=== PATIENT | female | born 1965 | race Caucasian/White ===

== ENCOUNTER 2018-04-26 09:51 | Outpatient (REF) | payer BC, SELFPAY ==
[2018-04-26 19:46] LABS: HCT 39.9 % (36.0-46.0); HGB 13.2 g/dL (12.0-15.5); Mean Corp. HGB Concentration 33.1 g/dL (32.0-36.0); Mean Corpuscular Hemoglobin 29.9 pg (27.0-33.0); Mean Corpuscular Volume 90.3 fL (80-95); Mean Platelet Volume 11.9 fL (8.0-11.0); Platelet Count 110 x1000/uL (130-400); RBC 4.42 m/cumm (4.00-5.20); RBC Distribution Width 12.9 % (11.7-14.6); White Blood Cell Count 3.05 k/cumm (4.4-10.8)
[2018-04-26 19:51] LABS: Anion Gap 5.7 mmol/L (3-11); BUN 13 mg/dL (7-18); CO2 29.3 mmol/L (21.0-32.0); CREATININE 0.68 mg/dL (0.55-1.02); Calcium 8.9 mg/dL (8.5-10.1); Chloride 101 mmol/L (98-107); Glucose 90 mg/dL (70-100); Sodium 136 mmol/L (136-145)
== END 2018-04-26 09:52 ==
LOC: NCHCN 09:51
PROVIDERS: PCP Internal Medicine; Visit Provider Physician Assistant Medical
DX: N39.0 Urinary tract infection, site not specified (principal)
CPT/HCPCS: 80048; 85027; 87086

== ENCOUNTER 2019-07-06 10:56 | Outpatient (REF) | payer BC, SELFPAY ==
[2019-07-06 19:34] LABS: ALT 38 U/L (14-59); AST 27 U/L (15-37); Albumin 4.4 g/dL (3.4-5.0); Alkaline Phosphatase 67 U/L (46-116); Anion Gap 7.9 mmol/L (3-11); BUN 20 mg/dL (7-18); Bilirubin, Total 0.5 mg/dL (0.2-1.0); CO2 30.1 mmol/L (21.0-32.0); CREATININE 0.72 mg/dL (0.55-1.02); Calcium 9.6 mg/dL (8.5-10.1); Chloride 102 mmol/L (98-107); Glucose 96 mg/dL (70-100); Potassium 4.1 mmol/L (3.5-5.1); Sodium 140 mmol/L (136-145); Total Protein 7.7 g/dL (6.4-8.2)
[2019-07-06 19:46] LABS: LDL CHOLESTEROL 51 mg/dL (<100); Vitamin D 25 Total 57.4 ng/ml (30-100)
== END 2019-07-06 11:16 ==
LOC: NCHCN 10:56
PROVIDERS: PCP Internal Medicine; Visit Provider Internal Medicine
DX: Z00.00 Encounter for general adult medical examination without abnormal findings (principal); R73.09 Other abnormal glucose; Z98.84 Bariatric surgery status
CPT/HCPCS: 80053; 82306; 83721; 84443

== ENCOUNTER 2020-06-06 14:49 | Outpatient (REF) | payer BC, SELFPAY ==
[2020-06-06 18:51] LABS: HCT 40.6 % (36.0-46.0); HGB 13.5 g/dL (11.2-15.7); MCH 29.9 pg (27.0-33.0); MCHC 33.3 % (32.0-36.0); MPV 11.4 fL (8.0-11.0); Platelet Count 202 10^3/uL (130-400); RBC 4.51 10^6/uL (3.93-5.22); RDW 12.5 % (11.7-14.6); RDW-SD 41.1 fL
[2020-06-06 19:35] LABS: Vitamin D 25 Total 42.8 ng/ml (30-100)
[2020-06-06 19:41] LABS: ALT 37 U/L (14-59); AST 27 U/L (15-37); Albumin 4.2 g/dL (3.4-5.0); Alkaline Phosphatase 66 U/L (46-116); Anion Gap 6.6 mmol/L (3-11); BUN 16 mg/dL (7-18); Bilirubin, Total 0.7 mg/dL (0.2-1.0); CO2 30.4 mmol/L (21.0-32.0); CREATININE 0.62 mg/dL (0.55-1.02); Calcium 9.5 mg/dL (8.5-10.1); Chloride 103 mmol/L (98-107); Ferritin 47 ng/mL (8-252); Glucose 87 mg/dL (74-106); Potassium 4.3 mmol/L (3.5-5.1); Sodium 140 mmol/L (136-145); Total Protein 7.3 g/dL (6.4-8.2)
[2020-06-06 20:05] LABS: Vitamin B12 > 2000 pg/mL (193-986)
== END 2020-06-06 15:09 ==
LOC: NCHCN 14:49
PROVIDERS: PCP Internal Medicine; Visit Provider Internal Medicine
DX: Z00.00 Encounter for general adult medical examination without abnormal findings (principal); I10 Essential (primary) hypertension; K76.0 Fatty (change of) liver, not elsewhere classified; Z98.84 Bariatric surgery status
CPT/HCPCS: 80053; 82306; 85027; 82607; 82728

== ENCOUNTER 2021-08-21 19:11 | Outpatient (REF) | payer BC, SELFPAY ==
[2021-08-21 19:18] LABS: Abs Immature Grans 0.01 10^3/uL (0.0-0.06); Absolute Basophil Count 0.04 10^3/uL (0.0-0.2); Absolute Eosinophil Count 0.09 10^3/uL (0.0-0.7); Absolute Lymphocyte Count 1.71 10^3/uL (1.2-3.4); Absolute Monocyte Count 0.35 10^3/uL (0.1-0.8); Absolute Neutrophil Count 2.39 10^3/uL (1.2-6.7); Basophils % 0.9; HCT 40.9 % (36.0-46.0); HGB 13.3 g/dL (11.2-15.7); Immature Grans % 0.2; Lymphocytes % 37.3; MCH 28.8 pg (27.0-33.0); MCHC 32.5 % (32.0-36.0); MCV 88.5 fL (80-95); MPV 11.1 fL (8.0-11.0); Monocytes % 7.6; Nucleated RBC 0 %; Platelet Count 218 10^3/uL (130-400); RBC 4.62 10^6/uL (3.93-5.22); RDW 12.7 % (11.7-14.6); RDW-SD 41.1 fL; WBC 4.59 10^3/uL (4.4-10.8)
[2021-08-21 19:32] LABS: Iron 90 ug/dL (50-170); Total Iron Binding Capacity 386 ug/dL (250-450); Transferrin Sat 23 % (15-50)
[2021-08-21 19:46] LABS: ALT 35 U/L (14-59); AST 27 U/L (15-37); Albumin 4.1 g/dL (3.4-5.0); Alkaline Phosphatase 69 U/L (46-116); Anion Gap 7.3 mmol/L (3-11); BUN 17 mg/dL (7-18); Bilirubin, Total 0.5 mg/dL (0.2-1.0); CO2 29.7 mmol/L (21.0-32.0); CREATININE 0.7 mg/dL (0.55-1.02); Calcium 9.4 mg/dL (8.5-10.1); Chloride 105 mmol/L (98-107); Glucose 94 mg/dL (74-106); Potassium 5.1 mmol/L (3.5-5.1); Sodium 142 mmol/L (136-145); TSH 0.66 uIU/mL (0.36-3.74); Total Protein 7.1 g/dL (6.4-8.2)
[2021-08-21 20:53] LABS: Vitamin B12 > 2000 pg/mL (193-986)
== END 2021-08-21 19:12 | disposition home or self-care (01) ==
LOC: LBN 19:11
PROVIDERS: PCP Internal Medicine; Visit Provider Internal Medicine
DX: I10 Essential (primary) hypertension (principal); R73.03 Prediabetes; Z98.84 Bariatric surgery status
CPT/HCPCS: 80053; 82607; 83540; 83550; 84443; 85025

== ENCOUNTER 2022-08-13 14:45 | Outpatient (REF) | payer BC, SELFPAY ==
[2022-08-13 19:30] LABS: HCT 42.8 % (36.0-46.0); HGB 14.1 g/dL (11.2-15.7); MCHC 32.9 % (32.0-36.0); MCV 88 fL (80-95); MPV 10.4 fL (8.0-11.0); Platelet Count 236 10^3/uL (130-400); RBC 4.87 10^6/uL (3.93-5.22); RDW 12.8 % (11.7-14.6); RDW-SD 41.2 fL; WBC 5.69 10^3/uL (4.4-10.8)
[2022-08-13 20:01] LABS: Vitamin D 25 Total 43.3 ng/mL (30-100)
[2022-08-13 20:05] LABS: ALT 50 U/L (14-59); AST 35 U/L (15-37); Albumin 4.3 g/dL (3.4-5.0); Alkaline Phosphatase 83 U/L (46-116); Anion Gap 10.3 mmol/L (3-11); BUN 17 mg/dL (7-18); Bilirubin, Total 0.5 mg/dL (0.2-1.0); CO2 28.7 mmol/L (21.0-32.0); CREATININE 0.7 mg/dL (0.55-1.02); Chloride 101 mmol/L (98-107); Estimated GFR 101.44 (mL/min/1.73m2); Glucose 107 mg/dL (74-106); Potassium 4.2 mmol/L (3.5-5.1); Sodium 140 mmol/L (136-145); TSH 0.67 uIU/mL (0.36-3.74); Total Protein 8.2 g/dL (6.4-8.2)
[2022-08-13 20:11] LABS: Vitamin B12 > 2000 pg/mL (193-986)
== END 2022-08-13 14:46 | disposition home or self-care (01) ==
LOC: NCHCN 14:45
PROVIDERS: PCP Internal Medicine; Visit Provider Internal Medicine
DX: I10 Essential (primary) hypertension (principal); R73.03 Prediabetes; J01.00 Acute maxillary sinusitis, unspecified; Z98.84 Bariatric surgery status
CPT/HCPCS: 80053; 82306; 85027; 82607; 84443

== ENCOUNTER 2023-09-29 16:00 | Outpatient (REF) | payer BC, SELFPAY ==
[2023-09-29 20:36] LABS: HCT 42.2 % (36.0-46.0); HGB 14.6 g/dL (11.2-15.7); MCHC 34.6 % (32.0-36.0); MCV 87 fL (80-95); MPV 10.8 fL (8.0-11.0); Platelet Count 177 10^3/uL (130-400); RBC 4.86 10^6/uL (3.93-5.22); RDW 13.1 % (11.7-14.6); RDW-SD 41.1 fL; WBC 5.92 10^3/uL (4.4-10.8)
[2023-09-29 20:56] LABS: ALT 39 U/L (14-59); AST 27 U/L (15-37); Albumin 4.2 g/dL (3.4-5.0); Alkaline Phosphatase 75 U/L (46-116); Anion Gap 8.7 mmol/L (3-11); BUN 16 mg/dL (7-18); Bilirubin, Total 0.5 mg/dL (0.2-1.0); CO2 29.3 mmol/L (21.0-32.0); CREATININE 0.7 mg/dL (0.55-1.02); Chloride 104 mmol/L (98-107); Estimated GFR 100.81 (mL/min/1.73m2); Glucose 104 mg/dL (74-106); Potassium 3.9 mmol/L (3.5-5.1); Sodium 142 mmol/L (136-145); TSH 0.92 uIU/mL (0.36-3.74); Total Protein 7.7 g/dL (6.4-8.2)
[2023-09-29 20:59] LABS: Hemoglobin A1C 5.9 % (<5.7)
== END 2023-09-29 16:01 | disposition home or self-care (01) ==
LOC: NCHCN 16:00
PROVIDERS: PCP Internal Medicine; Visit Provider Internal Medicine
DX: I10 Essential (primary) hypertension (principal); E11.9 Type 2 diabetes mellitus without complications; Z98.84 Bariatric surgery status
CPT/HCPCS: 80053; 85027; 83036; 84443

== ENCOUNTER 2024-03-27 13:50 | Outpatient (REF) | payer BC, SELFPAY ==
--- OUTSIDE RECORDS SUMMARY | 2024-03-27 14:09 | XMS_ITS | Encounter Summary ---
Author Organization [facility] [place] [address] Care Team Providers Care Rn Home Health Name Role Phone Lew Beltran Primary Care Provider [phone] Encounter Details Date Type Department Care Team (Late st Contact Info) Description 03/21/2018 External Results Gastroenterology at [facility] [place] [address] Jovan Schwartz PA [facility] [place] [address] Social History Tobacco Use Types Packs/Day Years Used Date Smoking Tobacco: Never Smokeless Tobacco: Never Alcohol Use Standard Drinks/Week Comments No 0 (1 standard drink = 0.6 oz pur e alcohol) Sex and Gender Information Value Date Recorded Sex Assigned at Not on file Gender Identity Not on file Sexual Orientation Not on file documented as of this encounter Plan of Treatment Not on file documented as of this encounter Procedures Procedure Name Priority Date/Time Associated Diagnosis Comments EXTERNAL LAB CBC CMP THYROID RESULTS PANEL Routine 03/17/2018 documented in this encounter Results * CBC / CMP / Thyroid External Results (03/17/2018) Total Protein 7.8 Albumin 4.7 Total Bilirubin 0.6 Bili, Direct 0.2 Alk Phos 60 AST 38 ALT 31 GGT 18 Historical Provider MD POINT OF CARE JUVENTINO T ORDERABLES documented in this encounter Visit Diagnoses Not on filedocumented in this encounter Care Teams Rn Home Health Relationship Specialty Start Date End Date Lew Beltran PA [address] [place] [id number] PCP - General General Internal Medicine 04/21/16 documented as of this encounter
--- OUTSIDE RECORDS SUMMARY | 2024-03-27 14:09 | XMS_ITS | Continuity of Care Document ---
Author Organization [facility] Address [address] [place] [address] Care Team Providers Care Medical Donation Professional Name Role Phone Sukhwinder Farooq Primary Care Physician Encounter [id number] Date(s): 03/08/23 - 03/08/[address] [address] Discharge Disposition: Home or Self Care Attending Physician: Sukhwinder Farooq MD Admitting Physician: Sukhwinder Farooq MD Referring Physician: Sukhwinder Farooq MD Allergies, Adverse Reactions, Alerts No Known Medication Allergies Assessment and Plan Future Appointments Immunizations Given and Recorded Vaccine Date Status Refusal Reason influenza virus vaccine, live 06/23/21 Recorded influenza virus vaccine, live 07/18/20 Recorded influenza virus vaccine, live 06/23/19 Recorded influenza virus vaccine, live 07/18/18 Recorded influenza virus vaccine, live 07/19/17 Recorded influenza virus vaccine, live 07/14/16 Recorded SARS-CoV-2 (COVID-19) Ad26 vaccine 12/13/20 Record ed SARS-CoV-2 (COVID-19) mRNA-[id number] vaccine 09/03/20 R ecorded influenza virus vaccine, inactivated 06/26/15 Efrain rded influenza virus vaccine, inactivated 08/09/13 Efrain rded influenza virus vaccine, inactivated 06/06/12 Efrain rded influenza virus vaccine, inactivated 06/19/11 Efrain rded influenza virus vaccine, inactivated 05/22/11 Efrain rded influenza virus vaccine, inactivated 06/06/10 Efrain rded influenza virus vaccine, inactivated 06/25/09 Efrain rded influenza virus vaccine, inactivated 09/06/00 Efrain rded tetanus-diphth toxoids (Td) adult/adol 09/06/00 Re corded measles/mumps/rubella virus vaccine 09/06/00 Recor ded hepatitis B adult vaccine 09/06/00 Recorded tetanus/diphth/pertuss (Tdap) adult/adol 09/06/00 Recorded varicella virus vaccine 09/06/00 Recorded rubella virus vaccine 09/06/00 Recorded Medications aspirin 81 mg oral capsule 0 Refill(s) Start Date: 02/11/23 Status: Ordered atorvastatin 20 mg oral tablet 90 EA, TAKE ONE TABLET BY MOUTH EVERY EVENING, 0 Refill(s) Start Date: 01/07/23 Status: Ordered [place] Calcium with Vitamin D 0 Refill(s) Start Date: 02/11/23 Status: Ordered Fish Oil 500 mg oral capsule 0 Refill(s) Start Date: 02/11/23 Status: Ordered fluocinonide 0.1% topical cream Topical, Daily, 0 Refill(s) Start Date: 02/12/23 Status: Ordered lisinopril 20 mg oral tablet 20 mg = 1 tab, Oral, Daily, # 30 tab, 0 Refill(s) Start Date: 01/07/23 Status: Ordered metoprolol tartrate 50 mg oral tablet 0 Refill(s) Start Date: 01/07/23 Status: Ordered Multiple Vitamins oral capsule 0 Refill(s) Start Date: 02/11/23 Status: Ordered triamcinolone 0.1% topical cream 1 janeth, Topical, BID, 0 Refill(s) Start Date: 02/12/23 Status: Ordered Vitamin B12 0 Refill(s) Start Date: 02/11/23 Status: Ordered Vitamin C 500 mg oral tablet 1,000 mg =, Oral, Daily, 0 Refill(s) Start Date: 02/12/23 Status: Ordered Vitamin D3 0 Refill(s) Start Date: 02/11/23 Status: Ordered Problem List Condition Confirmation Course Effective Dates Status H ealth Status Informant Chest discomfort 1 Confirmed 09/09/19 Active Chronic constipation Confirmed 05/24/16 Active de Quervain's disease of right wrist Confirmed Active Essential hypertension Confirmed 04/23/16 Active Excess panniculus of abdomen Confirmed 02/21/18 Active Fatty liver Confirmed Active History of calculus of kidney 2 Confirmed 09/05/18 Active History of rectal bleeding 3 Confirmed 04/23/16 Active Hyperlipidemia Confirmed 05/24/16 Active Lump of left wrist Confirmed Active Obesity Confirmed Active Palpitations Confirmed Active Prediabetes Confirmed Active 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 CT showed mild hydronephrosis 3Outside Source Comment: Overview: Colonoscopy done on 08/09/15 normal, attributed to constipation Procedures Procedure Date Related Diagnosis Body Site Status R 1st Dorsal compartment rel ease, DeQuervain's. 12/01/21 Completed Due 01/2025 1 01/10/20 Completed Gastric bypass 2 08/12/16 Complete d Trigger finger of right hand 11/27/15 Completed Carpal tunnel decompression 01/16/15 Completed Oophorectomy 08/17/11 Completed Tubal Reanastamosis Right 1996 Completed delivery 1990 Complet ed Tubal ligation 1990 Completed delivery 1985 Complet ed Eye surgery 1968 Completed 1Pap Due - 01/2025 06/06/09 - WNL/Neg; 09/28/14 - Neg/Neg; 01[facility]11/20 [facility] [place] Social History Type Response Tobacco Never tobacco user T obacco Use:. Sex Female Patient Care team information Care Team Personnel Name: Sukhwinder Farooq MD Position: No Access Member Role: Informed Provider Address: Address: [address] [address]- [place] Care Team Related Persons Name: HUE BELLA Address: Home
--- OUTSIDE RECORDS SUMMARY | 2024-03-27 14:09 | XMS_ITS | Data Portability ---
Author Organization [facility] Address [address] [place] [address] Care Team Providers Care Restrooms Or Lounges Maid Name Role Phone ELENA KILLIAN Primary Care Provider Assessment No assessment recorded. Plan of Treatment Reminders Order Date Submit Date Provider Last Modified By Organization Details Last Modified Time Details Appointments Follow Up 2023 10:00A Enrico KILLIAN Not available Not available Not available Follow Up 30 2023 11:00A Enrico KILLIAN Not available Not available Not available Lab HbA1c (hemoglob in A1c), blood [address] [facility] (Registration ), [address] [place] [address] [place], [address], 10/06/2023 07:11:47 TSH, serum or plasma [address] [facility] (Registration ), [address] [place] [address] [place], [address], 10/06/2023 07:11:47 CMP, serum or plasma 2023 024 [facility] (Registration ), [address] [place] [address] [place], [address], 09/29/2023 21:00:30 CBC 2023 024 [facility] (Registration ), [address] [place] [address] Dr [facility] [place], [address], 09/29/2023 20:40:26 Referral hand surgeon referral - Dr Jacques - pt developed pain and visible edema adjacent to L CMC about a month after synovial cyst excision . Evaluate and manage as indicated . 2023 024 [facility], [address] [place] [address] , [address], [place], [address], 10/20/2023 09:27:26 Procedures None recorded. Surgeries None recorded. Imaging None recorded. Medication Orders doxycycli ne hyclate 100 mg capsule 2022 023 [employer] [address], [address] [facility], [place], [address], 09/29/2023 13:58:38 atorvasta tin 20 mg tablet 2023 024 [email or web address] [address], [address] [facility], [place], [address], 09/29/2023 15:10:42 lisinopri l 20 mg tablet 2023 024 [email or web address] [address], [address] [facility], [place], [address], 09/29/2023 15:10:42 Bactrim DS 800 mg-160 mg tablet 2023 024 [employer] [address], [address] [facility], [place], [address], 03/27/2024 09:52:16 Bactrim DS 800 mg-160 mg tablet 2023 024 [email or web address] [employer] [address], [address] [place], [address], 03/27/2024 09:52:10 Patient TargetsNo targets recorded. Patient InstructionsNo instructions recorded. Reason for Referral Hand Surgeon Referral for Os teoarthrosis of the carpometacarpal joint of the thumb Dr Jacques - pt developed pain and visible edema adjacent to L CMC about a month after synovial cyst excision . Evaluate and manage as indicated. Referring Physician: Elena Killian, Internal Medicine, Encounter Date: 09/29/2023 Results Created Date Observation Date Name Description Value Unit Range Abnormal Flag LastModifiedBy Organization Detail LastModifiedTime 09/29/19 24 09/29/2023 COMPL ETE BLOOD COUNT NO DIFF WBC 5.92 10_3/ uL 4.4-10 .8 normal Not Available [address] [place], [address] 09/29/2023 20:40:26 09/29/19 24 09/29/2023 COMPL ETE BLOOD COUNT NO DIFF RBC 4.86 10_6/ uL 3.93-5 .22 normal Not Available [address] [place], [address] 09/29/2023 20:40:26 09/29/19 24 09/29/2023 COMPL ETE BLOOD COUNT NO DIFF HGB 14.6 g/dL 11.2-1 5.7 normal Not Available [address] [place], [address] 09/29/2023 20:40:26 09/29/19 24 09/29/2023 COMPL ETE BLOOD COUNT NO DIFF HCT 42.2 % 36.0-4 6.0 normal Not Available [address] [place], [address] 09/29/2023 20:40:26 09/29/19 24 09/29/2023 COMPL ETE BLOOD COUNT NO DIFF MCV 87 fL 80-95 normal Not Available Gerald burr [address] [place], [address] 09/29/2023 20:40:26 09/29/19 24 09/29/2023 COMPL ETE BLOOD COUNT NO DIFF MCH 30.0 pg 27.0-3 3.0 normal Not Available [address] [place], [address] 09/29/2023 20:40:26 09/29/19 24 09/29/2023 COMPL ETE BLOOD COUNT NO DIFF MCHC 34.6 % 32.0-3 6.0 normal Not Available [address] [place], [address] 09/29/2023 20:40:26 09/29/19 24 09/29/2023 COMPL ETE BLOOD COUNT NO DIFF RDW 13.1 % 11.7-1 4.6 normal Not Available [address] [place], [address] 09/29/2023 20:40:26 09/29/19 24 09/29/2023 COMPL ETE BLOOD COUNT NO DIFF platelet count 177 10_3/ uL 130-40 0 normal Not Available [address] [place], [address] 09/29/2023 20:40:26 09/29/19 24 09/29/2023 COMPL ETE BLOOD COUNT NO DIFF MPV 10.8 fL 8.0-11 .0 normal Not Available [address] [place], [address] 09/29/2023 20:40:26 09/29/19 24 09/29/2023 COMPR EHENS IBETH METAB OLIC PANEL calcium 10.0 mg/dL 8.5-10 .1 normal Not Available [address] [place], [address] 09/29/2023 21:00:30 09/29/19 24 09/29/2023 COMPR EHENS IBETH METAB OLIC PANEL glucose 104 mg/dL 74-106 normal Not Available [address] [place], [address] 09/29/2023 21:00:30 09/29/19 24 09/29/2023 COMPR EHENS IBETH METAB OLIC PANEL BUN 16 mg/dL 7-18 normal Not Available [address] [place], [address] 09/29/2023 21:00:30 09/29/19 24 09/29/2023 COMPR EHENS IBETH METAB OLIC PANEL creatinine 0.7 mg/dL 0.55-1 .02 normal Not Available [address] [place], [address] 09/29/2023 21:00:30 09/29/19 24 09/29/2023 COMPR EHENS IBETH METAB OLIC PANEL estimated GFR 100.81 mL/min /1.73m 2 Not Available [address] [place], [address] 09/29/2023 21:00:30 09/29/19 24 09/29/2023 COMPR EHENS IBETH METAB OLIC PANEL total protein 7.7 g/dL 6.4-8. 2 normal Not Available [address] [place], [address] 09/29/2023 21:00:30 09/29/19 24 09/29/2023 COMPR EHENS IBETH METAB OLIC PANEL albumin 4.2 g/dL 3.4-5. 0 normal Not Available [address] [place], [address] 09/29/2023 21:00:30 09/29/19 24 09/29/2023 COMPR EHENS IBETH METAB OLIC PANEL bilirubin, total 0.5 mg/dL 0.2-1. 0 normal Not Available [address] [place], [address] 09/29/2023 21:00:30 09/29/19 24 09/29/2023 COMPR EHENS IBETH METAB OLIC PANEL alk phos 75 U/L 46-116 normal Not Available [address] [place], [address] 09/29/2023 21:00:30 09/29/19 24 09/29/2023 COMPR EHENS IBETH METAB OLIC PANEL sodium 142 mmol/ L 136-14 5 normal Not Available [address] [place], [address] 09/29/2023 21:00:30 09/29/19 24 09/29/2023 COMPR EHENS IBETH METAB OLIC PANEL potassium 3.9 mmol/ L 3.5-5. 1 normal Not Available [address] [place], [address] 09/29/2023 21:00:30 09/29/19 24 09/29/2023 COMPR EHENS IBETH METAB OLIC PANEL chloride 104 mmol/ L 98-107 normal Not Available [address] [place], [address] 09/29/2023 21:00:30 09/29/19 24 09/29/2023 COMPR EHENS IBETH METAB OLIC PANEL CO2 29.3 mmol/ L 21.0-3 2.0 normal Not Available [address] [place], [address] 09/29/2023 21:00:30 09/29/19 24 09/29/2023 COMPR EHENS IBETH METAB OLIC PANEL anion gap 8.7 mmol/ L 3-11 normal Not Available [address] [place], [address] 09/29/2023 21:00:30 09/29/19 24 09/29/2023 COMPR EHENS IBETH METAB OLIC PANEL AST 27 U/L 15-37 normal Not Available [address] [place], [address] 09/29/2023 21:00:30 09/29/19 24 09/29/2023 COMPR EHENS IBETH METAB OLIC PANEL ALT 39 U/L 14-59 normal Not Available [address], [address] 09/29/2023 21:00:30 09/29/19 24 09/29/2023 TSH TSH 0.92 uIU/m L 0.36-3 .74 normal Not Available [address] [place], [address] 09/29/2023 21:00:30 09/29/19 24 09/29/2023 HEMOG LOBIN A1C hemoglobin A1C 5.9 % <5.7 high Not Available [address] [place], [address] 09/29/2023 21:04:31 03/27/20 24 03/27/2024 hemog lobin A1C, finge rstic k hemoglobin A1C 6.2 % <5.7 Not Available [facility] [address] [address], [place], [address], 03/27/2024 08:43:09 10/18/19 24 10/18/2023 MR wrist lt wo contr ast EXAM: MRI OF LEFT WRIST RIS EXAM DATE/T ADAM: 2023 08:26 INDICA TION: Radial side pain. Previo us gangli on excisi on PROCED URE: 2.6 mm T1 and fat suppre ssed T2 3-plan e imagin g perfor med. 2 mm fat suppre ssed T1 gradie nt echo bolton l imagin g perfor med. FINDIN GS: Compar jose a made with preope rative MRI of 02 Feb 2023. Previo us radial side gangli on is no longer presen t. Howeve r, there is a smalle r, appare nt recurr ent lobula r gangli on along the volar aspect of the radios caphoi d joint, seen best on axial and sagitt al imagin g. This measur es up to approx imatel y 1.2 cm in longit udinal extent . There is now thicke kellen of the extens or pollic is brevis and abduct or pollic is longus tendon s with eviden ce of tendon edema in both. There is mild tenosy noviti s. There is perite ndinou s soft tissue edema noted. The appear ance is consis tent with de Querva in's tenosy noviti s. Scapho lunate and lunato trique tral ligame nts intact . TFCC intact . No fluid noted in distal radiou lnar joint, radioc arpal, or midcar pal joints . There is increa sing edema in the ulnar styloi d since prior study. There is mild soft tissue edema at this level. Extens or carpi ulnari s tendon is intact howeve r. There is again noted to be osteoa rthrit ic change in the first carpom etacar pal joint with increa sing bone marrow edema in the distal aspect of the trapez ium and the proxim al aspect of the first metaca rpal. There is again noted to be thicke kellen of the ulnar side capsul e of the first carpom etacar pal joint with surrou nding soft tissue edema and mild fluid. Flexor tendon s, median nerve, and flexor retina culum intact . Extens or tendon s intact . Multip le bone island s noted in the carpus as previo usly. IMPRES DAVID: Status post excisi on of previo us radial side gangli on. There is a small recurr ent gangli on which appear s to emanat e from the radios caphoi d joint. There is eviden ce of de Querva in's tenosy noviti s. Increa sing bone marrow edema in first carpom etacar pal joint with contin ued presen ce of ulnar side capsul ar thicke kellen and soft tissue edema and fluid. Increa sing bone marrow edema in ulnar styloi d. THIS IS AN ELECTR ONICAL LY VERIFI ED REPORT 024 11:43 AM: HALEY WRIGHT M.D. [address] , [place], [address], 10/18/2023 12:29:22 10/18/19 24 10/18/2023 MRI, wrist , w/o contr ast No observ ation record ed. [address] [facility] [address] , [place], [address], 10/18/2023 12:29:03 11/25/19 24 11/25/2023 mg mammo pearl scree kellen bilat -M2 HISTOR Y: Rich clinton is 58 years old and is being seen for screen ing. The patien t has no person al histor y of cancer . The patien t has no family histor y of breast cancer . FILMS COMPAR ED: The presen t examin ation has been compar ed to prior imagin g studie s perfor med at [facility] on 2021 and 2022. MAMMOG CHRISTOPHER FINDIN GS: The follow ing mammog raphic views were obtain ed: bilate ral cranio caudal , bilate ral cranio caudal with tomosy nthesi s, bilate ral mediol ateral obliqu e, bilate ral mediol ateral obliqu e with tomosy nthesi s. The breast s are almost entire ly fat. No suspic ious masses , calcif icatio ns or other abnorm alitie s are seen. IMPRES DAVID: There is no mammog raphic eviden ce of malign alan. Routin e follow -up mammog christopher in 1 year is recomm ended. BI-RAD S CATEGO RY: 1 Negati ve This examin ation underw ent CAD evalua tion utiliz ing R2 Versio n 2.4.0. 12. Report Signed by: HALEY WRIGHT M.D. on 2023 16:49: [address], [place], [address], 11/25/2023 18:25:21 02/28/20 24 02/28/2024 XR, humer us EXAM: LEFT HUMERU S RIS EXAM DATE/T ADAM: 2023 14:23 INDICA TION: Lump No acute bone, joint, or soft tissue abnorm ality identi fied radiog raphic ally. THIS IS AN ELECTR ONICAL LY VERIFI ED REPORT 024 4:17 PM: HALEY WRIGHT M.D. [address], [place], [address], 02/28/2024 17:43:59 03/04/20 24 03/01/2024 MR upper ext lt w/wo con nonjt EXAM: MRI OF LEFT ARM WITHOU T AND WITH CONTRA ST RIS EXAM DATE/T ADAM: 2023 13:31 INDICA TION: Mass distal humeru s/osvaldo ps area PROCED URE: 3 mm T1 and fat suppre ssed T2 3-plan e imagin g perfor med. Patien t then receiv ed 17 ml of intrav enous Dotare m and postco ntrast fat suppre ssed three plane T1 images obtain ed. FINDIN GS: Compar jose a made with plain films of 28 February 2024. Area of mass is marked . Tyrese xiong with the mass is an ellipt ical, hyperi ntense T1, hypoin tense fat suppre ssed T2 mass within the biceps muscle belly. This has a longit udinal extent of 6.7 cm and measur es 2.6x1. 4 cm in transv erse plane. There is a thin layer of biceps muscle along the periph andrés of the mass. There is no enhanc ement of the mass. Adjace nt subcut aneous fat appear s unrema rkable . No other muscle signal intens ity abnorm alitie s are seen. Visual ized biceps and tricep s tendon s intact . Bone marrow signal intens ities show no abnorm alitie s. IMPRES DAVID: Mass in biceps muscle belly is most consis tent with lipoma . Clinic al follow -up recomm ended. THIS IS AN ELECTR ONICAL LY VERIFI ED REPORT 024 1:49 PM: HALEY WRIGHT M.D. [email or web address] [facility] [address] [facility] , [place], [address], 03/05/2024 07:23:21 Result Notes None recorded. Problems Name Status Onset Date Resolution Date Notes Provider Name and Address Organization Details Recorded Time Essential hypertension Active 200402/08/2023 - Comments only - Elena Killian MD - Good control labs up-to-date Problem Code: I10; Problem Code Type: ICD-10; Not Available [facility] 3 05:12:27 Nervous system and sense organ diseases Active 2014 Not Available [facility] 3 05:12:27 Chronic sinusitis Completed 201404/29/2015 Problem Code: J32.9; Problem Code Type: ICD-10; Not Available [facility] 3 05:12:28 Acute pharyngitis Completed 201404/29/2015 Problem Code: J02.9; Problem Code Type: ICD-10; Not Available [facility] 3 05:12:28 Eating disorder Active 2014 Problem Code: F50.9; Problem Code Type: ICD-10; Not Available [facility] 3 05:12:28 History of disorder of digestive system Active 2014 Problem Code: Z87.19; Problem Code Type: ICD-10; Not Available [facility] 3 05:12:28 Chest pain Active 201501/04/2020 - Comments only - Elena Killian MD - Clearly not cardiac she has excellent risk factor modification Problem Code: R07.89; Problem Code Type: ICD-10; Not Available [facility] 3 05:12:28 History of bariatric surgical procedure Active 201506/06/2020 - Comments only - Elena Killian MD - Needs some vitamin monitoring as well as DEXA because of this. 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 Up-to-date. Should consider the shingles shot sometime in the next few years. Problem Code: Z00.00; Problem Code Type: ICD-10; Not Available [facility] 3 05:12:28 Urolithiasis Active 201706/30/2018 - Comments only - Elena Killian MD - No recurrence and she is still pushing fluids, either water or Crystal light. Problem Code: N20.9; Problem Code Type: ICD-10; Not Available [facility] 3 05:12:28 Urinary tract infectious disease Completed 201704/27/2018 04/26/2018 - Comments only - Jose Armando Rojas PA-C - Urine dip positive for leukocytes and blood. Pending microbe. Given recent chills also check CBC. Treat with antibiotics. Follow-up with urology for possible urogram and/or cystoscopy. Problem Code: N39.0; Problem Code Type: ICD-10; Not Available [facility] 3 05:12:29 Steatosis of liver Active 201701/04/2020 - Comments only - Elena Killian MD - Recheck LFTs in the fall as well. This is been much improved since her bariatric surgery. Problem Code: K76.0; Problem Code Type: ICD-10; Not Available [facility] 3 05:12:29 Urinary tract infectious disease Completed 201912/20/2019 12/13/2019 - Comments only - Clarissa MARK - - Rx for bactrim BID for 5 days - pt declined pyridium script for now - push plenty of fluids - call with any questions or concerns Problem Code: N39.0; Problem Code Type: ICD-10; Not Available [facility] 3 05:12:29 Acquired absence of ovary Active 2019 Problem Code: Z90.721; Problem Code Type: ICD-10; Not Available [facility] 3 05:12:29 Gynecologic examination Active 2019 Problem Code: Z01.419; Problem Code Type: ICD-10; Not Available [facility] 3 05:12:29 [place] - lesion Active 201906/06/2020 - Comments only - Elena Killian MD - Too small for any excision today. Reviewed how to keep weight off this and recommended a ped egg. Problem Code: L84; Problem Code Type: ICD-10; Not Available [facility] 3 05:12:30 Bone density finding Completed 201906/20/2020 Problem Code: M85.80; Problem Code Type: ICD-10; Not Available [facility] 3 05:12:30 Enthesopathy Completed 201909/09/2020 07/10/2020 - Comments only - Elena Killian MD - I think this is most likely take her veins tendinitis. She has a little more swelling and tenderness around the joint than usual, suggesting the possibility of acute arthritis like pseudogout. However overall her exam and history suggests an overuse issue. I put her into a simple splint to prevent abduction and extension. If she goes through the plaster cast in just a few days time I can meet her the hospital to do fiberglass. Considered in a short course of steroids possible pseudogout, however with her history of diabetes Radha and I were reluctant to go there. I think she can use Motrin for just a few days (does not use long-term due to her bariatric surgery). Problem Code: M77.9; Problem Code Type: ICD-10; Not Available [facility] 3 05:12:30 Palpitations Active 202002/20/2021 - Comments only - Elena Killian MD - Is a very rare on her low-dose beta-brown. She has good exercise tolerance and never gets this while she is exercising. Problem Code: R00.2; Problem Code Type: ICD-10; Not Available [facility] 3 05:12:30 At risk - finding Active 202009/11/2020 - Comments only - Elena Killian MD - Who got the Fuller vaccine on 1229 the left deltoid. She had typical achiness the first day or 2, then no symptoms until 2 days ago. Since then she has developed Problem Code: Z91.89; Problem Code Type: ICD-10; Not Available [facility] 3 05:12:30 Obesity Active 202008/21/2021 - Comments only - Elena Killian MD - Discussed ways to reduce the snacking. Problem Code: E66.9; Problem Code Type: ICD-10; Not Available [facility] 3 05:12:30 Radial styloid tenosynovitis Active 2020 Problem Code: M65.4; Problem Code Type: ICD-10; Not Available [facility] 3 05:12:30 Postmenopausa l bleeding Active 202008/21/2021 - Comments only - Elena Killian MD - If this recurs she will likely need endometrial sampling biopsy. Problem Code: N95.0; Problem Code Type: ICD-10; Not Available [facility] 3 05:12:31 Transient cerebral ischemia Active 202108/13/2022 - Comments only - Elena Killian MD - She had an episode of syncope with minor speech effects. I had recommended carotid ultrasound which for some reason did not get done. I am reordering that now. She has not had any recurrence of symptoms and over 6 months. Problem Code: G45.9; Problem Code Type: ICD-10; Not Available [facility] 3 05:12:31 Acute maxillary sinusitis Completed 202109/10/2022 08/13/2022 - Comments only - Elena Killian MD - Most likely viral, I do not recommend antibiotics unless this persists beyond a couple of weeks. Recommended a [place] pot. Problem Code: J01.00; Problem Code Type: ICD-10; Not Available [facility] 3 05:12:31 Abdominal pain Completed 202201/26/2023 Problem Code: R10.9; Problem Code Type: ICD-10; Not Available [facility] 3 05:12:31 Enthesopathy of lower limb Active 2022 Problem Code: M76.9; Problem Code Type: ICD-10; Not Available [facility] 3 05:12:31 Phlebitis of superficial veins of lower extremity Active 202203/08/2023 - Comments only - Elena Killian MD - There is really nothing to see now but I cannot come up with a better explanation than possible phlebitis. Because there was the risk of travel I am getting check ultrasound. She will increase her aspirin until we have results. She does not otherwise have a priori high DVT risk. Problem Code: I80.00; Problem Code Type: ICD-10; Not Available [facility] 3 05:12:31 Upper respiratory tract infection caused by Influenza virus Completed 202202/08/2023 Problem Code: J11.1; Problem Code Type: ICD-10; Not Available [facility] 3 05:12:42 Carpal tunnel syndrome of right wrist Completed 201406/02/2023 Problem Code: G56.01; Problem Code Type: ICD-10; Not Available [facility] 3 05:12:43 Dysuria Completed 202102/08/2023 Problem Code: R30.0; Problem Code Type: ICD-10; Not Available [facility] 3 05:12:47 Disorder of sacrum Completed 201506/24/2017 Not Available [facility] 3 05:12:48 Pain of left knee joint Completed 201406/24/2017 Problem Code: M25.562; Problem Code Type: ICD-10; Not Available [facility] 3 05:12:49 Type 2 diabetes mellitus without complication Completed 201406/24/2017 Problem Code: E11.9; Problem Code Type: ICD-10; MD [address], [place], [address] , [facility]. 4 10:33:43 Impaired glucose tolerance Completed 200406/02/2023 Not Available [facility] 3 05:12:50 Erythema nodosum Completed 200312/22/2016 Problem Code: 695.2; Problem Code Type: ICD-9; Not Available [facility] 3 05:12:51 Tachycardia Completed 200812/22/2016 Problem Code: 785.0; Problem Code Type: ICD-9; Not Available [facility] 3 05:12:52 Cough Completed 201406/24/2017 Problem Code: R05; Problem Code Type: ICD-10; Not Available [facility] 3 05:12:53 Hemorrhage of rectum and anus Completed 201406/02/2023 Problem Code: K62.5; Problem Code Type: ICD-10; Not Available [facility] 3 05:12:53 Type 2 diabetes mellitus Completed 201412/22/2016 Not Available [facility] 3 05:12:54 Hypertensive disorder Completed 200406/02/2023 Not Available [facility] 3 05:12:54 Traumatic or non-traumatic injury Completed 201506/24/2017 Problem Code: T14.8; Problem Code Type: ICD-10; Not Available [facility] 3 05:12:55 Malaise Completed 202202/08/2023 Problem Code: R53.81; Problem Code Type: ICD-10; Not Available [facility] 3 05:12:56 Blood glucose outside reference range Completed 200411/09/2019 Problem Code: R73.09; Problem Code Type: ICD-10; Not Available [facility] 3 05:12:57 Plantar fascial fibromatosis Completed 202203/27/2024 Problem Code: M72.2; Problem Code Type: ICD-10; ELENA KILLIAN MD [address], [place], [address] , [facility]. 4 10:12:47 Type 2 diabetes mellitus without complication Active 2023 Problem Code: E11.9; Problem Code Type: ICD-10; ELENA KILLIAN MD [address], [place], [address] , [facility] 4 10:33:43 Notes:*Problem Name: Lvh Ech o 05/30/14 60% *ICD-10 Codes: *Problem Status: active *Comments: 06/30/2018 - Comments only - Elena Killian MD - I am recommending that she continue on an DAYNA inhibitor long-term because of this. *Note Date: 06/01/2014 Problem Notes None recorded. Procedures Surgical History Date Name Laterality Status Provider Name and Address Organization Details Recorded Time 4 Date of Last Mammogram completed CORNELIO Mitchell, [facility] 12/10/2023 13:59:50 0 Date of Last Pap Smear completed CORNELIO Mitchell, [facility] 12/10/2023 14:01:08 6 Bariatric Surgery completed CORNELIO Mitchell, [facility] 12/10/2023 14:07:58 5 Colposcopy completed CORNELIO Mitchell, [facility] 12/10/2023 13:59:38 5 Colonoscopy completed CORNELIO Mitchell, [facility] 12/10/2023 13:58:15 5 Carpal tunnel surgery completed CORNELIO Mitchell, [facility] 12/10/2023 14:06:49 5 release of trigger finger completed CORNELIO Mitchell, [facility] 12/10/2023 14:08:53 Imaging Results Imaging Date Name Status LastModified by Organiz ation Details LastModified Time 10/18/2023 MR wrist lt wo contrast completed [email or web address], [place], [address], 10/18/2023 12:29:22 10/18/2023 MRI, wrist, w/o contrast completed [address] [facility] [address], [place], [address], 10/18/2023 12:29:03 11/25/2023 mg mammo pearl screening bilat-M2 completed [address], [place], [address], 11/25/2023 18:25:21 02/28/2024 XR, humerus completed [address], [place], [address], 02/28/2024 17:43:59 03/01/2024 MR upper ext lt w/wo con nonjt completed [address], [place], [address], 03/05/2024 07:23:21 Procedure Notes None recorded. Medical Equipment None Reported. Allergies No known drug allergies Medications Name Sig Start Date Stop Date Status Note LastModified by Organization Details LastModified Time amoxicill in 500 mg capsule Take 2 capsule by mouth twice a day 08/20 completed Not Available Not Available Not Available metformin 500 mg tablet 1 TAB twice daily 12/12 completed Not Available Not Available Not Available Augmentin 875 mg-125 mg tablet Take 1 tablet by mouth twice daily. 05/06 completed Not Available Not Available Not Available doxycycli ne hyclate 100 mg capsule TAKE ONE CAPSULE BY MOUTH TWICE A DAY FOR 10 DAYS 09/29 completed Not Available Not Available Not Available atorvasta tin 20 mg tablet TAKE ONE TABLET BY MOUTH EVERY EVENING AT BEDTIME active Not Available Not Available No t Available biotin 5 mg capsule 1 twice daily 2016 active OTC Not Available Not Available Not Avai lable metoprolo l succinate ER 50 mg tablet,ex tended release 24 hr TAKE ONE TABLET BY MOUTH EVERY DAY active Not Available Not Available No t Available hydrocodo ne 5 mg-acetam inophen 325 mg tablet TAKE ONE TABLET BY MOUTH EVERY 6 HOURS NEEDED FOR PAIN 03/27 completed Not Available Not Available Not Available metoprolo l succinate ER 50 mg tablet,ex tended release 1 tab daily 03/27 completed Not Available Not Available Not Available lisinopri l 20 mg tablet TAKE ONE TABLET BY MOUTH EVERY DAY active Not Available Not Available No t Available metoprolo l succinate ER 100 mg tablet,ex tended release 24 hr Take 1 by mouth daily 2013 active increase d to [address] Deluca n Not Available Not Available Not Available Pyridium 200 mg tablet 1 TAB three times daily 06/03 completed Not Available Not Available Not Available Zithromax Z-Frank 250 mg tablet 11/01 completed Not Available Not Available Not Available fluocinon you 0.05 % topical ointment apply ointment twice daily to rash on arm 2013 active Not Available Not Available Not Avai lable acetamino phen 300 mg-codein e 30 mg tablet 1 po q4-6h prn cough 07/09 completed Not Available Not Available Not Available sulfameth oxazole 800 mg-trimet hoprim 160 mg tablet TAKE ONE TABLET BY MOUTH TWICE A DAY 03/27 completed Not Available Not Available Not Available triamtere ne 37.5 mg-hydroc hlorothia zide 25 mg capsule 1 cap daily 08/24 completed Not Available Not Available Not Available triamcino lone acetonide 0.1 % topical cream Apply twice a day as needed 2015 active Not Available Not Available Not Avai lable amoxicill in 500 mg tablet 1CAP twice daily 11/09 completed Not Available Not Available Not Available amoxicill in 875 mg tablet Take 1 tablet by mouth twice a day 10/31 completed Not Available Not Available Not Available Vitamin D3 10 mcg (400 unit) tablet Take 1 tablet by mouth daily 2013 active Not Available Not Available Not Avai lable cyanocoba chava (vit B-12) 500 mcg tablet 1 tab daily 2015 active Not Available Not Available Not Avai lable [employer] Ultra Test strips Use 1 strip via meter as directed test twice [facility] 2020 active Not Available Not Available Not Avai lable simvastat in 20 mg tablet TAKE ONE TABLET BY MOUTH EVERY DAY 2017 active Not Available Not Available Not Avai lable ferrous sulfate 325 mg (65 mg iron) tablet 1 TAB TID 01/23 completed Not Available Not Available Not Available metformin 1,000 mg tablet Take 1 by mouth twice daily 08/10 completed Not Available Not Available Not Available lisinopri l 10 mg tablet 1 TAB QD 05/20 completed Not Available Not Available Not Available ursodiol 300 mg capsule 1 po bid for 6 months 06/24 completed Not Available Not Available Not Available aspirin 81 mg tablet Take 1 tablet once a day 2014 active Not Available Not Available Not Avai lable metoprolo l succinate ER 25 mg tablet,ex tended release 24 hr 1&1/2tab s daily 05/01 completed Not Available Not Available Not Available ketoconaz ole 2 % topical cream APPLY TOPICALL Y TO THE AFFECTED AREA(S) TWO TIMES A DAY active Not Available Not Available No t Available lisinopri l 40 mg tablet Take 1 by mouth daily 08/24 completed Not Available Not Available Not Available Adult Aspirin EC Low Strength 81 mg tablet,de layed release 1 TAB daily 2014 active Not Available Not Available Not Avai lable Vitamin-C 500 mg tablet Take 2 tablet once a day 2011 active Not Available Not Available Not Avai lable Multivita mins with Iron tablet 1tab qd 2011 active Not Available Not Available Not Avai lable Fish Oil 1,000 mg capsule take 1 cap daily 08/04 completed Not Available Not Available Not Available Vitamin C 2011 active Not Available Not Available Not Avai lable vitamin B complex 1tab qd 08/04 completed Not Available Not Available Not Available Vitamin D-400 1 tab QD 2013 active Not Available Not Available Not Avai lable Robitussi n A-C 1-2 tsp. q4-6h prn cough 11/26 completed Not Available Not Available Not Available multivita min active Not Available Not Available Not Available Multivita mins 1tab qd 07/26 completed Not Available Not Available Not Available OneTouch Ultra2 Meter kit Use 1 kit as directed test twice montly 2020 active Not Available Not Available Not Avai lable cholecalc iferol (vitamin D3) 25 mcg (1,000 unit) tablet 1 tablet twice a day 2013 active Not Available Not Available Not Avai lable omeprazol e 20 mg tablet,de layed release Take 1 tab by mouth daily. 12/22 completed Not Available Not Available Not Available Citracal- D3 Petites 200 mg-200 unit tablet 2 tablet twice a day 2015 active Not Available Not Available Not Avai lable Citracal- D3 Petites 200 mg calcium-6 .25 mcg (250 unit) tablet 2 tabs twice daily 2015 active Not Available Not Available Not Avai lable OneTouch Delica Lancing Device kit Use 1 kit as directed as directed Check BG twice per month, more if you are ill or have dietary indiscre tion 2020 active Not Available Not Available Not Avai lable Fish Oil 1,000 mg (120 mg-180 mg) capsule Take 1 capsule by mouth once a day active Not Available Not Available No t Available cyanocoba chava (vitamin B-12) 1,000 mcg capsule Take 1 cap by mouth weekly 2023 active Not Available Not Available Not Avai lable Ozempic 0.25 mg or 0.5 mg (2 mg/1.5 mL) subcutane ous pen injector .25 mg IM weekly for 2 weeks then increase to .5 mg 2023 active Not Available Not Available Not Avai lable Flowflex COVID-19 Antigen Home Test kit active Not Available Not Available Not Available Vitals Date Recorded Body height Oxygen saturation Oxygen saturation in Arterial blood by Pulse oximetry Heart rate Body temperature Systolic blood pressure Diastolic blood pressure Provider Name and Address Organization Details Last Updated DateTime 3 163.195 cm 95 % 95 % 124 /min 98.8 [degF] 112 mm[Hg] 62 mm[Hg] MARIZOL Man [place] - [facility]. 3 09:51:01 Date Recorded Body height Body mass index (BMI) Body weight Body temperature Respiratory rate Oxygen saturation Oxygen saturation in Arterial blood by Pulse oximetry Heart rate Systolic blood pressure Diastolic blood pressure Provider Name and Address Organization Details Last Updated DateTime 4 163.195 cm 32.4 kg/m2 94408.5 5 g 97.7 [degF] 18 /min 99 % 99 % 88 /min 120 mm[Hg] 70 mm[Hg] MAHOGANY CEDENO LPN [facility] 4 13:57:34 Date Recorded Body height Body mass index (BMI) Body weight Oxygen saturation Oxygen saturation in Arterial blood by Pulse oximetry Heart rate Body temperature Systolic blood pressure Diastolic blood pressure Provider Name and Address Organization Details Last Updated DateTime 4 163.195 cm 31.7 kg/m2 70891.8 6 g 99 % 99 % 79 /min 97.7 [degF] 126 mm[Hg] 64 mm[Hg] Misael Silva RN [facility] 4 09:50:26 Social History Question Answer Notes LastModified by Organizat ion Details LastModified Time Tobacco Smoking Status Never Smoker [facility]OG[facility] 09/29/2023 14:01:54 Do You Have An Advance Directive? No [email or web address] Information not available 12/10/2023 What Was The Date Of Your Most Recent Tobacco Screening? 09/29/2023 [email or web address] Information not available 09/29/2023 Sex: Female Functional Status None recorded. Mental Status None recorded. Family History Relationship Description Onset Age of this Age Resolved Age Notes Mother Family history of acute medical disorder GERD Father Family history of malignant neoplasm Throat & sravan nx [place], smoker and drinker Father Family history of malignant neoplasm of lung Throat & larynx [place], smoker and drinker Notes:*Problem: FAMILY HISTO RY: Father at age 65, he was a drinker, CAD, hypertension. Doesn't really know his history that well. Mother living, age 64, in good health. She has one brother, one sister in good health. No GI cancers in the family. Medical History No medical history recorded. Gynecological History Statement/Question Response Colposcopy 08/09/2015 Date of Last Pap Smear 01/11/2020 Date of Last Mammogram 11/25/2023 Obstetrics History GPAL:G 0 P 0 0 0 0 Immunizations Vaccine Type Date Status Provider Name and Address Organization Details Recorded Time Pneumococcal conjugate PCV20, polysaccharide FPQ886 conjugate, adjuvant, PF 09/29/2023 completed ELENA KILLIAN MD [address], [place], [address], [facility] 09/30/2023 06:40:58 MMR 03/30/2006 completed Not Available [facility] 04:14:22 Td (adult), 2 Lf tetanus toxoid, preservative free, adsorbed 06/24/2017 completed Not Available [facility] 07/16/2023 04:14:22 Tdap 02/24/2006 completed Not Available [facility] 04:14:22 Tdap 08/13/2022 completed Not Available [facility] 04:14:22 Novel [id number], all formulations 08/27/2009 completed Not Available [facility] 07/16/2023 04:14:23 Influenza, split virus, quadrivalent, PF 08/13/2022 completed Not Available [facility] 07/16/2023 04:14:23 COVID-19, mRNA, LNP-S, PF, 100 mcg/0.5mL dose or 50 mcg/0.25mL dose 09/03/2020 completed Not Available [facility] 07/16/2023 04:14:23 COVID-19 vaccine, vector-nr, rS-Ad26, PF, 0.5 mL 12/13/2020 completed Not Available [facility] 07/16/2023 04:14:23 COVID-19 vaccine, vector-nr, rS-Ad26, PF, 0.5 mL 07/17/2021 completed Not Available [facility] 07/16/2023 04:14:23 COVID-19, mRNA, LNP-S, PF, 30 mcg/0.3 mL dose, kathrin-sucrose 02/12/2022 completed Not Available [facility] 07/16/2023 04:14:23 Hep B, unspecified formulation 02/11/2007 completed Not Available [facility] 07/16/2023 04:14:23 Hep B, unspecified formulation 02/24/2006 completed Not Available [facility] 07/16/2023 04:14:24 Hep B, unspecified formulation 03/25/2006 completed Not Available [facility] 07/16/2023 04:14:24 influenza, unspecified formulation 06/23/2019 completed Not Available [facility] 07/16/2023 04:14:24 influenza, unspecified formulation 06/23/2021 completed Not Available [facility] 07/16/2023 04:14:24 influenza, unspecified formulation 06/26/2015 completed Not Available [facility] 07/16/2023 04:14:24 influenza, unspecified formulation 06/29/2016 completed Not Available [facility] 07/16/2023 04:14:24 influenza, unspecified formulation 07/18/2020 completed Not Available [facility] 07/16/2023 04:14:24 Past Encounters Encounter ID Performer Location Encounter Start Date Encounter Closed Date Diagnosis/Indication Diagnosis SNOMED-CT Code [id number] LOTTIE YAÑEZ PA-C [address] [address] 07/26/2023 09:40:33 07/26/2023 10:13:50 Acute sinusitis [id number] ELENA KILLIAN MD [address] [address] 09/29/2023 13:46:20 09/29/2023 15:15:02 Essential hypertension 64443454 Osteoarthr osis of the carpometacarpal joint of the thumb 74222072 Recurrent urinary tract infection 160415022 History of bariatric surgical procedure 315153880 Type 2 andrzej betes mellitus without complication 336875857 Active or passive immunization [id number] [id number] MARIE OLIVARES [address] [address] 03/27/2024 09:36:12 03/27/2024 12:05:53 Type 2 diabetes mellitus without complication 112396907 Eating disorder 39436163 Essential hypertension 22362267 Obesity 439132323 Steatosis of liver 94546 1007 Palpitations 47989748 Health Concerns Section Related Observation LastModified by Organization Detai ls LastModified Time None Recorded Concern Status LastModified by Organization Details LastModified Time None Recorded Advance Directives Directive N: Payers Encounter Date Sequence Insurance Name Policy Number Policy Sneed Covered Member ID Sneed Member ID Guarantor Name 07/26/2023 1 [place] [employer] [place] Radha Sena [id number] Radha Sena 09/29/2023 1 [place] [place] Radha Sena [id number] Radha Sena Notes Date Note Type Note Provider Name and Address Organization Details Recorded Time 07/26/2023 text/html HPI Notes: Katja tello is a 57 -year-old female presenting for sinus pain and congestion. Has been feeling unwell for the past 7 days. Initially started with sinus pain and congestion. Now having headache as well. She did get her COVID booster last week had some fatigue and chills after this but this is since improved. Reports a slightly scratchy throat and cough. No ear pain no difficulty swallowing. No chest pain or shortness of breath. No nausea vomiting or upset stomach.She has been taking vpmq-[id number] Tylenol ibuprofen cold and flu all with minimal relief. LOTTIE YAÑEZ PA-C [address], [place], [address], [facility] 07/26/2023 10:23:29 09/29/2023 text/html HPI Notes: Hypertension F/U Reported by patient. Medications: taking medications as directed; no side effects from medication Lifestyle: regular exercise; limits sodium intake Associated Symptoms: no dizziness; no lightheadedness; no chest pain; no shortness of breath; no palpitations; no edema; no calf pain with exertion; no headache Follow-up diabetes Since then he lost substantial weight she has been in prediabetic range. She is gained a few pounds back. [place] and she is mostly busy working on that still but they are able to live there. She is quite satisfied with that. Walking her dog twice a day but usually only half mile. Diet healthy but has a sweet tooth. No major complaints. She had excision of a ganglion cyst near the left thumb, left March. About a month after that she developed sudden onset of pain and swelling just adjacent to the left CMC joint in that area still hurts. Limits use of that hand some. She did not contact her surgeon about this. She is finishing a course of physical therapy for left-sided plantar fasciitis. That is improved but not resolved. No longer limiting her activity. No other weakness or numbness. No chest pain or heaviness, dyspnea or cough, abdominal pain or bleeding. 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 Postmenopausal. ELENA KILLIAN MD [address], [place], [address], [facility] - [facility]. 09/30/2023 06:50:34 OBGyn Episode No OBEpisode recorded.
--- OUTSIDE RECORDS SUMMARY | 2024-03-27 14:09 | XMS_ITS | Continuity of Care Document ---
Author Organization [facility] Address [address] [place] [address] Care Team Providers Care Brokerage Manager Name Role Phone [facility], Sukhwinder Everett Primary Care Physician Encounter [facility] Date(s): 02/02/23 - 02/02/[address] [address] Encounter Diagnosis Lump of left wrist(Discharge Diagnosis) - 02/02/23 Discharge Disposition: Home or Self Care Attending Physician: Ted Montes De Oca MD Admitting Physician: Ted Montes De Oca MD Referring Physician: Ted Montes De Oca MD Allergies, Adverse Reactions, Alerts No Known [...] Recorded rubella virus vaccine 09/06/00 Recorded Medications atorvastatin 20 mg oral tablet 90 EA, TAKE ONE TABLET BY MOUTH EVERY EVENING, 0 Refill(s) Start Date: 01/07/23 Status: Ordered lisinopril 20 mg oral tablet 20 mg = 1 tab, Oral, Daily, # 30 tab, 0 Refill(s) Start Date: 01/07/23 Status: Ordered metoprolol tartrate 50 mg oral tablet 0 Refill(s) Start Date: 01/07/23 Status: Ordered Problem List Condition Confirmation Course Effective Dates Status H ealth Status Informant Chest discomfort 1 Confirmed 09/09/19 Active Chronic constipation Confirmed 05/24/16 Active Essential hypertension Confirmed 04/23/16 Active 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 CT showed mild hydronephrosis 3Outside Source Comment: Overview: Colonoscopy done on 08/09/15 normal, attributed to constipation Social History Social History Type Response Tobacco Never tobacco user T obacco Use:. Sex Female Patient Care team information Care Team Personnel Name: Sukhwinder Farooq MD Position: No Access Member Role: Primary Care Physician Address: Address: [place] [address]- Care Team Related Persons Name: JEFJUAN JOSE HUE Address: Home
--- OUTSIDE RECORDS SUMMARY | 2024-03-27 14:09 | XMS_ITS | Referral Summary ---
Author Organization [facility] Address [address] [place] [address] Care Team Providers Care Upsetting Machine Operator Name Role Phone Raul Santos MD Primary Care Provider Unavail able Encounters Date Type Department Care Team Description 03/14/2024 Lab Requisition [facility] Pathology & Laboratory Medicine - [address] [address] Ted Jacques MD Encounter for other general examination from Last 3 Months Social History Tobacco Use Types Packs/Day Years Used Date Smoking Tobacco: Never Assessed Sex and Gender Information Value Date Recorded Sex Assigned at Not on file Gender Identity Not on file Sexual Orientation Not on file Plan of Treatment Not on file Procedures Procedure Name Priority Date/Time Associated Diagnosis Comments SURGICAL PATHOLOGY Today 03/14/2024 10 :29 EDT Encounter for other general examination from Last 3 Months Results * SURGICAL PATHOLOGY (03/14/2024 10:29 EDT) Note to Patient The following pathology results have been interpreted by your pathologist and may be available to you before your health provider has had the opportunity to review them. Please allow time for your provider to receive these results and explore management options, if applicable. 03/20/2024 16:29 EDT [facility] Final Diagnosis A. SOFT TISSUE, LEFT BICEP AREA, ? LESION? 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 (see comment) 03/20/2024 16:29 EDT [facility] Diagnosis Comment There is no significant nuclear atypia within adipocytes or stroma cells. 03/20/2024 16:29 EDT [facility] Attestation There was significant resident/fellow involvement in the diagnostic evaluation of this case. By the signature below, the attending physician certifies that they have personally conducted a gross and/or microscopic examination of the described specimens and rendered or confirmed the above diagnosis. 03/20/2024 16:29 EDT [facility] at 1629 Clinical History Left soft tissue lesion of biceps region 03/20/2024 16:29 EDT [facility] Gross Description A. Received in formalin labelled with proper patient identification (initials W, D) and left soft tissue lesion (biceps) is a mohamud-white ovoid tissue with attached mohamud-pink muscle (5.0 x 3.0 x 2.2 cm). The specimen is serially sectioned and reveal mohamud pink cut surface. The is no lesion identified. Aids Social Worker sections are submitted in A1-A5. ORLIN WOO MD 03/15/2024 13:40 03/20/2024 16:29 EDT [facility] Resident/Mat w: Orlin Woo MD 03/20/2024 16:29 EDT [facility] Performing Lab [facility] 03/20/2024 16:29 T [facility] Scanned Images 03/20/2024 16:29 T [facility] Tissue SOFT TISSUE / Unknown 03/14/2024 10:29 EDT 03/15/2024 8:31 EDT Ted Jacques MD PATHOLOGY ORDERABLES [facility] [address] [place] [address] from Last 3 Months Care Teams Upsetting Machine Operator Relationship Specialty Start Date End Date Raul Santos MD PCP - General 06/05/14
--- OUTSIDE RECORDS SUMMARY | 2024-03-27 14:09 | XMS_ITS | Encounter Summary ---
Author Organization [facility] [place] [address] Care Team Providers Care Concrete Bucket Unloader Name Role Phone Lew Beltran Primary Care Provider [phone] Encounter Details Date Type Department Care Team (Late st Contact Info) Description 03/16/2018 Orders Only Gastroenterology at [facility] [place] [address] Jovan Schwartz PA [facility] [place] [address] Abnormal LFTs (liver function tests) Social History Tobacco Use Types Packs/Day Years [...] on file documented as of this encounter Visit Diagnoses Diagnosis Abnormal LFTs (liver function tests) Other abnormal blood chemistry documented in this encounter Care Teams Concrete Bucket Unloader Relationship Specialty Start Date End Date Lew Beltran PA [address] [place] [address] PCP - General General Internal Medicine 04/21/16 documented as of this encounter
--- OUTSIDE RECORDS SUMMARY | 2024-03-27 14:09 | XMS_ITS | Continuity of Care Document ---
Author Organization [facility] Address [address] [place] [address] Care Team Providers Care Emergency Room Physician Name Role Phone [facility], Sukhwinder Everett Primary Care Physician [facility] 11/23/23 - 11/23/[address] [address] Encounter Diagnosis Radial styloid tenosynovitis [de Quervain](Final) - Discharge Disposition: Home or Self Care Attending Physician: Ted Montes De Oca MD Admitting Physician: Ted Montes De Oca MD Referring Physician: Ted Montes De Oca MD Allergies, Adverse Reactions, Alerts No Known Medication Allergies Assessment and Plan Future Appointments Future Scheduled Tests Radiology* MG Mammo Screening Bilateral w/ Dion 10/14/23 Functional Status 11/23/23 ADLs Independent Immunizations Given and Recorded Vaccine Date Status [...] 0 Refill(s) Start Date: 01/07/23 Status: Ordered Fallon Calcium with Vitamin D 0 Refill(s) Start Date: 02/11/23 Status: Ordered Fish Oil 500 mg oral capsule 0 Refill(s) Start Date: 02/11/23 Status: Ordered fluocinonide 0.1% topical cream Topical, Daily, 0 Refill(s) Start Date: 02/12/23 Status: Ordered HYDROcodone-acetaminophen 5 mg-325 mg oral tablet 1 tab, Oral, every 6 hr, PRN as needed for pain, # 10 tab, 0 Refill(s), Pharmacy: [id number], 163, cm, 03/16/23 8:48:00 EDT, Height/Length Dosing, 87, kg, 03/16/23 8:48:00 EDT, Weight Dosing Start Date: 03/16/23 Status: Ordered ketoconazole 2% topical cream 1 janeth, Topical, BID, # 60 g, 1 Refill(s), Pharmacy: [id number], 163, cm, 03/16/23 8:48:00EDT, Height/Length Dosing, 87, kg, 03/16/23 8:48:00 EDT, Weight Dosing Start Date: 03/23/23 Stop Date: 05/18/23 Status: Ordered lisinopril 20 mg oral tablet 20 mg = 1 tab, Oral, Daily, # 30 tab, 0 Refill(s) Start Date: 01/07/23 Status: Ordered metoprolol tartrate 50 mg oral tablet 0 Refill(s) Start Date: 01/07/23 Status: Ordered Multiple Vitamins oral capsule 0 Refill(s) Start Date: 02/11/23 Status: Ordered triamcinolone 0.1% topical cream 1 janeth, Topical, BID, 0 Refill(s) Start Date: 02/12/23 Status: Ordered Turmeric 0 Refill(s) Start Date: 11/16/23 Status: Ordered Vitamin B12 0 Refill(s) Start [...] left wrist Confirmed Active Obesity Confirmed Active Left wrist pain Confirmed Active Palpitations Confirmed Active S/P excision of ganglion cyst Confirmed Active Prediabetes Confirmed Active Ptotic breast Confirmed 02/21/18 Active Sinus tachycardia Confirmed 04/23/16 Active Tendinitis of right knee Confirmed Active TIA Confirmed Active Urolithiasis Confirmed Active 1Outside Source Comment: Overview: - evaluated at primary care office on 07/06/19, stress test planned 2Outside Source Comment: Overview: [facility] ED visit for severe back pain and dysuria. CT showed mild hydronephrosis 3Outside Source Comment: Overview: Colonoscopy done on 08/09/15 normal, attributed to constipation Procedures Procedure Date Related Diagnosis Body Site Status de Quervain's disease of left wrist 1 11/22/23 Completed Excision of ganglion, wrist (dorsal or volar); recurrent 03/15/23 Completed R 1st Dorsal compartment rel ease, DeQuervain's. 12/01/21 Completed Due 01/2025 2 01/10/20 Completed Gastric bypass 3 08/12/16 Complete d Trigger finger of right hand 11/27/15 Completed Carpal tunnel decompression 01/16/15 Completed Oophorectomy 08/17/11 Completed Tubal Reanastamosis Right 1996 Completed delivery 1990 Complet ed Tubal ligation 1990 Completed delivery 1985 Complet ed Eye surgery 1968 Completed 1De Quervain's Release 2Pap Due - 01/2025 06/06/09 - WNL/Neg; 09/28/14 - Neg/Neg; 01/11/20 - Neg/Neg [facility] Vital Signs Most recent to oldest [Reference Range]: 1 2 3 Temperature Oral [35.8-37.3 Deg C] 36.6 Deg C (11/23/23 10:34 AM) Temperature Temporal Artery [36-38 Deg C] 35.9 Deg C *LOW* (11/23/23 1:37 PM) 36.0 Deg C (11/23/23 12:40 PM) 36.5 Deg C (11/23/23 12:28 PM) Temperature Temporal Artery (DegF) [97.3-100 Deg F] 96.62 Deg F *LOW* (11/23/23 1:37 PM) 96.8 Deg F *LOW* (11/23/23 12:40 PM) 97.7 Deg F (11/23/23 12:28 PM) Peripheral Pulse Rate [60-100 bpm] 89 bpm (11/23/23 1:37 PM) 87 bpm (11/23/23 1:27 PM) 91 bpm (11/23/23 1:25 PM) Heart Rate Monitored [60-100 bpm] 92 bpm (11/23/23 1:37 PM) 86 bpm (11/23/23 1:27 PM) 91 bpm (11/23/23 1:25 PM) Respiratory Rate [12-24 br/min] 15 br/min (11/23/23 1:37 PM) 13 br/min (11/23/23 1:27 PM) 16 br/min (11/23/23 1:25 PM) Blood Pressure [90-140/60-90 mmHg] 117/64mmHg (11/23/23 1:37 PM) 113/66mmHg (11/23/23 1:27 PM) 113/66mmHg (11/23/23 1:25 PM) Mean Arterial Pressure, Cuff [65-140 mmHg] 82 mmHg (11/23/23 1:37 PM) 82 mmHg (11/23/23 1:27 PM) 82 mmHg (11/23/23 1:25 PM) Weight 83.2 kg (11/23/23 10:34 AM) Weight Dosing 83.200 kg (11/23/23 10:34 AM) Height 162.56 cm (11/23/23 10:34 AM) Body Mass Index 31.48 kg/m2 (11/23/23 10:34 AM) Social History Social History Type Response Tobacco Never tobacco user T obacco Use:. Sex Female Hospital Discharge Instructions Patient Education 11/23/2023 12:17:12 Jacques - Post-Operative Instructions Soft tissue (NCCLAMPRON) Post-Operative Instructions Soft tissue [facility]: [phone] Plan to rest and relax today after your procedure/ operation . Even after minor surgery you may feel drowsy or tired for several hours. You may also have a sore throat and muscle aches. DO NOT drink alcohol after anesthesia or while taking pain medications. You should not drive any vehicle or operate machinery until your doctor says it's safe. DO NOT make any major decisions, sign contracts, etc.for 24 hours. Activity: ??? Rest today, tomorrow resume your usual activity. ??? Lift no more than 10 pounds until your follow-up appointment. Diet: ??? Advance to previous diet as tolerated. Medications: ??? Continue your regular medications ??? Prescription given to patient: Dressing: ??? Keep dressing clean dry and intact. ??? May remove dressing after 48 hours but will need to keep incision site clean. ??? You may shower normally once the dressing is removed. The incision should be cleaned gently with soap and water. A dressing or Band-Aid may be applied over the incision to prevent contamination of the incision. ??? Apply ice pack over dressing site for 20 mins on/20 mins off for the first several days. Special Instructions: ??? You may take a shower after 48 hours. ??? No bathing , soaking or swimming for 2 weeks. ??? You may drive after ALL pain medications are stopped. ??? If you are experiencing discomfort at the operative site you may loosen the Drew wrap to help alleviate the gabriel n. If this does not help then you will need to contact the office for further instructions. ??? Keep limb elevated on 2-3 pillows so that it is above the level of your heart and make sure to move the fingers of your affected limb several times a day . YOU SHOULD CALL YOUR DOCTOR AT FOR ANY OF THE FOLLOWING ??? Fever of 101 or higher. ??? Pain that does not lessen with the pain medication prescri bed. ??? Cloudy or foul smelling drainage from the incision . ??? Redness, warmth and firmness around the incision. ??? Increased numbness or tingling. ??? Bleed ing or continuous oozing that saturates the bandage and does not stop after applying pressure to incision for 20 minutes. ??? Increased swelling of fingers or toes, or severe tightness of bandage not relieved with elevation of limb above the level of your heart . ??? Pale blue or cold fingers/toes or nail beds as compared with the opposite side. IF UNABLE TO REACH YOUR DOCTOR GO TO YOUR NEAREST EMERGENCY ROOM This document was electronically generated via computer by the ordering physician: Ted Jacques MD [facility] [address] [place] [id number] Discharge instructions * Yessica Herman: PERFORM Event Display: Discharge Instructions Authored Date: [id number] WILLI BELLA :1965 Age:58 years Sex:Female Visit Date:11/23/2023 Primary Care Physician: [facility] Discharge Instructions We would like to thank you for allowing us to assist you with your healthcare needs. The following includes patient education materials and information regarding your injury/illness. Your Next Steps Instructions From Your Care Team Orthopedic Surgery Discharge Instructions ok to take down dressing in 2 days shower and cover incision with band aid do not submerge incision under water ok to use hand for light activities ?? Pain Control ?Take your pain relief medication when discomfort first begins. ?Can use stool softener while taking the narcotic to avoid problems with constipation. ?It is okay to start [id number] Naproxen or Ibuprofen??immediately ?? Call your doctor if you: ?Develop a fever over 101 degrees. ?Have increased redness, warmth, discharge, swelling, or hardness around the operative site. ?Circulation changes such as tingling, numbness or your fingers/toes appear blue or white. ?Your pain is not adequately controlled, despite taking your pain medication routinely. ?? On the day of surgery, or while taking narcotic pain medication: No driving, operating power equipment,?? drinking alcohol,?? or taking mood altering drugs? Apply warm, moist compress to IV site if sore or red, for 20 minutes, 4 times a day, for 2-3 days.?? Call your doctor if IV site soreness or redness persists. In the event of any problems after surgery, contact your doctor or the Emergency Room @ . Ortho Office: [phone]?? Scheduled Future Appointments Wednesday 1:00 PM EDT ?? With: Licha Cramer PA-C Where: [facility] [address] [place] [address], [address] [place] [address] Status: Confirmed Wednesday 9:30 AM EDT ?? With: Jodie Alvarez CNM Where: [facility] [address] [place] [address], [address] [place] [address] Status: Confirmed Your Summary Your Care Team Admitting Physician - Sawyer NICHOLS, Ted Martinez MD Attending Physician - Sawyer NICHOLS, Ted Martinez MD Primary Care Physician - [facility] [address], Sukhwinder Everett MD Referring Physician - Sawyer NICHOLS, Ted Martinez MD Discharge Vitals Temperature??(Oral) 97.9 ??F (36.6 ??C) Heart Rate??(Peripheral) 79 Respiratory Rate?? 18 Blood Pressure?? 129/73?? SpO2?? 100% Height?? 64.00 in (162.56 cm) Weight?? 183.46 lb (83.2 kg) BMI?? 31.48 Patient/Roll Winder Signature Patient Name:WILLI BELLA I have received this information and my questions have been answered. Patient/Roll Winder Name: Patient/Roll Winder Signature: Relationship to Patient: Witness Name/Signature: Date: Electronically Signed on: 11/23/2023 13:18 EDTSigned by:ANA History and physical note * Tahira Pham: PERFORM Event Display: History and Physical Authored Date: [id number] JAMAICAWILLI PATEL :1965 Age:58 years Sex:Female Primary Care Physician: Sukhwinder Farooq MD Visit Date:??10/21/2023 [1] ? Chief Complaint L wrist pain, pt is here for MRI review History of Present Illness Known patient history of radial sided wrist pain got an MRI to evaluate for either recurrence of cyst or classic de Quervain's tendinitis Review of Systems Constitutional:?No??fevers,?No??chills,?No??sweats Eye:?No??recent visual problems ENT:?No??ear pain,?No??nasal congestion,?No??sore throat Respiratory:?No??shortness of breath,?No??cough Cardiovascular:?No??Chest pain,?No??palpitations,?No??syncope Gastrointestinal:?Nonausea,?No??vomiting,?No??diarrhea Genitourinary:?No??hematuria Jayme/Lymph:?No??bruising tendency,?No??swollen lymph glands Endocrine:?No??excessive thirst,??No??excessive hunger Musculoskeletal:??No??back pain,??No??neck pain,??No??joint pain,??No??muscle pain,??No??decreased range of motion Integumentary:?No??rash,?No??pruritus,?No??abrasions Neurologic: Alert & oriented X 4 Psychiatric:?No??anxiety,?No??depression Physical Exam Well-nourished well-developed acute distress alert and oriented appearing stated age. ??Has??normalelbow wrist hand range of motion cap refill distally no open wound signs of erythema or infection does have pain about the radial border of the wrist along the first compartment??review of MRI notes??no recurrence of volar wrist ganglion but significant de Quervain's tendinitis Assessment/Plan 1.??Left wrist pain??M25.532 ?De Quervain's tendinitis. ??Options watchful waiting therapy injection or surgical release after discussing this and considering she had a successful release on the contralateral side she was interested in having that done so we will set her up for??de Quervain's release and see her again at that time. ?Ordered: PAT Surgery / Procedure Nursing Review Request., 10/21/23 13:39:00 Sawyer ARMASH, Ted Martinez MD, Left wrist decor veins, Left wrist de Quervain's release. Need 15 minutes. Date and time per private investigator.Anesthesia per choice. BMI 32, Left wrist pain ?? Problem List/Past Medical History Ongoing ?Chest discomfort ??Chronic constipation ??de Quervain's disease of right wrist ??Essential hypertension ??Excess panniculus of abdomen ??Fatty liver ??History of calculus of kidney ??History of rectal bleeding ??Hyperlipidemia ??Left wrist pain ??Lump of left wrist ??Obesity ??Palpitations ??Prediabetes ??Ptotic breast ??S/P excision of ganglion cyst ??Sinus tachycardia ??Tendinitis of right knee ??TIA ??Urolithiasis Historical ? Procedure/Surgical History ???Excision of ganglion, wrist (dorsal or volar); recurrent (03/16/2023)???R 1st Dorsal compartment release, DeQuervain's. (12/02/2021)???Due 01/2025 (01/11/2020)???Gastric bypass (08/13/2016)???Trigger finger of right hand (11/28/2015)???Carpal tunnel decompression (2014)???Oophorectomy (08/18/2011)???Tubal Reanastamosis Right (1995)??? delivery (1990)???Tubal ligation (1990)??? delivery (1985)???Eye surgery (1968) ?? Medications ??aspirin 81 mg oral capsule ??atorvastatin 20 mg oral tablet ??Fallon Calcium with Vitamin D ??Fish Oil 500 mg oral capsule ??fluocinonide 0.1% topical cream, Topical, Daily ??HYDROcodone-acetaminophen 5 mg-325 mg oral tablet, 1 tab, Oral, every 6 hr, PRN ??ketoconazole 2% topical cream, 1 janeth, Topical, BID, 1 refills ??lisinopril 20 mg oral tablet, 20 mg= 1 tab, Oral, Daily ??metoprolol tartrate 50 mg oral tablet ??Multiple Vitamins oral capsule ??triamcinolone 0.1% topical cream, 1 janeth, Topical, BID ??Vitamin B12 ??Vitamin C 500 mg oral tablet, 1000 mg, Oral, Daily ??Vitamin D3 Allergies No Known Medication Allergies Social History Electronic Cigarette/Vaping ??Electronic Cigarette Use: Never. Sexual ??Other contraceptive use: Tubal Ligation and Menopause. Tobacco ??Never tobacco user Tobacco Use:. Family History ??Cancer: Father. ??Diabetes mellitus: Father. ??Hypertension: Father. [2] [1]??Office Visit Note; Ted Montes De Oca MD 10/21/2023 13:41 EST [2]??Office Visit Note; Ted Montes De Oca MD 10/21/2023 13:41 EST Electronically Signed on 11/22/23 04:34 PM AnkitTahira A Electronically Signed on 11/23/23 11:58 AM Ted Montes De Oca MD * Ted Montes De Oca MD: PERFORM Event Display: History and Physical Authored Date: Patient seen in preoperative hold no change in general still status H&P updated Electronically Signed on 11/23/23 12:00 PM Ted Montes De Oca MD Patient Care team information Care Team Personnel Name: Sukhwinder Farooq MD Position: No Access Member Role: Informed Provider Address: Address: [address], [place] [address] Care Team Related Persons Name: HUE BELLA Address: Home [address] [place] [address], [phone]
--- OUTSIDE RECORDS SUMMARY | 2024-03-27 14:09 | XMS_ITS | Continuity of Care Document ---
Author Organization [facility] Address [address] [place] [address] Care Team Providers Care Front Desk Clerk Name Role Phone [facility]au IPH[facility], Sukhwinder Everett Primary Care Physician Encounter [place] Date(s): 03/16/23 - 03/16/[address] [address] Encounter Diagnosis Ganglion, left wrist(Final) - Discharge Disposition: Home or Self Care Attending Physician: Ted Montes De Oca MD Admitting Physician: Ted Montes De Oca MD Referring Physician: Ted Montes De Oca MD Allergies, Adverse Reactions, Alerts No Known Medication Allergies Assessment and Plan Future Appointments Functional Status 03/16/23 Family Member Travel History No recent t ravel Recent Travel History No recent travel Other exposure to Infectious Disease Non e Immunizations Given and Recorded Vaccine Date Status [...] Efrain rded influenza virus vaccine, inactivated 06/06/12 Efrani rded influenza virus vaccine, inactivated 06/19/11 Efrain [...] 0 Refill(s) Start Date: 01/07/23 Status: Ordered [place] Calcium with Vitamin D 0 Refill(s) Start Date: 02/11/23 Status: Ordered Fish Oil 500 mg oral capsule 0 Refill(s) Start Date: 02/11/23 Status: Ordered fluocinonide 0.1% topical cream Topical, Daily, 0 Refill(s) Start Date: 02/12/23 Status: Ordered HYDROcodone-acetaminophen 5 mg-325 mg oral tablet 1 tab, Oral, every 6 hr, PRN as needed for pain, # 10 tab, 0 Refill(s), Pharmacy: [id number], 163, cm, 03/16/23 8:48:00 EDT, Height/Length Dosing, 87, kg, 03/16/23 8:48:00 EDT, Weight Dosing Start Date: 03/16/23 Status: Ordered lisinopril 20 mg oral tablet [...] stress test planned 2Outside Source Comment: Overview: [facility] ED visit for severe back pain and dysuria. CT showed mild hydronephrosis 3Outside Source Comment: Overview: Colonoscopy done on 08/09/15 normal, attributed to constipation Procedures Procedure Date Related Diagnosis Body Site Status Excision of ganglion, wrist (dorsal or volar); [...] Completed delivery 1985 Complet ed Eye surgery 1969 Completed 1Pap Due - 01/2025 06/06/09 - WNL/Neg; 09/28/14 - Neg/Neg; 01/11/20 - Neg/Neg [facility] Vital Signs Most recent to oldest [Reference Range]: 1 2 3 Temperature Temporal Artery [36-38 Deg C] 35.8 Deg C *LOW* (03/16/23 11:08 AM) 35.8 Deg C *LOW* (03/16/23 10:30 AM) 35.8 Deg C *LOW* (03/16/23 10:17 AM) Temperature Temporal Artery (DegF) [97.3-100 Deg F] 96.44 Deg F *LOW* (03/16/23 11:08 AM) 96.44 Deg F *LOW* (03/16/23 10:30 AM) 96.44 Deg F *LOW* (03/16/23 10:17 AM) Peripheral Pulse Rate [60-100 bpm] 98 bpm (03/16/23 11:08 AM) 85 bpm (03/16/23 11:00 AM) 63 bpm (03/16/23 10:45 AM) Heart Rate Monitored [60-100 bpm] 99 bpm (03/16/23 11:08 AM) 99 bpm (03/16/23 11:00 AM) 74 bpm (03/16/23 10:45 AM) Respiratory Rate [12-24 br/min] 15 br/min (03/16/23 11:08 AM) 18 br/min (03/16/23 11:00 AM) 14 br/min (03/16/23 10:45 AM) Blood Pressure [90-140/60-90 mmHg] 113/65mmHg (03/16/23 11:08 AM) 95/59mmHg (03/16/23 11:00 AM) 97/59mmHg (03/16/23 10:45 AM) Mean Arterial Pressure, Cuff [65-140 mmHg] 81 mmHg (03/16/23 11:08 AM) 71 mmHg (03/16/23 11:00 AM) 72 mmHg (03/16/23 10:45 AM) Weight 87.000 kg (03/16/23 8:39 AM) Weight Dosing 87.000 kg (03/16/23 8:39 AM) Height 163.000 cm (03/16/23 8:39 AM) Height/Length Dosing 163.000 cm (03/16/23 8:39 AM) Body Mass Index 32.740 kg/m2 (03/16/23 8:39 AM) Social History Social History Type Response Tobacco Never tobacco user T obacco Use:. Sex Female Discharge instructions * Eileen Grace: PERFORM Event Display: Discharge Instructions Authored Date: [id number] WILLI BELLA :1965 Age:57 years Sex:Female Visit Date:03/16/2023 Primary Care Physician: Amita GREGORY, Sukhwinder Everett MD Hospital Discharge Instructions We would like to thank you for allowing us to assist you with your healthcare needs. The following includes patient education materials and information regarding your injury/illness. Your Next Steps Instructions From Your Care Team Orthopedic Surgery Discharge Instructions keep dressing on until follow up ok to use hand for light activities sling PRN ?? Pain Control ?Take your pain relief medication when discomfort first begins. ?Can use stool softener while taking the narcotic to avoid problems with constipation. ?It is okay to start lopm-prn-iyuexko Naproxen or Ibuprofen??immediately ?? Call your doctor [...] the Emergency Room @ . Ortho Office: [phone]?? Discharge Orders Discharge Patient Instructions, Follow discharge instructions handout Scheduled Future Appointments Wednesday 1:45 PM EDT ?? With: Licha Cramer PA-C Where: [facility] [address] [place] [address], [address] [place] [address] Status: Confirmed Your Summary Your Care Team Admitting Physician - Ted Montes De Oca MD Attending Physician - Sawyer NICHOLS, Ted Martinez MD Primary Care Physician - Amita POND, Sukhwinder Everett MD Referring Physician - Sawyer NICHOLS, Ted Martinez MD Patient Name:WILLI BELLA I have received this information and my questions have been answered. 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 Chief Complaint MRI review of the Left wrist History of Present Illness Known patient see me today for MRI review of the left wrist volar mass former??that was previously??a ganglion cyst removed about 20 years ago.?? Notes some pain in the region. Review of Systems Constitutional:?No??fevers,?No??chills,?No??sweats Eye:?No??recent visual problems ENT:?No??ear pain,?No??nasal congestion,?No??sore throat Respiratory:?No??shortness of breath,?No??cough Cardiovascular:?No??Chest pain,?No??palpitations,?No??syncope Gastrointestinal:?Nonausea,?No??vomiting,?No??diarrhea Genitourinary:?No??hematuria Jayme/Lymph:?No??bruising tendency,?No??swollen lymph glands Endocrine:?No??excessive thirst,??No??excessive hunger Musculoskeletal:??No??back pain,??No??neck pain,??No??joint pain,??No??muscle pain,??No??decreased range of motion Integumentary:?No??rash,?No??pruritus,?No??abrasions Neurologic: Alert & oriented X 4 Psychiatric:?No??anxiety,?No??depression Physical Exam Well-nourished well-developed acute distress alert and oriented appearing stated age. ??Has normal elbow wrist hand range of motion normal cap refill distally no open wounds signs of erythema or infection.?? Has a palpable mass in the region of a previously resected volar wrist ganglion that is approximately 1.5 cm in maximum dimension.?? Also of note a little burning pain down to the base of thethumb with some mild crepitance noted on CMC grind and shuck.?? Review of MRI reveals a recurrence of the volar wrist ganglion. Assessment/Plan 1.??Lump of left wrist??R22.32 ?Volar wrist ganglion. ??Options at this point watchful waiting??versus surgical removal. ??With the risk of recurrence that was dictated??with her today.?? After discussing this she wanted to have this operatively removed I did??also note some CMC joint arthritis that would not be addressed with a cyst excision??but she wishes to have the cyst excised. ??So we will set her up for surgery see her back in at that time. ?Ordered: PAT Surgery / Procedure Nursing Review Request, 02/11/23, Order for future visit, Lump of left wrist ?? Problem List/Past Medical History Ongoing ?Chest discomfort ??Chronic constipation ??Essential hypertension ??Excess panniculus of abdomen ??History of calculus of kidney ??History of rectal bleeding ??Hyperlipidemia ??Lump of left wrist ??Ptotic breast ??Sinus tachycardia Historical ? Procedure/Surgical History ???R 1st Dorsal compartment release, DeQuervain's. (12/02/2021)???Due 01/2025 (01/11/2020)???Gastric bypass (08/13/2016)???Trigger finger of right hand (11/28/2015)???Carpaltunnel decompression (01/17/2015)???Oophorectomy (08/18/2011)???Tubal Reanastamosis Right (1995)???C esarean delivery (1990)???Tubal ligation (1990)??? delivery (1985)???Eye surgery (1968) ?? Medications ??aspirin 81 mg oral capsule ??atorvastatin 20 mg oral tablet ??[place] Calcium with Vitamin D ??Fish Oil 500 mg oral capsule ??lisinopril 20 mg oral tablet, 20 mg= 1 tab, Oral, Daily ??metoprolol tartrate 50 mg oral tablet ??Multiple Vitamins oral capsule ??Vitamin B12 ??Vitamin D3 Allergies No Known Medication Allergies Social History Electronic Cigarette/Vaping ??Electronic Cigarette Use: Never. Sexual ??Other contraceptive use: Tubal Ligation and Menopause. Tobacco ??Never tobacco user Tobacco Use:. Family History ??Cancer: Father. ??Diabetes mellitus: Father. ??Hypertension: Father. [2] [1]??Office Visit Note; Ted Montes De Oca MD 02/11/2023 12:58 EDT [2]??Office Visit Note; Ted Montes De Oca MD 02/11/2023 12:58 EDT Electronically Signed on 03/02/23 01:04 PM [employer] A Electronically Signed on 03/03/23 07:54 AM Ted Montes De Oca MD * Tde Montes De Oca MD: PERFORM Event Display: History and Physical Authored Date: No change in generalized health status H&P updated Electronically Signed on 03/16/23 10:35 AM Ted Montes De Oca MD Patient Care team information Care Team Personnel Name: Sukhwinder Farooq MD Position: No Access Member Role: Informed Provider Address: Address: [id number] [place] [address] Care Team Related Persons Name: HUE BELLA Address: Home
--- OUTSIDE RECORDS SUMMARY | 2024-03-27 14:09 | XMS_ITS | Continuity of Care Document ---
Author Organization [facility] Address [address] [place] [address] Care Team Providers Care Chief Medical Technologist Name Role Phone Primeau IPHC, Sukhwinder Everett Primary Care Physician Encounter [place] Date(s): 03/01/24 - 03/01/[address] [address] Encounter Diagnosis Soft tissue lesion of elbow region(Discharge Diagnosis) - 03/01/24 Discharge Disposition: Home or Self Care Attending [...] 0 Refill(s) Start Date: 01/07/23 Status: Ordered [place] Calcium with Vitamin D 0 Refill(s) Start Date: 02/11/23 Status: Ordered Fish Oil 500 mg oral capsule 0 Refill(s) Start Date: 02/11/23 Status: Ordered fluocinonide 0.1% topical cream Topical, Daily, 0 Refill(s) Start Date: 02/12/23 Status: Ordered HYDROcodone-acetaminophen 5 mg-325 mg oral tablet 1 tab, Oral, every 6 hr, PRN as needed for pain, # 10 tab, 0 Refill(s), Pharmacy: [id number], 163, cm, 03/16/23 8:48:00 EDT, Height/Length Dosing, 87, kg, 03/16/23 8:48:00 EDT, Weight Dosing Start Date: 03/16/23 Status: Ordered ketoconazole 2% topical cream 1 janeth, Topical, BID, # 60 g, 1 Refill(s), Pharmacy: [id number], 163, cm, 03/16/23 8:48:00EDT, Height/Length Dosing, [...] 02/21/18 Active Sinus tachycardia Confirmed 04/23/16 Active Soft tissue lesion of elbow region Confirmed Active Tendinitis of right knee Confirmed Active De Quervain's tenosynovitis, left 4 Confirmed Active TIA Confirmed Active Urolithiasis Confirmed Active 1Outside Source Comment: Overview: - evaluated at primary care office on 07/06/19, stress test planned 2Outside Source Comment: Overview: [facility] ED visit for severe back pain and dysuria. CT showed mild hydronephrosis 3Outside Source Comment: Overview: Colonoscopy done on 08/09/15 normal, attributed to constipation 4biceps region Procedures Procedure Date Related Diagnosis Body Site [...] 1985 Complet ed Eye surgery 1969 Completed 1De Quervain's Release 2Pap Due - 01/2025 06/06/09 - WNL/Neg; 09/28/14 - Neg/Neg; 01/11/20 - Neg/Neg [facility] Social History Social History Type Response Tobacco Never tobacco user T obacco Use:. Sex Female Patient Care team information Care Team Personnel Name: Sukhwinder Farooq MD Position: No Access Member Role: Informed Provider Address: Address: [place] [address]- Care Team Related Persons Name: HEU BELLA Address: Home [address] [place] [address], [id number]
--- OUTSIDE RECORDS SUMMARY | 2024-03-27 14:09 | XMS_ITS | Continuity of Care Document ---
Author Organization [facility] Address [address] [place] [address] Care Team Providers Care Insurance Examining Clerk Name Role Phone Sukhwinder Farooq Primary Care Physician Encounter [place] Date(s): 08/17/22 - 08/17/22 [facility] [address] [place] [address] Discharge Disposition: Home or Self Care Attending [...] 09/06/00 Recorded rubella virus vaccine 09/06/00 Recorded Social History Social History Type Response Sex Female Patient Care team information Personnel Name: Amita GREGORY, Sukhwinder Everett MD Address: Address: [address] [address]- [place]
--- OUTSIDE RECORDS SUMMARY | 2024-03-27 14:09 | XMS_ITS | Continuity of Care Document ---
Author Organization [facility] Address [address] [place] [address] Care Team Providers Care Senior Sales Executive Name Role Phone Primeau IPHC, Sukhwinder Everett Primary Care Physician Encounter [place] Date(s): 02/12/23 - 02/12/23 [facility] [address] [place] [address] Discharge Disposition: Home Allergies, Adverse Reactions, Alerts No Known Medication [...] 0 Refill(s) Start Date: 01/07/23 Status: Ordered [place] Calcium with Vitamin D 0 Refill(s) Start [...] stress test planned 2Outside Source Comment: Overview: [facility] ED visit for severe back pain [...] Completed Oophorectomy 08/17/11 Completed Tubal Reanastamosis Right 1995 Completed delivery 1990 Complet ed Tubal ligation 1990 Completed delivery 1985 Complet ed Eye surgery 1968 Completed 1Pap Due - 01/2025 06/06/09 - WNL/Neg; 09/28/14 - Neg/Neg; 01/11/20 - Neg/Neg [facility] Social History Social History Type Response Tobacco Never tobacco user T obacco Use:. Sex Female Patient Care team information Care Team Personnel Name: Sukhwinder Farooq MD Position: No Access Member Role: Primary Care Physician Address: Address: [place] [address]- Care Team Related Persons Name: HUE BELLA Address: Home
--- OUTSIDE RECORDS SUMMARY | 2024-03-27 14:09 | XMS_ITS | Encounter Summary ---
Author Organization [facility] Address [address] [place] [address] Care Team Providers Care General Neurologist Name Role Phone Raul Santos MD Primary Care Provider Unavail able Encounter Details Date Type Department Care Team (Late st Contact Info) Description 03/14/2024 Lab Requisition [facility] Pathology & Laboratory Medicine - [facility] [address] [place] [address] Ted Jacques MD [address] [place] [phone] Encounter for other general examination Social History Tobacco Use Types Packs/Day Years [...] :29 EDT Encounter for other general examination documented in this encounter Results * SURGICAL PATHOLOGY (03/14/2024 10:29 EDT) Note to Patient The following pathology results have been interpreted by your pathologist and may be available to you before your health provider has had the opportunity to review them. Please allow time for your provider to receive these results and explore management options, if applicable. 03/20/2024 16:29 EDT [facility] Final Diagnosis A. SOFT TISSUE, LEFT BICEP AREA, ? LESION? 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 (see comment) 03/20/2024 16:29 EDT [facility] Diagnosis Comment There is no significant nuclear atypia within adipocytes or stroma cells. 03/20/2024 16:29 [facility] Attestation There was significant resident/fellow involvement in the diagnostic evaluation of this case. By the signature below, the attending physician certifies that they have personally conducted a gross and/or microscopic examination of the described specimens and rendered or confirmed the above diagnosis. 03/20/2024 16:29 [facility] at 1629 Clinical History Left soft tissue lesion of biceps region 03/20/2024 16:29 [facility] Gross Description A. Received in formalin labelled with proper patient identification (initials W, D) and left soft tissue lesion (biceps) is a mohamud-white ovoid tissue with attached mohamud-pink muscle (5.0 x 3.0 x 2.2 cm). The specimen is serially sectioned and reveal mohamud pink cut surface. The is no lesion identified. Edger Liner sections are submitted in A1-A5. ORLIN WOO MD 03/15/2024 13:40 03/20/2024 16:29 [facility] Resident/Mat w: Orlin Woo MD 03/20/2024 16:29 [facility] Performing Lab [facility] 03/20/2024 16:29 T [facility] Scanned Images 03/20/2024 16:29 [facility] Tissue SOFT TISSUE / Unknown 03/14/2024 10:29 EDT 03/15/2024 8:31 EDT Ted Jacques MD PATHOLOGY ORDERABLES [facility] [address] [place] [address] documented in this encounter Visit Diagnoses Diagnosis Encounter for other general examination documented in this encounter Care Teams General Neurologist Relationship Specialty Start Date End Date Raul Santos MD PCP - General 06/05/14 documented as of this encounter
--- OUTSIDE RECORDS SUMMARY | 2024-03-27 14:09 | XMS_ITS | Encounter Summary ---
Author Organization [facility] Address [address] [place] [address] Care Team Providers Care Electric Fan Assembler Name Role Phone Unavailable Primary Care Provider Unavailabl e Encounter Details Date Type Department Care Team (Late st Contact Info) Description 04/14/2005 Results Only [facility] [address] [place] [address] Claire Funk, [address] [address] Social History Tobacco Use Types Packs/Day Years Used Date Smoking Tobacco: Never Assessed Sex and Gender Information Value Date Recorded Sex Assigned at Not on file Gender Identity Not on file Sexual Orientation Not on file documented as of this encounter Plan of Treatment Not on file documented as of this encounter Procedures Procedure Name Priority Date/Time Associated Diagnosis Comments CYTOPATHOLOGY Routine 04/14/2005 0:00 EDT documented in this encounter Results * CYTOPATHOLOGY (04/14/2005 0:00 EDT) Pathology Report: CYTOPATHOLOGY REPORT Reports generated via electronic interface contain original data; however they are lacking the format of the original report. Caution should be taken when reading/interpreti ng unformatted reports. Name: ? WILLI BELLA ? Accession #: ? [id number] : ? 1965 (Age: 39) ??F ?Collect Date: ? 04/14/2005 Location: ? [facility] ? Receive Date: ? 04/16/2005 Provider: ?CLAIRE FUNK CNM Copy to: ? Specimen/Source: ?ThinPrep Pap Test, Cervix/Endocervix, processed on [employer] ThinPrep Imaging System, with manual evaluation Last Menstrual Period: ? 03/20/05 Other: ? HPVA - HPV testing requested if ASC-US on the current ThinPrep Pap test. ? SPECIMEN ADEQUACY ? Satisfactory for Evaluation - transformation zone component present GENERAL CATEGORIZATION ? Negative for Intraepithelial Lesion or Malignancy ? Document reviewed and electronically signed by: ? REILLY Jones(ASCP) ? Report Date: ??04/24/2005 14:05 End of Report JORDY HERRERA 04/14/2005 04/16/2005 Claire Funk CNM PATHOLOGY Peggy [facility] JORDY HERRERA [address] [place] [address] documented in this encounter Visit Diagnoses Not on filedocumented in this encounter
--- OUTSIDE RECORDS SUMMARY | 2024-03-27 14:09 | XMS_ITS | Encounter Summary ---
Author Organization [facility] Address [address] [place] [address] Care Team Providers Care Early Head Start Director Name Role Phone Raul Santos MD Primary Care Provider Unavail able Encounter Details Date Type Department Care Team (Latest Contact Info) Description 01/11/2020 Lab Requisition [facility] Pathology & Laboratory Medicine - [address] [address] Jodie Arguelles, [address] [address] Encounter for gynecological examination (general) (routine) without abnormal findings; Encounter for screening for human papillomavirus (HPV) Social History Tobacco Use Types Packs/Day Years Used Date Smoking Tobacco: Never Assessed Sex and Gender Information Value Date Recorded Sex Assigned at Not on file Gender Identity Not on file Sexual Orientation Not on file documented as of this encounter Plan of Treatment Not on file documented as of this encounter Procedures Procedure Name Priority Date/Time Associated Diagnosis Comments PAP TEST Today 01/11/2020 16:04 EDT HPV DNA DETECTION WITH GENOTYPING, PCR Today 01/11/2020 16:04 EDT documented in this encounter Results * HUMAN PAPILLOMAVIRUS (HPV) DETECTION-HIGH RISK TYPES (01/11/2020 16:04 EDT) HPV other High Risk types, PCR Negative Negative 01/16/2020 19:18 EDT [facility] Comment:No E6 or E7 mRNA is detected from HPV types 16,18,31,33,35,39,45,51,52,56,58,59,66, and 68 by regional planner mediated amplification. Papanicolaou smear specimen (specimen) CERVIX UTERI STRUCTURE / Unknown 01/11/2020 16:04 EDT 01/15/2020 14:41 EDT Jodie Ebonie Tonie Arguelles [facility] MICRO[facility] - G ENERAL ORDERABLES [facility] [address] [place] [id number] * PAP TEST (01/11/2020 16:04 EDT) Specimens A. Cervix and/or Endocervix , ThinPrep Imaging System with Manual Evaluation 01/16/2020 19:19 [facility] Specimen Adequacy Satisfactory for Evaluation - assessment of transformation zone component not applicable ( e.g. atrophy, vaginal sample, hysterectomy) Scant squamous epithelial component, contamination present, possibly lubricant 01/16/2020 19:19 [facility] General Categorization Negative for intraepithelial lesion or malignancy 01/16/2020 19:19 [facility] Attestation . 01/16/2020 19:19 [facility] at 1918 Clinical History see order comments 01/16/2020 19:19 [facility] HPV The result for the Human Papillomavirus (HPV) Detection-High Risk Types is Negative. No E6 or E7 mRNA is detected from HPV types 16,18,31,33,35,39 ,45,51,52,56,58,5 9,66, and 68 by regional planner mediated amplification.Bambi ting was performed on specimen [id number] and was resulted on 01/16/2020 1917 EDT by RENETTA, LAB INSTRUMENT RESULTS IN 01/16/2020 19:19 T [facility] Scanned Images 01/16/2020 19:19 [facility] Papanicolaou smear specimen (specimen) CERVIX UTERI STRUCTURE / Unknown 01/11/2020 16:04 EDT 01/12/2020 12:12 EDT Jodie Arguelles [facility] PATH[facility] ORDERA BLES [facility] [address] [place] [id number] documented in this encounter Visit Diagnoses Diagnosis Encounter for gynecological examination (general) (routine) without abnormal findings Encounter for screening for human papillomavirus (HPV) Special screening examination for human papillomavirus (HPV) documented in this encounter Care Teams Early Head Start Director Relationship Specialty Start Date End Date Raul Santos MD PCP - General 06/05/14 documented as of this encounter
--- OUTSIDE RECORDS SUMMARY | 2024-03-27 14:09 | XMS_ITS | Continuity of Care Document ---
Author Organization [facility] Address [address] [place] [address] Care Team Providers Care Coverstitch Binder Name Role Phone [facility], Sukhwinder Everett Primary Care Physician Encounter [facility] Date(s): 10/18/23 - 10/18/[address] [address] Encounter Diagnosis Left wrist pain(Discharge Diagnosis) - 10/18/23 Discharge Disposition: Home or Self Care Attending Physician: Ted Montes De Oca MD Admitting Physician: Ted Montes De Oca MD Referring Physician: Ted Montes De Oca MD Allergies, Adverse Reactions, Alerts No Known Medication Allergies Assessment and Plan Future Appointments Future Scheduled Tests Radiology* MG Mammo Screening Bilateral w/ Dion 10/14/23 Immunizations Given and Recorded Vaccine Date Status [...] 0 Refill(s) Start Date: 01/07/23 Status: Ordered [place] Calcium with Vitamin D 0 Refill(s) Start Date: 02/11/23 Status: Ordered Fish Oil 500 mg oral capsule 0 Refill(s) Start Date: 02/11/23 Status: Ordered fluocinonide 0.1% topical cream Topical, Daily, 0 Refill(s) Start Date: 02/12/23 Status: Ordered HYDROcodone-acetaminophen 5 mg-325 mg oral tablet 1 tab, Oral, every 6 hr, PRN as needed for pain, # 10 tab, 0 Refill(s), Pharmacy: [id number], [id number], cm, 03/16/23 8:48:00 EDT, Height/Length Dosing, 87, kg, 03/16/23 8:48:00 EDT, Weight Dosing Start Date: 03/16/23 Status: Ordered ketoconazole 2% topical cream 1 janeth, Topical, BID, # 60 g, 1 Refill(s), Pharmacy: [id number], 163, cm, 03/16/23 8:48:00EDT, Height/Length Dosing, [...] stress test planned 2Outside Source Comment: Overview: [facility] ED visit for severe back pain and [...] WNL/Neg; 09/28/14 - Neg/Neg; 01/11/20 - [facility] [place] History Social History Type Response Tobacco Never tobacco user T obacco Use:. Sex Female Patient Care team information Care Team Personnel [facility] Position: No Access Member Role: Informed Provider Address: Address: [place] [address]- Care Team Related Persons Name: HUE BELLA
--- OUTSIDE RECORDS SUMMARY | 2024-03-27 14:09 | XMS_ITS | Encounter Summary ---
[facility] Organization [facility] [place] [address] Care Team Providers Care Automotive Worker Name Role Phone Lew Beltran Primary Care Provider [phone] Reason for Visit * Reason Comments Follow-up Annual visit S/P RNY gastric bypasss Encounter Details Date Type Department Care Team (Latest Contact Info) Description 08/23/2018 1:00 PM EST Office [place] [address] Cindy Lopez, ENGRAVER [employer] [facility] [place] [address] Disorder of iron metabolism; Symptomatic abdominal panniculus; Status post bariatric surgery; Intestinal malabsorption, unspecified type; Hypertension, unspecified type; Hyperlipidemia, unspecified hyperlipidemia type; Vitamin D deficiency Social History Tobacco Use Types Packs/Day Years Used Date Smoking Tobacco: Never Smokeless Tobacco: Never Alcohol Use Standard Drinks/Week Comments No 0 (1 standard drink = 0.6 oz pur e alcohol) Sex and Gender Information Value Date Recorded Sex Assigned at Not on file Gender Identity Not on file Sexual Orientation Not on file documented as of this encounter Last Filed Vital Signs Vital Sign Reading Time Taken Comments Blood Pressure 118/67 08/23/2018 12:53 PM EST Pulse 73 08/23/2018 12:53 PM EST Temperature - - Respiratory Rate - - Oxygen Saturation 100% 08/23/2018 12: 53 PM EST Inhaled Oxygen Concentration - - Weight 72.5 kg (159 lb 14.4 oz) 018 12:53 PM EST Height 164.5 cm (5' 4.75) 08/23/2018 1 2:53 PM EST Body Mass Index 26.81 08/23/2018 12:53 PM EST documented in this encounter Patient Instructions * Patient Instructions* Cindy Lopez T - 08/23/2018 1:00 PM EST [facility] physician support coordinator Gail [phone] and Maribel [phone] Dietitians: [phone] Surgeons/ nurse practitioners: [phone] Nurse line: [phone] Testing: Labwork: Today. Go to [facility], which is 1 flight below the General Surgery Clinic (or anyDH lab including [facility] [address] (open on Wednesdays) Please note that you will always receive a letter with lab results and recommendations. Read the letter carefully and follow recommendations. The letter also contains information regarding your next lab draw. A copy of your labwork and office visit today is sent to your primary child daycare worker Ask your primary care physician about the timing of a baseline bone density scan Next visit: 1 year Routine visits are done at 4.8,12, 18 and 24 months after surgery, and yearly thereafter. Please call [phone] if you do not receive an appointment by 3-4 weeks prior to the expected visit. Medications: recommendations pending labwork. Vitamins: The following vitamins are recommended: ??? Multivitamins with minerals twice daily- needs to be an under 50 multivitamin that contains iron. No senior multivitamins. (Or read the serving size if taking a Bariatric specific multivitamin such as procare). ??? Vitamin B12 500 mcg by mouth once daily ??? Calcium citrate 600 mg with Vitamin D 400 units twice daily (600 mg in AM and 600 mg in PM- 2 pills twice a day) (or 1 chewable twice a day) ??? Iron with Vitamin C, 50-66 mg once daily (take iron with vitamin C 250 mg to help with absorption) only if you have regular periods, iron deficiency or anemia. Nutrition recommendations: - Consider increasing vegetables, add as a snack - Your Daily Goals: ?? 1,000-1,200 calories per day (300 calories per meal, 100 calories per snack, 1-2 snacks per day) ?? 60 grams of protein per day (20 grams per meal) ?? 48-64 oz of non-caloric and hydrating fluids per day (6-8, 8 oz cups) ?? Do not drink with meals- pushes food through more quickly, can cause upset stomach Activity: keep up the good work! ??? Aim for 30 minutes of exercise daily, 5 days a week of both cardio and strength training exercises. f non-prescribed drugs and treet drugs is unsafe Anti-inflammatory medications such as Ibuprofen (Advil), Aleve (Naproxen), Excedrin, should be usedsparingly after gastric bypass, since they increase the risk of ulcer and bleeding. Potential lifetime risks of gastric bypass include risk of ulcer, which is increased with alcohol and antiinflammatory medications and internal hernia (less than 5%), which may be increased with higher than predicted weight loss Call us: ??? If you have concerns. ??? If you have unexplained abdominal pain. ??? if you see blood in your stool or vomit blood ??? If you have prolonged vomiting Post Surgery Support Group: Our post surgery support group meets on the first Wednesday of every month from 1-2 PM at [facility]- no registration required Nutrition and Activity apps- Baritastic, My Fitness Pal, Lose It, My Plate Internet resources: www.Flatout Technologies www.Instreet Network www.bariatricCloudPrime www.[email or web address] Software.[email or web address]/blog [facility] facebook page: [email or web address]LE[facility]ricSurgery Books & Magazines: - Recipes for Life After Weight Loss Surgery by Amanda Dunbar - Shrink Yourself by Dr Pablo Phelan - Eating Well - www.Itibia Technologies.Nangate - Cooking Light- www.[email or web address] documented in this encounter Progress Notes * Cindy Lopez - 08/23/2018 1:00 PM EST Reason for visit: follow up S/P laparoscopic Jm-en-Y gastric bypass on 08/13/2016 Complications summary: Early Her intraoperative and PACU course was notable for hypotension that was responsive to fluid resuscitation and felt secondary to dehydration given a bump in her Cr from baseline. A cortisol level was checked POD#1 and was notably low at 1.8 and so Endocrinology was consulted to assist in workup of possible adrenal insufficiency. A cosyntropin test proved normal and so stress dose steroids, which had been given for two doses, were stopped. FSH was also sent to exclude pituitary pathology and was appropriately elevated. Late none Visits summary: Compliance with scheduled BSP follow-up: good Bariatric surgery graduates support group attendance: none Pre-op Wt (lbs) 218 BMI 36.6 WT visit #2 220 HT:64.75 Introductory meeting date: 10/2014, 04/2016 Post-op Visit date Wt (lbs) BMI %EBW lost Supplement compliance Labwork D/c Hg 10.7/ Hct 32.2 08/25/16 210 36 12 [place] multi BID Ca cit chew 500 BID B12 500 QD D3 1 K/day - 12/02/15 175 30.4 62 Multi BID Ca cit BID B12 1K/day. D3 1 K/day. No iron 12/01: Hg 14.5 Hct 44.3 ferritin 25 iron 57 sat 14% B12 649 Nl B1 fol CMP x na 147 D 35 prealbumin 20 A1c 5.7 04/08/17 167 28.7 74 Multi BID Ca cit BID B12 1K/day. D3 2 K/day. Gentle iron QD 04/08: jorge 37 iron 86 sat 22% 08/19/17 166 28.5 75 Multi BID Ca cit BID B12 1K/day. D3 2 K/day. Gentle iron QD Requested: recent A1c, lipids via PCP 08/19:Hg 14.7 Hct 41.8 ferritin 100 iron 71 sat 20% B12 1255 Nl B1 fol CMP x AST 39 ALT 36 PTH 44 D33 08/23/18 159 26.8 86 Multi BID 100% AM 65% PM Ca cit BID- 100% AM, 50% PM B12 BID 100% AM 65% PM D3 2000 u/D 06/30: A1c 5.5 POC testing PCP 08/23: Hg 14.4 Hct 43.2 ferritin 58 iron 87sat 26% B12 1151 Nl B1 folate CMP PTH 45 D 28 TC 121 HDL62 tg 73 LDL 54 TSH 0.97 Next lab: 25 OH D February Next visit: 1 year *All EBWs recalculated to reflect IBW 149.5 lb BMI 25 Screening/other: Date Evaluation Results 06/2018 Primary care 08/09/15 Colonoscopy Done for rectal bleeding. Occasional diverticulum noted in sigmoid colon. May be secondary to constipation 10/09/14 Pap negative 09/22 Mammogram Reports as normal never DEXA Problem List ??? Preoperative Class II obesity BMI 36.6, S/P gastric bypass ??? Essential hypertension: remains on metoprolol (for ST) restarted on liinopril due to ECHO with ? LVH at [facility] Off diuretic therapy post surgery - preop treatment with triamterene- HCTZ, metoprolol and lisinopril ??? Diabetes mellitus type 2, uncomplicated, diagnosed ~2014: in remission post surgery. A1c 5.5 on06/30/18 - Metformin d/c post surgery. - preop treatment: metformin ??? Hyperlipidemia with low HDL (prevention per patient): normal lipid profile today, remains on simvastatin per PCP ??? Sinus tachycardia treated with metoprolol - Evaluation by Dr. Prado on 05/21/15: sinus tachycardia, most likely sinus node sensitivity with autonomic dysfunction and deconditioning. No further cardiac testing indicated. - history of SVT 180 ED visit, not requiring treatment in 2014 - Holter monitoring (24 hours) done on 05/10/15: NSR throughout the study, averaged heart rate 89, range 55-143. There was no VPB, no APBs. No reported symptoms. - ETT done on 05/11/15: done for palpitations, tachycardia, hypertension: achieved 7 METS, 91% of agepredicted HR. No EKG changes. - ECHO done on 05/30/14 for hypertension, ventricular ectopy: preserved LV function with EF of 60%. No hemodynamically significant valve disease. Trivial TR. PA pressures are normal at 28 mmHg. No significant change from 10/04/09. ??? History of chronic constipation preoperatively: remains iimproved with intake of homemade granola ??? History of rectal bleeding, attributed to constipation, better with increasing fiber and fluids Past Surgical History: Procedure Laterality Date ??? CARPAL TUNNEL RELEASE Bilateral 2014 ??? SECTION 1985, 1990 ??? PRO LAP GASTRIC BYPASS/JM-EN-Y N/A 08/13/2016 @LAPAROSCOPIC GASTROPLASTY, performed by Tonio Miles MD at [facility] MAIN OR ??? PRO LAP, SURG ENTEROLYSIS N/A 08/13/2016 LAPAROSCOPY, LYSIS OF ADHESIONS performed by Tonio Miles MD at [facility] MAIN OR ??? PRO UPPER GI ENDOSCOPY, DIAGNOSTIC N/A 08/13/2016 ENDOSCOPY, UPPER GI, DIAGNOSTIC, WITH OR WITHOUT SPECIMENS [facility] ??? SALPINGO-OOPHORECTOMY Right 08/16/2013 complex right ovarian hemorrhagic corpus luteum cyst. Prominent adhesive disease within the pelvis-dense adhesions of pericolic fat, intraperitoneal fat oriented in a AP direction and spanning the entirety of the lower pelvis. The uterus could not be identified. The ovaries could not be seen. ??? TUBAL LIGATION Bilateral ??? TUBAL REVERSAL ~1995 ??? WRIST GANGLION EXCISION Left ~1992 No Known Allergies Medications 08/23/18 1337 Medication Sig Taking? lisinopril (PRINIVIL;ZESTRIL) 20 mg Tablet Take 20 mg by mouth daily. Yes docusate sodium (COLACE) 100 mg Capsule Take 100 mg by mouth as needed. Yes meTOPROLOL succinate (TOPROL-XL) 100 mg Tablet Sustained Release 24 hr 50 mg. Yes CALCIUM CITRATE/VITAMIN D3 (CALCIUM CITRATE + D ORAL) Take by mouth 2 times daily. Yes multivitamin with minerals Tablet Take 1 tablet by mouth 2 times daily. Yes simvastatin (ZOCOR) 20 mg Tablet Take 1 tablet by mouth nightly. Yes aspirin 81 mg Tablet, Delayed Release (E.C.) Take 81 mg by mouth daily. Yes ascorbic acid, vitamin C, (VITAMIN C) 1,000 mg Tablet Take 1,000 mg by mouth daily. Yes cholecalciferol, Vitamin D3, 1,000 unit Capsule Take 1 capsule by mouth 2 times daily. Yes ergocalciferol (ERGOCALCIFEROL) 50,000 unit Capsule Take 1 capsule by mouth once a week for 24 doses. cyanocobalamin 500 mcg Tablet Take 500 mcg by mouth daily. Visits to emergency department or other unplanned visit to a health care facility since last visit?[facility] ED visit for UTI ? Renal stone last winter, had very severe pain. She reports that she was seenby a urologist at a later date, and advised that she didn't not have a renal stone. She had a second UTI. Changes to health/ evaluations/ social history since last visit: as per updated problem list and e-DH. She was evaluated by hepatology for abnormal LFTs in October, no significant findings other than improvement in LFTs. An abdominal u/s was recommended ? done She was also evaluated by Plastic surgery for a panniculectomy and mammoplasty on 02/17/18. She would like to proceed with surgery in the spring Subjective. Patient concerns at today's visit: Radha returns for routine follow up at 2 years post gastric bypass. She is feeling well, and remains pleased with her decision to undergo bariatric surgery. She feels more confident. She tried zip lining and enjoyed it over the summer when in [place], an activity she would not have tried pre-surgery. She has lost 6 pounds in the past year. Future goals: weight 145 pounds- wants to lose 100 pounds or 150, lowest weight post surgery thus far was 155 pounds. Bowel regimen: some constipation, related to fluid NSAID use: QD ASA 81 mg daily, takes acetaminophen for pain PRN Dietary history: A RD was not available for today's visit. The following history was obtained: She mentally tracks intake- weighs herself daily Hypoglycemia: 1 episode only 24 hour dietary recall: Breakfast Slim fast protein shake with fat free milk 8 oz AM Snack String cheese Lunch 3/4 cup of Ethiopian Oikos yogurt with 1/4 cup homemade granola with flax, beulah seed and wheat germ PM Snack String cheese Dinner 3 oz meat or fish 1/4 cup veggie, 1/4 cup of potato HS Snack Rare popcorn- microwave less than a cup- sometimes air popped Or 1/2 banana with a TBS of peanut or 1/2 apple Estimated Protein: >60 grams Hydrating Fluids: 20-40 oz water, + 16 oz decaf + 8 oz milk Soda: none Caffeine: none Meals: 3/day. ?? Food Allergies/Intolerances: scrambled eggs, sometimes chicken ?? Feels full/satisfied after eating: + ?? Feels hungry: sometimes ?? Drinks with meals: no ?? Has had dumping syndrome: no ?? Practices portion control: + ?? Spends at least 20 minutes eating each meal: 20 minutes ?? In the past month, pt has vomited/regurgitated: none Review of Systems (negative if left blank): Constitutional: [] fatigue [] pica [] restless leg Neurologic: [] paresthesias [] memory loss CV: [x] treatment for hypertension or taking antihypertensive medication [] treatment for hyperlipidemia Pulmonary: [] sleep apnea symptoms [] treatment for MIRTA GI: [] GERD [] dysphagia [] dumping [] abdominal pain [] hernia [] nausea/vomiting [] blood in stool [] chronic diarrhea/ constipation PIANO ACCOMPANIST: [] LMP: [] control [] menorrhagia [x] post-menopause age 49 Skin: [x] redundant skin abdomen with skinfold rashes treated with antifungal Heme/Lymph: [] excessive bruising or bleeding [] blood donor in past year Psychiatric [] mental health concerns Other: Employment/social:[employer]/ Health-related habits: Nicotine: none Alcohol: none Physical activity: active, no routine. Walking, stair climbing, cutting wood, kayaking over the summer at their camp at [facility] Objective: General: 52 y.o. year-old female looks well. She is accompanied by her Leandro Heart: Normal S1S2. RRR Lungs: CTA bilaterally without wheezing Abdomen: soft, non-tender. Abdominal trocar sites well-healed, without evidence of hernia. Abdominal pannus with evidence of chronic skinfold irritation Extremities: no lower extremity edema Vital signs: BP 118/67 (BP Location (NBP): Right arm, Patient Position: Sitting, BP Cuff Sizes: Adult (25-34 cm)) Pulse 73 Ht 164.5 cm (5' 4.75) Wt 72.5 kg (159 lb 14.4 oz) SpO2 100% BMI 26.81 kg/m?? Today's lab data: Results for RADHA BELLA ( ) Ref. Range 08/23/2018 14:25 WBC Latest Ref Range: 4.0 - 9.5 x10(3)/mcL 4.6 RBC Latest Ref Range: 4.00 - 5.21 x10(6)/mcL 5.03 Hemoglobin Latest Ref Range: 11.7 - 15.5 gm/dL 14.4 Hematocrit Latest Ref Range: 35.7 - 45.8 % 43.2 MCV Latest Ref Range: 82.6 - 94.4 fL 85.9 MCH Latest Ref Range: 27.1 - 32.0 pg 28.6 MCHC Latest Ref Range: 31.7 - 35.0 gm/dL 33.3 RDWSD Latest Ref Range: 37.0 - 46.0 fL 40.7 RDWCV Latest Ref Range: 11.5 - 14.1 % 13.1 Platelets Latest Ref Range: 145 - 357 x10(3)/mcL 174 MPV Latest Ref Range: 7.6 - 12.9 fL 10.4 nRBC % Auto Latest Units: % 0.0 nRBC Abs Auto Latest Ref Range: 0.000 - 0.000 x10(3)/mcL 0.000 Sodium Latest Ref Range: 135 - 145 mmol/L 140 Potassium Latest Ref Range: 3.5 - 5.0 mmol/L 4.3 Chloride Latest Ref Range: 98 - 107 mmol/L 100 CO2 Latest Ref Range: 22 - 31 mmol/L 31 Anion Gap Latest Ref Range: 5 - 15 mmol/L 9 BUN Latest Ref Range: 8 - 18 mg/dL 14 Creatinine Latest Ref Range: 0.70 - 1.20 mg/dL 0.68 (L) eGFR Latest Ref Range: >=60 mL/min/1.73 m?? 101 eGFR Latest Ref Range: >=60 mL/min/1.73 m?? 117 Glucose Lvl Latest Ref Range: 65 - 199 mg/dL 94 Calcium Latest Ref Range: 8.5 - 10.5 mg/dL 9.8 Total Protein Latest Ref Range: 6.1 - 8.0 gm/dL 7.8 Albumin Latest Ref Range: 3.2 - 5.2 gm/dL 4.6 Total Bilirubin Latest Ref Range: 0.2 - 1.3 mg/dL 0.4 Alk Phos Latest Ref Range: 40 - 104 unit/L 67 AST Latest Ref Range: 0 - 30 unit/L 27 ALT Latest Ref Range: 0 - 30 unit/L 29 Ferritin Latest Ref Range: 30 - 400 ng/mL 58 Folate Lvl Latest Ref Range: 4.8 - 24.2 ng/mL >20.0 Iron Latest Ref Range: 30 - 150 mcg/dL 87 TIBC Latest Ref Range: 250 - 450 mcg/dL 341 Iron Saturation Latest Ref Range: 20 - 50 % 26 Vitamin B-12 Latest Ref Range: 232 - 1,245 pg/mL 1,151 25-OH Vit D Total Latest Ref Range: 30 - 100 ng/mL 28 (L) Chol, Total Latest Units: mg/dL 131 HDL Latest Units: mg/dL 62 Chol/HDL Ratio Latest Units: ratio 2.1 Triglycerides Latest Units: mg/dL 73 LDL Cholesterol Latest Units: mg/dL 54 Lipid Interpretation Unknown See Note Vit B1 Lvl WB Latest Ref Range: 70 - 180 nmol/L 146 TSH Latest Ref Range: 0.27 - 4.20 mlU/ML 0.97 PTH Latest Ref Range: 15 - 65 pg/mL 45 Assessment: Stable 2 years S/P gastric bypass, with loss of 86% of excess body weight. Vitamin D deficiency. Recent ED visit for ? UTI vs renal stone Plan: ?? Radha was congratulated on her ongoing healthy lifestyle efforts. She was advised that her weight loss is outstanding, and no further weight loss is recommended. She was advised that extreme weight loss may increase her risk of internal hernia. Dietary/ exercise recommendations: Consider increasing vegetables, minimum calories 1000 /day. Recommended increased hydration given potential renal stone history ?? E- medical record since last BSP visit reviewed ?? Advised to discuss the timing of a baseline bone density scan with her primary child daycare worker ?? She will contact plastic surgery clinic when interested in proceeding with proceeding with surgery ?? Release of information signed to obtain recent lED visit and testing for continuity of care ?? Next BSP visit: 1 year ?? Next labwork: 6 months vitamin D ?? Additional vitamin and mineral supplement recommendations (*in addition to usual post surgery supplements, as noted below): continue multivitamins with minerals twice a day, calcium citrate 500-600 mg twice daily, vitamin B12 can be taken in one dose daily. Discontinue vitamin D3, start vitamin D 50,000 units once a week for 6 months. ?? Advised to call if develops unexplained abdominal pain, concerns or questions. Risks specific tobariatric procedure discussed ?? Radha was advised of lab results via e-DH and mail. She was provided with a Bariatric Program Summary report which included the above recommendations, as well as information on vitamin and mineral supplementation, fluids, exercise and support group meetings. She has had an opportunity to have all her questions answered and is in agreement with the plan of care. RECOMMENDED BARIATRIC SURGERY PROGRAM POSTOPERATIVE FOLLOW-UP: Follow up: done at 4, 8,12 and 18 and 24 months, and yearly thereafter. High risk patients are evaluated on a more frequent basis. *Supplement recommendations: Multivitamin with minerals twice a day, B12 500 mcg once a day, calcium citrate 600 mg/400 units vitamin D twice a day, iron (ferrous fumarate, polysaccharide iron taken with vitamin C 250 mg once a day) for menstruating females or those with MATEO. Labwork: Hemogram, ferritin, iron (transferrin) saturation, iron, folate, Vitamins B1, B12, D (25 hydroxy only), Intact PTH and comprehensive metabolic profile at 4, 12 and 24 months, and yearly. Prealbumin is done at 4 and 12 months and PRN. If labwork is done by the primary child daycare worker: pleasesend a copy to the Bariatric Surgery Program, General Surgery Clinic, [facility], Questions regarding [facility] Bariatric Surgery Program patients: please call the Bariatric Surgery Program at [phone] documented in this encounter Plan of Treatment Not on file documented as of this encounter Procedures Procedure Name Priority Date/Time Associated Diagnosis Comments PTH Routine 08/23/2018 2:25 PM EST Status post bariatric surgery Intestinal malabsorption, unspecified type Vitamin D deficiency HEMOGRAM Routine 08/23/2018 2:25 PM EST Disorder of iron metabolism Status post bariatric surgery Intestinal malabsorption, unspecified type Hypertension, unspecified type VITAMIN B1, WHOLE BLOOD Routine 08/23/2018 2:25 PM EST Status post bariatric surgery Intestinal malabsorption, unspecified type IRON AND TIBC Routine 08/23/2018 2:25 PM EST Disorder of iron metabolism Status post bariatric surgery Intestinal malabsorption, unspecified type VITAMIN D, 25-HYDROXY Routine 08/23/2018 2:25 PM EST Status post bariatric surgery Intestinal malabsorption, unspecified type Vitamin D deficiency TSH Routine 08/23/2018 2:25 PM EST Status post bariatric surgery Intestinal malabsorption, unspecified type FOLATE, SERUM Routine 08/23/2018 2:25 PM EST Status post bariatric surgery Intestinal malabsorption, unspecified type FERRITIN Routine 08/23/2018 2:25 PM EST Disorder of iron metabolism Status post bariatric surgery Intestinal malabsorption, unspecified type VITAMIN B12 Routine 08/23/2018 2:25 PM EST Status post bariatric surgery Intestinal malabsorption, unspecified type LIPID PANEL (REFLEX DIRECT LDL) Routine 08/23/2018 2:25 PM EST Status post bariatric surgery Intestinal malabsorption, unspecified type COMPREHENSIVE METABOLIC PANEL (NON-FASTING) Routine 08/23/2018 2:25 PM EST Status post bariatric surgery Intestinal malabsorption, unspecified type Hypertension, unspecified type Hyperlipidemia, unspecified hyperlipidemia type documented in this encounter Results * TSH (08/23/2018 2:25 PM EST) TSH 0.97 0.27 - 4.20 mlU/ML [facility] Blood specimen (specimen) 08/23/2018 2:25 PM EST 08/23/2018 2:32 PM EST Narrative Resulting Agency Comment Spec In Lab Cindy Lopez APRN CHEMISTRY ORDERAB LES Performing Organization Address [facility]/ZIP Co de Phone Number [facility] [place] [address] * Folate, serum (08/23/2018 2:25 PM EST) Pathologist [facility] [place] Folate Lvl >20.0 4.8 - 24.2 ng/mL [facility] Blood specimen (specimen) 08/23/2018 2:25 PM EST 08/23/2018 2:32 PM EST Narrative Resulting Agency Comment Spec In Lab Cindy Lopez APRN CHEMISTRY ORDERAB LES [facility] [place] [address] * Vitamin B12 (08/23/2018 2:25 PM EST) Vitamin B-12 1,151 232 - 1,245 pg/mL [facility] Blood specimen (specimen) 08/23/2018 2:25 PM EST 08/23/2018 2:32 PM EST Narrative Resulting Agency Comment Spec In Lab Cindy Lane John MANN CHEMISTRY ORDERAB LES Performing Organization Address [facility] Co de Phone Number [facility] [place] [address] * Vitamin B1, whole blood (08/23/2018 2:25 PM EST) Vit B1 Lvl WB 146 70 - 180 nmol/L [facility] Comment: ADDITIONAL INFORMATION This test was developed and its performance characteristics determined by [facility] in a manner consistent with CLIA requirements. This test has not been cleared or approved by the U.S. Food and Drug Administration. Test Performed by: [facility] - [facility] [address] [place] [address] Blood specimen (specimen) 08/23/2018 2:25 PM EST 08/23/2018 3:41 PM EST Narrative Resulting Agency Comment Spec In Lab Cindy Lopez APRN CHEMISTRY ORDERAB LES Performing Organization Address [facility] Co de Phone Number [facility] [place] [address] * (ABNORMAL) Vitamin D, 25-Hydroxy (08/23/2018 2:25 PM EST) 25-OH Vit D Total 28(L) 30 - 100 ng/mL [facility] Comment: Deficient <10 ng/mL Insufficient 10 to 29 ng/mL Sufficient 30 to 100 ng/mL Potential Intoxication >100 ng/mL According to the [place] National Osteoporosis Foundation, Vitamin D concentrations >30 ng/mL are sufficient to protect bone health. ??The National Kidney Foundation has similarly stated that patients with Vitamin D concentrations <30ng/mL should be considered to be insufficient or deficient. http://[employer]/nkf-guidelines http://[employer]/nejm-VitD The IDS iSYS Vitamin D Immunoassay detects both 25-OH Vitamin D2 and 25-OH Vitamin D3, but only a total Vitamin D concentration is reported. Blood specimen (specimen) 08/23/2018 2:25 PM EST 08/24/2018 7:08 AM EST Narrative Resulting Agency Comment Spec In Lab Cindy Lopez ENGRAVER HAND [employer] CHEMISTRY ORDERAB LES Performing Organization Address City/[facility] Hospital/ZIP Co de Phone Number [facility] [place] [address] * PTH (08/23/2018 2:25 PM EST) PTH 45 15 - 65 pg/mL [facility] Blood specimen (specimen) 08/23/2018 2:25 PM EST 08/23/2018 2:32 PM EST Narrative Resulting Agency Comment Spec In Lab Cindy Changigley ENGRAVER [employer] CHEMISTRY ORDERAB LES Performing Organization Address [facility] Co de Phone Number [facility] [place] [address] * Ferritin (08/23/2018 2:25 PM EST) Ferritin 58 30 - 400 ng/mL [facility] Comment: Pediatric reference ranges not verified at [facility] [place] interpret with caution. Reference ranges for females greater than 50 years of age approach values for men, i.e., 30-400 ng/mL. Blood specimen (specimen) 08/23/2018 2:25 PM EST 08/23/2018 2:32 PM EST Narrative Resulting Agency Comment Spec In Lab Cindy Sherman John ENGRAVER [employer] CHEMISTRY ORDERAB LES Performing Organization Address City/[facility] Hospital/ZIP Co de Phone Number [facility] [place] [address] * Iron and TIBC (08/23/2018 2:25 PM EST) Iron 87 30 - 150 mcg/dL [facility] TIBC 341 250 - 450 mcg/dL [facility] Iron Saturation 26 20 - 50 % [facility] Blood specimen (specimen) 08/23/2018 2:25 PM EST 08/23/2018 2:32 PM EST Narrative Resulting Agency Comment Spec In Lab Cindy Lopez APRN CHEMISTRY ORDERAB LES [facility] [place] [address] * Lipid Panel (08/23/2018 2:25 PM EST) Chol, Total 131 mg/dL [facility] Comment: Lower Risk: <200 mg/dL Average Risk: 200-239 mg/dL Higher Risk: >wl=533 mg/dL Triglycerides 73 mg/dL [facility] Comment: Average Risk/Lower Risk: <150 mg/dL Borderline High Risk: 150-199 mg/dL High Risk: 200-499 mg/dL Very High Risk: >io=032 mg/dL HDL 62 mg/dL [facility] Comment: Males: ?? Higher Risk: <40 mg/dL Females: ?? HIgher Risk: <50 mg/dL LDL Cholesterol 54 mg/dL [facility] Comment: Lowest Risk: <100 mg/dL Lower Risk: 100-129 mg/dL Borderline High Risk: 130-159 mg/dL High Risk: 160-189 mg/dL Very High Risk: >zn=951 mg/dL Chol/HDL Ratio 2.1 ratio [facility] Lipid Interpretation See Note [facility] Comment: Lipid management should be guided by a patient? s ASCVD risk, goals and preferences. ACC/AHA Guidelines recommend high intensity statin if clinical ASCVD or LDL greater than or equal to 190 mg/dL. http://[employer].com/JSX-GRO-Gyrcaxwyf Adults aged 40-75 with LDL 70-189 mg/dL should have their 10 year ASCVD risk estimated with the ACC/AHA ASCVD risk manager organizational http://tools.acc.org/IOBKH-Jmcx-Faqsqgqts/ Statin should be discussed if risk greater than or equal to 7.5% in non-diabetics. With diabetes, moderate intensity statin is recommended if risk less than 7.5%, high intensity if risk greater than or equal to 7.5%. Annual lipid monitoring on statins is not necessary. Evaluate secondary causes of Triglycerides greater than 500 mg/dL or LDL greater than 190 mg/dL: See table 6 of ACC/AHA Guideline. Lifestyle modification is a critical component of ASCVD risk reduction. Blood specimen (specimen) 08/23/2018 2:25 PM EST 08/23/2018 2:32 PM EST Narrative Resulting Agency Comment Spec In Lab Cindy Lopez ENGRAVER [employer] CHEMISTRY ORDERAB LES [facility] [place] [address] * (ABNORMAL) Comprehensive metabolic panel (non-fasting) (08/23/2018 2:25 PM EST) Glucose Lvl 94 65 - 199 mg/dL [facility] Comment:Diabetes: >=200 mg/d L plus symptoms BUN 14 8 - 18 mg/dL [facility] Creatinine 0.68(L) 0.70 - 1.20 mg/dL [facility] Sodium 140 135 - 145 mmol/L [facility] Potassium 4.3 3.5 - 5.0 mmol/L [facility] Comment: Please note: ??Patients with WBC >100,000 may have falsely elevated Potassium levels. ??For accurate Potassium quantification in these patients send serum separator tube (gold top) for subsequent determinations. ??Contact the Clinical Chemistry Laboratory if there are any questions. Chloride 100 98 - 107 mmol/L [facility] CO2 31 22 - 31 mmol/L [facility] Anion Gap 9 5 - 15 mmol/L [facility] Calcium 9.8 8.5 - 10.5 mg/dL [facility] Total Protein 7.8 6.1 - 8.0 gm/dL [facility] Albumin 4.6 3.2 - 5.2 gm/dL [facility] AST 27 0 - 30 unit/L [facility] ALT 29 0 - 30 unit/L [facility] Alk Phos 67 40 - 104 unit/L [facility] Total Bilirubin 0.4 0.2 - 1.3 mg/dL [facility] Estimated GFR 101 >=60 mL/min/1. 73 m?? [facility] Comment: The eGFR was calculated using the CKD-EPI equation. As with all creatinine based estimates of kidney function, eGFR values calculated with the CKD-EPI equation are not accurate in patients with acute kidney failure, extremes of body mass or the acutely ill. http://[employer]/[facility] eGFR 117 >=60 mL/min/1. 73 m?? [facility] Comment: The eGFR was calculated using the CKD-EPI equation. As with all creatinine based estimates of kidney function, eGFR values calculated with the CKD-EPI equation are not accurate in patients with acute kidney failure, extremes of body mass or the acutely ill. http://[employer]/[facility] Blood specimen (specimen) 08/23/2018 2:25 PM EST 08/23/2018 2:32 PM EST Narrative Resulting Agency Comment Spec In Lab Cindy Lopez APRN CHEMISTRY ORDERAB LES Performing Organization Address City/State/[facility] Co de Phone Number [facility] [place] [address] * Hemogram (08/23/2018 2:25 PM EST) WBC 4.6 4.0 - 9.5 x10(3)/[facility] RBC 5.03 4.00 - 5.21 x10(6)/[facility] Hemoglobin 14.4 11.7 - 15.5 gm/dL [facility] Hematocrit 43.2 35.7 - 45.8 % [facility] MCV 85.9 82.6 - 94.4 fL [facility] MCH 28.6 27.1 - 32.0 pg [facility] MCHC 33.3 31.7 - 35.0 gm/dL [facility] Platelets 174 145 - 357 x10(3)/[facility] RDWSD 40.7 37.0 - 46.0 fL [facility] RDWCV 13.1 11.5 - 14.1 % [facility] MPV 10.4 7.6 - 12.9 fL [facility] nRBC % Auto 0.0 % [facility] nRBC Abs Auto 0.000 0.000 - 0.000 x10(3)/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
--- OUTSIDE RECORDS SUMMARY | 2024-03-27 14:09 | XMS_ITS | Continuity of Care Document ---
Author Organization [facility] Address [address] [place] [address] Care Team Providers Care Corporate Webmaster Name Role Phone Prime[employer], Sukhwinder Everett Primary Care Physician Encounter [facility] Date(s): 11/23/22 - 11/23/[address] [address] Encounter Diagnosis Breast cancer screening by mammogram(Discharge Diagnosis) - 11/23/22 Discharge Disposition: Home or Self Care Attending Physician: Jodie Alvarez CNM Admitting Physician: Jodie Alvarez CNM Referring Physician: Jodie Alvarez CNM Allergies, Adverse Reactions, Alerts No Known Medication [...] 05/22/11 Efrain rded influenza virus vaccine, inactivated 10/1/10 Efrain rded influenza virus vaccine, inactivated 06/25/09 Efrain rded influenza virus vaccine, inactivated 09/06/00 Efrain rded tetanus-diphth toxoids (Td) adult/adol 09/06/00 Re corded measles/mumps/rubella virus vaccine 09/06/00 Recor ded hepatitis B adult vaccine 09/06/00 Recorded tetanus/diphth/pertuss (Tdap) adult/adol 09/06/00 Recorded varicella virus vaccine 09/06/00 Recorded rubella virus vaccine 09/06/00 Recorded Social History Social History Type Response Sex Female Patient Care team information Care Team Personnel Name: Sukhwinder Farooq MD Position: No Access Member Role: Primary Care Physician Address: Address: [address] Care Team Related Persons Name: HUE BELLA Address: Home
--- OUTSIDE RECORDS SUMMARY | 2024-03-27 14:09 | XMS_ITS | Continuity of Care Document ---
Author Organization [facility] Address [address] [place] [address] Care Team Providers Care Marine Engine Machinist Name Role Phone Primeau IPH[employer], Sukhwinder Everett Primary Care Physician Encounter [facility] Date(s): 10/14/23 - 10/14/23 [facility] [address] [place] [address] Discharge Disposition: Home Allergies, Adverse Reactions, Alerts No Known Medication Allergies Assessment and Plan Future Appointments Future Scheduled Tests Radiology* MG Mammo Screening Bilateral w/ Dion 10/14/23 * MRI Wrist w/o Contrast Left 10/11/23 Immunizations Given and Recorded Vaccine Date Status [...] 0 Refill(s) Start Date: 01/07/23 Status: Ordered Tool Calcium with Vitamin D 0 Refill(s) Start Date: 02/11/23 Status: Ordered Fish Oil 500 mg oral capsule 0 Refill(s) Start Date: 02/11/23 Status: Ordered fluocinonide 0.1% topical cream Topical, Daily, 0 Refill(s) Start Date: 02/12/23 Status: Ordered HYDROcodone-acetaminophen 5 mg-325 mg oral tablet 1 tab, Oral, every 6 hr, PRN as needed for pain, # 10 tab, 0 Refill(s), Pharmacy: [facility], 163, cm, 03/16/23 8:48:00 EDT, Height/Length Dosing, 87, kg, 03/16/23 8:48:00 EDT, Weight Dosing Start Date: 03/16/23 Status: Ordered ketoconazole 2% topical cream 1 janeth, Topical, BID, # 60 g, 1 Refill(s), Pharmacy: [facility], 163, cm, 03/16/23 8:48:00EDT, Height/Length Dosing, [...] stress test planned 2Outside Source Comment: Overview: [facility] ED visit for severe back pain [...] WNL/Neg; 09/28/14 - Neg/Neg; 01/11/20 - [facility] [place] Social History Social History Type Response Tobacco Never tobacco user T obacco Use:. Sex Female Patient Care team information Care Team Personnel Name: Sukhwinder Farooq MD Position: No Access Member Role: Informed Provider Address: Address: [address] Care Team Related Persons Name: HUE BELLA Address: Home
--- OUTSIDE RECORDS SUMMARY | 2024-03-27 14:09 | XMS_ITS | Clinical Summary ---
Author Organization [facility] Address [address] [place] [address] Care Team Providers Care Sounding Device Operator Name Role Phone Raul Santos MD Primary Care Provider Unavail able Encounters Date Type Department Care Team Description 03/14/2024 Lab Requisition [facility] Pathology & Laboratory Medicine - [address] [address] Ted Jacques MD Encounter for other general examination from Last 3 Months Social History Tobacco Use Types Packs/Day Years Used Date Smoking Tobacco: Never Assessed Sex and Gender Information Value Date Recorded Sex Assigned at Not on file Gender Identity Not on file Sexual Orientation Not on file Plan of Treatment Health Maintenance Due Date Last Done Comments Hepatitis C Screen 1965 Hepatitis B Vaccine (1 of 3 - 19+ 3-dose series) 11/05 COVID-19 Vaccine ( season) 2023 Procedures Procedure Name Priority Date/Time Associated Diagnosis [...] management options, if applicable. 03/20/2024 16:29 EDT [facility] Final Diagnosis A. SOFT TISSUE, LEFT BICEP AREA, ? LESION? 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 (see comment) 03/20/2024 16:29 EDT [facility] Diagnosis Comment There is no significant nuclear atypia within adipocytes or stroma cells. 03/20/2024 16:29 [facility] Attestation There was significant resident/fellow involvement in the diagnostic evaluation of this case. By the signature below, the attending physician certifies that they have personally conducted a gross and/or microscopic examination of the described specimens and rendered or confirmed the above diagnosis. 03/20/2024 16:29 [facility] at 1629 Clinical History Left soft tissue lesion of biceps region 03/20/2024 16:29 [facility] Gross Description A. Received in formalin labelled with proper patient identification (initials W, D) and left soft tissue lesion (biceps) is a mohamud-white ovoid tissue with attached mohamud-pink muscle (5.0 x 3.0 x 2.2 cm). The specimen is serially sectioned and reveal mohamud pink cut surface. The is no lesion identified. [place]ette Performer sections are submitted in A1-A5. ORLIN WOO MD 03/15/2024 13:40 03/20/2024 16:29 [facility] Resident/Mat w: Orlin Woo MD 03/20/2024 16:29 T [facility] Performing Lab [facility] 03/20/2024 16:29 T [facility] Scanned Images 03/20/2024 16:29 T [facility] Tissue SOFT TISSUE / Unknown 03/14/2024 10:29 EDT 03/15/2024 8:31 EDT Ted Jacques MD PATHOLOGY ORDERABLES [facility] [address] [place] [address] from Last 3 Months Care Teams Sounding Device Operator Relationship Specialty Start Date End Date Raul Santos MD PCP - General 06/05/14
--- OUTSIDE RECORDS SUMMARY | 2024-03-27 14:09 | XMS_ITS | Continuity of Care Document ---
Author Organization [facility] Address [address] [place] [address] Care Team Providers Care Transportation Program Director Name Role Phone [employer] [employer], Sukhwinder Everett Primary Care Physician [facility] Date[facility] 11/25/23 - 11/25/[address] [address] Encounter Diagnosis Breast cancer screening by mammogram(Discharge Diagnosis) - 11/25/23 Discharge Disposition: Home or Self Care Attending [...] 0 Refill(s) Start Date: 01/07/23 Status: Ordered Glynn Calcium with Vitamin D 0 Refill(s) Start Date: 02/11/23 Status: Ordered Fish Oil 500 mg oral capsule 0 Refill(s) Start Date: 02/11/23 Status: Ordered fluocinonide 0.1% topical cream Topical, Daily, 0 Refill(s) Start Date: 02/12/23 Status: Ordered HYDROcodone-acetaminophen 5 mg-325 mg oral tablet 1 tab, Oral, every 6 hr, PRN as needed for pain, # 10 tab, 0 Refill(s), Pharmacy: [facility], 163, cm, 03/16/23 8:48:00 EDT, Height/Length Dosing, 87, kg, 03/16/23 8:48:00 EDT, Weight Dosing Start Date: 03/16/23 Status: Ordered ketoconazole 2% topical cream 1 janeth, Topical, BID, # 60 g, 1 Refill(s), Pharmacy: [facility] #58, 163, cm, 03/16/23 8:48:00EDT, Height/Length Dosing, [...] WNL/Neg; 09/28/14 - Neg/Neg; 01/11/20 - [facility] [place] [place] Social History Social History Type Response Tobacco Never tobacco user T obacco Use:. Sex Female Patient Care team information Care Team Personnel Name: Sukhwinder Farooq MD Position: No Access Member Role: Informed Provider Address: Address: [address] [address]- Care Team Related Persons Name: HUE BELLA Address: Home [address] [place] [address], [phone]
--- OUTSIDE RECORDS SUMMARY | 2024-03-27 14:09 | XMS_ITS | Continuity of Care Document ---
Author Organization [facility] Address [address] [place] [address] Care Team Providers Care Putty Patcher Name Role Phone [facility], Sukhwinder Everett Primary Care Physician Encounter [facility] Date(s): 03/14/24 - 03/14/[address] [address] Discharge Disposition: Home or Self Care Attending Physician: Ted Montes De Oca MD Admitting Physician: Ted Montes De Oca MD Referring Physician: Ted Montes De Oca MD Allergies, Adverse Reactions, Alerts No Known Medication Allergies Assessment and Plan Future Appointments Diagnostic Tests Pending * Surgical Pathology [facility] 03/14/24 Functional Status 03/14/24 ADLs Independent Recent Travel History No recent travel Immunizations Given and Recorded Vaccine Date Status [...] 0 Refill(s) Start Date: 01/07/23 Status: Ordered [place] Calcium with Vitamin D 0 Refill(s) Start Date: 02/11/23 Status: Ordered Fish Oil 500 mg oral capsule 0 Refill(s) Start Date: 02/11/23 Status: Ordered fluocinonide 0.1% topical cream Topical, Daily, 0 Refill(s) Start Date: 02/12/23 Status: Ordered HYDROcodone-acetaminophen 5 mg-325 mg oral tablet 1 tab, Oral, every 6 hr, PRN as needed for pain, # 12 tab, 0 Refill(s), Pharmacy: [facility], 163, cm, 03/14/24 9:06:00 EDT, Height, 85, kg, 03/14/24 9:28:00 EDT, Weight Dosing Start Date: 03/14/24 Status: Ordered HYDROcodone-acetaminophen 5 mg-325 mg oral tablet 1 tab, Oral, every 6 hr, PRN as needed for pain, # 10 tab, 0 Refill(s), Pharmacy: [facility], 163, cm, 03/16/23 8:48:00 EDT, Height/Length Dosing, 87, kg, 03/16/23 8:48:00 EDT, Weight Dosing Start Date: 03/16/23 Status: Ordered ketoconazole 2% topical cream 1 janeth, Topical, BID, # 60 g, 1 Refill(s), Pharmacy: [facility], 163, cm, 03/16/23 8:48:00EDT, Height/Length Dosing, [...] stress test planned 2Outside Source Comment: Overview: [facility] ED visit for severe back pain [...] Oral [35.8-37.3 Deg C] 36.6 Deg C (03/14/24 9:06 AM) Temperature Temporal Artery [36-38 Deg C] 36.2 Deg C (03/14/24 11:35 AM) 35.8 Deg C *LOW* (03/14/24 11:00 AM) 36 Deg C (03/14/24 10:44 AM) Temperature Temporal Artery (DegF) [97.3-100 Deg F] 96.44 Deg F *LOW* (03/14/24 11:00 AM) 96.8 Deg F *LOW* (03/14/24 10:44 AM) Peripheral Pulse Rate [60-100 bpm] 77 bpm (03/14/24 11:35 AM) 74 bpm (03/14/24 11:30 AM) 80 bpm (03/14/24 11:15 AM) Heart Rate Monitored [60-100 bpm] 77 bpm (03/14/24 11:35 AM) 74 bpm (03/14/24 11:30 AM) 80 bpm (03/14/24 11:15 AM) Respiratory Rate [12-24 br/min] 20 br/min (03/14/24 11:35 AM) 15 br/min (03/14/24 11:30 AM) 22 br/min (03/14/24 11:15 AM) Blood Pressure [90-140/60-90 mmHg] 116/78mmHg (03/14/24 11:35 AM) 117/76mmHg (03/14/24 11:30 AM) 120/71mmHg (03/14/24 11:15 AM) Mean Arterial Pressure, Cuff [65-140 mmHg] 91 mmHg (03/14/24 11:35 AM) 90 mmHg (03/14/24 11:30 AM) 87 mmHg (03/14/24 11:15 AM) Weight 85 kg (03/14/24 9:06 AM) Weight Dosing 85.000 kg (03/14/24 9:06 AM) Height 163 cm (03/14/24 9:06 AM) Body Mass Index 31.99 kg/m2 (03/14/24 9:06 AM) Social History Social History Type Response Tobacco Never tobacco user T obacco Use:. Sex Female Discharge instructions * Rosalind De Leon RN: PERFORM Event Display: Discharge Instructions Authored Date: [id number] JAMAICAKYLERWILLI INGRAM Shreyas :1965 Age:58 years Sex:Female Visit Date:03/14/2024 Primary Care Physician: Sukhwinder Farooq MD Hospital Discharge Instructions We would like to thank you for allowing us to assist you with your healthcare needs. The following includes patient education materials and information regarding your injury/illness. Your Next Steps Instructions From Your Care Team Orthopedic Surgery Discharge Instructions ok to take down the DAYNA wrap in 3 days. leave the water proof dressing on until follow up in the office. ok to shower with??waterproof??dressing once dayna wrap is taken down ok to use the arm for light activities?? ok to use a sling as needed? Pain Control ?Take your pain relief medication when discomfort first begins. ?Can use stool softener while taking the narcotic to avoid problems with constipation. ?It is okay to start [id number] Naproxen or Ibuprofen??immediately ?? Call your doctor [...] the Emergency Room @ . Ortho Office: [phone]?? Discharge Orders Discharge Patient Instructions, Follow discharge instructions handout Scheduled Future Appointments Wednesday 2:45 PM EDT ?? With: Licha Cramer PA-C Where: [facility] Orthopedics [address] [place] [address], [address] [place] [address] Status: Confirmed Wednesday 9:30 AM EDT ?? With: Jodie Alvarez CNM Where: [facility] OBGYN [address] [place] [address], [address] [place] [address] Status: Confirmed Medications What How Much When Why Instructions Next Dose Changed HYDROcodone-acetaminophen (HYDROcodone-acetaminophen 5 mg-325 mg oral tablet) 1 tab Oral (given by mouth) Every 6 hours as needed for as needed for pain Changed HYDROcodone-acetaminophen (HYDROcodone-acetaminophen 5 mg-325 mg oral tablet) 1 tab Oral (given by mouth) Every 6 hours as needed for as needed for pain Pickup at [facility] Unchanged ascorbic acid (Vitamin C 500 mg oral tablet) 1,000 Milligrams Oral (given by mouth) Every day Unchanged aspirin (aspirin 81 mg oral capsule) Unchanged atorvastatin (atorvastatin 20 mg oral tablet) 90 EA, TAKE ONE TABLET BY MOUTH EVERY EVENING ?? Unchanged calcium-vitamin D ([place] Calcium with Vitamin D) Unchanged cholecalciferol (Vitamin D3) Unchanged cyanocobalamin (Vitamin B12) Unchanged fluocinonide topical (fluocinonide 0.1% topical cream) Topical (on the skin) Every day Unchanged ketoconazole topical (ketoconazole 2% topical cream) 1 Application Topical (on the skin) 2 times a day Yeast infection of the skin Duration: 28 Days Unchanged lisinopril (lisinopril 20 mg oral tablet) 1 tab Oral (given by mouth) Every day Unchanged metoprolol (metoprolol tartrate 50 mg oral tablet) Unchanged multivitamin (Multiple Vitamins oral capsule) Unchanged omega-3 polyunsaturated fatty acids (Fish Oil 500 mg oral capsule) Unchanged triamcinolone topical (triamcinolone 0.1% topical cream) 1 Application Topical (on the skin) 2 times a day Unchanged turmeric (Turmeric) Pharmacy Information [facility]: [address] [place], [place] [id number] [phone] Your Summary Your Care Team Admitting Physician - Sawyer NICHOLS, Ted Martinez MD Attending Physician - Sawyer NICHOLS, Ted Martinez MD Primary Care Physician - [facility], Sukhwinder Everett MD Referring Physician - Sawyer NICHOLS, Ted Martinez MD Patient/Bin Packer Signature Patient Name:WILLI BELLA I have received this information and my questions have been answered. Patient/Bin Packer Name: Patient/Bin Packer Signature: Relationship to Patient: Witness Name/Signature: Date: Electronically Signed on: 03/14/2024 10:55 EDTSigned by:BLANE History and physical note * AnkitTahira Peggy: PERFORM Event Display: History and Physical Authored Date: [id number] WILLI BELLA :1965 Age:58 years Sex:Female Primary Care Physician: Amita POND, Sukhwinder Everett MD Visit Date:??03/06/2024 [1] ? Chief Complaint L humerus mass, discuss MR results ?? History of Present Illness No patient history of left bicep region mass set her up for an MRI to evaluate??comes in today for those results. ?? Review of Systems Constitutional:?No??fevers,?No??chills,?No??sweats Eye:?No??recent visual problems ENT:?No??ear pain,?No??nasal congestion,?No??sore throat Respiratory:?No??shortness of breath,?No??cough Cardiovascular:?No??Chest pain,?No??palpitations,?No??syncope Gastrointestinal:?Nonausea,?No??vomiting,?No??diarrhea Genitourinary:?No??hematuria Jayme/Lymph:?No??bruising tendency,?No??swollen lymph glands Endocrine:?No??excessive thirst,??No??excessive hunger Musculoskeletal:??No??back pain,??No??neck pain,??No??joint pain,??No??muscle pain,??No??decreased range of motion Integumentary:?No??rash,?No??pruritus,?No??abrasions Neurologic: Alert & oriented X 4 Psychiatric:?No??anxiety,?No??depression Physical Exam Well-nourished well-developed acute distress alert and oriented. ??Stated age mass is unchanged from last week when it was palpably??about 4 cm in maximum diameter. ??Still located within the biceps and not attached to underlying overlying soft tissue??normal elbow wrist hand range of motion with cap refill distally no open wound signs of erythema or infection. 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 ?? 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 Discussed with her that there is a small chance that an intramuscular lipoma could be something of concern??options would be to watchful waiting versus surgical removal after discussing this??she wanted to have it removed which I felt wasreasonable so the plan will be surgical removal of the lipoma??see her again at that time. ?Ordered: PAT Surgery / Procedure Nursing Review Request., 03/06/24 14:06:[address] [facility], Ted Martinez MD, Left arm mass excision, Left arm mass excision need 60 minutes date and time per crew scheduler anesthesia per choice most likely general BMI 31, Soft tissue lesion of elbow region ?? Problem List/Past Medical History Ongoing ?Chest discomfort ??Chronic constipation ??de Quervain's disease of right wrist ??De Quervain's tenosynovitis, left ??Essential hypertension ??Excess panniculus of abdomen ??Fatty liver ??History of calculus of kidney ??History of rectal bleeding ??Hyperlipidemia ??Left wrist pain ??Lump of left wrist ??Obesity ??Palpitations ??Prediabetes ??Ptotic breast ??S/P excision of ganglion cyst ??Sinus tachycardia ??Soft tissue lesion of elbow region ??Tendinitis of right knee ??TIA ??Urolithiasis Historical ? Procedure/Surgical History ???de Quervain's disease of left wrist (11/23/2023)???Excision of ganglion, wrist (dorsal or volar); recurrent (03/16/2023)???R 1st Dorsal compartment release, DeQuervain's. (12/02/2021)???Due 01/2025 (01/11/2020)???Gastric bypass (08/13/2016)???Trigger finger of right hand (11/28/2015)???Carpal tunnel decompression (01/17/2015)???Oophorectomy (08/18/2011)???Tubal Reanastamosis Right (1995)??? delivery (1990)???Tubal ligation (1990)??? delivery (1985)???Eye surgery (1968) ?? Medications ??aspirin 81 mg oral capsule ??atorvastatin 20 mg oral tablet ??[place] Calcium with Vitamin D ??Fish Oil 500 [...] 0.1% topical cream, 1 janeth, Topical, BID ??Turmeric ??Vitamin B12 ??Vitamin C 500 mg oral tablet, 1000 mg, Oral, Daily ??Vitamin D3 Allergies No Known Medication Allergies Social History Alcohol ??Current, 1-2 times per week Electronic Cigarette/Vaping ??Electronic Cigarette Use: Never. Sexual ??Sexual orientation: Straight or heterosexual. What is your current gender identity? (Check all that apply) Identifies as female. Substance Use ??Never Tobacco ??Never tobacco user Tobacco Use:. Family History ??Cancer: Father. ??Diabetes mellitus: Father. ??Hypertension: Father. [2] [1]??Office Visit Note; Sawyer ALEMAN, Ted Martinez MD 03/06/2024 14:07 EDT [2]??Office Visit Note; Ted Montes De Oca MD 03/06/2024 14:07 EDT Electronically Signed on 03/07/2024 14:49 EDT Tahira Pham A Electronically Signed on 03/08/2024 10:36 EDT Ted Montes De Oca MD * Ted Montes De Oca MD: PERFORM Event Display: History and Physical Authored Date: Patient seen in preoperative hold no change in general still status H&P updated Electronically Signed on 03/14/2024 09:51 EDT Ted Montes De Oca MD Patient Care team information Care Team Personnel Name: Sukhwinder Farooq MD Position: No Access Member Role: Informed Provider Address: Address: [address] [address]- [place] Care Team Related Persons Name: BRANDO BELLAEL Address: Home [address] [place] [address], [phone]
--- OUTSIDE RECORDS SUMMARY | 2024-03-27 14:09 | XMS_ITS | Encounter Summary ---
Author Organization [facility] Address [address] [place] [address] Care Team Providers Care Storage Management Consultant Name Role Phone Unavailable Primary Care Provider Unavailabl e Encounter Details Date Type Department Care Team (Late st Contact Info) Description 06/06/2009 Orders Only [facility] Laboratory Services - [facility] ([facility]) [address] [place], [place] [id number] Claire Arguelles, [facility] [address], [place] [id number] Social History Tobacco Use Types Packs/Day Years Used Date Smoking Tobacco: Never Assessed Sex and Gender Information Value Date Recorded Sex Assigned at Not on file Gender Identity Not on file Sexual Orientation Not on file documented as of this encounter Plan of Treatment Not on file documented as of this encounter Procedures Procedure Name Priority Date/Time Associated Diagnosis Comments HPV DETECTION, HIGH RISK TYPES Routine 06/06/2009 13:45 EDT CYTOPATHOLOGY Routine 06/06/2009 0:00 EDT documented in this encounter Results * HUMAN PAPILLOMA VIRUS DNA TEST (06/06/2009 13:45 EDT) Specimen Description Cervix, ThinPrep vial [facility] Result Negative for HPV types 16, 18, 31, 33, 35, 39, 45, 51, 52, 56, 58, 59, and 68. [facility] Report Status Final 06/18/2009 [facility] 06/06/2009 13:4 5 EDT 06/11/2009 13:45 EDT Claire Arguelles CNM MICROBIOLOGY - G ENERAL ORDERABLES [facility] [address] [place] [address] * CYTOPATHOLOGY (06/06/2009 0:00 EDT) Pathology Report: CYTOPATHOLOGY REPORT ? Reports generated via electronic interface contain original data; ? however they are lacking the format of the original report. ? Caution should be taken when reading/interpreti ng unformatted reports. ? Name: ? WILLI BELLA ? Accession #: ? [id number] ? : ? 1965 (Age: 43) ??F ?Collect Date: ? 06/06/2009 ? Location: ? [facility] ? Receive Date: ? 06/07/2009 ? Provider: ?CLAIRE ARGUELLES CNM ? Copy to: ? Specimen/Source: ?Pap Test, Cervix/Endocervix, ThinPrep Imaging System ? with manual evaluation ? Last Menstrual Period: ? 9/5/09 ? Other: ? HPVDX - HPV testing requested regardless of diagnosis on current ThinPrep Pap ?? test. ? SPECIMEN ADEQUACY ? Satisfactory for Evaluation ? - transformation zone component present ? - scant squamous epithelial component secondary to excessive blood ? GENERAL CATEGORIZATION ? Negative for Intraepithelial Lesion or Malignancy ? INTERPRETATION ? Shift in geno present suggestive of bacterial vaginosis. ? Document reviewed and electronically signed by: ? Cheryl Douglas, CT(ASCP)(IAC) ? Report Date: ??06/10/2009 16:31 ? End of Report ? [facility] 06/06/2009 06/07/2009 Claire Arguelles CNM PATHOLOGY ORDERA JOE Performing Organization Address City/State/[facility] Co de Phone Number [facility] [address] [place] [address] documented in this encounter Visit Diagnoses Not on filedocumented in this encounter
--- OUTSIDE RECORDS SUMMARY | 2024-03-27 14:09 | XMS_ITS | Clinical Summary ---
Author Organization [facility] [place] [address] Care Team Providers Care Welding Setter Name Role Phone Unknown Primary Care Provider Unavailabl e Allergies No known active allergies Medications Medication Sig Dispensed Refills Start Date End Date Status simvastatin (ZOCOR) 20 mg Tablet Take 1 tablet by mouth nightly. 03/24/2016 Active aspirin 81 mg Tablet, Delayed Release (E.C.) Take 81 mg by mouth daily. Active ascorbic acid, vitamin C, (VITAMIN C) 1,000 mg Tablet Take 1,000 mg by mouth daily. Active cholecalciferol, Vitamin D3, 1,000 unit Capsule Take 1 capsule by mouth 2 times daily. Active multivitamin with minerals Tablet Take 1 tablet by mouth 2 times daily. Active meTOPROLOL succinate (TOPROL-XL) 100 mg Tablet Sustained Release 24 hr 50 mg. 06/22/2016 Active CALCIUM CITRATE/VITAMIN D3 (CALCIUM CITRATE + D ORAL) Take by mouth 2 times daily. Active cyanocobalamin 500 mcg Tablet Take 500 mcg by mouth daily. Active docusate sodium (COLACE) 100 mg Capsule Take 100 mg by mouth as needed. Active lisinopril (PRINIVIL;ZESTRIL) 20 mg Tablet Take 20 mg by mouth daily. Active Active Problems Problem Noted Date Diagnosed Date Chest discomfortatypical 09/09/2019 Overview (09/09/2019): - evaluated at primary care office on 07/06/19, stress test planned History of possible renal stone November 201709/05 Overview (09/05/2018): [facility] ED visit for severe back pain and dysuria. CT showed mild hydronephrosis Abdominal pannus 02/21/2018 Breast ptosis 02/21/2018 Hyperlipidemia 05/24/2016 Chronic constipation 05/24/2016 Preoperative Class II obesit y BMI 36.6, S/P RNY gastric mpaugq99/8/16 04/23/2016 Essential hypertension 04/23/2016 Sinus tachycardia 04/23/2016 History of rectal bleeding 04/23/2016 Overview (04/23/2016): Colonoscopy done on 08/09/15 normal, attributed to constipation Resolved Problems Problem Noted Date Diagnosed Date Resolved Date Diabetes mellitus type 2, uncomplicated 04/23/2016 08/26/2018 Family History Medical History Relation Comments Hypertension Father Lung Cancer Father Type 2 Diabetes Father Relation Status Comments Brother Alive Father Mother Alive Sister Alive Social History Tobacco Use Types Packs/Day Years Used Date Smoking Tobacco: Never Smokeless Tobacco: Never Alcohol Use Standard Drinks/Week Comments No 0 (1 standard drink = 0.6 oz pur e alcohol) Sex and Gender Information Value Date Recorded Sex Assigned at Not on file Gender Identity Not on file Sexual Orientation Not on file Last Filed Vital Signs Vital Sign Reading Time Taken Comments Blood Pressure 118/67 08/23/2018 12:53 PM EST Pulse 73 08/23/2018 12:53 PM EST Temperature 36.7 ??C (98.1 ??F) 08/15/2016 1 1:54 AM EST Respiratory Rate 16 08/19/2017 2:51 PM EST Oxygen Saturation 100% 08/23/2018 12: 53 PM EST Inhaled Oxygen Concentration - - Weight 72.5 kg (159 lb 14.4 oz) 018 12:53 PM EST Height 164.5 cm (5' 4.75) 08/23/2018 1 2:53 PM EST Body Mass Index 26.81 08/23/2018 12:53 PM EST Plan of Treatment Health Maintenance Due Date Last Done Comments CT Colonography 1965 Colonoscopy 1965 Colorectal Cancer Screening 1965 FIT DNA 1965 FIT 1965 Sigmoidoscopy (10 year) with FIT yearly 1965 Sigmoidoscopy 1965 HIV screen 11/06/1983 Tdap adult 1984 Tetanus vaccine 1984 HPV test 11/06/1995 PAP Smear 11/06/1995 Breast Cancer Share Decision Needed 2005 Breast Cancer screening 2005 Zoster vaccine (1 of 2) 11/06/2015 Advance Directive 2020 Covid-19 Vaccine (1 - 2022-2 4 season) 2023 Influenza (Flu) vaccine (1 o f 1 - Influenza standard series) 05/07/2024 Hepatitis C Screening Completed 10/20/2017 Diabetes Screening (HgbA1C o r Glucose) Discontinued 08/23/2018, 10/20/2017, 08/19/2017, Additional history exists Procedures Procedure Name Priority Date/Time Associated Diagnosis Comments COMPREHENSIVE METABOLIC PANEL (NON-FASTING) Routine 08/23/2018 2:25 PM EST Status post bariatric surgery Intestinal malabsorption, unspecified type Hypertension, unspecified type Hyperlipidemia, unspecified hyperlipidemia type HEPATITIS C ANTIBODY Routine 10/20/2017 5:50 PM EST from Last 3 Months or Most Recently Relevant to Health Maintenance Results * (ABNORMAL) Comprehensive metabolic panel (non-fasting) (08/23/2018 2:25 PM EST) Glucose Lvl 94 65 - 199 mg/dL [facility] Comment:Diabetes: >=200 mg/d L plus symptoms BUN 14 8 - 18 mg/dL [facility] Creatinine 0.68(L) 0.70 - 1.20 mg/dL [facility] Sodium 140 135 - 145 mmol/L [facility] Potassium 4.3 3.5 - 5.0 mmol/L [facility] Comment: Please note: ??Patients with WBC >100,000 may have falsely elevated Potassium levels. ??For accurate Potassium quantification in these patients send serum separator tube (gold top) for subsequent determinations. ??Contact the Clinical Chemistry Laboratory if there are any questions. Chloride 100 98 - 107 mmol/L [facility] CO2 31 22 - 31 mmol/L [facility] Anion Gap 9 5 - 15 mmol/L [facility] Calcium 9.8 8.5 - 10.5 mg/dL [facility] Total Protein 7.8 6.1 - 8.0 gm/dL [facility] Albumin 4.6 3.2 - 5.2 gm/dL [facility] AST 27 0 - 30 unit/L [facility] ALT 29 0 - 30 unit/L [facility] Alk Phos 67 40 - 104 unit/L [facility] Total Bilirubin 0.4 0.2 - 1.3 mg/dL [facility] Estimated GFR 101 >=60 mL/min/1. 73 m?? [facility] Comment: The eGFR was calculated using the CKD-EPI equation. As with all creatinine based estimates of kidney function, eGFR values calculated with the CKD-EPI equation are not accurate in patients with acute kidney failure, extremes of body mass or the acutely ill. [email or web address] eGFR 117 >=60 mL/min/1. 73 m?? [facility] Comment: The eGFR was calculated using the CKD-EPI equation. As with all creatinine based estimates of kidney function, eGFR values calculated with the CKD-EPI equation are not accurate in patients with acute kidney failure, extremes of body mass or the acutely ill. [email or web address] Blood specimen (specimen) 08/23/2018 2:25 PM EST 08/23/2018 2:32 PM EST Narrative Resulting Agency Comment Spec In Lab Cidny Lopez BIN FILLER CHEMISTRY ORDERAB LES [facility] [place] [address] * Hepatitis C Antibody (10/20/2017 5:50 PM EST) Hepatitis C Ab Negative Negative [facility] Blood specimen (specimen) Venous Draw / Unknown 10/20/2017 5:50 PM EST 10/20/2017 5:59 PM EST Narrative Resulting Agency Comment Spec In Lab [facility] [place] [address] from Last 3 Months or Most Recently Relevant to Health Maintenance Advance Directives * Full Code (Latest Code Status on File) Date Activated Date Inactivated Comments 08/13/2016 2:04 PM 08/15/2016 3:59 PM Question Answer Comments Does patient have capacity to make decision: Yes Care Teams Welding Setter Relationship Specialty Start Date End Date Unknown None PCP - General 09/06/19
--- OUTSIDE RECORDS SUMMARY | 2024-03-27 14:09 | XMS_ITS | Encounter Summary ---
Author Organization [facility] Address [address] [place] [address] Care Team Providers Care Shop Estimator Name Role Phone Raul Santos MD Primary Care Provider Unavail able Encounter Details Date Type Department Care Team (Late st Contact Info) Description 09/28/2014 Results Only [facility] Laboratory Services - [facility] ([facility]) [address], [place] [id number] Claire Arguelles, [facility] [address], [place] [id number] Social History Tobacco Use Types Packs/Day Years Used Date Smoking Tobacco: Never Assessed Sex and Gender Information Value Date Recorded Sex Assigned at Not on file Gender Identity Not on file Sexual Orientation Not on file documented as of this encounter Plan of Treatment Not on file documented as of this encounter Procedures Procedure Name Priority Date/Time Associated Diagnosis Comments PAP TEST- RESULT ONLY Routine 09/28/2014 0:00 EST documented in this encounter Results * PAP TEST- RESULT ONLY (09/28/2014 0:00 EST) Pathology Report: CYTOPATHOLOGY REPORT Reports generated via electronic interface contain original data; however they are lacking the format of the original report. Caution should be taken when reading/interpreti ng unformatted reports. Name: ? WILLI BELLA ? Accession #: ? [id number] ? : ? 1965 (Age: 48) ??F ?Collect Date: ? 09/28/2014 ? Location: ? [facility] ? Receive Date: ? 10/01/2014 ? Provider: CLAIRE ARGUELLES NMW Copy to: ? Final Report SPECIMEN ADEQUACY ? Satisfactory for Evaluation - transformation zone component absent GENERAL CATEGORIZATION ? Negative for Intraepithelial Lesion or Malignancy ?? Last Menstrual Period: 05/22/2014 Other: Additional clinical information: previous pap wnl 06/14 Specimen/Source: ??Pap Test, Cervix/Endocervix, ThinPrep Imaging System with manual evaluation Document reviewed and electronically signed by: ? Cheryl Douglas, REILLY(ASCP)([facility]) ? Report ??Date: 10/09/2014 14:01 HPV with Pap Test ? Date Ordered: ? 10/09/2014 ? Status: ?? Signed Out ?Date Complete: ? 10/12/2014 ? By: ??System Interface ? Date Reported: ? 10/12/2014 ? Interpretation RESULT: Negative for HPV. No E6 or E7 mRNA is detected from HPV types 16,18,31,33,35, 39,45,51,52,56,58, 59,66, and 68 by maintenance mechanic millwright mediated amplification. Comments Document reviewed and electronically signed by: ? System Interface ? Report date: 10/12/2014 By the signature above, the attending physician certifies that he/she has personally conducted a gross and/or microscopic examination of the described specimens and rendered or confirmed the above diagnosis. End of Report [facility] 09/28/2014 10/01/2014 Claire Arguelles [facility] PATHOLOGY [facility]ES [facility] [address] [place] [address] documented in this encounter Visit Diagnoses Not on filedocumented in this encounter Care Teams Shop Estimator Relationship Specialty Start Date End Date Raul Santos MD PCP - General 06/05/14 documented as of this encounter
--- OUTSIDE RECORDS SUMMARY | 2024-03-27 14:10 | XMS_ITS | Encounter Summary ---
[place] [address] Care Team Providers Care Quality Assurance Advisor Name Role Phone Lew Beltran Primary Care Provider [phone] Encounter Details Date Type Department Care Team (Late st Contact Info) Description 08/19/2016 Telephone [place] [address] Barbara Caldwell, RN Social History Tobacco Use Types Packs/Day Years Used Date Smoking Tobacco: Never Smokeless Tobacco: Never Alcohol Use Standard Drinks/Week Comments No 0 (1 standard drink = 0.6 oz pur e alcohol) Sex and Gender Information Value Date Recorded Sex Assigned at Not on file Gender Identity Not on file Sexual Orientation Not on file documented as of this encounter Miscellaneous Notes * Telephone Encounter - Barbara Caldwell RN - 08/19/2016 3:20 PM EST S/P sleeve gastrectomy, RNY gastric bypass on: 08/13/16 Discharged on PO Day #:2 Issues during hospitalization: none Today's phone discussion took place with patient, Radha KimBri Radha Sena was called via phone for post discharge follow up. Diet: stage:II Fluids approx 56ounces Protein 42 grams Other: Nausea/ vomiting: vomited once Wednesday but feeling better since then Urination: adequate, no difficulties Bowels: constipated, taking docusate only; encouraged her to take miralax until bowel movements more regular Activity level: frequent ambulation Pain level, analgesia requirements: tylenol only Any significant changes to comorbidites/ medications (ex DM, HTN): none Medications: Currently crushing or taking liquid form of medications, as appropriate: yes Taking ulcer prevention medication: yes Taking Ursodiol (if appropriate): starts taking 08/25/16 VTE prophylaxis: enoxaparin:NA Follow up: PCP appointment: will schedule to see them end of this week or beginning of next at one month, as scheduled with surgeon and RD Patient questions: only issue at this time is constipation Recommendations:She will take miralax daily until bowel movements regular. documented in this encounter Plan of Treatment Not on file documented as of this encounter Visit Diagnoses Not on filedocumented in this encounter Care Teams Quality Assurance Advisor Relationship Specialty Start Date End Date Lew Beltran PA [address] [place] [id number] PCP - General General Internal Medicine 04/21/16 documented as of this encounter
--- OUTSIDE RECORDS SUMMARY | 2024-03-27 14:10 | XMS_ITS | Encounter Summary ---
Author Organization [facility] [place] [address] [place] [address] Care Team Providers Care Seconds Grader Name Role Phone Lew Beltran Primary Care Provider [phone] Encounter Details Date Type Department Care Team (Late st Contact Info) Description 08/26/2016 Telephone [place] [phone] [facility] [place] [address] Social History Tobacco Use Types Packs/Day Years [...] encounter Miscellaneous Notes * Telephone Encounter - Josefina Stanford RD - 08/26/2016 2:34 PM EST Radha called today with question regarding the Stage III diet. She wanted to know if she can have pepper and other spices. Advised that she can start adding in more spices but to increase slowly. Shecan be more liberal with her spices on the Stage IV diet. She is agreeable with this plan and will call with any further questions. documented in this encounter Plan of Treatment Not on file documented as of this encounter Visit Diagnoses Not on filedocumented in this encounter Care Teams Seconds Grader Relationship Specialty Start Date End Date Lew Beltran PA [address] [place] [id number] PCP - General General Internal Medicine 04/21/16 documented as of this encounter
--- OUTSIDE RECORDS SUMMARY | 2024-03-27 14:10 | XMS_ITS | Encounter Summary ---
Author Organization [facility] [place] [address] Care Team Providers Care Supervisor Powder And Primer Canning Name Role Phone Lew Beltran Primary Care Provider [phone] Encounter Details Date Type Department Care Team (Late st Contact Info) Description 09/07/2017 Orders [place] [address] Cindy Lopez, MACHINING ASSOCIATE [facility] [place] [address] Abnormal LFTs Social History Tobacco Use Types Packs/Day Years [...] this encounter Visit Diagnoses Diagnosis Abnormal LFTs Other abnormal blood chemistry documented in this encounter Care Teams Supervisor Powder And Primer Canning Relationship Specialty Start Date End Date Lew Beltran PA [address] [place] [phone] PCP - General General Internal Medicine 04/21/16 documented as of this encounter
--- OUTSIDE RECORDS SUMMARY | 2024-03-27 14:10 | XMS_ITS | Encounter Summary ---
[place] [address] Care Team Providers Care Casting Trucker Name Role Phone Lew Beltran Primary Care Provider Encounter Details Date Type Department Care Team (Late st Contact Info) Description 11/11/2017 Telephone [place] [phone] Wendy Yanez, RN Social History Tobacco Use Types Packs/Day [...] encounter Miscellaneous Notes * Telephone Encounter - Wendy Yanez, RN - 11/11/2017 2:51 PM EST Images from the original note were not included. Nursing Triage - Phone Note DATE OF CALL: 11/11/2017 TIME OF CALL: 2:51 PM PATIENT DATE OF : 1965 CALLER: Pt to the general surgery clinic Learning Needs Assessment Reviewed: Yes SUBJECTIVE - [place] the airport [place] and [place] metal detector went off, this is now happened twice. Are my laci causing this. PERTINENT PAST MEDICAL HISTORY: pt is s/p Tonio Miles MD General Surgery []Hide copied text []Hover for attribution information [facility] Operative Note ?? Patient Name: Radha Sena : [id number] MR#: [id number] ?? Case Date: 08/13/2016 ?? Surgeon: Surgeon(s) and Role: * Tonio Miles MD - Primary * Lanie Garnica MD - No qualified resident available to assist ?? Preoperative diagnosis: OBESITY ?? Postoperative diagnosis: OBESITY ?? Procedure(s): @LAPAROSCOPIC GASTROPLASTY, ENDOSCOPY, UPPER GI, DIAGNOSTIC, WITH OR WITHOUT SPECIMENS LAPAROSCOPY, LYSIS OF ADHESIONS ?? Anesthesia: General ?? NURSING OBJECTIVE/ASSESSMENT: Pt asking the above. Discussed with Dr Miles, titanium laci used not setting off the alarms INTERVENTION/PLAN/ FOLLOW UP: Pt notified If your symptoms do not improve, or they worsen, report to your local emergency department. CALLER AGREES: Yes PCP: DEEDEE Shaffer documented in this encounter Plan of Treatment Not on file documented as of this encounter Visit Diagnoses Not on filedocumented in this encounter Care Teams Casting Trucker Relationship Specialty Start Date End Date Lew Beltran PA [address] [address] PCP - General General Internal Medicine 04/21/16 documented as of this encounter
--- OUTSIDE RECORDS SUMMARY | 2024-03-27 14:10 | XMS_ITS | Encounter Summary ---
Author Organization [facility] [address] [place] [id number] Care Team Providers Care Pig Machine Supervisor Name Role Phone Lew Beltran Primary Care Provider [phone] Reason for Referral * Consultation (Routine) - Closed Specialty Diagnoses / Procedures Referred By Zane clinton Referred To Contact Gastroenterology Diagnoses S/P gastric bypass Abnormal LFTs Cindy Lopez APRN [facility] [place] [address] Lucrecia James MD [facility] [place] [address] Referral ID Status Reason Start Date Expiration Date V isits Requested Visits Authorized [id number] Closed Consult, Test & Treat 10/08/2017 10/08/2018 1 1 Encounter Details Date Type Department Care Team (Late st Contact Info) Description 10/08/2017 Orders Only General Surgery at [facility] [place] [address] [facility] [place] [address] S/P gastric bypass; Abnormal LFTs Social History Tobacco Use Types [...] as of this encounter Plan of Treatment Scheduled Referrals Name Type Priority Associated Diagnoses Order Schedule Referral to Gastroenterology Outpatient Referral Routine S/P gastric bypass Abnormal LFTs Ordered: 10/08/2017 documented as of this encounter Visit Diagnoses Diagnosis S/P gastric bypass Bariatric surgery status Abnormal LFTs Other abnormal blood chemistry documented in this encounter Care Teams Pig Machine Supervisor Relationship Specialty Start Date End Date Lew Beltran PA [address] [place] [id number] PCP - General General Internal Medicine 04/21/16 documented as of this encounter
--- OUTSIDE RECORDS SUMMARY | 2024-03-27 14:10 | XMS_ITS | Encounter Summary ---
Author Organization [facility] [place] [address] Care Team Providers Care Rn Radiation Name Role Phone Lew Beltran Primary Care Provider [phone] Encounter Details Date Type Department Care Team (Late st Contact Info) Description 08/20/2016 Telephone [place] [address] Carito Boone RN Social History Tobacco Use Types Packs/Day [...] encounter Miscellaneous Notes * Telephone Encounter - Carito Shi RN - 08/20/2016 12:46 PM EST I received a call from Radha who is concerned because she has two areas of bruising at her abdomen. She has two areas of purple bruising that are new as of this noon time. One site measures 7 inches long and 2.5 inches wide; the other area is 5 inches long and 2 inches wide. She notes the bruising is at an area where her stomach hangs a bit in two spots and the bruising isat the lower points. She reports she had been straining really hard yesterday when she had 2 episode of passing 2 small stools. She has not passed any more stool. She reports she has been doing well otherwise after her surgery. She has been getting in her protein and her fluids. She denies any severe abdominal pain,she is not lightheaded, she is not complaining of orthostatic hypotension signs or symptoms. She denies trouble voiding. She can eat and drink as expected. She expresses anxiety at finding the bruising, but not knowing what has caused the bruising as she did not have any this morning. She would like to be evaluated locally and is going to call her PCP office to see if they can checkher out. I will forward this information on to Cindy Lopez and Dr. Miles. Comments: @LAPAROSCOPIC GASTROPLASTY, - D/C FISH OIL 1 WEEK PRIOR WGHT-LT ENDOSCOPY, UPPER GI, DIAGNOSTIC, WITH OR WITHOUT SPECIMENS LAPAROSCOPY, LYSIS OF ADHESIONS Surgeons: Tonio Miles MD Primary Nahun, Lanie Logan MD - Resident-Surgeon Bernardo documented in this encounter Plan of Treatment Not on file documented as of this encounter Visit Diagnoses Not on filedocumented in this encounter Care Teams Rn Radiation Relationship Specialty Start Date End Date Lew Beltran PA [address] [place] [id number] PCP - General General Internal Medicine 04/21/16 documented as of this encounter
--- OUTSIDE RECORDS SUMMARY | 2024-03-27 14:10 | XMS_ITS | Encounter Summary ---
Author Organization [facility] [place] [address] Care Team Providers Care Sales Development Manager Name Role Phone Lew Beltran Primary Care Provider [phone] Reason for Visit * Reason Comments Follow-up Encounter Details Date Type Department Care Team (Late st Contact Info) Description 08/19/2017 3:00 PM EST Office Visit [place] [address] Cindy Lopez, ART LIBRARIAN [facility] [place] [address] Fawn Wang, BRITTNEE Type 2 diabetes mellitus without complication, without long-term current use of insulin; Essential hypertension; Disorder of iron metabolism; Status post bariatric surgery; Intestinal malabsorption, unspecified type; Vitamin D deficiency Social History Tobacco [...] Sign Reading Time Taken Comments Blood Pressure 114/71 08/19/2017 2:51 PM EST Pulse 74 08/19/2017 2:51 PM EST Temperature - - Respiratory Rate 16 08/19/2017 2:51 PM EST Oxygen Saturation 100% 08/19/2017 2:51 PM EST Inhaled Oxygen Concentration - - Weight 75.3 kg (166 lb) 08/19/2017 2:51 PM EST Height - - Body Mass Index 28.49 08/13/2016 8:28 AM EST documented in this encounter Patient Instructions * Patient Instructions* Fawn Wang - 08/19/2017 3:00 PM EST [facility] Admin coordinator Caridad: [phone] Dietitian: [phone] Surgeons/ nurse practitioner: [phone] Nurse line: [phone] Keep up the great work! Testing: Labwork: Today. Go to [facility], which is 1 flight below the General Surgery Clinic. Please note that you will always receive a letter with lab results and recommendations. Please readthis letter carefully and follow recommendations. The letter also contains information regarding your next lab draw. A copy of your labwork and office visit today is sent to your primary career advisor Next visit: 1 year, sooner if you would like Routine visits are done at 4.8,12, 18 and 24 months after surgery, and yearly thereafter. Please call [phone] if you do not receive an appointment by 3-4 weeks prior to the expected visit. Medications: recommendations pending labwork. Referrals: Send [employer] a message when you would like a referral to the plastic surgery Vitamins: The following vitamins are recommended: ??? [...] periods, iron deficiency or anemia. Nutrition recommendations: Continue to consume high protein meals and snacks. - Your Daily Goals: ?? 1,000-1,200 calories per day (300 calories per meal, 100 calories per snack, 1-2 snacks per day) ?? 60 grams of protein per day (20 grams per meal) ?? 48-64 oz of non-caloric and hydrating fluids per day (6-8, 8 oz cups) Continue to work on increasing fluids, try Crystal Light or calorie free flavored water to help increase. ?? Do not drink with meals- pushes food through more quickly, can cause upset stomach Activity: ??? Aim for 30 minutes of exercise daily, 5 days a week of both cardio and strength training exercises. Alcohol: should be used sparingly, no more than one drink per occasion. Alcohol is a source of empty calories and can cause ulcers and vitamin and mineral deficiencies. Alcohol is toxic to the liver and is absorbed more quickly after surgery, it stays in the system longer. Studies have noted that there is an increased risk of alcohol dependence after bariatric surgery. Alcohol is not recommended until at least 6-12 months post surgery, and after goal weight has been achieved f non-prescribed drugs and treet drugs is unsafe Anti-inflammatory medications such as Advil, Aleve, Excedrin, Ibuprofen should be used sparingly after gastric bypass, since they increase the risk of ulcer. Call us: ??? If you have concerns. ??? If you have unexplained abdominal pain. ??? if you see blood in your stool or vomit blood ??? If you have prolonged vomiting Post Surgery Support Group: Our post surgery support group meets on the first Wednesday of every month from 1-[address] [facility]- no registration required Nutrition and Activity apps- Baritastic, My Fitness Pal, Lose It, My Plate Internet resources: www.Skim.it www.DreamDry www.Sleep SolutionseaFND www.StoneRiver.Netops Technology/blog [facility] facebook page: [email or web address]ariatricSurgery Books & Magazines: - Recipes for Life After Weight Loss Surgery by Amanda Dunbar - Shrink Yourself by Dr Pablo Phelan - Eating Well - www.Novafora.Netops Technology - Cooking Light- www.cookingEdita Food Industries.Netops Technology documented in this encounter Progress Notes * Fawn Wang - 08/19/2017 3:00 PM EST Bariatric Surgery Program Nutrition Progress Note Encounter Type: follow up SUBJECTIVE: Topics Discussed/Patient Concerns: ?? She is doing well. She reports she got down to 164# on her scale at home and then went back up to 170# but in the last 1-1.5 months her weight is back down to 164#. She would like to lose a littlebit more weight. She is happy her eating is pretty much back to normal life, for example she has had some M&Ms and snacks. OBJECTIVE: Date of Bariatric Surgery: 08/13/16 Type of Bariatric Surgery: Laparoscopic Jason-en-Y Gastric Bypass Weight History: Date Weight (lbs) HT BMI Comments 242# Highest Weight (patient reported) 12/05/15 220# 64 37.8 Initial program weight 05/19/16 218# 64.75 36.6 1st pre-op visit 08/13/16 220# EWL % 37.8 Surgery 08/25/16 210# 9.2% 36 1 month post-op 12/01/16 175# 49.4% 30 4 months post-op 04/08/17 167# 58.6% 28.7 8 months post-op 08/19/17 166# 59.8% 28.5 12 months post-op [place] Body Weight (based on BMI of 25): 149.1# Excess Weight: 68.9# Goal weight: Would love to get to 135#, but realistically her goal is 150-160#. Predicted weight loss with surgery is an estimated 50-70% of excess body weight, which would be a goal weight between 166-183#. Social history: to Jovan and has 2 sons, Tk aged 29 and Tom aged 25, who are both getting next year. Lives with her and dog. 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 Has a camp in [place], [place] where they go on the weekends in the summer. is supportive of surgery and is trying to lose weight himself. Hobbies: Scrapbooking and crafts, baking, camping outdoors at her camp. Related medical history: Class III obesity, Type 2 Diabetes, HTN, and Hyperlipidemia Vitamin/Mineral Supplements (reported by patient): Supplement Type Brand/Form Dosage/Amount Frequency Comments Multivitamin Women's One A Day 1 pill Twice daily Calcium Citrate 2 pills Twice daily Sometimes forgets evening dose Vitamin B12 SL 500 mcg at least daily Iron Gentle Iron 1 3-4x/ week With vitamin C 500mg 2x/ day Vitamin D3 OTC 1,000 IU Twice daily Biotin pill 5,000 mcg Twice daily Food Allergies/Intolerances: chicken, pasta, and scrambled eggs are not as bad, she has had chickena few different times but has to be careful Tracking Intake: None Daily Oral Intake: Breakfast Slim Fast protein shake AM Snack String cheese Lunch 1/4 cup cottage cheese and 1/2 cup Peruvian yogurt with 1/4 cup homemade granola PM Snack Dinner 3 oz chicken or pork or fish and 1/4 cup vegetables or cottage cheese HS Snack Homemade frozen protein popsicle Protein/ grams per day: 60 grams for the most part Calories per day: Averages in her head and feels she is getting 1000 kcals Hydrating fluids- oz/ day: 25 oz water, 12 oz decaf coffee with equal or Truvia and creamer, and 10oz milk in protein shake Soda: none ETOH: Rare- 1-2 drinks per month Caffeine: none Sweets: Not every day, maybe some M&Ms or sweets at work this time of year. Finds it easier to say no or just take a little piece and back away. Meals per day: 3/ day ?? Feels full/satisfied after eating: yes ?? Feels hungry [x]never []sometimes []most of the time [] always ?? Drinks with meals: none ?? Practices portion control: yes, eyeballing ?? Spends at least 20 minutes eating each meal: 20-30 minutes most of the time, she can feel it if she eats too quickly ?? Has had dumping syndrome: once since her last appt, she doesn't remember what food caused it Foods/Symptoms: diarrhea ?? In the past month, pt has vomited/regurgitated: none Exercise: No routine exercise but is active during the day. ASSESSMENT: Summary of Weight Loss: Patient's percent excess weight loss is 59.8% which is within the expected post- op bariatric surgery range. Weight has remained fairly stable in the last 4 months. Patient is doing well and is happy with her diet, she feels it is more normal now. She seems to be meeting her protein needs most days.Her fluid intake is slightly low and encouraged patient to work on increasing fluids. Discussed trying Crystal Light or other calorie free flavorings to help increase fluids. She is compliant with supplements and stays active during the day. NUTRITION INTERVENTION & MONITORING: ?? Provided support/encouragement and reinforced importance of meeting nutritional goals. ?? Reviewed nutrition and vitamin and mineral supplement recommendations (see patient instructions). ?? Written recommendations provided. Patient agreed with these and verbalized adequate understanding. ?? Evaluation by nurse practitioner today. ?? Handouts provided: One Year and Beyond (revised 12/2013), supplement card, and Pool's 10 Tips for Surviving the Holidays. * Cindy Lopez - 08/19/2017 3:00 PM EST Reason for visit: follow up S/P laparoscopic Jason-en-Y gastric bypass on 08/13/2016 Complications summary: Early [...] Hg 10.7/ Hct 32.2 08/25/16 210 36 / [place] multi BID Ca cit chew 500 BID B12 500 QD D3 1 K/day - 12/02/15 175 30.4 49 Multi BID Ca cit BID B12 1K/day. D3 1 K/day. No iron 12/01: Hg 14.5 Hct 44.3 ferritin 25 iron 57 sat 14% B12 649 Nl B1 fol CMP x na 147 D 35 prealbumin 20 A1c 5.7 04/08/17 167 28.7 58.6 Multi BID Ca cit BID B12 1K/day. D3 2 K/day. Gentle iron QD 04/08: jorge 37 iron 86 sat 22% 08/19/17 166 28.5 59.8 Multi BID Ca cit BID B12 1K/day. D3 2 K/day. Gentle iron QD Requested: recent A1c, lipids via PCP 08/19:Hg 14.7 Hct 41.8 ferritin 100 iron 71 sat 20% B12 1255 Nl B1 fol CMP x AST 39 ALT 36 PTH 44 D33 Next lab: LFTs in 1 month Next visit: 1 year Screening/other: Date Evaluation Results 06/2017 Primary care 08/09/15 Colonoscopy Done for rectal bleeding. Occasional diverticulum noted in sigmoid colon. May be secondary to constipation 10/09/14 Pap negative 09/22 Mammogram Reports as normal never DEXA Problem List ??? Preoperative Class II obesity BMI 36.6, S/P gastric bypass ??? Essential hypertension: remains on metoprolol (for ST) restarted on liinopril due to ECHO with ? [facility]H at [facility] Off diuretic therapy post surgery - preop treatment with triamterene- HCTZ, metoprolol and lisinopril ??? Diabetes mellitus type 2, uncomplicated, diagnosed ~2014: A1c 5.7 at 4 month post surgery check. Metformin d/c post surgery. She reports that a recent A1c was 5.9 when checked at her primary careoffice - preop treatment: metformin ??? Hyperlipidemia with low HDL (prevention per patient): remains on simvastatin per PCP ??? Sinus [...] with increasing fiber and fluids Past Surgical History Procedure Laterality Date ??? Laparoscopic Jason n Y gastric bypass (Dr Miles) 08/13/2016 ??? section 1985, 1990 ??? Tubal ligation Bilateral 1990 ??? Tubal reversal ~1995 ??? Laparotomy for salpingo-oophorectomy at [facility]. Per op note, complex right ovarian hemorrhagic corpus luteum cyst. Prominent adhesive disease within the pelvis- dense adhesions of pericolic fat, intraperitoneal fat oriented in a AP direction and spanning the entirety of the lower pelvis. Right 08/16/2013 ??? Carpal tunnel release Bilateral 2014 ??? Trigger finger release Right 11/2015 ??? Wrist ganglion excision Left ~1992 ??? Eye procedure for strabismus Left Age 3 No Known Allergies Medications 08/19/17 1553 Medication Sig Taking? lisinopril (PRINIVIL;ZESTRIL) 20 mg Tablet Take 20 mg by mouth daily. Yes IRON BIS-GLYCINAT/VIT C/FA/B12 (GENTLE IRON ORAL) Take by mouth. Yes docusate sodium (COLACE) 100 mg Capsule Take 200 mg by mouth daily. Yes meTOPROLOL succinate (TOPROL-XL) 100 mg Tablet Sustained Release 24 hr 50 mg. Yes CALCIUM CITRATE/VITAMIN D3 (CALCIUM CITRATE + D ORAL) Take by mouth 2 times daily. Yes cyanocobalamin 500 mcg Tablet Take 500 mcg by mouth daily. Yes multivitamin with minerals Tablet Take [...] unit Capsule Take 1 capsule by mouth daily. Yes Changes to health/ evaluations/ social history since last visit: as per updated problem list. Subjective. Patient concerns at today's visit: Radha returns for routine follow up at 1 year post surgery. She is feeling well overall, and is please with her weight loss. Future goals: Bowel regimen: regular, takes 2 colace almost daily NSAID use: none Dietary history/ exercise/ activity level: See dietitian note. Review of Systems (negative if left blank): Constitutional: [] fatigue [] pica Neurologic: [] paresthesias [] memory loss CV: [+] treatment for hypertension or taking antihypertensive medication [+] treatment for hyperlipidemia Pulmonary: [] sleep apnea symptoms [ ] treatment for MIRTA GI: [] GERD [] dysphagia [] dumping [] abdominal pain [] hernia [] nausea/vomiting [] blood in stool [] chronic diarrhea/ constipation RN MENTAL HEALTH: [] LMP: [] control [] menorrhagia [+] post menopause 2014 Skin: [+] redundant skin abdomen and chest with skinfold rashes with antifungal Rx Heme/Lymph: [] excessive bruising [] blood donor in past year Psychiatric [] mental health concerns Other: 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 year-old female looks well. She is accompanied by her to today's visit Heart: RRR Lungs: CTA bilaterally without wheezing Abdomen: soft, non-tender. Abdominal trocar sites well-healed, without evidence of hernia. Abdominal pannus with evidence of chronic intertrigo Extremities: no edema Vital signs: BP 114/71 Pulse 74 Resp 16 Wt 75.3 kg (166 lb) SpO2 100% BMI 28.49 kg/m2 Results for RADHA BELLA ( ) Ref. Range 08/19/2017 16:33 WBC Latest Ref Range: 4.0 - 9.5 x10(3)/mcL 5.1 RBC Latest Ref Range: 4.00 - 5.21 x10(6)/mcL 4.78 Hemoglobin Latest Ref Range: 11.7 - 15.5 gm/dL 14.7 Hematocrit Latest Ref Range: 35.7 - 45.8 % 41.8 MCV Latest Ref Range: 82.6 - 94.4 fL 87.4 MCH Latest Ref Range: 27.1 - 32.0 pg 30.8 MCHC Latest Ref Range: 31.7 - 35.0 gm/dL 35.2 (H) RDWSD Latest Ref Range: 37.0 - 46.0 fL 39.6 RDWCV Latest Ref Range: 11.5 - 14.1 % 12.2 Platelets Latest Ref Range: 145 - 357 x10(3)/mcL 188 MPV Latest Ref Range: 7.6 - 12.9 fL 11.0 nRBC % Auto Latest Units: % 0.0 nRBC Abs Auto Latest Ref Range: 0.000 - 0.000 x10(3)/mcL 0.000 Sodium Latest Ref Range: 135 - 145 mmol/L 141 Potassium Latest Ref Range: 3.5 - 5.0 mmol/L 4.1 Chloride Latest Ref Range: 98 - 107 mmol/L 101 CO2 Latest Ref Range: 22 - 31 mmol/L 30 Anion Gap Latest Ref Range: 5 - 15 mmol/L 10 BUN Latest Ref Range: 8 - 18 mg/dL 17 Creatinine Latest Ref Range: 0.70 - 1.20 mg/dL 0.65 (L) Estimated GFR Latest Ref Range: >=60 >60 Glucose Lvl Latest Ref Range: 65 - 199 mg/dL 93 Calcium Latest Ref Range: 8.5 - 10.5 mg/dL 9.9 Total Protein Latest Ref Range: 6.1 - 8.0 gm/dL 7.5 Albumin Latest Ref Range: 3.2 - 5.2 gm/dL 4.5 Total Bilirubin Latest Ref Range: 0.2 - 1.3 mg/dL 0.3 Alk Phos Latest Ref Range: 40 - 104 unit/L 75 AST Latest Ref Range: 0 - 30 unit/L 39 (H) ALT Latest Ref Range: 0 - 30 unit/L 38 (H) Ferritin Latest Ref Range: 30 - 400 ng/mL 100 Folate Lvl Latest Ref Range: 4.8 - 24.2 ng/mL 18.8 Iron Latest Ref Range: 30 - 150 mcg/dL 71 TIBC Latest Ref Range: 250 - 450 mcg/dL 356 Iron Saturation Latest Ref Range: 20 - 50 % 20 Vitamin B-12 Latest Ref Range: 232 - 1245 pg/mL 1255 (H) 25-OH Vit D Total Latest Ref Range: 30 - 100 ng/mL 33 PTH Latest Ref Range: 15 - 65 pg/mL 44 Assessment: stable 1 year S/P gastric bypass, with loss of 59.8% of excess body weight. Mild transaminase elevations Plan: ?? Radha was congratulated on ongoing healthy lifestyle efforts ?? MARTIN obtained to copy of recent labwork and ECHO ?? Body contouring surgery discussed. She will contact me if interested in a referral ?? Next BSP visit: 1 year ?? Next labwork: 1 months LFTs ?? Additional vitamin and mineral supplement recommendations (*in addition to usual post surgery supplements, as noted below): discontinue iron. Increase vitamin D3 to 2,000 units a day for the next year ?? dietary/ exercise recommendations per RD ?? Advised to call if develops unexplained abdominal pain, concerns or questions ?? provided with a July 2013 edition of One Year and Beyond bariatric surgery, a resource regarding supplements, diet, recommendations for patients > 1 year post-operatively She was provided with a Bariatric Program Summary report which included the above recommendations, as well as information on vitamin and mineral supplementation, fluids, exercise and support group meetings. She has had an opportunity to have all her questions answered and is in agreement with the plan of care. Radha was advised of lab results via mail. RECOMMENDED BARIATRIC SURGERY PROGRAM POSTOPERATIVE FOLLOW-UP: Follow [...] If labwork is done by the primary career advisor: pleasesend a copy to the Bariatric Surgery Program, General Surgery Clinic, [facility], attention Cindy Lopez APRN. Questions regarding [facility] Bariatric Surgery Program patients: please call Smith Lopez APRN at [phone] or [phone]. E-mail: [email or web address] documented in this encounter Plan of Treatment Not on file documented as of this encounter Procedures Procedure Name Priority Date/Time Associated Diagnosis Comments PTH Routine 08/19/2017 4:33 PM EST Status post bariatric surgery Intestinal malabsorption, unspecified type Vitamin D deficiency HEMOGRAM Routine 08/19/2017 4:33 PM EST Essential hypertension Disorder of iron metabolism Status post bariatric surgery Intestinal malabsorption, unspecified type VITAMIN B1, WHOLE BLOOD Routine 08/19/2017 4:33 PM EST Status post bariatric surgery Intestinal malabsorption, unspecified type IRON AND TIBC Routine 08/19/2017 4:33 PM EST Status post bariatric surgery Intestinal malabsorption, unspecified type VITAMIN D, 25-HYDROXY Routine 08/19/2017 4:33 PM EST Status post bariatric surgery Intestinal malabsorption, unspecified type Vitamin D deficiency FOLATE, SERUM Routine 08/19/2017 4:33 PM EST Status post bariatric surgery Intestinal malabsorption, unspecified type FERRITIN Routine 08/19/2017 4:33 PM EST Status post bariatric surgery Intestinal malabsorption, unspecified type VITAMIN B12 Routine 08/19/2017 4:33 PM EST Status post bariatric surgery Intestinal malabsorption, unspecified type COMPREHENSIVE METABOLIC PANEL (NON-FASTING) Routine 08/19/2017 4:33 PM EST Type 2 diabetes mellitus without complication, without long-term current use of insulin Essential hypertension Disorder of iron metabolism Status post bariatric surgery Intestinal malabsorption, unspecified type documented in this encounter Results * Folate, serum (08/19/2017 4:33 PM EST) Folate Lvl 18.8 4.8 - 24.2 ng/mL [facility] Blood specimen (specimen) 08/19/2017 4:33 PM EST 08/19/2017 4:44 PM EST Narrative Resulting Agency Comment Spec In Lab Cindy T John ART LIBRARIAN CHEMISTRY ORDERAB LES Performing Organization Address [facility] Co de Phone Number [facility] [place] [address] * (ABNORMAL) Vitamin B12 (08/19/2017 4:33 PM EST) [facility] Vitamin B-12 1,255(H) 232 - 1,245 pg/mL [facility] Comment: Please note: Effective 08/04/2017, the reference interval and the lower limit of detection for Vitamin B12 have been updated due to a new reagent formulation. Blood specimen (specimen) 08/19/2017 4:33 PM EST 08/19/2017 4:44 PM EST Narrative Resulting Agency Comment Spec In Lab Cindy Lopez APRN CHEMISTRY ORDERAB LES Performing Organization Address [facility] Co de Phone Number [facility] [place] [address] * Vitamin B1, whole blood (08/19/2017 4:33 PM EST) [facility] Vit B1 Lvl WB 143 70 - 180 nmol/L [facility] Comment: ADDITIONAL INFORMATION This test was developed and its performance characteristics determined by [facility] in a manner consistent with CLIA requirements. This test has not been cleared or approved by the U.S. Food and Drug Administration. Test Performed by: [facility] [address] [place] [address] Blood specimen (specimen) 08/19/2017 4:33 PM EST 08/20/2017 8:51 AM EST Narrative Resulting Agency Comment Spec In Lab Cindy Lopez APRN CHEMISTRY ORDERAB LES Performing Organization Address [facility] Co de Phone Number [facility] [place] [address] * PTH (08/19/2017 4:33 PM EST) PTH 44 15 - 65 pg/mL [facility] Blood specimen (specimen) 08/19/2017 4:33 PM EST 08/19/2017 4:44 PM EST Narrative Resulting Agency Comment Spec In Lab Cindy Lopez ART LIBRARIAN CHEMISTRY ORDERAB LES Performing Organization Address City/[facility]/ZIP Co de Phone Number [facility] [place] [address] * Vitamin D, 25-Hydroxy (08/19/2017 4:33 PM EST) [facility] 25-OH Vit D Total 33 30 - 100 ng/mL [facility] Comment: Deficient <10 ng/mL Insufficient 10 to 29 ng/mL Sufficient 30 to 100 ng/mL Potential Intoxication >100 ng/mL According to the US National Osteoporosis Foundation, Vitamin D concentrations >30 ng/mL are sufficient to protect bone health. ??The National Kidney Foundation has similarly stated that patients with Vitamin D concentrations <30ng/mL should be considered to be insufficient or deficient. http://Club W.Netops Technology/nkf-guidelines http://Club W.[employer] Technology/nejm-VitD The IDS iSYS Vitamin D Immunoassay detects both 25-OH Vitamin D2 and 25-OH Vitamin D3, but only a total Vitamin D concentration is reported. Blood specimen (specimen) 08/19/2017 4:33 PM EST 08/20/2017 7:23 AM EST Narrative Resulting Agency Comment Spec In Lab Cindy Sherman John ART LIBRARIAN CHEMISTRY ORDERAB LES Performing Organization Address City/[facility]/ZIP Co de Phone Number [facility] [place] [address] * Ferritin (08/19/2017 4:33 PM EST) Pathologist [facility] Ferritin 100 30 - 400 ng/mL [facility] Comment: Pediatric reference ranges not verified at [facility], interpret with caution. Reference ranges for females greater than 50 years of age approach values for men, i.e., 30-400 ng/mL. Blood specimen (specimen) 08/19/2017 4:33 PM EST 08/19/2017 4:44 PM EST Narrative Resulting Agency Comment Spec In Lab Cindy Lopez APRN CHEMISTRY ORDERAB LES Performing Organization Address [facility] Co de Phone Number [facility] [place] [address] * Iron and TIBC (08/19/2017 4:33 PM EST) Pathologist [facility] Iron 71 30 - 150 mcg/dL [facility] TIBC 356 250 - 450 mcg/dL [facility] Iron Saturation 20 20 - 50 % [facility] Blood specimen (specimen) 08/19/2017 4:33 PM EST 08/19/2017 4:44 PM EST Narrative Resulting Agency Comment Spec In Lab Cindy Lopez APRN CHEMISTRY ORDERAB LES Performing Organization Address [facility] de Phone Number [facility] [place] [address] * (ABNORMAL) Comprehensive metabolic panel (non-fasting) (08/19/2017 4:33 PM EST) [facility] Glucose Lvl 93 65 - 199 mg/dL [facility] [facility] Comment:Diabetes: >=200 mg/d L plus symptoms BUN 17 8 - 18 mg/dL [facility] Creatinine 0.65(L) 0.70 - 1.20 mg/dL [facility] Sodium 141 135 - 145 mmol/L [facility] Potassium 4.1 3.5 - 5.0 mmol/L [facility] Comment: Please note: ??Patients with WBC >100,000 may have falsely elevated Potassium levels. ??For accurate Potassium quantification in these patients send serum separator tube (gold top) for subsequent determinations. ??Contact the Clinical Chemistry Laboratory if there are any questions. Chloride 101 98 - 107 mmol/L [facility] CO2 30 22 - 31 mmol/L [facility] Anion Gap 10 5 - 15 mmol/L [facility] Calcium 9.9 8.5 - 10.5 mg/dL [facility] Total Protein 7.5 6.1 - 8.0 gm/dL [facility] Albumin 4.5 3.2 - 5.2 gm/dL [facility] AST 39(H) 0 - 30 unit/L [facility] ALT 38(H) 0 - 30 unit/L [facility] Alk Phos 75 40 - 104 unit/L [facility] Total Bilirubin 0.3 0.2 - 1.3 mg/dL [facility] Estimated GFR >60 >=60 [facility] Comment: The reported eGFR should be multiplied by 1.2 for patients. The MDRD is not an appropriate measure of renal function for patients with body mass extremes or in patients with acute kidney failure. http://[employer]/DHnkdep http://[employer]/DHMCnkf Blood specimen (specimen) 08/19/2017 4:33 PM EST 08/19/2017 4:44 PM EST Narrative Resulting Agency Comment Spec In Lab Cindy Lopez ART LIBRARIAN CHEMISTRY ORDERAB LES [facility] [place] [address] * (ABNORMAL) Hemogram (08/19/2017 4:33 PM EST) WBC 5.1 4.0 - 9.5 x10(3)/[facility] LABORATORY RBC 4.78 4.00 - 5.21 x10(6)/[facility] Hemoglobin 14.7 11.7 - 15.5 gm/dL [facility] Hematocrit 41.8 35.7 - 45.8 % [facility] MCV 87.4 82.6 - 94.4 fL [facility] MCH 30.8 27.1 - 32.0 pg [facility] MCHC 35.2(H) 31.7 - 35.0 gm/dL [facility] Platelets 188 145 - 357 x10(3)/[facility] LAB[facility] RDWSD 39.6 37.0 - 46.0 fL [facility] RDWCV 12.2 11.5 - 14.1 % [facility] MPV 11.0 7.6 - 12.9 fL [facility] nRBC % Auto 0.0 % [facility] nRBC Abs Auto 0.000 0.000 - 0.000 x10(3)/[facility] Blood specimen (specimen) 08/19/2017 4:33 PM EST 08/19/2017 4:44 PM EST Narrative Resulting Agency Comment Spec In Lab Cindy Lopez APRN HEMATOLOGY ORDERA BLES Performing Organization Address City/State/[facility] Co de Phone Number [facility] [place] [address] documented in this encounter Visit Diagnoses Diagnosis Type 2 diabetes mellitus without complication, without long-term current use of insulin Essential hypertension Unspecified essential hypertension Disorder of iron metabolism Other disorders of iron metabolism Status post bariatric surgery Bariatric surgery status Intestinal malabsorption, unspecified type Vitamin D deficiency Unspecified vitamin D deficiency documented in this encounter Care Teams Sales Development Manager Relationship Specialty Start Date End Date Lew Beltran PA [address] [place] [id number] PCP - General General Internal Medicine 04/21/16 documented as of this encounter
--- OUTSIDE RECORDS SUMMARY | 2024-03-27 14:10 | XMS_ITS | Encounter Summary ---
Author Organization [place] [address] Care Team Providers Care Gastroenterology Teacher Name Role Phone Lew Beltran Primary Care Provider [phone] Reason for Visit * Auth/Cert Specialty Diagnoses / Procedures Referred By Contac t Referred To Contact Diagnoses Morbid (severe) obesity due to excess calories Essential (primary) hypertension OBESITY Procedures PRO LAP GASTRIC BYPASS/JM-EN-Y PRO UPPER GI ENDOSCOPY, DIAGNOSTIC PRO UNLISTED LAPAROSCOPIC PX LVR @LAPAROSCOPIC GASTROPLASTY, ENDOSCOPY, UPPER GI, DIAGNOSTIC, WITH OR WITHOUT SPECIMENS LAPAROSCOPIC LIVER BIOPSY Referral ID Status Reason Start Date Expiration Date Visits Re quested Visits Authorized [id number] 1 1 Encounter Details Date Type Department Care Team (Latest Contact Info) Description 08/13/2016 8:09 AM EST - 08/15/2016 1:59 PM [facility] Hospital Encounter [address] [place] [address] Tonio Vu MD [facility] [place] [address] Discharge Disposition: Home Social History Tobacco Use Types Packs/Day Years [...] Sign Reading Time Taken Comments Blood Pressure 125/76 08/15/2016 11:54 AM EST Pulse 102 08/15/2016 11:54 AM EST Temperature 36.7 ??C (98.1 ??F) 08/15/2016 11:[address] Respiratory Rate 18 08/15/2016 11:54 AM EST Oxygen Saturation 95% 08/15/2016 11:54 AM EST Inhaled Oxygen Concentration - - Weight 99.9 kg (220 lb 3.8 oz) 08/13/2016 5:57 P M EST Height 162.6 cm (5' 4) 08/13/2016 8:28 AM EST Body Mass Index 37.8 08/13/2016 8:28 AM EST documented in this encounter Discharge Summaries * Christopher Mckinney MD - 08/15/2016 12:13 PM EST Minimally Invasive Surgery Discharge Summary Primary Diagnosis: obesity Secondary Diagnosis: Patient Active Problem List Diagnosis Code ??? Preoperative Class II obesity BMI 36.6, RNY gastric bypass planned 08/13/16 E66.9 ??? Essential hypertension I10 ??? Diabetes mellitus type 2, uncomplicated E11.9 ??? Sinus tachycardia R00.0 ??? History of rectal bleeding Z87.19 ??? Hyperlipidemia E78.5 ??? Chronic constipation K59.09 ??? Morbid obesity E66.01 Operations and Procedures: Procedure(s) with comments: @LAPAROSCOPIC GASTROPLASTY, - D/C FISH OIL 1 WEEK PRIOR WGHT-LT ENDOSCOPY, UPPER GI, DIAGNOSTIC, WITH OR WITHOUT SPECIMENS LAPAROSCOPY, LYSIS OF ADHESIONS Surgeons: Surgeon(s) and Role: * Tonio Vu MD - Primary * Lanie Garnica MD - Resident-Surgeon Bernardo History of Present Illness (Dr. Vu' Clinic Note 06/08/16): Radha Bella is a 50 y.o. female who is here today for shared medical appointment to discuss bariatric surgery. She has been through our Bariatric Surgery Program and has been found eligable for obesity surgery based on NIH criteria. She has gone through the required number of support group meetings and is very familiar with the procedure and also the risks and benefits. Her history otherwise is well documented in the workup by Cindy Lopez APRN ?? She had a number of questions regarding the procedure and I spent approximately 15 to 20 minutes ofour 30-minute visit discussing the pros and cons of bariatric surgery and our outcomes here at [facility]. ?? We went over the small but significant risks of anastomotic leak and deep vein thrombosis, as well as associated with the procedure. She is very understanding of the serious nature of this procedure and would like to go ahead with surgery. We have tentatively made arrangements for her surgeryto be scheduled some time in the near future, and I would be happy to see her on a p.r.n. basis should other problems develop in the interim. Hospital Course: Radha Bella is a 50 y.o. female who was admitted on 08/13/2016 for mpxufgahowrniuyf-an-J gastric bypass. Her intraoperative and PACU course was notable [...] exclude pituitary pathology and was appropriately elevated. On POD#2 she was afebrile with stable vitals signsand blood pressures, was tolerating PO without issue, Cr had normalized, she was ambulating safely and voiding spontaneously and was deemed medically appropriate for discharge to home. Vital Signs Last value Range last 24hrs Temperature Temp: 36.7 ??C (98.1 ??F) Temp: [36.4 ??C (97.5 ??F)-37.4 ??C (99.3 ??F)] Heart Rate Heart Rate: 102 Heart Rate: [71-102] Blood Pressure BP: 125/76 BP: (103-125)/(58-76) Respiratory Rate Resp: 18 Resp: [16-18] SpO2 SpO2: 95 % SpO2: [94 %-98 %] Pertinent Lab Data: Recent Labs 08/15/16 0623 08/14/16 1319 08/14/16 0514 08/13/16 1350 WBC 6.2 8.3 8.0 10.6* HGB 10.7* 10.9* 10.8* 12.5 HCT 32.2* 32.4* 31.0* 36.0 PLATELET 148 162 166 168 Recent Labs 08/15/16 0623 08/14/16 1319 08/14/16 0514 08/13/16 1350 NA 139 140 139 140 K 4.3 4.4 4.7 4.2 CL 102 100 101 101 CO2 26 27 26 26 BUN 13 15 19* 23* CREATININE 0.77 1.03 1.08 1.14 GLUCOSE 106 97 98 126 CALCIUM 8.9 8.9 8.7 9.1 MAGNESIUM -- -- 0.69 -- PHOS -- -- 3.8 -- Physical Exam: Awake, alert, appropriately and pleasantly interactive, appears comfortable. Face is somewhat flushed Regular rate and rhythm Unlabored on room air, good effort, CTAB no wheeze/rhonchi Abdomen softly compressible with minimal tenderness around the port sites which are c/d/i without any collection/drainage/erythema Extremities warm, dry, palpable peripheral pulses Imaging: No results found. Condition at discharge: Stable Mental Status: awake and alert, oriented x 3 Medications: Your Medications New Medications Dose Details acetaminophen 650 mg/20.3 mL Soln Commonly known as: TYLENOL Take 20.3 mLs by mouth every 4 hours as needed. 650 mg Refills: 0 docusate sodium 50 mg/5 mL Liqd Commonly known as: COLACE Take 10 mLs by mouth 2 times daily. Replaces: docusate sodium 100 mg Cap 100 mg Quantity: 473 mL Refills: 0 oxyCODONE 5 mg/5 mL Soln Commonly known as: ROXICODONE Take 5-10 mLs by mouth every 4 hours as needed for Pain. 5-10 mg Quantity: 250 mL Refills: 0 Continued medications, unchanged Dose Details aspirin 81 mg Tbec Take 81 mg by mouth daily. 81 mg Refills: 0 Biotin 5 mg Cap Take 5 mg by mouth daily. 5 mg Refills: 0 cholecalciferol (Vitamin D3) 1,000 unit Cap Take 1 capsule by mouth daily. 1 capsule Refills: 0 FIBER GUMMIES ORAL Take 2 tablets by mouth daily. 2 tablet Refills: 0 multivitamin with minerals Tab Take 1 tablet by mouth daily. 1 tablet Refills: 0 omeprazole 20 mg Cpdr Commonly known as: PriLOSEC Take 1 capsule by mouth daily for 90 days. Start at discharge to prevent ulcer. Take 30 minutes before breakfast 20 mg Quantity: 90 capsule Refills: 0 simvastatin 20 mg Tab Commonly known as: ZOCOR Take 1 tablet by mouth nightly. 1 tablet Refills: 0 SUPER B COMPLEX ORAL Take 1 tablet by mouth daily. 1 tablet Refills: 0 ursodiol 300 mg Cap Commonly known as: ACTIGALL Take 1 capsule by mouth 2 times daily for 180 days. Start at 2 weeks post op on 08/25. Take until 02/23/17 to prevent gallstones. Start taking on: 08/27/2016 300 mg Quantity: 180 tablet Refills: 1 VITAMIN C 1,000 mg Tab Take 1,000 mg by mouth daily. Generic drug: ascorbic acid (vitamin C) 1000 mg Refills: 0 STOPPED Medications docusate sodium 100 mg Cap Commonly known as: COLACE Replaced by: docusate sodium 50 mg/5 mL Liqd lisinopril 40 mg Tab Commonly known as: PRINIVIL;ZESTRIL metFORMIN 1,000 mg Tab Commonly known as: GLUCOPHAGE meTOPROLOL succinate 100 mg Tablet sr Commonly known as: TOPROL-XL triamterene-hydrochlorothiazide 37.5-25 mg Cap Commonly known as: DYAZIDE Disposition: Home Allergies: No Known Allergies Outpatient Services/Studies: No discharge procedures on file. Scheduled Appointments: Future Appointments and Orders Future Appointments Provider Department Dept Phone 08/25/2016 4:00 PM aFwn Wang; Tonio Vu MD General Surgery [phone] 12/01/2016 1:00 PM Fawn Wang; Cindy Lopez, NEON S[employer] MECH[employer]IC General Surgery [phone] Instructions Given to Patient at Discharge: Patient Instructions BARIATRIC SURGERY DISCHARGE INFORMATION ?? CONTACT INFORMATION: [phone] Surgeons: Ashley Smyth and Jd [phone] Senior Fund Accountant: [phone] (Wednesday through Wednesday, 8:00 AM -5:00 PM) Dietitians: [phone] Non-business hours: [phone], ask for general surgeon director translational ?? FOR EMERGENCIES: CALL 911 (trouble breathing, chest pain, severe abdominal pain or rapid heart beat>120 (30 beats in 15 seconds) ?? CALL FOR ANY OF THE FOLLOWING: ?? Signs and symptoms of infection such as: o Redness or swelling o Drainage or bleeding o Fever over 100.5 F o Increased pain or discomfort at the incision site ?? Persistent vomiting or if you are unable to keep food or fluids down in a 24 hour period. ?? Signs and symptoms of a blood clot: new leg swelling or redness, pain in leg, shortness of breath ?? Any concerns, such as problems with urination, bowels, bleeding, pain or leg swelling ?? BATHING AND WOUND CARE: You may shower at 2 days post-op. ?? Wash incisions with soap, water rinse, pat dry and leave open to air if not draining. ?? Steri-strips may be removed or will fall off in 7-10 days. Pat dry if they become wet. ?? Do not soak wound for 2 weeks after laparoscopic surgery and 3 weeks after open surgery. ?? ACTIVITY, LIFTING AND DRIVING: Daily walking is encouraged as tolerated. ?? For laparoscopic surgery: there are no lifting restrictions. Lift when you feel comfortable. ?? For all patients: Do not drive for 2 weeks. After [address] when comfortable and not takingnarcotic pain medicine. ?? DIET: follow Stage II diet for two weeks. ?? Log intake. Daily goals are: 48-64 ounces of fluids and 60 grams of protein. ?? MEDICATIONS: For 2 WEEKS ONLY: LARGE pills (bigger than the size of a calcium pill) must be crushed, or broken into small pieces. ?? Pills smaller than the size of a Tylenol DO NOT need to be crushed. Not all medications can be crushed. Check with your pharmacist first. ?? BLOOD CLOT PREVENTION: ?? You do not meet scoring criteria to be discharged on medication to prevent blood clots. Be active, walk at least 4 times a day and do blood clot prevention exercises in your handbook on page 82. ? IF YOU ARE TREATED FOR OBSTRUCTIVE SLEEP APNEA: use your CPAP/ BIPAP after surgery at night and when napping. The effect of anesthesia and pain medication can decrease respirations. Follow up with the Sleep Center if pressure seems to be too high. ?? ULCER PREVENTION: omeprazole 20 mg daily (or any medication you may currently take for heartburn/reflux) must be taken for 3 MONTHS after surgery: Take this to prevent ulcers, even if you do not haveheartburn. The prescription may be refilled after the 3 month course if you have heartburn or reflux. ?? Omeprazole capsules contain enteric-coated, delayed-release granules. These granules should not be chewed or crushed. The capsules can be opened and the enteric-coated granules sprinkled on applesauce or yogurt, given with apple juice, or swallowed immediately with water. Prepare just prior to ad ministration. Administer entire dosage. ?? If your insurer does not cover omeprazole, or similar medications such as pantoprazole, please purchase over the counter. ?? GALLSTONE PREVENTION: (ONLY if you have a gallbladder): ?? Take Ursodiol (Actigall) 300 mg twice a day. START: 2 weeks after surgery, take for 6 months then stop unless otherwise directed. The start date and end date are written on the prescription. ? PAIN MEDICATION: Take only if needed -Take the medication exactly as it is prescribed and make sure to read all instructions that come with the medication. -Over the next couple of days you should be requiring less of this medication to control your pain,so that eventually you will not need any at all. You do not have to take all of the medication thatwas prescribed, you may have some left over. -Use tylenol if you are in pain, and if you are still in pain after tylenol you may use the pain medication -Taking more than the prescribed amount of medication or using with alcohol or other drugs can cause you to stop breathing resulting in coma, brain damage or . -Opioids can slow reaction time, cause drowsiness or cloud judgement. No driving for 8 hours after any dose of opioid pain medication if one was prescribed for you. -Using this drug may cause addiction. While addiction is more common in people with a personal or family history of addiction, it can occur in anyone. -Opioids are at risk of being diverted by anyone with access to your home. Opioids should be storedin a safe and secure place, such as a locked cabinet or safe. -Unused opioids should be disposed of appropriately. They may be returned to a take-back location, or mixed with a small amount of water and poured over an undesirable waste such as used coffee grounds or cat litter. -Please note that most pain medications can cause constipation. You may use a stool softener such as Miralax to prevent this. ?? MEDICATIONS TO AVOID FOR TWO MONTHS AFTER SURGERY: ?? Avoid anti-inflammatory non-steroidal medications, such as Advil, Aleve, etc. Refer to Medications that may increase the risk of bleeding in handbook. ?? If you take aspirin for your heart or to prevent strokes, continue as prescribed. ?? SUMMARY OF MEDICATION CHANGES - Please STOP taking your Lisinopril, Metoprolol and Dyazide, at least until you follow up with your PCP to have your blood pressure checked. - Please STOP your metformin for now and follow the below instructions for checking your glucose athome. ? PATIENTS WITH DIABETES: Check blood sugars four times a day, fasting, 2 hours after meals and if unwell. For blood sugar less than 150, do not restart diabetes medications. ?? Patients on oral diabetic medication: If blood sugar is over 200 on more than 3 rechecks, call your primary care physician or diabetic specialist for specific recommendations, or as recommended atdischarge. ?? For patients on insulin and oral diabetic medications: If blood sugar is consistently under 200,you will not likely need medication. If blood sugar is over 200 on a few rechecks, call your primary care doctor or diabetic specialist for specific recommendations or as recommended at discharge. ?? Follow up with primary care provider or clinical reimbursement specialist in 1-2 weeks. Bring meter to appointments. ?? PATIENTS WITH HIGH BLOOD PRESSURE: Monitor your blood pressure regularly. ?? If you feel dizzy and have been drinking 48-64 ounces of fluid, have your blood pressure checked. ?? If your blood pressure is low (systolic blood pressure < 100), call your primary care provider. Keep a log to bring to your PCP appointments. ?? PATIENTS WHO TAKE DIURETICS (MEDICATION FOR SWELLING WATER PILLS): ?? Check with your surgical team prior to discharge for instructions. In general, this medication can be decreased or stopped after surgery, since it may cause dehydration. ?? Monitor closely for increased swelling after discharge, and call your primary care doctor if swelling increases. ?? PATIENTS ON ANTI-DEPRESSANT OR MENTAL HEALTH MEDICATIONS: Do not stop or decrease your medications unless advised. Ongoing counseling is encouraged. ?? VITAMIN AND MINERAL SUPPLEMENTATION: Vitamin B12 500 mcg pill daily. Complete multivitamin w/ minerals Chewable, one pill twice daily. After 2 weeks may take regular vitamin pills. Calcium Calcium citrate 600 mg with vitamin D 400 units twice a day between meals. Iron with vitamin C Take iron as instructed per Handbook- (only if you have anemia, iron deficiencyor regular menses) ?? FOLLOW-UP CARE: ?? It is important you see your PCP within 14 days to check on your blood pressure, blood glucose and endocrine management. ?? See your surgeon and dietitian at 3 weeks after surgery ?? Will not need endocrinology follow up, please call if symptoms worsen ?? See the dietitian and nurse practitioner at 4, 12, 18, and 24 months, then yearly for life. ?? Future Appointments Date Time Provider Department Center 08/25/2016 4:00 PM Tonio Vu MD [facility] 12/01/2016 1:00 PM Cindy Lopez APRN [facility] WOMEN OF CHILDBEARING AGE: Fertility may increase with weight loss. Avoid for 18-24 months after surgery. Condoms alone are not acceptable as a form of control. Do not take control pills for the first month after surgery. General Instructions None Future Appointments and Orders Future Appointments Provider Department Dept Phone 08/25/2016 4:00 PM Fawn Wang; oTnio Vu MD General Surgery [phone] 12/01/2016 1:00 PM Fawn Wang; Cindy Lopez APRN General Surgery [phone] Will not need follow up with endocrinology Signed: Christopher Mckinney MD 08/15/2016 Primary [place] Physician: DEEDEE Shaffer [address] / [facility] [id number] documented in this encounter Discharge Instructions * Patient Instructions* Christopher Mckinney MD - 08/14/2016 3:08 PM EST BARIATRIC SURGERY DISCHARGE INFORMATION ?? CONTACT INFORMATION: [phone] Surgeons: Ashley Smyth and Jd [phone] Senior Fund Accountant: [phone] (Wednesday through Wednesday, 8:00 AM -5:00 PM) Dietitians: [phone] Non-business hours: [phone], ask for general surgeon director translational ?? FOR EMERGENCIES: CALL 911 (trouble breathing, chest pain, severe abdominal pain or rapid heart beat>120 (30 beats in 15 seconds) ?? CALL FOR ANY OF THE FOLLOWING: ?? Signs and symptoms of infection such as: o Redness or swelling o Drainage or bleeding o Fever over 100.5 F o Increased pain or discomfort at the incision site ?? Persistent vomiting or if you are unable to keep food or fluids down in a 24 hour period. ?? Signs and symptoms of a blood clot: new leg swelling or redness, pain in leg, shortness of breath ?? Any concerns, such as problems with urination, bowels, bleeding, pain or leg swelling ?? BATHING AND WOUND CARE: You may shower at 2 days post-op. ?? Wash incisions with soap, water rinse, pat dry and leave open to air if not draining. ?? Steri-strips may be removed or will fall off in 7-10 days. Pat dry if they become wet. ?? Do not soak wound for 2 weeks after laparoscopic surgery and 3 weeks after open surgery. ?? ACTIVITY, LIFTING AND DRIVING: Daily walking is encouraged as tolerated. ?? For laparoscopic surgery: there are no lifting restrictions. Lift when you feel comfortable. ?? For all patients: Do not drive for 2 weeks. After [address] when comfortable and not takingnarcotic pain medicine. ?? DIET: follow Stage II diet for two weeks. ?? Log intake. Daily goals are: 48-64 ounces of fluids and 60 grams of protein. ?? MEDICATIONS: For 2 WEEKS ONLY: LARGE pills (bigger than the size of a calcium pill) must be crushed, or broken into small pieces. ?? Pills smaller than the size of a Tylenol DO NOT need to be crushed. Not all medications can be crushed. Check with your pharmacist first. ?? BLOOD CLOT PREVENTION: ?? You do not meet scoring criteria to be discharged on medication to prevent blood clots. Be active, walk at least 4 times a day and do blood clot prevention exercises in your handbook on page 82. ? IF YOU ARE TREATED FOR OBSTRUCTIVE SLEEP APNEA: use your CPAP/ BIPAP after surgery at night and when napping. The effect of anesthesia and pain medication can decrease respirations. Follow up with the Sleep Center if pressure seems to be too high. ?? ULCER PREVENTION: omeprazole 20 mg daily (or any medication you may currently take for heartburn/reflux) must be taken for 3 MONTHS after surgery: Take this to prevent ulcers, even if you do not haveheartburn. The prescription may be refilled after the 3 month course if you have heartburn or reflux. ?? Omeprazole capsules contain enteric-coated, delayed-release granules. These granules should not be chewed or crushed. The capsules can be opened and the enteric-coated granules sprinkled on applesauce or yogurt, given with apple juice, or swallowed immediately with water. Prepare just prior to ad ministration. Administer entire dosage. ?? If your insurer does not cover omeprazole, or similar medications such as pantoprazole, please purchase over the counter. ?? GALLSTONE PREVENTION: (ONLY if you have a gallbladder): ?? Take Ursodiol (Actigall) 300 mg twice a day. START: 2 weeks after surgery, take for 6 months then stop unless otherwise directed. The start date and end date are written on the prescription. ? PAIN MEDICATION: Take only if needed -Take the medication exactly as it is prescribed and make sure to read all instructions that come with the medication. -Over the next couple of days you should be requiring less of this medication to control your pain,so that eventually you will not need any at all. You do not have to take all of the medication thatwas prescribed, you may have some left over. -Use tylenol if you are in pain, and if you are still in pain after tylenol you may use the pain medication -Taking more than the prescribed amount of medication or using with alcohol or other drugs can cause you to stop breathing resulting in coma, brain damage or . -Opioids can slow reaction time, cause drowsiness or cloud judgement. No driving for 8 hours after any dose of opioid pain medication if one was prescribed for you. -Using this drug may cause addiction. While addiction is more common in people with a personal or family history of addiction, it can occur in anyone. -Opioids are at risk of being diverted by anyone with access to your home. Opioids should be storedin a safe and secure place, such as a locked cabinet or safe. -Unused opioids should be disposed of appropriately. They may be returned to a take-back location, or mixed with a small amount of water and poured over an undesirable waste such as used coffee grounds or cat litter. -Please note that most pain medications can cause constipation. You may use a stool softener such as Miralax to prevent this. ?? MEDICATIONS TO AVOID FOR TWO MONTHS AFTER SURGERY: ?? Avoid anti-inflammatory non-steroidal medications, such as Advil, Aleve, etc. Refer to Medications that may increase the risk of bleeding in handbook. ?? If you take aspirin for your heart or to prevent strokes, continue as prescribed. ?? SUMMARY OF MEDICATION CHANGES - Please STOP taking your Lisinopril, Metoprolol and Dyazide, at least until you follow up with your PCP to have your blood pressure checked. - Please STOP your metformin for now and follow the below instructions for checking your glucose athome. ? PATIENTS WITH DIABETES: Check blood sugars four times a day, fasting, 2 hours after meals and if unwell. For blood sugar less than 150, do not restart diabetes medications. ?? Patients on oral diabetic medication: If blood sugar is over 200 on more than 3 rechecks, call your primary care physician or diabetic specialist for specific recommendations, or as recommended atdischarge. ?? For patients on insulin and oral diabetic medications: If blood sugar is consistently under 200,you will not likely need medication. If blood sugar is over 200 on a few rechecks, call your primary care doctor or diabetic specialist for specific recommendations or as recommended at discharge. ?? Follow up with primary care provider or clinical reimbursement specialist in 1-2 weeks. Bring meter to appointments. ?? PATIENTS WITH HIGH BLOOD PRESSURE: Monitor your blood pressure regularly. ?? If you feel dizzy and have been drinking 48-64 ounces of fluid, have your blood pressure checked. ?? If your blood pressure is low (systolic blood pressure < 100), call your primary care provider. Keep a log to bring to your PCP appointments. ?? PATIENTS WHO TAKE DIURETICS (MEDICATION FOR SWELLING WATER PILLS): ?? Check with your surgical team prior to discharge for instructions. In general, this medication can be decreased or stopped after surgery, since it may cause dehydration. ?? Monitor closely for increased swelling after discharge, and call your primary care doctor if swelling increases. ?? PATIENTS ON ANTI-DEPRESSANT OR MENTAL HEALTH MEDICATIONS: Do not stop or decrease your medications unless advised. Ongoing counseling is encouraged. ?? VITAMIN AND MINERAL SUPPLEMENTATION: Vitamin B12 500 mcg pill daily. Complete multivitamin w/ minerals Chewable, one pill twice daily. After 2 weeks may take regular vitamin pills. Calcium Calcium citrate 600 mg with vitamin D 400 units twice a day between meals. Iron with vitamin C Take iron as instructed per Handbook- (only if you have anemia, iron deficiencyor regular menses) ?? FOLLOW-UP CARE: ?? It is important you see your PCP within 14 days to check on your blood pressure, blood glucose and endocrine management. ?? See your surgeon and dietitian at 3 weeks after surgery ?? Will not need endocrinology follow up, please call if symptoms worsen ?? See the dietitian and nurse practitioner at 4, 12, 18, and 24 months, then yearly for life. ?? Future Appointments Date Time Provider Department Center 08/25/2016 4:00 PM Tonio Vu MD [facility] 12/01/2016 1:00 PM Cindy Lopez APRN [facility] WOMEN OF [facility] AGE: Fertility may increase with weight loss. Avoid for 18-24 months after surgery. Condoms alone are not acceptable as a form of control. Do not take control pills for the first month after surgery. documented in this encounter Medications at Time of Discharge Medication Sig Dispensed Refills Start Date End Date meTOPROLOL succinate (TOPROL-XL) 100 mg Tablet Sustained Release 24 hr 50 mg. 06/22/2016 multivitamin with minerals Tablet Take 1 tablet by mouth 2 times daily. simvastatin (ZOCOR) 20 mg Tablet Take 1 tablet by mouth nightly. 03/24/2016 aspirin 81 mg Tablet, Delayed Release (E.C.) Take 81 mg by mouth daily. ascorbic acid, vitamin C, (VITAMIN C) 1,000 mg Tablet Take 1,000 mg by mouth daily. cholecalciferol, Vitamin D3, 1,000 unit Capsule Take 1 capsule by mouth 2 times daily. acetaminophen (TYLENOL) 650 mg/20.3 mL Solution Take 20.3 mLs by mouth every 4 hours as needed. 08/15/2016 12/01/2016 oxyCODONE (ROXICODONE) 5 mg/5 mL Solution Take 5-10 mLs by mouth every 4 hours as needed for Pain. 250 mL 08/15/2016 08/25/2016 docusate sodium (COLACE) 50 mg/5 mL Liquid Take 10 mLs by mouth 2 times daily. 473 mL 08/15/2016 08/25/2016 ursodiol (ACTIGALL) 300 mg Capsule Take 1 capsule by mouth 2 times daily for 180 days. Start at 2 weeks post op on 08/25. Take until 02/23/17 to prevent gallstones. 180 tablet 1 08/27/2016 02/23/2017 omeprazole (PRILOSEC) 20 mg Capsule, Delayed Release(E.C.) Take 1 capsule by mouth daily for 90 days. Start at discharge to prevent ulcer. Take 30 minutes before breakfast 90 capsule 08/14/2016 11/12/2016 FERROUS FUMARATE/VIT BCOMP,C (SUPER B COMPLEX ORAL) Take 1 tablet by mouth daily. Reported on 08/25/2016 08/25/2016 Biotin 5 mg Capsule Take 5 mg by mouth daily. Reported on 08/25/2016 08/19/2017 INULIN (FIBER GUMMIES ORAL) Take 2 tablets by mouth daily. Reported on 08/25/2016 08/25/2016 documented as of this encounter Progress Notes * Huang Mahmood RN - 08/15/2016 12:57 PM EST Patient Name: Radha Bella Patient Age: 50 y.o. Birthdate: 1965 Admit date: 08/13/2016 Attending Physician: Tonio Vu MD Pt discharged to home without services. Hard copies of prescriptions given, patient's spouse filling at pharmacy before they leave. Discharge paperwork reviewed at bedside with patient, they were given opportunities for questions and any questions asked were answered. Patient is comfortable withdiet plan going forward and is aware of future appointments. Left unit via wheelchair, pushed by spouse at 1340. * Gnio Garner MD - 08/15/2016 10:26 AM EST Endocrine follow up Ms Bella feels well today - ready to go home ! BP 121/70 (BP Location (NBP): Right arm) Pulse 71 Temp 37.4 ??C (99.3 ??F) (Oral) Resp 18 Ht 162.6 cm (5' 4) Wt 99.9 kg (220 lb 3.8 oz) SpO2 96% BMI 37.8 kg/m2 COSYNTROPIN STIM TEST Ref. Range 08/14/2016 14:31 08/14/2016 15:27 08/15/2016 06:23 FSH Latest Units: mlU/ML 22.8 Cortisol Latest Units: mcg/dL 1.8 29.1 1) Hypotension/low cortisol - this was a transient postop phenomenon of uncertain etiology but her adrenal glands work well and were not damaged by the hypotension. Had she suffered pituitary induceddamage from the hypotension, her menopausal FSH would have beenlow. There is no indication of an adr enal/pituitary issue. She does not need outpatient endo followup. * Rafael Pichardo W - 08/14/2016 1:52 PM EST MIS Progress Note ID: 50F with PMHx HTN, HLD, DM2 and obesity now 1 Day Post-Op s/p LRYGB S/24: - OR for above - Hypotension requiring low dose natan gtt intraop, persistent in PACU, stabilized s/p 2L IVB. Hartman placed. MIVF @ 150/hr overnight. - SBPs stable overnight ~90-100s, no tachycardia, no metoprolol given, UOP ~80cc/hr - She feels relatively well this afternoon. Did have some dizziness when OOB earlier this morning; now ambulating around xie without symptoms. Pain is adequately controlled with PO regimen. Tolerating Stage I without nausea. No flatus yet. Denies chest pain, dyspnea. She is feeling a little anxious about the additional workup required for her borderline hypotension O: Temp: [36.2 ??C (97.2 ??F)-37 ??C (98.6 ??F)] Heart Rate: [72-94] Resp: [11-22] BP: (77-117)/(38-65) SpO2: [93 %-100 %] Heart Rate from SPO2: [64 bpm-113 bpm] Intake/Output Summary (Last 24 hours) at 08/14/16 1352 Last data filed at 08/14/16 1225 Gross per 24 hour Intake 5065 ml Output 1845 ml Net 3220 ml Exam: Awake, alert, appropriately and pleasantly interactive, appears comfortable. Face is somewhat flushed Regular rate and rhythm Unlabored on room air, good effort, CTAB no wheeze/rhonchi Abdomen softly compressible with minimal tenderness around the port sites which are c/d/i without any collection/drainage/erythema Extremities warm, dry, palpable peripheral pulses Labs: Last 3 wbc, hgb, hct plt Recent Labs 08/14/16 1319 08/14/16 0514 08/13/16 1350 WBC 8.3 8.0 10.6* HGB 10.9* 10.8* 12.5 HCT 32.4* 31.0* 36.0 PLATELET 162 166 168 Last 3 Lytes Recent Labs 08/14/16 0514 08/13/16 1350 05/19/16 0819 NA 139 140 142 K 4.7 4.2 4.5 CL 101 101 101 CO2 26 26 26 BUN 19* 23* 11 CREATININE 1.08 1.14 0.77 Last Ca, Mg, Phos Recent Labs 08/14/16 0514 CALCIUM 8.7 PHOS 3.8 Cortisol: 2.0 ACTH: pending FeNa: 0.53% Imaging: None Micro: None A/P: 50F with PMHx HTN, HLD, DM2 and obesity now 1 Day Post-Op s/p LRYGB. Intraoperative and postoperative course marked by hypotension requiring low dose natan during the case and then responsive to IVF in the PACU. Labwork and clinical picture suggestive of intravascular depletion 2/2 dehydration with bump in her Cr from baseline. This was also supported by FeNa of 0.5% as of this morning. Her BPs were stable overnight but remain fairly low given her robust home anti- HTN regimen. Orthostatics checked midday were normal suggesting she is now adequately resuscitated. After a dilutional drop this morning, Hgb is stable this afternoon and suspicion for bleeding is very low. Cr is also downtrending appropriately. Cortisol was checked and low raising prospect of adrenal insufficiency; Endocrinology has been consulted and we will start with a cosyntropin test and ACTH baseline this afternoon. Otherwise can make her regimen more normal today. Will drop LR down to 75/hr and remove the Hartman as she is not requiring further active resuscitation. She is on Stage II diet and PO pain regimen. Will follow up Endocrinology labwork and recommendations. RAFAEL PICHARDO MD ADDENDUM: Cosyntropin stimulation test was normal at 29. She received solucortef 50mg IV x1 and will repeat again overnight and then stop per conversation with Endocrine. They will re-evaluate in themorning and we will check an FSH in the AM as well to ensure there is not a central/pituitary cause. Shea Friend RN - 08/13/2016 6:29 PM EST Radha arrive on the floor at approximately 1800. She was oriented to the room and to the call carbone.Her pain is well controlled with her [employer]. She denies any nausea. Her 6 lap sites are clean dry and intact with band aids. Will continue to monitor. Rafael Elias - 08/13/2016 5:37 PM EST MIS Post-Operative Note Radha Bella is a 50 y.o. female Day of Surgery s/p LRYGB. Intraoperative uncomplicated - received 1.2L IVF. Was on low dose natan gtt during case. Hypotension to 70s in PACU without tachycardia, given 2L IVF with improvement to 90-100s. Hartman placed and labs sent noting Cr 1.1 from preop baseline ~0.8, otherwise unremarkable. Patient re-examined in PACU shortly before transport to floor. She feels well. Endorsing mild soreness across upper abdomen, using [employer] to effect. She denies chest pain or dyspnea. No nausea. Temp: [36.2 ??C (97.2 ??F)] Heart Rate: [71-94] Resp: [10-22] BP: (79-105)/(37-59) SpO2: [94 %-100 %] Heart Rate from SPO2: -- Intake/Output Summary (Last 24 hours) at 08/13/16 1702 Last data filed at 08/13/16 1700 Gross per 24 hour Intake 3488 ml Output 318 ml Net 3170 ml UOP: 250cc over last 2hr, 50cc over last 1hr Recent Labs 08/13/16 1350 WBC 10.6* HGB 12.5 HCT 36.0 PLATELET 168 Recent Labs 08/13/16 1350 NA 140 K 4.2 CL 101 CO2 26 BUN 23* CREATININE 1.14 GLUCOSE 126 CALCIUM 9.1 Gen: sleeping, easily aroused, interactive and comfortable Cardio: regular rate in 80s Pulm: unlabored on RA, shallow but clear respirations bilaterally without wheeze/rhonchi ABD: obese, softly compressible, appropriately tender around port sites with bandaids/steris c/d/i no drainage/collection/erythema : Hartman with clear yellow output A/P: 50F Day of Surgery s/p LRYGB. Low dose natan req during case with ongoing hypotension on arrival to PACU. Responsive to 2L IVF. Labs sent and generally unrevealing except for Cr 1.1 which is up from her baseline confirming suspicion of likely preop dehydration and periop under-resuscitation. Hartman placed to monitor her ongoing res uscitation. Will continue LR @ 150cc/hr tonight and monitor UOP (goal ~25- 30cc/hr). Otherwise per post-bypass pathway: dPCA, IV Tylenol, NO toradol, NPO with Stage I in AM, metop 5q6 IV (HOLD for SBP<140), sensitive SSI. RAFAEL PICHARDO MD 08/13/2016 5:02 PM * Yoon Rios RN - 08/13/2016 2:00 PM EST Patient admitted to PACU at 1350 Hand off received from Aaron Barber CRNA. care assumed. Assessments as documented. Mildly hypotensive Monitors on, alarms audible and individualized to patient. 1405 Increased hypotension with SBP low 80's. Fluid wide open, Nickolas Smyth MD notified. Phenylephrine [address] Smyth at bedside. Blood pressure responding to fluid bolus and phenylephrine. Lanie Garnica MD at bedside, fluid given per Dr. Garnica. 1500 hartman placed by Teresa Rosa RN. 1520 [employer] initiated. Patient familiar with use. 1645 PACU D/C criteria met. 1700 Hand off to CORNELIO Lucas 4 west documented in this encounter H&P Notes * Tonio Vu MD - 08/13/2016 9:09 AM EST Patient Name: Radha Bella Patient Age: 50 y.o. Birthdate: 1965 Admit date: 08/13/2016 Attending Physician: Tonio Vu MD Radha Bella is a 50 y.o. female who is here today for bariatric surgery. She has been through our Bariatric Surgery Program and has been found eligable for obesity surgery based on NIH criteria. She has gone through the required number of support group meetings and is very familiar with the procedure and also the risks and benefits. Patient Active Problem List Diagnosis Code ??? Preoperative Class II obesity BMI 36.6 E66.9 ??? Essential hypertension I10 ??? Diabetes mellitus type 2, uncomplicated E11.9 ??? Sinus tachycardia R00.0 ??? History of rectal bleeding Z87.19 ??? Hyperlipidemia E78.5 ??? Chronic constipation K59.09 ?? Past??Medical??History No past medical history on file. Past??Surgical??History Past Surgical History Procedure Laterality Date ??? section ?? 1985, 1991 ??? Tubal ligation Bilateral ? Tubal reversal ?? ~1995 ??? Carpal tunnel release Bilateral 2014 ??? Wrist ganglion excision Left ~1992 ??? Salpingo-oophorectomy Right 08/16/2013 ? complex right ovarian hemorrhagic corpus luteum cyst. Prominent adhesive disease within the pelvis- dense adhesions of pericolic fat, intraperitoneal fat oriented in a AP direction and spanningthe entirety of the lower pelvis. The uterus could not be identified. The ovaries could not be seen. ? triamterene-hydrochlorothiazide (DYAZIDE) 37.5-25 mg Capsule ??? simvastatin (ZOCOR) 20 mg Tablet ??? meTOPROLOL succinate (TOPROL-XL) 100 mg Tablet Sustained Release 24 hr ??? metFORMIN (GLUCOPHAGE) 1,000 mg Tablet ??? lisinopril (PRINIVIL;ZESTRIL) 40 mg Tablet ??? aspirin 81 mg Tablet, Delayed Release (E.C.) ??? fish oil-omega-3 fatty acids with vitamin E (FISH OIL) 1,000 mg Capsule ??? ascorbic acid, vitamin C, (VITAMIN C) 1,000 mg Tablet ??? cholecalciferol, Vitamin D3, 1,000 unit Capsule ??? FERROUS FUMARATE/VIT BCOMP,C (SUPER B COMPLEX ORAL) ??? Biotin 5 mg Capsule ??? FOLIC ACID/MULTIVIT-MIN/LUTEIN (CENTRUM SILVER ORAL) ??? docusate sodium (COLACE) 100 mg Capsule ??? INULIN (FIBER GUMMIES ORAL) ??? VITAMIN B COMPLEX (B COMPLEX ORAL) ?? No Known Allergies ?? Her history otherwise is well documented in the workup by Cindy Lopez APRN On examination, she appears well and in no distress. Head and neck exam reveals equal, reactive pupils and a supple neck. Her chest is clear bilaterally and her heart sounds are normal with no adventitious sounds or murmurs. Her abdomen is soft with no masses or tenderness. Extremity and Neuro exams are grossly normal. documented in this encounter Miscellaneous Notes * Plan of Care - Indira Barth RN - 08/15/2016 2:38 AM EST Problem: Patient Care Overview Goal: Plan of Care Review Outcome: Ongoing (Interventions Implemented as Appropriate) 08/14/16 0458 08/14/16 2100 Coping/Psychosocial Plan Of Care Reviewed With -- patient Plan of Care Review Progress progress toward functional goals as expected -- OUTCOME EVALUATION NOTE: OUTCOME SUMMARY: Radha had a good night. Pain controlled with PRN oxy. Voiding adequate amts of urine. Tolerating stage II diet, denies nausea. Slept between care. PLAN MOVING FORWARD: Discharge INDIVIDUALIZED FALL PREVENTION INTERVENTIONS: Patient-specific fall risk factors per assessment: [current deficits]: Narcotics Assistance [level of assistance required for transfers and ambulation]: Independent Supervision [direct monitoring required during toileting and ADLs]: Eyes on Surveillance [continuous indirect monitoring]: Purposeful rounding, Call carbone in reach CPG GOAL OUTCOME EVALUATION: Goal: Individualization & Mutuality Outcome: Ongoing (Interventions Implemented as Appropriate) 08/14/16 0103 Mutuality/Individual Preferences What Anxieties, Fears or Concerns Do You Have About Your Health or Care? nothing verbalized What Questions Do You Have About Your Health or Care? nothing verbalized What Information Would Help Us Give You More Personalized Care? I take 3 medications for B/P. Goal: Fall Prevention-Safe Patient Handling Outcome: Ongoing (Interventions Implemented as Appropriate) 08/14/16 1826 08/14/16 2100 Daily Care Interventions Self-Care Promotion independence encouraged -- Musculoskeletal Interventions Muscle Strengthening activity/mobility promoted;mobility in bed promoted;up in chair encouraged formeals and activities -- Ritchie Fall Risk History of Falling -- 0 Secondary Diagnosis -- 15 Ambulatory Aids -- 0 Intravenous Therapy/Heparin/Saline Lock -- 20 Gait/Transferring -- 10 Mental Status -- 0 Score -- 45 OTHER Ritchie Fall Risk -- High Restraint Interventions Safety Promotion/Fall Prevention -- activity supervised;muscle strengthening facilitated Positioning Body Position -- independent Goal: Infection Control Outcome: Ongoing (Interventions Implemented as Appropriate) 08/14/16 2100 Safety Interventions Isolation Precautions standard precautions maintained Infection Prevention rest/sleep promoted Coping Strategies Supportive Measures active listening utilized Goal: Discharge Needs Assessment Outcome: Ongoing (Interventions Implemented as Appropriate) 08/14/16 0457 Discharge Needs Assessment Concerns To Be Addressed no discharge needs identified Readmission Within The Last 30 Days no previous admission in last 30 days Equipment Needed After Discharge none Activity/Self Care Review of Systems Equipment Currently Used at Home none Living Environment Transportation Available family or friend will provide * Plan of Care - Shea Yung RN - 08/14/2016 6:33 PM EST Problem: Patient Care Overview Goal: Plan of Care Review Outcome: Ongoing (Interventions Implemented as Appropriate) 08/14/16 0458 08/14/16 0800 Coping/Psychosocial Plan Of Care Reviewed With -- patient Plan of Care Review Progress progress toward functional goals as expected -- OUTCOME EVALUATION NOTE: OUTCOME SUMMARY: Radha had a good day today. She was able to get up and move around the unit independently with her . She is tolerating a stage II gastric bipass diet with no nausea. Her hartman was removed today, she is due to void at 1900. Will continue to monitor. PLAN MOVING FORWARD: Possible discharge home tomorrow. Will continue to monitor pain and encourage independence. INDIVIDUALIZED FALL PREVENTION INTERVENTIONS: Patient-specific fall risk factors per assessment: [current deficits]: Weakness, narcotics. Assistance [level of assistance required for transfers and ambulation]: independent Supervision [direct monitoring required during toileting and ADLs]: Eyes on Surveillance [continuous indirect monitoring]: Hourly rounding, call carbone in reach Patient-specific fall prevention interventions for sensory deficits provided, if applicable: [X] Yes lighting adjusted to task, environmental modifications, lighting adjusted to task. CPG GOAL OUTCOME EVALUATION: * Consult Note - Gino Garner MD - 08/14/2016 12:50 PM EST Images from the original note were not included. ENDOCRINOLOGY INPATIENT CONSULTATION Patient Name: Radha Bella Date of Consultation: 08/14/2016 Consult Requested by: Tonio Vu MD Reason for Consultation: adrenal insufficiency History of Presenting Illness: This is a 50 y.o. female patient who [place] [facility]. ? Radha Bella is a 50 y.o. female with a history of unsuccessful long-term weight loss efforts for morbid obesity status-post laparoscopic Jm-en-Y gastric bypass POD 1 (08/13/2016). Her hospital course was complicated by pre and selene--op new onset hypotension to the 70's-80's systolic requiring r esuscitation intra-op with IV fluid boluses and phenylephrine (discontinued at 2 am on 08/14). In the PACU she had persistent hypotension and received 5 L fluid boluses in total with LR 75 cc/hr running overnight. Her home antihypertensives were continued until admit but held here due to hypotension. Unclear which anesthesia agent was used for induction. She was noted to have increase in Creatinineto 1.14 from 0.77.. Also noted to have decreased Hb of 10.8 from 12.5. Pt has been following a low carb low fat diet per protocol for 2 weeks prior to surgery. She reports stopping her metformin 1 week prior due to nausea. Had occasional dizziness when standing couple of weeks before surgery but no changes in BP meds were made. Had lost 17 lbs intentionally over 6 months. No known hypoglycemic episodes. She denies abdominal pain, no diarrhea,, salt craving, headaches, visual changes , no double visionor tunnel vision. No Tanning of skin, increased urination or thirst, fevers, chills. Denies use of pain meds, no marijuana, no steroids, no OCPs. Menses stopped June 2015, was previously regular Past Medical History: Patient Active Problem List Diagnosis Code ??? Preoperative Class II obesity BMI 36.6, RNY gastric bypass planned 08/13/16 E66.9 ??? Essential hypertension I10 ??? Diabetes mellitus type 2, uncomplicated E11.9 ??? Sinus tachycardia R00.0 ??? History of rectal bleeding Z87.19 ??? Hyperlipidemia E78.5 ??? Chronic constipation K59.09 ??? Morbid obesity E66.01 Home meds Metformin 1 g Metoprolol 100 mg XL qd Lisinopril 40 mg qd Triamterne- HCTZ Vit D 1000 IU Current Medications: Inpatient medications: ??? simvastatin 20 mg Oral QPM ??? sodium chloride 0.9 % 5 mL Intravenous BID ??? enoxaparin 40 mg Subcutaneous BID ??? pantoprazole 40 mg Intravenous Daily ??? meTOPROLOL 5 mg Intravenous Q6H ??? insulin lispro 1-4 Units Subcutaneous TID AC Continuous infusions: ??? lactated ringers 150 mL/hr (08/14/16 1225) Social History: Alcohol use: no Cigarette use: no Illicit drug use: no Family History: Sister- lupus testing negative Neg autoimune history Allergies: No Known Allergies ROS: (+) for [employer] (-) for Constitutional: No tiredness, recent weight change, no heat or cold intolerance Endocrine: No thyroid problems. No abnormal sweating or flushing. No galactorrhea or breast tenderness. Normal sexual desire. Integument: No excessive hair growth, balding, acne or oily skin. No ulcerations. No easily bruising. Neurological: No headache or weakness. No seizure, fainting or dizziness Eyes: No recent vision changes ENT: No dysphagia, dental issues Cardiovascular: No chest pain or palpitations Respiratory: No cough, wheezing, shortness of breath GI: Normal appetite. No nausea, vomiting, diarrhea, constipation : No frequent urinary tract infections or polyuria Musculoskeletal: No joint aches, muscle pain. No back pain Psychiatric: No depression, anxiety Vitals Physical Exam: General appearance: pleasant female pt, appears stated age, not in distress HEENT: anicteric, EOMI, RUEL, no lymphadenopathy, moist mucus membranes CVS: +S1, S2. no murmurs, RRR Pulm: clear to auscultation BL Abd: soft, non-tender, non-distended, +bowel sounds, no rebound or guarding Extremities: 2+ pulses peripherally, no edema, no wounds over feet Spine: no spinal tenderness Neurological: Non-focal, 2+ DTRs, * Skin: no lesions, no violaceous striae, no acanthosis nigricans, no skin tags/freckling, no tanningof skin Thyroid gland: no goiter Pertinent Laboratory Findings: Last 3 wbc, hgb, hct plt Recent Labs 08/14/16 0514 08/13/16 1350 05/19/16 0819 WBC 8.0 10.6* 5.8 HGB 10.8* 12.5 13.7 HCT 31.0* 36.0 42.3 PLATELET 166 168 231 Results for JENA RADHA J ( ) as of 08/14/2016 12:51 Ref. Range 08/14/2016 05:14 Sodium Latest Ref Range: 135 - 145 mmol/L 139 Potassium Latest Ref Range: 3.5 - 5.0 mmol/L 4.7 Chloride Latest Ref Range: 98 - 107 mmol/L 101 CO2 Latest Ref Range: 22 - 31 mmol/L 26 Anion Gap Latest Ref Range: 5 - 15 mmol/L 12 BUN Latest Ref Range: 8 - 18 mg/dL 19 (H) Creatinine Latest Ref Range: 0.70 - 1.20 mg/dL 1.08 Estimated GFR Latest Ref Range: >=60 54 (L) Glucose Lvl Latest Ref Range: 65 - 199 mg/dL 98 Calcium Latest Ref Range: 8.5 - 10.5 mg/dL 8.7 Magnesium Latest Ref Range: 0.69 - 1.07 mmol/L 0.69 Phosphorus Latest Ref Range: 2.5 - 4.5 mg/dL 3.8 Results for RADHA BELLA ( ) as of 08/14/2016 12:51 Ref. Range 05/19/2016 08:19 08/14/2016 05:14 08/14/2016 08:13 TSH Latest Ref Range: 0.27 - 4.20 mcIU/mL 1.64 Cortisol Latest Units: mcg/dL 2.0 1.8 PTH Latest Ref Range: 15 - 65 pg/mL 29 Results for RADHA BELLA ( ) as of 08/14/2016 12:51 Ref. Range 08/14/2016 09:04 U Creatinine Latest Units: mg/dL 98 U Sodium Latest Units: mmol/L 67 Assessment: This is a 50 y.o. year old female patient with h/o DM.HTN morbid obesity status- post laparoscopic Jm-en-Y gastric bypass POD 1 whose pre and post op course was complicated by persistent hypotensionrequiring 5 L fluid resuscitation and phenylephrine drip, found to have low AM cortisol 1.8-2. We are asked to weight in re: possible adrenal insufficiency. Clinically pt now looks more stable post volume resuscitation. It is possible that much of her hypotension was related to hypovolemia, but we would like to exclude adrenal insufficiency which may be primary or secondary. If she fails her cosyntropin stim test. I.e does not stim to > 18, then shetruly is adrenally insufficient and requires stress dose steroids hydrocortisone 50 mg IV TID. It is howevermore likely that she is partially adrenally insufficient looking at her exam currently and she is off pressors. If cortisol 1 h post ACTH < 18, would consider imaging her adrenal glands tomorrow to r/o b/l adrenal infarction/ hemorrhage in setting of hypotension selene-op. Would also check an FSH tomorrow AM to determine if she has any secondary ( pitutiary) etiology of adrenal insufficiency. Plan: - f/u pre and post cosyntropin test cortisol, and ACTH levels drawn pre cosyntropin - start stress dose steroids now hydrocortisone 50 mg IV TID, can taper tomorrow if cortisol > 18 mcg - if cortisol < 18, consider CT adrenal protocol tomorrow - check FSH pearl AM Thank you for the consult. This case has been discussed with Dr. Garner of Endocrinology. Monica Richmond MD Endocrinology Fellow I saw this patient with Dr Richmond . I reviewed the sandhu portions of the history and physical exam, and reviewed pertinent lab data. I answered all patient questions. I was involved in all medical decision making and agree with this plan. Although she appears remarkably well postop, her hypotensionand low cortisol are concerning. I would use the 50 mg of hydrocortisone q8 till we see the cosyntropijn results. * Initial Assessments - Rachel Dunne RN - 08/14/2016 10:51 AM EST Office of Care Management Initial Assessment Rachel Dunne RN reviewed record and discussed patient with Care Team. Source of Information: Chart review, MD report, & patient interview. Introduced self/reviewed role; services accepted. Reason for Hospitalization: 50 y/o woman who had LRYGB on 08/13/16. No past medical history on file. Hospitalizations Within the Past 30 Days: No Anticipated Length Of Stay (If known): 2-3 days Current Decision-Making Capacity: Patient alert, oriented, & able to make own choices. Advance Care Planning: Not found in chart Current Coping/Education/Information Needs: Patient verbalized understanding of treatment to date, dietary instructions, & need to monitor blood pressure for possible medication decrease. Current Functional Ability: Independent Functional Status Prior to Admission: Independent Home Environment: Single level home with stairs to enter. Stairs have railings. Social & Family Supports/Community Resources: Lives with . Patient states mother & mother in law live nearby & are available to assist as needed. Behavioral Health History: Denies any Substance Use/Abuse: No Other Pertinent/Service Specific Information: N/A Health/Prescription Coverage: Primary Insurance: [facility] Secondary Insurance: None listed Prescription Coverage: BC Preferred Pharmacy: [facility] in [place], [place] Other: N/A Primary Care Provider: DEEDEE Shaffer [phone] Patient/Caregiver Goals of Treatment: Discharge home with instructions for gradual dietary increase. Potential Needs for Transition of Care: Rehab/SNF: No Home Health: No DME: No Dialysis: No Community Resources: No Transportation: Personal car with family Other: N/A Anticipated Barriers to Discharge/Special Considerations: No barriers anticipated. Plan: CM will maintain contact with patient & providers to coordinate any services needed for discharge. Rachel Dunne RN Pager: [phone] * Med Student Progress Note - Aaron Coleman Julio - 08/14/2016 5:11 AM EST GENERAL SURGERY (Minimally Invasive Surgery) INPATIENT PROGRESS NOTE ID: Radha Bella is a 50 y.o. female with a history of unsuccessful long-term weight loss efforts for morbid obesity status-post laparoscopic Jm-en-Y gastric bypass POD 1 (08/13/2016). 24HR EVENTS - Recovery in PACU was prolonged by persistent hypotension, which was also observed during the pre-operative period; patient's Cr had increased to 1.14 post-operatively, up-trending from a baseline 0.77 - suggestive of a hypovolemic state; patient was fluid responsive to Lactate Ringers infusion - Low blood pressures this morning; otherwise no acute overnight events SUBJECTIVE - Pain adequately controlled - Patient has not yet tried PO diet - Denies flatus or bowel movements - Hartman Catheter inserted - Out of bed and ambulating on the floor - Reports dizziness when standing; denies nausea, vomiting, fever, chills, chest pain, or shortnessof breath OBJECTIVE VITALS Last value Range last 24hrs Temperature Temp: 36.7 ??C (98.1 ??F) Temp: [36.2 ??C (97.2 ??F)-37 ??C (98.6 ??F)] Heart Rate Heart Rate: 72 Heart Rate: [58-94] Blood Pressure BP: 101/48 BP: (77-117)/(37-65) Respiratory Rate Resp: 18 Resp: [10-22] SpO2 SpO2: 98 % SpO2: [93 %-100 %] I/O last 3 completed shifts: In: 3781 [I.V.:3781] Out: 318 [Urine:295; Blood:23] I/O this shift: In: 1370 [P.O.:30; I.V.:1340] Out: 950 [Urine:950] PHYSICAL EXAM General: resting comfortably in bed; alert, cooperative, and in no apparent distress Cardiovascular: regular rate and rhythm; no murmurs, rubs, or gallops; no carotid bruits appreciated Pulmonary: non-labored breathing on room air; lung contreras clear to auscultation anteriorly Abdomen: soft and non-distended; dull to percussion on all four quadrants without guarding; bowel sounds appreciated; mildly tender to palpation on right upper and lower quadrants; incision sites underneath dry dressing with no dried blood on bandages : Hartman catheter in place draining clear straw-colored urine Peripheral Access: no erythema or signs of infection Extremities: warm and well-perfused; SCDs on; no edema; no calf tenderness LABS Recent Labs 08/14/16 0514 08/13/16 1350 WBC 8.0 10.6* HGB 10.8* 12.5 HCT 31.0* 36.0 PLATELET 166 168 NA 139 140 K 4.7 4.2 CL 101 101 CO2 26 26 BUN 19* 23* CREATININE 1.08 1.14 MAGNESIUM 0.69 -- PHOS 3.8 -- GLUCOSE 98 126 Lab Results Component Value Date CALCIUM 8.7 08/14/2016 Lab Results Component Value Date PHOS 3.8 08/14/2016 ASSESSMENT / PLAN Radha Bella is a 50 y.o. female with a history of unsuccessful long-term weight loss efforts for morbid obesity status-post laparoscopic Jm-en-Y gastric bypass POD 1 (08/13/2016). Patient's prolonged PACU recovery due to persistent hypotension most likely due to a hypovolemic state given the increase in Creatinine to 1.14 from 0.77. Patient was responsive to fluids, but continued to have lowblood pressures this morning. Though patient was hypotensive before her procedure yesterday, patient endorses no prior history of low blood pressures but rather hypertension managed with Metoprolol 100mg QD and Lisinopril 40mg QD. Order Cortisol levels as well to rule out adrenal insufficiency as cause of persistent hypotension. Decreased Hb of 10.8 from 12.5 most likely from 5.1L fluid resuscitation post-operatively, but re-check CBC this afternoon to trend Hb values to rule out internal bleeding in addition to orthostatic blood pressures. Otherwise, patient is recovering as expected with pain adequately controlled. Patient agrees her goal for today is to continue ambulating at least 4x [facility] floor. Aim for discharge over the weekend. NEURO: Discontinue [employer]; schedule acetaminophen and PO narcotic pain medications with IV for breakthrough CV: Measure orthostatics for persistently low blood pressures and continue Lactate Ringers [id number]/hour for adequate hydration; Creatinine is still 1.08, above her 0.77 baseline, suggestive ofa hypovolemic state PULM: Stable on room air GI: Awaiting return of bowel function; PRN stool stimulants; Pantoprazole 40mg QD : Continue monitoring UOP; remove Hartman catheter this morning FEN: Replace electrolytes PRN; advance diet to Stage 1 clear liquids and - if tolerating Stage 2 full liquids, encouraging adequate fluid intake ENDO: Glucose of 98 well-controlled on insulin sliding scale HEME: Hb down-trending from 12.5 to 10.8 - most likely due to fluid resuscitation post-operatively;order CBC this afternoon to rule out internal bleeding ID: Afebrile, WBC within normal limits at 8.0, perioperative antibiotics completed PPX: Enoxaparin 40mg BID, SCD's on, encourage incentive spirometer use and ambulation DISPO:Stable on floor status. Requires hospitalization for management of persistent post-operative hypotension. Aaron Shahrosa Coleman MS3 * Plan of Care - Naya Tanner RN - 08/14/2016 5:03 AM EST Problem: Patient Care Overview Goal: Plan of Care Review Outcome: Ongoing (Interventions Implemented as Appropriate) 08/14/16 9818 Coping/Psychosocial Plan Of Care Reviewed With patient Plan of Care Review Progress progress toward functional goals as expected OUTCOME EVALUATION NOTE: OUTCOME SUMMARY: Patient reports adequate pain control with [employer]. Patient with B/P 97/48 to 104/44. MD aware. Patientturning in bed well. Out of bed and ambulated a short distance but patient complained of dizziness.No complaint of nausea. Slept in naps. Patient using IS well. PLAN MOVING FORWARD: Assist with OOB and start diet this am. INDIVIDUALIZED FALL PREVENTION INTERVENTIONS: Patient-specific fall risk factors per assessment: [current deficits]: Narcotics, pain, dizziness Assistance [level of assistance required for transfers and ambulation]: 1-2 assist Supervision [direct monitoring required during toileting and ADLs]: Hands on Surveillance [continuous indirect monitoring]: Bed alarm, call light in reach, purposeful rounds Patient-specific fall prevention interventions for sensory deficits provided, if applicable: [X] Yes adjust lighting CPG GOAL OUTCOME EVALUATION: * Op Note - Tonio Vu MD - 08/13/2016 1:21 PM EST [facility] [place] Patient Name: Radha Bella : [id number] MR#: [id number] Case Date: 08/13/2016 Surgeon: Surgeon(s) and Role: * Tonio Vu MD - Primary * Lanie Garnica MD - No qualified resident available to assist Preoperative diagnosis: OBESITY Postoperative diagnosis: OBESITY Procedure(s): @LAPAROSCOPIC GASTROPLASTY, ENDOSCOPY, UPPER GI, DIAGNOSTIC, WITH OR WITHOUT SPECIMENS LAPAROSCOPY, LYSIS OF ADHESIONS Anesthesia: General Estimated Blood Loss: 23 ml Specimens removed during surgery: None Drains: Surgical Closure: Primary Closure - closure of ALL tissue levels during the original surgery regardless of wires, wickes, drains, or other devices extruding through the incision Disposition: awakened from anesthesia, extubated and taken to the recovery room in a stable condition, having suffered no apparent untoward event. Condition: doing well without problems (Please see the Surgical Encounter Summary for any Implant and Specimen details pertinent to this patient.) Indications: This 50 y.o. female presented to the Bariatric Program with a history of weight-related problems including significant weight-related comorbidities. She meets the NIH criteria for gastric bypass. The risks and benefits of the procedure were explained and she chose to undergo this procedure laparoscopically. Under general anesthesia and endotracheal intubation, the patient was prepped and draped in the supine position. The abdomen was entered using the optiview trocar system. The 10-mm port was placed approximately 15 cm below the xiphoid from the left of midline. A 45-degree telescope was inserted, and under direct vision, two 5-mm ports were placed in the left upper quadrant forming the first arm of a V with the scope at the apex. Several adhesions were taken down with sharp dissection. A 5- mm port was placed approximately 15-cm along the right costal margin, through which a liver retractor was placed and used to elevate the left lobe of the liver, thus exposing the hiatal region. This was fixed in good position using the mechanical arm. A 5-mm port was placed approximately 10 cm along the right costal margin and a 12- mm port was placed approximately 4 cm below this. A small window was made along the vasculature of the lesser curve, approximately 5 cm from the hiatus. Eventually, the vasculature was from the lesser curve and the posterior, lesser sac was entered. The hiatal region was freed up of some attachments to the diaphragm, thus exposing the left thiago. A firing of an Evolero-SERGEY 60 stapler with a blue load in a transverse direction across the stomach was performed. The stapler was then fired multiple times until a small narrow pouch was created. The pouch accommodated a volume of approximately 20 cc to 30 cc. The patient was then placed into some Trendelenburg position. Adhesions between the omentum and lower anterior abdominal wall were taken down using sharp dissection. Multiple dense adhesions of omentum and colon were taken down in the pelvis to allow usto find the ligament of Treitz. The omentum and transverse colon reflected cephalad. The ligament of Treitz was identified and dissection was carried along approximately 40 cm from the ligament of Treitz. A small window was made in the small bowel mesentery and a stapler was introduced through this to create a firing of the stapler and divide the small bowel. The harmonic scalpel was used to divide the mesentery for a Jm limb. At a point approximately 100 cm, the distal bowel was chosen to create the [id number] jejunojejunostomy. The duodenal, afferent limb was approximated to the side wall of the jejunum at the 100-cm monique. Enterotomies were made in both and a single firing of an EndoGIA vascular load was used to create anastomosis. The resultant defect was sewn in two layers of running 2-0 Surgilon suture. A split was made in the omentum just above the transverse colon and the Jm limb fed through this. Two stay stitches in the side wall of the Jm limb were approximated to the end of the gastric pouch. An enterotomy was made in the gastric pouch and the jejunostomy and a partial-length firing of the SERGEY-60 stapler was used to create the anastomosis between this pouch and the jejunum. The resultant enterotomy defect was closed with a running 2- 0 Surgilon suture in two layers with a 30 Albanian Bougie (blunt-tipped) in place. The Bougie was then removed and the Jm limb clamped with a bowel clamp. The endoscope was introduced and the pouch and anastomosis was insufflated under saline. Inspection of the anastomosis did not reveal any leak. It appeared to be patent and allowed passage of an endoscope without resistance. Humphries's defect was then closed with a running 2-0 Surgilon suture. All ports were then removed under direct vision and the skin was closed with running subcuticular 4-0 Vicryl suture, followed by Steri- Strips and Band-aids. The patient returned to the Recovery Room in stable conditions. Sponge, instrument and needle counts were correct. Attestation: Case Date: 08/13/2016 I performed this procedure without the involvement of a resident. 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 SCAN 08/16/2016 12:00 AM EST POCT GLUCOSE Routine 08/15/2016 7:12 AM EST HEMOGRAM Routine 08/15/2016 6:23 AM EST DIFFERENTIAL, AUTOMATED Routine 08/15/2016 6:23 AM EST CBC (WITH DIFF) Routine 08/15/2016 6:23 AM EST FOLLICLE STIMULATING HORMONE Routine 08/15/2016 6:23 AM EST BASIC METABOLIC PANEL (NON-FASTING) Routine 08/15/2016 6:23 AM EST POCT GLUCOSE Routine 08/14/2016 4:46 PM EST CORTISOL STAT 08/14/2016 3:27 PM EST CORTISOL STAT 08/14/2016 2:31 PM EST ACTH STAT 08/14/2016 1:44 PM EST HEMOGRAM STAT 08/14/2016 1:19 PM EST BASIC METABOLIC PANEL (NON-FASTING) STAT 08/14/2016 1:19 PM EST POCT GLUCOSE Routine 08/14/2016 12:21 PM EST SODIUM, URINE, RANDOM Routine 08/14/2016 9:04 AM EST CREATININE, URINE, RANDOM Routine 08/14/2016 9:04 AM EST CORTISOL STAT 08/14/2016 8:13 AM EST POCT GLUCOSE Routine 08/14/2016 7:34 AM EST HEMOGRAM Routine 08/14/2016 5:14 AM EST DIFFERENTIAL, AUTOMATED Routine 08/14/2016 5:14 AM EST CBC (WITH DIFF) Routine 08/14/2016 5:14 AM EST PHOSPHORUS Routine 08/14/2016 5:14 AM EST MAGNESIUM Routine 08/14/2016 5:14 AM EST CORTISOL Routine 08/14/2016 5:14 AM EST BASIC METABOLIC PANEL (NON-FASTING) Routine 08/14/2016 5:14 AM EST POCT GLUCOSE Routine 08/13/2016 10:13 PM EST POCT GLUCOSE Routine 08/13/2016 6:23 PM EST BLOOD GAS VENOUS ([facility]) STAT 08/13/2016 2:39 PM EST POCT GLUCOSE Routine 08/13/2016 1:55 PM EST HEMOGRAM STAT 08/13/2016 1:50 PM EST BASIC METABOLIC PANEL (NON-FASTING) STAT 08/13/2016 1:50 PM EST LAPAROSCOPY, LYSIS OF ADHESIONS (WRVU 15.27) 08/13/2016 10:13 AM EST OBESITY ENDOSCOPY, UPPER GI, DIAGNOSTIC, WITH OR WITHOUT SPECIMENS (WRVU 2.09) 08/13/2016 10:13 AM EST OBESITY @LAPAROSCOPIC GASTROPLASTY W/ JM-EN-Y CONSTRUCTION (WRVU 29.4) 08/13/2016 10:13 AM EST OBESITY POCT GLUCOSE Routine 08/13/2016 9:03 AM EST documented in this encounter Results * SCAN DOC: WORKFORCE DEVELOPMENT PROGRAM DIRECTOR (08/16/2016 12:00 AM EST) Anatomical Region Laterality Modality Other Scanning Provider MEDIA MGR SCAN EXT O RDR/RSLT * POCT Glucose (08/15/2016 7:12 AM EST) POC Glucose 93 65 - 199 mg/dL [facility] Comment: Supplemental ranges: <140 mg/dL before meals <180 mg/dL all other times of the day Blood specimen (specimen) 08/15/2016 7:12 AM EST 08/15/2016 7:12 AM EST Tonio Vu MD POINT OF CARE TEST O RDERABLES [facility] [place] [address] * Differential, Automated (08/15/2016 6:23 AM EST) Neutrophils % 75.3 % [facility] Neutr Abs (ANC) 4.64 1.70 - 6.10 x10(3)/mcL [facility] Lymphocytes % 18.3 % [facility] Lymphocytes Abs 1.1 0.9 - 3.2 x10(3)/[facility] Monocytes % 5.7 % [facility] Monocyte Abs 0.4 0.3 - 0.9 x10(3)/[facility] Eosinophils % 0.0 % [facility] Eosinophils Abs 0.0 0.0 - 0.4 x10(3)/[facility] Basophils % 0.2 % [facility] Basophils Abs 0.0 0.0 - 0.1 x10(3)/[facility] Immature Gran % 0.50 % [facility] Comment: Immature granulocytes(IG's)percentage and absolute count will include metamyelocytes, myelocytes, and promyelocytes. Blood smears from CBCs yielding IG's will be scanned manually for concordance. If this scan disagrees with the automated IG or if promyelocytes are noted, a manual differential will be performed. Nadiya Gran Abs 0.03 0.00 - 0.04 x10(3)/[facility] Blood specimen (specimen) 08/15/2016 6:23 AM EST 08/15/2016 6:32 AM EST Narrative Resulting Agency Comment Spec In Lab Tonio Vu MD HEMATOLOGY ORDERABLE S [facility] [place] [address] * (ABNORMAL) Hemogram (08/15/2016 6:23 AM EST) WBC 6.2 4.0 - 9.5 x10(3)/[facility] RBC 3.64(L) 4.00 - 5.21 x10(6)/[facility] Hemoglobin 10.7(L) 11.7 - 15.5 gm/dL [facility] Hematocrit 32.2(L) 35.7 - 45.8 % [facility] MCV 88.5 82.6 - 94.4 fL [facility] MCH 29.4 27.1 - 32.0 pg [facility] MCHC 33.2 31.7 - 35.0 gm/dL [facility] Platelets 148 145 - 357 x10(3)/[facility] RDWSD 42.0 37.0 - 46.0 fL [facility] RDWCV 12.8 11.5 - 14.1 % [facility] MPV 11.6 7.6 - 12.9 fL [facility] nRBC % Auto 0.0 % [facility] nRBC Abs Auto 0.000 0.000 - 0.000 x10(3)/[facility] Blood specimen (specimen) 08/15/2016 6:23 AM EST 08/15/2016 6:32 AM EST Narrative Resulting Agency Comment Spec In Lab Tonio Vu MD HEMATOLOGY ORDERABLE S [facility] [place] [address] * Basic Metabolic Panel (non-fasting) (08/15/2016 6:23 AM EST) Glucose Lvl 106 65 - 199 mg/dL [facility] Comment:Diabetes: >=200 mg/d L plus symptoms BUN 13 8 - 18 mg/dL [facility] Creatinine 0.77 0.70 - 1.20 mg/dL [facility] Comment: Please note that the pediatric reference intervals supplied above were not validated at [facility] Results from pediatric patients should be interpreted in conjunction to the patient's age, height and muscle mass. Sodium 139 135 - 145 mmol/L [facility] Potassium 4.3 3.5 - 5.0 mmol/L [facility] Comment: Please note: ??Patients with WBC >100,000 may have falsely elevated Potassium levels. ??For accurate Potassium quantification in these patients send serum separator tube (gold top) for subsequent determinations. ??Contact the Clinical Chemistry Laboratory if there are any questions. Chloride 102 98 - 107 mmol/L [facility] CO2 26 22 - 31 mmol/L [facility] Anion Gap 11 5 - 15 mmol/L [facility] Calcium 8.9 8.5 - 10.5 mg/dL [facility] Estimated GFR >60 >=60 [facility] Comment: This estimated GFR (eGFR) value was calculated using the MDRD equation which has been validated on patients between the ages of 18 and 70. The MDRD should not be used to assess kidney function in patients < 18 years of age or in patients with extremes of body mass, or in patients with acute kidney failure. This value should be multiplied by 1.2 for patients. For further information please copy and paste the following links into your internet browser. [email or web address] [email or web address] Blood specimen (specimen) 08/15/2016 6:23 AM EST 08/15/2016 6:32 AM EST Narrative Resulting Agency Comment Spec In Lab Tonio Vu MD CHEMISTRY ORDERABLES [facility] [place] [address] * Follicle Stimulating Hormone (08/15/2016 6:23 AM EST) FSH 22.8 mlU/ML [facility] Comment: Reference Ranges: Females: Follicular: ? 3.5-12.5 mIU/mL Ovulation: ?4.7-21.5 mIU/mL Luteal: ? 1.7-7.7 mIU/mL Postmenopausal: 25.8-134.8 mIU/mL Blood specimen (specimen) 08/15/2016 6:23 AM EST 08/15/2016 6:32 AM EST Narrative Resulting Agency Comment Spec In Lab Tonio Vu MD CHEMISTRY ORDERABLES Performing Organization Address [facility] de Phone Number [facility] [place] [address] * POCT Glucose (08/14/2016 4:46 PM EST) POC Glucose 92 65 - 199 mg/dL [facility] Comment: Supplemental ranges: <140 mg/dL before meals <180 mg/dL all other times of the day Blood specimen (specimen) 08/14/2016 4:46 PM EST 08/14/2016 4:46 PM EST Tonio Vu MD POINT OF CARE TEST O RDERABLES Performing Organization Address [facility] de Phone Number [facility] [place] [address] * Cortisol (08/14/2016 3:27 PM EST) Cortisol 29.1 mcg/dL [facility] Comment: Result rechecked. Reference ranges: ??AM (7-10am): ??6.2-19.4 mcg/dL ??PM (4-8pm): ??2.3-12.3 mcg/dL Blood specimen (specimen) 08/14/2016 3:27 PM EST 08/14/2016 4:35 PM EST Narrative Resulting Agency Comment Spec In Lab Tonio Vu MD CHEMISTRY ORDERABLES Performing Organization Address [facility] de Phone Number [facility] [place] [address] * Cortisol (08/14/2016 2:31 PM EST) Cortisol 1.8 mcg/dL [facility] Comment: Reference ranges: ??AM (7-10am): ??6.2-19.4 mcg/dL ??PM (4-8pm): ??2.3-12.3 mcg/dL Blood specimen (specimen) 08/14/2016 2:31 PM EST 08/14/2016 3:27 PM EST Narrative Resulting Agency Comment Spec In Lab Tonio Vu MD CHEMISTRY ORDERABLES Performing Organization Address [facility]/ZIP Co de Phone Number [facility] [place] [address] * (ABNORMAL) ACTH (08/14/2016 1:44 PM EST) [facility] ACTH <5(L) 6 - 50 pg/mL [facility] Comment: Test Performed by [employer], [facility], [address] [place] [id number] Royal Cohen M.D., Ph.D., Director of Laboratories , [facility] [id number] Blood specimen (specimen) 08/14/2016 1:44 PM EST 08/14/2016 3:40 PM EST Narrative Resulting Agency Comment Spec In Lab Tonio Vu MD CHEMISTRY ORDERABLES Performing Organization Address [facility] [facility] Co de Phone Number [facility] [place] [address] * (ABNORMAL) Hemogram (08/14/2016 1:19 PM EST) [facility] WBC 8.3 4.0 - 9.5 x10(3)/[facility] LABORATORY RBC 3.70(L) 4.00 - 5.21 x10(6)/[facility] LABORATORY Hemoglobin 10.9(L) 11.7 - 15.5 gm/dL [facility] Hematocrit 32.4(L) 35.7 - 45.8 % [facility] MCV 87.6 82.6 - 94.4 fL [facility] MCH 29.5 27.1 - 32.0 pg [facility] MCHC 33.6 31.7 - 35.0 gm/dL [facility] Platelets 162 145 - 357 x10(3)/[facility] LABORATORY RDWSD 40.8 37.0 - 46.0 fL [facility] RDWCV 12.7 11.5 - 14.1 % [facility] MPV 11.5 7.6 - 12.9 fL [facility] nRBC % Auto 0.0 % [facility] nRBC Abs Auto 0.000 0.000 - 0.000 x10(3)/mcL [facility] Blood specimen (specimen) 08/14/2016 1:19 PM EST 08/14/2016 1:28 PM EST Narrative Resulting Agency Comment Spec In Lab Lanie Garnica MD HEMATOLOGY ORDERAB LES [facility] [place] [address] * (ABNORMAL) Basic Metabolic Panel (non-fasting) (08/14/2016 1:19 PM EST) Glucose Lvl 97 65 - 199 mg/dL [facility] Comment:Diabetes: >=200 mg/d L plus symptoms BUN 15 8 - 18 mg/dL [facility] Creatinine 1.03 0.70 - 1.20 mg/dL [facility] Comment: Please note that the pediatric reference intervals supplied above were [place] [facility] Results from pediatric patients should be interpreted in conjunction to the patient's age, height and muscle mass. Sodium 140 135 - 145 mmol/L [facility] Potassium 4.4 3.5 - 5.0 mmol/L [facility] Comment: Please note: ??Patients with WBC >100,000 may have falsely elevated Potassium levels. ??For accurate Potassium quantification in these patients send serum separator tube (gold top) for subsequent determinations. ??Contact the Clinical Chemistry Laboratory if there are any questions. Chloride 100 98 - 107 mmol/L [facility] CO2 27 22 - 31 mmol/L [facility] Anion Gap 13 5 - 15 mmol/L [facility] Calcium 8.9 8.5 - 10.5 mg/dL [facility] Estimated GFR 57(L) >=60 [facility] Comment: This estimated GFR (eGFR) value was calculated using the MDRD equation which has been validated on patients between the ages of 18 and 70. The MDRD should not be used to assess kidney function in patients < 18 years of age or in patients with extremes of body mass, or in patients with acute kidney failure. This value should be multiplied by 1.2 for patients. For further information please copy and paste the following links into your internet browser. [email or web address] [email or web address] Blood specimen (specimen) 08/14/2016 1:19 PM EST 08/14/2016 1:28 PM EST Narrative Resulting Agency Comment Spec In Lab Lanie Garnica MD CHEMISTRY ORDERABL ES Performing Organization Address [facility]/ZIP Co de Phone Number [facility] [place] [address] * POCT Glucose (08/14/2016 12:21 PM EST) POC Glucose 86 65 - 199 mg/dL [facility] Comment: Supplemental ranges: <140 mg/dL before meals <180 mg/dL all other times of the day Blood specimen (specimen) 08/14/2016 12:21 PM EST 08/14/2016 12:21 PM EST Tonio Vu MD POINT OF CARE TEST O RDERABLES Performing Organization Address [facility]/ZIP Co de Phone Number [facility] [place] [address] * Creatinine, urine, random (08/14/2016 9:04 AM EST) U Creatinine 98 mg/dL [facility] Urine specimen (specimen) 08/14/2016 9:04 AM EST 08/14/2016 9:38 AM EST Narrative Resulting Agency Comment Spec In Lab Lanie Garnica MD URINE ORDERABLES Performing Organization Address [facility] Co de Phone Number [facility] [place] [address] * Sodium, urine, random (08/14/2016 9:04 AM EST) U Sodium 67 mmol/L [facility] Urine specimen (specimen) 08/14/2016 9:04 AM EST 08/14/2016 9:38 AM EST Narrative Resulting Agency Comment Spec In Lab Lanie Garnica MD URINE ORDERABLES Performing Organization Address [facility] de Phone Number [facility] [place] [address] * Cortisol (08/14/2016 8:13 AM EST) Cortisol 1.8 mcg/dL [facility] Comment: Reference ranges: ??AM (7-10am): ??6.2-19.4 mcg/dL ??PM (4-8pm): ??2.3-12.3 mcg/dL Blood specimen (specimen) 08/14/2016 8:13 AM EST 08/14/2016 8:20 AM EST Narrative Resulting Agency Comment Spec In Lab Tonio Vu MD CHEMISTRY ORDERABLES Performing Organization Address [facility] Co de Phone Number [facility] [place] [address] * POCT Glucose (08/14/2016 7:34 AM EST) POC Glucose 89 65 - 199 mg/dL [facility] Comment: Supplemental ranges: <140 mg/dL before meals <180 mg/dL all other times of the day Blood specimen (specimen) 08/14/2016 7:34 AM EST 08/14/2016 7:34 AM EST Tonio Vu MD POINT OF CARE TEST O RDERABLES Performing Organization Address [facility] Co de Phone Number [facility] [place] [address] * Cortisol (08/14/2016 5:14 AM EST) Pathologist [facility] Cortisol 2.0 mcg/dL [facility] Comment: Reference ranges: ??AM (7-10am): ??6.2-19.4 mcg/dL ??PM (4-8pm): ??2.3-12.3 mcg/dL Blood specimen (specimen) Venous Draw / Unknown 08/14/2016 5:14 AM EST 08/14/2016 5:44 AM EST Narrative Resulting Agency Comment Spec In Lab Lanie Garnica MD CHEMISTRY ORDERABL ES Performing Organization Address [facility] Co de Phone Number [facility] [place] [address] * Differential, Automated (08/14/2016 5:14 AM EST) [facility] Neutrophils % 67.8 % [facility] Neutr Abs (ANC) 5.45 1.70 - 6.10 x10(3)/[facility] LABORATORY Lymphocytes % 21.9 % [facility] Lymphocytes Abs 1.8 0.9 - 3.2 x10(3)/[facility] LABORATORY Monocytes % 9.7 % [facility] Monocyte Abs 0.8 0.3 - 0.9 x10(3)/[facility] LABORATORY Eosinophils % 0.0 % [facility] Eosinophils Abs 0.0 0.0 - 0.4 x10(3)/[facility] LABORAT[facility] Basophils % 0.2 % [facility] Basophils Abs 0.0 0.0 - 0.1 x10(3)/[facility] LABORAT[facility] Immature Gran % 0.40 % [facility] Comment: Immature granulocytes(IG's)percentage and absolute count will include metamyelocytes, myelocytes, and promyelocytes. Blood smears from CBCs yielding IG's will be scanned manually for concordance. If this scan disagrees with the automated IG or if promyelocytes are noted, a manual differential will be performed. Nadiya Gran Abs 0.03 0.00 - 0.04 x10(3)/[facility] LABORATORY Blood specimen (specimen) 08/14/2016 5:14 AM EST 08/14/2016 5:42 AM EST Narrative Resulting Agency Comment Spec In Lab Lanie Garnica MD HEMATOLOGY ORDERAB LES [facility] [place] [address] * (ABNORMAL) Hemogram (08/14/2016 5:14 AM EST) WBC 8.0 4.0 - 9.5 x10(3)/[facility] LABORAT[facility] RBC 3.55(L) 4.00 - 5.21 x10(6)/[facility] Hemoglobin 10.8(L) 11.7 - 15.5 gm/dL [facility] Hematocrit 31.0(L) 35.7 - 45.8 % [facility] MCV 87.3 82.6 - 94.4 [facility] MCH 30.4 27.1 - 32.0 pg [facility] MCHC 34.8 31.7 - 35.0 gm/dL [facility] Platelets 166 145 - 357 x10(3)/[facility] RDWSD 40.8 37.0 - 46.0 [facility] RDWCV 12.7 11.5 - 14.1 % [facility] MPV 11.9 7.6 - 12.9 [facility] nRBC % Auto 0.0 % [facility] nRBC Abs Auto 0.000 0.000 - 0.000 x10(3)/[facility] LABORATORY Blood specimen (specimen) 08/14/2016 5:14 AM EST 08/14/2016 5:42 AM EST Narrative Resulting Agency Comment Spec In Lab Lanie Garnica MD HEMATOLOGY ORDERAB LES Performing Organization Address [facility] Co de Phone Number [facility] [place] [address] * Phosphorus (08/14/2016 5:14 AM EST) Phosphorus 3.8 2.5 - 4.5 mg/dL [facility] Blood specimen (specimen) 08/14/2016 5:14 AM EST 08/14/2016 5:42 AM EST Narrative Resulting Agency Comment Spec In Lab Lanie Garnica MD CHEMISTRY ORDERABL ES Performing Organization Address [facility] Phone Number [facility] [place] [address] * Magnesium (08/14/2016 5:14 AM EST) Magnesium 0.69 0.69 - 1.07 mmol/L [facility] Blood specimen (specimen) 08/14/2016 5:14 AM EST 08/14/2016 5:42 AM EST Narrative Resulting Agency Comment Spec In Lab Lanie Garnica MD CHEMISTRY ORDERABL ES Performing Organization Address [facility] Phone Number [facility] [place] [address] * (ABNORMAL) Basic Metabolic Panel (non-fasting) (08/14/2016 5:14 AM EST) Glucose Lvl 98 65 - 199 mg/dL [facility] Comment:Diabetes: >=200 mg/d L plus symptoms BUN 19(H) 8 - 18 mg/dL [facility] Creatinine 1.08 0.70 - 1.20 mg/dL [facility] Comment: Please note that the pediatric reference intervals supplied above were [place] [facility] Results from pediatric patients should be interpreted in conjunction to the patient's age, height and muscle mass. Sodium 139 135 - 145 mmol/L [facility] Potassium 4.7 3.5 - 5.0 mmol/L [facility] Comment: Please note: ??Patients with WBC >100,000 may have falsely elevated Potassium levels. ??For accurate Potassium quantification in these patients send serum separator tube (gold top) for subsequent determinations. ??Contact the Clinical Chemistry Laboratory if there are any questions. Chloride 101 98 - 107 mmol/L [facility] CO2 26 22 - 31 mmol/L [facility] Anion Gap 12 5 - 15 mmol/L [facility] Calcium 8.7 8.5 - 10.5 mg/dL [facility] Estimated GFR 54(L) >=60 [facility] Comment: This estimated GFR (eGFR) value was calculated using the MDRD equation which has been validated on patients between the ages of 18 and 70. The MDRD should not be used to assess kidney function in patients < 18 years of age or in patients with extremes of body mass, or in patients with acute kidney failure. This value should be multiplied by 1.2 for patients. For further information please copy and paste the following links into your internet browser. [email or web address] [email or web address] Blood specimen (specimen) 08/14/2016 5:14 AM EST 08/14/2016 5:42 AM EST Narrative Resulting Agency Comment Spec In Lab Lanie Garnica MD CHEMISTRY ORDERABL ES [facility] [place] [address] * POCT Glucose (08/13/2016 10:13 PM EST) POC Glucose 139 65 - 199 mg/dL [facility] Comment: Supplemental ranges: <140 mg/dL before meals <180 mg/dL all other times of the day Blood specimen (specimen) 08/13/2016 10:13 PM EST 08/13/2016 10:13 PM EST Tonio Vu MD POINT OF CARE TEST O MORGAN Performing Organization Address City/[facility]/ZIP Co de Phone Number [facility] [place] [address] * POCT Glucose (08/13/2016 6:23 PM EST) POC Glucose 132 65 - 199 mg/dL [facility] Comment: Supplemental ranges: <140 mg/dL before meals <180 mg/dL all other times of the day Blood specimen (specimen) 08/13/2016 6:23 PM EST 08/13/2016 6:23 PM EST Tonio Vu MD POINT OF CARE TEST Selam MORA Performing Organization Address [facility] Co de Phone Number [facility] [place] [address] * (ABNORMAL) Blood Gas Venous (08/13/2016 2:39 PM EST) pH Abundio 7.33 7.32 - 7.42 [facility] pCO2 Abundio 52(H) 41 - 51 mmHg [facility] pO2 Abundio 34 25 - 40 mmHg [facility] HCO3 Abundio 26.9 mmol/L [facility] BE Abundio 1.0 mmol/L [facility] Hgb Blood Gas 12.9 11.7 - 15.5 gm/dL [facility] O2HB Abundio 59.1 % [facility] COHB Abundio 1.3 % [facility] Comment: Nonsmokers: 0.5-1.5% COHB Smokers: Variable, but usually less than 10% Toxic: 20-30% COHB Lethal: Greater than 60% COHB METHB Abundio 0.1 <=1.5 % [facility] Na Whole Blood 136 135 - 145 mmol/L [facility] K Whole Blood 3.9 3.5 - 5.0 mmol/L [facility] Comment: Please note: Patients with WBC >100,000 may have falsely elevated Potassium levels. Contact the Clinical Chemistry Laboratory if there are any questions. ICa Whole Blood 1.18 1.15 - 1.33 mmol/L [facility] Comment: Note: ??Total bilirubin higher than 20 mg/dL may lead to falsely low ionized calcium. CL Whole Blood 103 98 - 107 mmol/L [facility] Gluc Whole Bld 123 65 - 199 mg/dL [facility] Comment:Diabetes: >=200 mg/d L plus symptoms Lactate WB 1.7 0.5 - 2.2 mmol/L [facility] BGas Source Venous [facility] Blood specimen (specimen) Venous Draw / Unknown 08/13/2016 2:39 PM EST 08/13/2016 3:02 PM EST Narrative Resulting Agency Comment Spec In Lab Lanie Garnica MD CHEMISTRY ORDERABL ES Performing Organization Address [facility] Co de Phone Number [facility] [place] [address] * POCT Glucose (08/13/2016 1:55 PM EST) POC Glucose 136 65 - 199 mg/dL [facility] Comment: Supplemental ranges: <140 mg/dL before meals <180 mg/dL all other times of the day Blood specimen (specimen) 08/13/2016 1:55 PM EST 08/13/2016 1:55 PM EST Tonio Vu MD POINT OF CARE TEST O RDERABLES Performing Organization Address [facility] Co de Phone Number [facility] [place] [address] * (ABNORMAL) Basic Metabolic Panel (non-fasting) (08/13/2016 1:50 PM EST) Glucose Lvl 126 65 - 199 mg/dL [facility] Comment:Diabetes: >=200 mg/d L plus symptoms BUN 23(H) 8 - 18 mg/dL [facility] Creatinine 1.14 0.70 - 1.20 mg/dL [facility] Comment: Please note that the pediatric reference intervals supplied above were not validated [place] [facility] Results from pediatric patients should be interpreted in conjunction to the patient's age, height and muscle mass. Sodium 140 135 - 145 mmol/L [facility] Potassium 4.2 3.5 - 5.0 mmol/L [facility] Comment: Please note: ??Patients with WBC >100,000 may have falsely elevated Potassium levels. ??For accurate Potassium quantification in these patients send serum separator tube (gold top) for subsequent determinations. ??Contact the Clinical Chemistry Laboratory if there are any questions. Chloride 101 98 - 107 mmol/L [facility] CO2 26 22 - 31 mmol/L [facility] Anion Gap 13 5 - 15 mmol/L [facility] Calcium 9.1 8.5 - 10.5 mg/dL [facility] Estimated GFR 50(L) >=60 [facility] Comment: This estimated GFR (eGFR) value was calculated using the MDRD equation which has been validated on patients between the ages of 18 and 70. The MDRD should not be used to assess kidney function in patients < 18 years of age or in patients with extremes of body mass, or in patients with acute kidney failure. This value should be multiplied by 1.2 for patients. For further information please copy and paste the following links into your internet browser. [email or web address] [email or web address] Blood specimen (specimen) 08/13/2016 1:50 PM EST 08/13/2016 3:07 PM EST Narrative Resulting Agency Comment Spec In Lab Lanie Garnica MD CHEMISTRY ORDERABL ES [facility] [place] [address] * (ABNORMAL) Hemogram (08/13/2016 1:50 PM EST) [facility] WBC 10.6(H) 4.0 - 9.5 x10(3)/[facility] LABORATORY RBC 4.12 4.00 - 5.21 x10(6)/[facility] Hemoglobin 12.5 11.7 - 15.5 gm/dL [facility] Hematocrit 36.0 35.7 - 45.8 % [facility] MCV 87.4 82.6 - 94.4 [facility] MCH 30.3 27.1 - 32.0 pg [facility] MCHC 34.7 31.7 - 35.0 gm/dL [facility] Platelets 168 145 - 357 x10(3)/[facility] RDWSD 40.1 37.0 - 46.0 [facility] RDWCV 12.5 11.5 - 14.1 % [facility] MPV 11.5 7.6 - 12.9 [facility] nRBC % Auto 0.0 % [facility] nRBC Abs Auto 0.000 0.000 - 0.000 x10(3)/[facility] Blood specimen (specimen) 08/13/2016 1:50 PM EST 08/13/2016 3:07 PM EST Narrative Resulting Agency Comment Spec In Lab Lanie Garnica MD HEMATOLOGY ORDERAB LES [facility] [place] [address] * POCT Glucose (08/13/2016 9:03 AM EST) Pathologist [facility] POC Glucose 98 65 - 199 mg/dL [facility] Comment: Supplemental ranges: <140 mg/dL before meals <180 mg/dL all other times of the day Blood specimen (specimen) 08/13/2016 9:03 AM EST 08/13/2016 9:03 AM EST Tonio Vu MD POINT OF CARE TEST O RDERABLES [facility] [place] [address] documented in this encounter Visit Diagnoses Diagnosis Morbid obesity documented in this encounter Admitting Diagnoses Diagnosis Morbid obesity documented in this encounter Administered Medications Inactive Administered Medications - up to 3 most recent administrations Medication Order MAR Action Action Date Dose Rate Site acetaminophen (OFIRMEV) injection 1,000 mg 1,000 mg, Intravenous, at 400 mL/hr, Administer over 15 Minutes, EVERY 8 HOURS SCHEDULED, 3 doses, First dose on Laura 08/13/16 at 1445, Last dose on Wed08/14/16 at 0600, Routine, Is ketorolac (Toradol) IV contraindicated? Yes, Can this patient tolerate oral medications or suppositories? No Given 08/14/2016 6:37 AM EST 1,000 mg 400 mL/hr Given 08/13/2016 10:52 PM EST 1,000 mg 400 mL/hr Given 08/13/2016 3:35 PM EST 1,000 mg 400 mL/hr cosyntropin (CORTROSYN) injection 0.25 mg 0.25 mg (250 mcg), Intravenous, ONCE, 1 dose, On Wed08/14/16 at 1430, Draw baseline cortisol level immediately PRIOR to administration of cosyntropin (ACTH), repeat cortisol level 60 minutes after cosyntropin (ACTH) administration Given 08/14/2016 2:34 PM EST 0.25 mg dextrose 50% injection 25-50 mL 25-50 mL (12.5-25 g), Intravenous, EVERY 1 HOUR PRN, Starting on Laura 08/13/16 at 1426, Until 08/15/16 at 1559, Low blood sugar, For BG 50-70: 120 mL Juice or Regular (not diet) soda OR 12.5 gram (25 mL) Dextrose 50% IV OR, if no IV access, 1 mg Glucagon IM. Recheck BG in 30 minutes. May repeat juice, dextrose or glucagon once per episode For BG less than 50: 240 mL Juice or Regular (not diet) soda OR 25 grams (50 mL) Dextrose 50% IV OR, if no IV access, 1 mg Glucagon IM. Recheck BG in 30 minutes. May repeat juice, dextrose, or glucagon once per episode. To avoid extravasation, push Dextrose 50% SLOWLY (3 mL over 1 minute) in a patent, running IV, preferably a central line. For persistent hypoglycemia, consider longer-acting treatment for the duration of the active insulin., Routine enoxaparin (LOVENOX) injection 40 mg 40 mg, Subcutaneous, 2 TIMES DAILY, First dose on Laura 08/13/16 at 2100, Until Discontinued, Routine Given 08/15/2016 8:30 AM EST 40 mg Given 08/14/2016 9:00 PM EST 40 mg Given 08/14/2016 8:23 AM EST 40 mg enoxaparin (LOVENOX) injection 40 mg 40 mg, Subcutaneous, ONCE, 1 dose, On Laura 08/13/16 at 0845, Day of Surgery (Day of Procedure), Routine Given 08/13/2016 9:10 AM EST 40 mg Abdominal Tissue fentaNYL (PF) 50 mcg/mL 2mL syringe 25 mcg, Intravenous, EVERY 5 MIN PRN, Pain, for 1-4 pain score, Starting on Laura 08/13/16 at 1359, Until Laura 08/13/16 at 1703, for 1-4 pain score Hold for respiratory rate less than 10 per minute. Maximum dose: 250 mcg over one hour., PACU Recovery Given 08/13/2016 2:44 PM EST 25 mcg glucagon (human recombinant) injection 1 mg 1 mg, Intramuscular, EVERY 1 HOUR PRN, Low blood sugar, Starting on Laura 08/13/16 at 1426, Until 08/15/16 at 1559, For BG 50-70: 120 mL Juice or Regular (not diet) soda OR 12.5 gram (25 mL) Dextrose 50% IV OR, if no IV access, 1 mg Glucagon IM. Recheck BG in 30 minutes. May repeat juice, dextrose or glucagon once per episode For BG less than 50: 240 mL Juice or Regular (not diet) soda OR 25 grams (50 mL) Dextrose 50% IV OR, if no IV access, 1 mg Glucagon IM. Recheck BG in 30 minutes. May repeat juice, dextrose, or glucagon once per episode. To avoid extravasation, push Dextrose 50% SLOWLY (3 mL over 1 minute) in a patent, running IV, preferably a central line. For persistent hypoglycemia, consider longer-acting treatment for the duration of the active insulin. hydrocortisone sodium succinate (PF) (Solu-CORTEF) injection 50 mg 50 mg, Intravenous, EVERY 8 HOURS SCHEDULED, First dose on Wed08/14/16 at 1630, Until Discontinued Given 08/14/2016 4:30 PM EST 50 mg hydrocortisone sodium succinate (PF) (Solu-CORTEF) injection 50 mg 50 mg, Intravenous, ONCE, 1 dose, On 08/15/16 at 0030 Given 08/15/2016 1:12 AM EST 50 mg HYDROmorphone (DILAUDID) 1 mg/mL [employer] 50 mL Intravenous, [employer] ONLY, Starting on Wed08/13/16 at 1445, Until Wed08/14/16 at 0708, Recovery (Recovery-Hospital Unit) New Syringe/Cartridge 08/13/2016 3:05 PM EST 50 mg insulin lispro (humaLOG) VIAL injection 1-4 Units 1-4 Units, Subcutaneous, 3 TIMES DAILY BEFORE MEALS, First dose on Wed08/13/16 at 1630, Until Discontinued, CORRECTION BOLUS Sensitive to insulin lean patient or total daily dose of all insulin needed to achieve glycemic control less than 30 units BG 140 - 160 Give 1 unit BG 161 - 200 Give 2 units BG 201 - 240 Give 3 units BG greater than 240, give 4 units and recheck BG in 2 hours. If BG remains greater than 240, repeat 4 units (no more than three times) & call for new basal insulin orders. If less than 240 after two hours, give no insulin and resume prior schedule., Routine lactated ringers infusion 1,000 mL 1,000 mL, at 100 mL/hr, Intravenous, CONTINUOUS, Starting on Laura 08/13/16 at 0845, Until Laura 08/13/16 at 1526, Day of Surgery (Day of Procedure) New Bag 08/13/2016 12:47 PM EST New Bag 08/13/2016 10:11 AM EST New Bag 08/13/2016 9:23 AM EST 1,000 mLs 100 mL/hr lactated ringers infusion 75 mL/hr, Intravenous, CONTINUOUS, Starting on Wed08/13/16 at 1545, Until Wed08/14/16 at 2357, Recovery (Recovery-Hospital Unit) Rate/Dose Change 08/14/2016 12:48 PM EST 75 mL/hr 75 mL/hr New Bag 08/14/2016 12:25 PM EST 150 mL/hr 150 mL/hr New Bag 08/14/2016 3:42 AM EST 150 mL/hr 150 mL/hr magnesium sulfate 2 g in sterile water 50 mL 2 g, Intravenous, ONCE, 1 dose, On Wed08/14/16 at 0830, Administer over 120 Minutes Given 08/14/2016 8:20 AM EST 2 g 25 mL/hr ondansetron (ZOFRAN-ODT) oral disintegrating tablet 4 mg 4 mg, Oral, EVERY 8 HOURS PRN, Starting on Wed08/14/16 at 0708, Until 08/15/16 at 1559, Nausea, If nausea not relieved after 30 minutes may repeat dose x 1. Total 8 mg per 8 hours., Routine oxyCODONE (ROXICODONE) 5 mg/5 mL solution 5-10 mg 5-10 mg, Oral, EVERY 4 HOURS PRN, Starting on Laura 08/13/16 at 1426, Until 08/15/16 at 1559, Pain, Give 5mg for moderate pain 4-7 Give 10mg for severe pain 8-10, Routine Given 08/15/2016 1:38 PM EST 10 mg Given 08/15/2016 8:30 AM EST 10 mg Given 08/15/2016 12:05 AM EST 10 mg pantoprazole (PROTONIX) injection 40 mg 40 mg, Intravenous, DAILY, First dose on Laura 08/13/16 at 1815, Until Discontinued, Reconstitute with 10 mL of normal saline to a concentration of 4 mg/mL and infuse slowly over 2 minutes. , Routine Given 08/15/2016 8:30 AM EST 40 mg Given 08/14/2016 8:19 AM EST 40 mg Given 08/13/2016 6:56 PM EST 40 mg simvastatin (ZOCOR) tablet 20 mg 20 mg, Oral, EVERY EVENING, First dose on Laura 08/13/16 at 2000, Until Discontinued Given 08/14/2016 4:50 PM EST 20 mg sodium chloride 0.9 % flush 5 mL 5 mL, Intravenous, 2 TIMES DAILY, First dose on Laura 08/13/16 at 2100, Until Discontinued, Recovery (Recovery-Hospital Unit), Routine Given 08/15/2016 8:30 AM EST 5 mLs Given 08/14/2016 8:24 AM EST 5 mLs documented in this encounter Active and Recently Administered Medications Times are shown in EST. Scheduled Medication Order 08/13/2016 08/14/2016 08/15/2016 acetaminophen (OFIRMEV) injection 1,000 mg (COMPLETED)(Linked Group 1) 1,000 mg, Intravenous, at 400 mL/hr, Administer over 15 Minutes, EVERY 8 HOURS SCHEDULED, 3 doses, First dose on Laura 08/13/16 at 1445, Last dose on Wed08/14/16 at 0600, Routine, Is ketorolac (Toradol) IV contraindicated? Yes, Can this patient tolerate oral medications or suppositories? No 1535 (Given - Provider: Yoon Rios RN)2252 (Given - Provider: Naya Tanner RN) 0637 (Given - Provider: Naya Tanner, CORNELIO) ceFAZolin (ANCEF) 2g in dextrose 5% 50 mL (COMPLETED) 2 g, Intravenous, EVERY 3 HOURS, 1 dose, First dose on Laura 08/13/16 at 0845, Administer over 30 Minutes, Intra-Operative (Intra-Procedure), Indication for (Active or Suspected): Prophylaxis 1027 (Given - Provider: Aaron Barber CRNA) cosyntropin (CORTROSYN) injection 0.25 mg (COMPLETED) 0.25 mg (250 mcg), Intravenous, ONCE, 1 dose, On Wed08/14/16 at 1430, Draw baseline cortisol level immediately PRIOR to administration of cosyntropin (ACTH), repeat cortisol level 60 minutes after cosyntropin (ACTH) administration 1434 (Given - Provider: hSea Yung RN) enoxaparin (LOVENOX) injection 40 mg 40 mg, Subcutaneous, 2 TIMES DAILY, First dose on Laura 08/13/16 at 2100, Until Discontinued, Routine 2144 (Given - Provider: Naya Tanner RN) 0823 (Given - Provider: Shea Yung RN)2100 (Given - Provider: Indira Barth RN) 0830 (Given - Provider: Huang Mahmood RN) enoxaparin (LOVENOX) injection 40 mg (COMPLETED) 40 mg, Subcutaneous, ONCE, 1 dose, On Wed08/13/16 at 0845, Day of Surgery (Day of Procedure), Routine 0910 (Given - Provider: Jennifer Marie RN) hydrocortisone sodium succinate (PF) (Solu-CORTEF) injection 50 mg (CANCELED) 50 mg, Intravenous, EVERY 8 HOURS SCHEDULED, First dose on Wed08/14/16 at 1630, Until Discontinued 1630 (Given - Provider: Shea Yung RN - Comment: OK per MD Pichardo) hydrocortisone sodium succinate (PF) (Solu-CORTEF) injection 50 mg (COMPLETED) 50 mg, Intravenous, ONCE, 1 dose, On Wed08/15/16 at 0030 0112 (Given - Provider: Indira Barth RN) insulin lispro (humaLOG) VIAL injection 1-4 Units(Linked Group 2) 1-4 Units, Subcutaneous, 3 TIMES DAILY BEFORE MEALS, First dose on Wed08/13/16 at 1630, Until Discontinued, CORRECTION BOLUS Sensitive to insulin lean patient or total daily dose of all insulin needed to achieve glycemic control less than 30 units BG 140 - 160 Give 1 unit BG 161 - 200 Give 2 units BG 201 - 240 Give 3 units BG greater than 240, give 4 units and recheck BG in 2 hours. If BG remains greater than 240, repeat 4 units (no more than three times) & call for new basal insulin orders. If less than 240 after two hours, give no insulin and resume prior schedule., Routine 1630 (Not Given - Provider: Shea Yung RN - Reason: Order parameters not met) 0730 (Not Given - Provider: Shea Yung RN - Reason: Order parameters not met - Comment: finger stick [phone] (Not Given - Provider: Shea Yung RN - Reason: Order parameters not met)1630 (Not Given - Provider: Shea Yung RN - Reason: Order parameters not met) 0730 (Not Given - Provider: Huang Mahmood RN - Reason: Order parameters not met - Comment: cbg [phone] (Due) magnesium sulfate 2 g in sterile water 50 mL (COMPLETED) 2 g, Intravenous, ONCE, 1 dose, On Wed08/14/16 at 0830, Administer over 120 Minutes 0820 (Given - Provider: Shea Yung RN) meTOPROLOL (LOPRESSOR) injection 5 mg 5 mg, Intravenous, EVERY 6 HOURS, First dose on Laura 16 at 1815, Until Discontinued, HOLD FOR hr < 70, sbp < 140 1815 (Not Given - Provider: Shea Yung RN - Reason: Order parameters not met) 0015 (Not Given - Provider: Naya Tanner RN - Reason: Order parameters not met)0615 (Not Given - Provider: Naya Tanner RN - Reason: Order parameters not met)1215 (Not Given - Provider: Shea Yung RN - Reason: Order parameters not met)1815 (Not Given - Provider: Shea Yung RN - Reason: Order parameters not met) 0015 (Not Given - Provider: Indira Barth RN - Reason: Contraindicated)0615 (Not Given - Provider: Indira Barth RN - Reason: Contraindicated)1215 (Not Given - Provider: Huang Mahmood RN - Reason: Order parameters not met) pantoprazole (PROTONIX) injection 40 mg 40 mg, Intravenous, DAILY, First dose on Laura 16 at 1815, Until Discontinued, Reconstitute with 10 mL of normal saline to a concentration of 4 mg/mL and infuse slowly over 2 minutes. , Routine 1856 (Given - Provider: Shea Yung RN) 0819 (Given - Provider: Shea Yung RN) 0830 (Given - Provider: Huang Mahmood RN) simvastatin (ZOCOR) tablet 20 mg 20 mg, Oral, EVERY EVENING, First dose on Laura 08/13/16 at 2000, Until Discontinued 1999 (Not Given - Provider: Naya Tanner RN - Reason: NPO) 1650 (Given - Provider: Lizbet Meza RN) sodium chloride 0.9 % flush 5 mL 5 mL, Intravenous, 2 TIMES DAILY, First dose on Laura 16 at 2100, Until Discontinued, Recovery (Recovery-Hospital Unit), Routine 2100 (Not Given - Provider: Naya Tanner RN - Reason: Order parameters not met - Comment: IV infusing) 0824 (Given - Provider: Shea Yung, CORNELIO)2100 (Not Given - Provider: Indira Barth, RN - Reason: Contraindicated) 0830 (Given - Provider: Huang Mahmood RN) Continuous Medication Order 08/13/2016 08/14/2016 08/15/2016 HYDROmorphone (DILAUDID) 1 mg/mL [employer] 50 mL (CANCELED) Intravenous, [employer] ONLY, Starting on Laura 08/13/16 at 1445, Until Wed08/14/16 at 0708, Recovery (Recovery-Hospital Unit) 1505 (New Syringe/Cartridge - Provider: Yoon Rios RN) lactated ringers infusion 1,000 mL (CANCELED) 1,000 mL, at 100 mL/hr, Intravenous, CONTINUOUS, Starting on Laura 08/13/16 at 0845, Until Laura 08/13/16 at 1526, Day of Surgery (Day of Procedure) 0923 (New Bag - Provider: Jennifer Marie RN)1011 (New Bag - Provider: Aaron Barber CRNA)1112 (Anesthesia Volume Adjustment - Provider: Aaron Barber CRNA)1247 (New Bag - Provider: Aaron Barber CRNA)1312 (Anesthesia Volume Adjustment - Provider: Aaron Barber CRNA) lactated ringers infusion (CANCELED) 75 mL/hr, Intravenous, CONTINUOUS, Starting on Laura 08/13/16 at 1545, Until Wed08/14/16 at 2357, Recovery (Recovery-Hospital Unit) 1500 (New Bag - Provider: Yoon Rios RN)2120 (New Bag - Provider: Naya Tanner, CORNELIO) 0342 (New Bag - Provider: Naya Tanner, RN)1225 (New Bag - Provider: Shea Yung, RN)1248 (Rate/Dose Change - Provider: Shea Yung, CORNELIO)2300 (Stopped - Provider: Indira Barth, CORNELIO) PRN Medication Order 08/13/2016 08/14/2016 08/15/2016 acetaminophen (TYLENOL) 650 mg/20.3 mL oral liquid 650 mg(Linked Group 1) 650 mg, Oral, EVERY 4 HOURS PRN, Starting on Wed08/14/16 at 1400, Until 08/15/16 at 1559, Fever, Maximum dose of acetaminophen is 4000 mg from all sources in 24 hours. , Routine BUpivacaine-EPINEPHrine 0.25 %-1:200,000 injection (CANCELED) ONCE PRN, Starting on Laura 08/13/16 at 1316, Until 08/15/16 at 1559, Intra-Operative (Intra-Procedure), Routine 1316 (Given - Provider: Tonio Vu MD) dextrose 50% injection 25-50 mL(Linked Group 3) 25-50 mL (12.5-25 g), Intravenous, EVERY 1 HOUR PRN, Starting on Laura 08/13/16 at 1426, Until 08/15/16 at 1559, Low blood sugar, For BG 50-70: 120 mL Juice or Regular (not diet) soda OR 12.5 gram (25 mL) Dextrose 50% IV OR, if no IV access, 1 mg Glucagon IM. Recheck BG in 30 minutes. May repeat juice, dextrose or glucagon once per episode For BG less than 50: 240 mL Juice or Regular (not diet) soda OR 25 grams (50 mL) Dextrose 50% IV OR, if no IV access, 1 mg Glucagon IM. Recheck BG in 30 minutes. May repeat juice, dextrose, or glucagon once per episode. To avoid extravasation, push Dextrose 50% SLOWLY (3 mL over 1 minute) in a patent, running IV, preferably a central line. For persistent hypoglycemia, consider longer-acting treatment for the duration of the active insulin., Routine diphenhydrAMINE (BENADRYL) injection 25 mg 25 mg, Intravenous, EVERY 6 HOURS PRN, Starting on Laura 08/13/16 at 1754, Until 08/15/16 at 1559, Itching, Routine fentaNYL (PF) 50 mcg/mL 2mL syringe (CANCELED)(Linked Group 4) 25 mcg, Intravenous, EVERY 5 MIN PRN, Pain, for 1-4 pain score, Starting on Laura 08/13/16 at 1359, Until Laura 16 at 1703, for 1-4 pain score Hold for respiratory rate less than 10 per minute. Maximum dose: 250 mcg over one hour., PACU Recovery 1444 (Given - Provider: Yoon Rios RN) glucagon (human recombinant) injection 1 mg(Linked Group 3) 1 mg, Intramuscular, EVERY 1 HOUR PRN, Low blood sugar, Starting on Laura 08/13/16 at 1426, Until 08/15/16 at 1559, For BG 50-70: 120 mL Juice or Regular (not diet) soda OR 12.5 gram (25 mL) Dextrose 50% IV OR, if no IV access, 1 mg Glucagon IM. Recheck BG in 30 minutes. May repeat juice, dextrose or glucagon once per episode For BG less than 50: 240 mL Juice or Regular (not diet) soda OR 25 grams (50 mL) Dextrose 50% IV OR, if no IV access, 1 mg Glucagon IM. Recheck BG in 30 minutes. May repeat juice, dextrose, or glucagon once per episode. To avoid extravasation, push Dextrose 50% SLOWLY (3 mL over 1 minute) in a patent, running IV, preferably a central line. For persistent hypoglycemia, consider longer-acting treatment for the duration of the active insulin. lidocaine (XYLOCAINE) 10 mg/mL (1 %) injection 3 mg 3 mg (0.3 mL), Subcutaneous, ONCE PRN, 1 dose, Starting on Laura 08/13/16 at 1754, Until 08/15/16 at 1559, for discomfort with PIV insertion, Recovery (Recovery-Hospital Unit), Routine ondansetron (ZOFRAN-ODT) oral disintegrating tablet 4 mg 4 mg, Oral, EVERY 8 HOURS PRN, Starting on Wed08/14/16 at 0708, Until 08/15/16 at 1559, Nausea, If nausea not relieved after 30 minutes may repeat dose x 1. Total 8 mg per 8 hours., Routine oxyCODONE (ROXICODONE) 5 mg/5 mL solution 5-10 mg 5-10 mg, Oral, EVERY 4 HOURS PRN, Starting on Laura 08/13/16 at 1426, Until 08/15/16 at 1559, Pain, Give 5mg for moderate pain 4-7 Give 10mg for severe pain 8-10, Routine 0936 (Given - Provider: Shea Yung RN)1413 (Given - Provider: Shea Yung RN)1807 (Given - Provider: Shea Yung RN) 0005 (Given - Provider: Indira Barth RN)0830 (Given - Provider: Huang Mahomod, RN)1338 (Given - Provider: Huang Mahmood, RN) sodium chloride 0.9 % flush 5-20 mL 5-20 mL, Intravenous, EVERY 1 MIN PRN, Starting on Wed08/13/16 at 1754, Until 08/15/16 at 1559, flush, Flush pertains to all indwelling lines. Flush per protocol found in the job aid using the link provided on this medication record., Recovery (Recovery-Hospital Unit), Routine Linked Groups Order Group 1: acetaminophen (OFIRMEV) injection 1,000 mg (COMPLETED)Jump to med 1,000 mg, Intravenous, at 400 mL/hr, Administer over 15 Minutes, EVERY 8 HOURS SCHEDULED, 3 doses, First dose on Wed08/13/16 at 1445, Last dose on Wed08/14/16 at 0600, Routine, Is ketorolac (Toradol) IV contraindicated? Yes, Can this patient tolerate oral medications or suppositories? No Followed by acetaminophen (TYLENOL) 650 mg/20.3 mL oral liquid 650 mgJump to med 650 mg, Oral, EVERY 4 HOURS PRN, Starting on Wed08/14/16 at 1400, Until 08/15/16 at 1559, Fever, Maximum dose of acetaminophen is 4000 mg from all sources in 24 hours. , Routine Group 2: POCT Fingerstick Glucose (CANCELED) Routine, 4 TIMES DAILY BEFORE MEALS & AT BEDTIME, First occurrence on Wed08/13/16 at 1700, Until Specified, Consider choosing FOUR TIMES A DAY BEFORE MEALS AND AT BEDTIME as frequency for: Patients who have a good hypoglycemia awareness And insulin lispro (humaLOG) VIAL injection 1-4 UnitsJump to med 1-4 Units, Subcutaneous, 3 TIMES DAILY BEFORE MEALS, First dose on Wed08/13/16 at 1630, Until Discontinued, CORRECTION BOLUS Sensitive to insulin lean patient or total daily dose of all insulin needed to achieve glycemic control less than 30 units BG 140 - 160 Give 1 unit BG 161 - 200 Give 2 units BG 201 - 240 Give 3 units BG greater than 240, give 4 units and recheck BG in 2 hours. If BG remains greater than 240, repeat 4 units (no more than three times) & call for new basal insulin orders. If less than 240 after two hours, give no insulin and resume prior schedule., Routine Group 3: dextrose 50% injection 25-50 mLJump to med 25-50 mL (12.5-25 g), Intravenous, EVERY 1 HOUR PRN, Starting on Laura 08/13/16 at 1426, Until 08/15/16 at 1559, Low blood sugar, For BG 50-70: 120 mL Juice or Regular (not diet) soda OR 12.5 gram (25 mL) Dextrose 50% IV OR, if no IV access, 1 mg Glucagon IM. Recheck BG in 30 minutes. May repeat juice, dextrose or glucagon once per episode For BG less than 50: 240 mL Juice or Regular (not diet) soda OR 25 grams (50 mL) Dextrose 50% IV OR, if no IV access, 1 mg Glucagon IM. Recheck BG in 30 minutes. May repeat juice, dextrose, or glucagon once per episode. To avoid extravasation, push Dextrose 50% SLOWLY (3 mL over 1 minute) in a patent, running IV, preferably a central line. For persistent hypoglycemia, consider longer-acting treatment for the duration of the active insulin., Routine Or glucagon (human recombinant) injection 1 mgJump to med 1 mg, Intramuscular, EVERY 1 HOUR PRN, Low blood sugar, Starting on Laura 08/13/16 at 1426, Until 08/15/16 at 1559, For BG 50-70: 120 mL Juice or Regular (not diet) soda OR 12.5 gram (25 mL) Dextrose 50% IV OR, if no IV access, 1 mg Glucagon IM. Recheck BG in 30 minutes. May repeat juice, dextrose or glucagon once per episode For BG less than 50: 240 mL Juice or Regular (not diet) soda OR 25 grams (50 mL) Dextrose 50% IV OR, if no IV access, 1 mg Glucagon IM. Recheck BG in 30 minutes. May repeat juice, dextrose, or glucagon once per episode. To avoid extravasation, push Dextrose 50% SLOWLY (3 mL over 1 minute) in a patent, running IV, preferably a central line. For persistent hypoglycemia, consider longer-acting treatment for the duration of the active insulin. Group 4: fentaNYL (PF) 50 mcg/mL 2mL syringe (CANCELED)Jump to med 25 mcg, Intravenous, EVERY 5 MIN PRN, Pain, for 1-4 pain score, Starting on Laura 12 at 1359, Until Laura 12//16 at 1703, for 1-4 pain score Hold for respiratory rate less than 10 per minute. Maximum dose: 250 mcg over one hour., PACU Recovery Or fentaNYL (PF) 50 mcg/mL 2mL syringe (CANCELED) 50 mcg, Intravenous, EVERY 5 MIN PRN, Pain, for 5-10 pain score, Starting on Laura 12// at 1359, Until Laura 12//16 at 1703, for 5-10 pain score Hold for respiratory rate less than 10 per minute. Maximum dose: 250 mcg over one hour., PACU Recovery documented in this encounter Care Teams Gastroenterology Teacher Relationship Specialty Start Date End Date Lew Beltran PA [address] [place] [id number] PCP - General General Internal Medicine 04/21/16 documented as of this encounter
--- OUTSIDE RECORDS SUMMARY | 2024-03-27 14:10 | XMS_ITS | Encounter Summary ---
[place] [address] Care Team Providers Care Supervisor Last Model Department Name Role Phone Lew Beltran Primary Care Provider [phone] Reason for Visit * Auth/Cert Specialty Diagnoses [...] Expiration Date Visits Re quested Visits Authorized [id number] 1 1 Encounter Details Date Type Department Care Team (Late st Contact Info) Description 08/13/2016 9:32 AM EST - 08/13/2016 1:30 PM EST Surgery [place] [address] Tonio Vu MD [facility] [place] [address] @LAPAROSCOPIC GASTROPLASTY W/ [id number]-[id number] CONSTRUCTION (WRVU 29.4) Social History Tobacco Use Types Packs/Day Years [...] bariatric surgery and our outcomes here at [facility]. ?? We went over the small but [...] female who was admitted on 08/13/2016 for qcncyeegiviatqvo-cf-R gastric bypass. Her intraoperative and PACU course [...] Dept Phone 08/25/2016 4:00 PM Fawn Wang; Tonio Vu MD General Surgery [phone] 12/01/2016 1:00 PM Fawn Wang; Cindy Lopez, MACKENZIE General Surgery [phone] Instructions Given to Patient at Discharge: Patient Instructions BARIATRIC SURGERY DISCHARGE INFORMATION ?? CONTACT INFORMATION: [phone] Surgeons: Ashley Smyth and Jd [phone] Design Specialist: [phone] (Wednesday through Wednesday, 8:00 AM -5:00 PM) Dietitians: [phone] Non-business hours: [phone], ask for general surgeon telephoner ?? FOR EMERGENCIES: CALL 911 (trouble breathing, [...] Follow up with primary care provider or senior accounting specialist in 1-2 weeks. Bring meter to [...] 4:00 PM Tonio Vu MD [facility] 12/01/2016 1:00 PM Cindy Lopez APRN [facility] Surg [facility] WOMEN OF CHILDBEARING AGE: Fertility may increase with weight loss. Avoid for 18-24 months after surgery. Condoms alone are not acceptable as a form of control. Do not take control pills for the first month after surgery. General Instructions None Future Appointments and Orders Future Appointments Provider Department Dept Phone 08/25/2016 4:00 PM Fawn Wang; Tonio Vu MD General Surgery [phone] 12/01/2016 1:00 PM Fawn Wang; Cindy Lopez APRN General Surgery [phone] Will not need follow up with endocrinology Signed: Christopher Mckinney MD 08/15/2016 Primary [place] Physician: DEEDEE Shaffer [address] / [facility] [address] documented in this encounter Discharge Instructions * Patient Instructions* Christopher Mckinney MD - 08/14/2016 3:08 PM EST BARIATRIC SURGERY DISCHARGE INFORMATION ?? CONTACT INFORMATION: [phone] Surgeons: Ashley Smyth and Jd [phone] Design Specialist: [phone] (Wednesday through Wednesday, 8:00 AM -5:00 PM) Dietitians: [phone] Non-business hours: [phone], ask for general surgeon telephoner ?? FOR EMERGENCIES: CALL 911 (trouble breathing, [...] Follow up with primary care provider or senior accounting specialist in 1-2 weeks. Bring meter to [...] wheelchair, pushed by spouse at 1340. * Gino Garner MD - 08/15/2016 10:26 AM EST [...] does not need outpatient endo followup. * Palmira Pichardoer W - 08/14/2016 1:52 PM EST MIS [...] ensure there is not a central/pituitary cause. L * Shea Yung RN - 08/13/2016 6:29 PM EST Radha arrive on the floor at approximately 1800. She was oriented to the room and to the call carbone.Her pain is well controlled with her EDUCATIONAL TECHNICIAN. She denies any nausea. Her 6 lap [...] Endorsing mild soreness across upper abdomen, using EDUCATIONAL TECHNICIAN to effect. She denies chest pain or [...] 5q6 IV (HOLD for SBP<140), sensitive SSI. RFAAEL PICHARDO MD 08/13/2016 5:02 PM * Yoon [...] hartman placed by Teresa Rosa RN. 1520 EDUCATIONAL TECHNICIAN initiated. Patient familiar with use. 1645 PACU [...] y.o. female patient who was admitted to [facility] on 08/13/2016 for RYGB. ? Radha Bella [...] Allergies: No Known Allergies ROS: (+) for PHOTO CARTOGRAPHER (-) for Constitutional: No tiredness, recent weight [...] 42.3 PLATELET 166 168 231 Results for RADHA BELLA ( ) as [...] Specific Information: N/A Health/Prescription Coverage: Primary Insurance: [facility] [place] Secondary Insurance: None listed Prescription Coverage: BCBS Preferred Pharmacy: [facility] in [place], [place] Other: N/A Primary Care Provider: DEEDEE Shaffer [phone] Patient/Caregiver Goals of Treatment: Discharge home with [...] needed for discharge. Rachel Dunne RN Pager: [phone] * Med Student Progress Note - Aaron Coleman - 08/14/2016 5:11 AM EST GENERAL SURGERY [...] is to [facility]. Aim for discharge over the weekend. NEURO: Discontinue EDUCATIONAL TECHNICIAN; schedule acetaminophen and PO narcotic pain medications with IV for breakthrough CV: Measure orthostatics for persistently low blood pressures and continue Lactate Ringers [id number]/hour for adequate hydration; Creatinine is still 1.08, [...] for management of persistent post-operative hypotension. Aaron Coleman MS3 * Plan of Care - Naya Tanner RN - 08/14/2016 5:03 AM EST Problem: Patient Care Overview Goal: Plan of Care Review Outcome: Ongoing (Interventions Implemented as Appropriate) 08/14/16 3055 Coping/Psychosocial Plan Of Care Reviewed With patient Plan of Care Review Progress progress toward functional goals as expected OUTCOME EVALUATION NOTE: OUTCOME SUMMARY: Patient reports adequate pain control with EDUCATIONAL TECHNICIAN. Patient with B/P 97/48 to 104/44. MD [...] Vu MD - 08/13/2016 1:21 PM EST [facility] Operative Note Patient Name: Radha Bella : [id number] MR#: [id number] Case Date: 08/13/2016 Surgeon: Surgeon(s) and Role: [...] the left thiago. A firing of an [employer]ERGE[employer] 60 stapler with a blue load in [...] distal bowel was chosen to create the shto-dq-[id number] jejunojejunostomy. The duodenal, afferent limb was approximated [...] suture in two layers with a 30 Serbian Bougie (blunt-tipped) in place. The Bougie was [...] Procedure Name Priority Date/Time Associated Diagnosis Comments WINDMILL TECHNICIAN SCAN 08/16/2016 12:00 AM EST POCT GLUCOSE [...] in this encounter Results * SCAN DOC: WINDMILL TECHNICIAN (08/16/2016 12:00 AM EST) Anatomical Region Laterality Modality Other Scanning Provider MEDIA MGR SCAN EXT O RDR/RSLT * POCT Glucose (08/15/2016 7:12 AM EST) POC Glucose 93 65 - 199 mg/dL [facility] Comment: Supplemental ranges: <140 mg/dL before meals <180 mg/dL all other times of the day Blood specimen (specimen) 08/15/2016 7:12 AM EST 08/15/2016 7:12 AM EST Tonio Vu MD POINT OF CARE TEST O RDERABLES [facility] [place] [address] * Differential, Automated (08/15/2016 6:23 AM EST) Neutrophils % 75.3 % [facility] Neutr Abs (ANC) 4.64 1.70 - 6.10 x10(3)/[facility] Lymphocytes % 18.3 % [facility] Lymphocytes Abs 1.1 0.9 - 3.2 x10(3)/[facility] Monocytes % 5.7 % [facility] Monocyte Abs 0.4 0.3 - 0.9 x10(3)/[facility] Eosinophils % 0.0 % [facility] Eosinophils Abs 0.0 0.0 - 0.4 x10(3)/[facility] Basophils % 0.2 % [facility] Basophils Abs 0.0 0.0 - 0.1 x10(3)/[facility]AT[facility] Immature Gran % 0.50 % [facility] Comment: Immature granulocytes(IG's)percentage and absolute count will include metamyelocytes, myelocytes, and promyelocytes. Blood smears from CBCs yielding IG's will be scanned manually for concordance. If this scan disagrees with the automated IG or if promyelocytes are noted, a manual differential will be performed. Nadiya Gran Abs 0.03 0.00 - 0.04 x10(3)/[facility] Blood specimen (specimen) 08/15/2016 6:23 AM EST 08/15/2016 6:32 AM EST Narrative Resulting Agency Comment Spec In Lab Tonio Vu MD HEMATOLOGY ORDERABLE S [facility] [place] [address] * (ABNORMAL) Hemogram (08/15/2016 6:23 AM EST) WBC 6.2 4.0 - 9.5 x10(3)/[facility] RBC 3.64(L) 4.00 - 5.21 x10(6)/[facility] Hemoglobin 10.7(L) 11.7 - 15.5 gm/dL [facility] Hematocrit 32.2(L) 35.7 - 45.8 % [facility] MCV 88.5 82.6 - 94.4 fL [facility] MCH 29.4 27.1 - 32.0 pg [facility] MCHC 33.2 31.7 - 35.0 gm/dL [facility] Platelets 148 145 - 357 x10(3)/[facility]ORY RDWSD 42.0 37.0 - 46.0 [facility]ORY RDWCV 12.8 11.5 - 14.1 % [facility] MPV 11.6 7.6 - 12.9 [facility] nRBC % Auto 0.0 % [facility] nRBC Abs Auto 0.000 0.000 - 0.000 x10(3)/[facility] Blood specimen (specimen) 08/15/2016 6:23 AM EST 08/15/2016 6:32 AM EST Narrative Resulting Agency Comment Spec In Lab Tonio Vu MD HEMATOLOGY ORDERABLE S Performing Organization Address City/State/[facility] Co de Phone Number [facility] [place] [address] * Basic Metabolic Panel (non-fasting) (08/15/2016 6:23 AM EST) Glucose Lvl 106 65 - 199 mg/dL [facility] Comment:Diabetes: >=200 mg/d L plus symptoms BUN 13 8 - 18 mg/dL [facility] Creatinine 0.77 0.70 - 1.20 mg/dL [facility] Comment: Please note that the pediatric reference intervals supplied above were not validated at [facility]. Results from pediatric patients should be interpreted in conjunction to the patient's age, height and muscle mass. Sodium 139 135 - 145 mmol/L [facility] Potassium 4.3 3.5 - 5.0 mmol/L [facility] Comment: Please note: ??Patients with WBC >100,000 may have falsely elevated Potassium levels. ??For accurate Potassium quantification in these patients send serum separator tube (gold top) for subsequent determinations. ??Contact the Clinical Chemistry Laboratory if there are any questions. Chloride 102 98 - 107 mmol/L [facility] CO2 26 22 - 31 mmol/L [facility] Anion Gap 11 5 - 15 mmol/L [facility] Calcium 8.9 8.5 - 10.5 mg/dL [facility] Estimated GFR >60 >=60 [facility] Comment: This estimated GFR (eGFR) [...] the following links into your internet browser. [email or web address] [email or web address] Blood specimen (specimen) 08/15/2016 6:23 AM EST 08/15/2016 6:32 AM EST Narrative Resulting Agency Comment Spec In Lab Tonio Vu MD CHEMISTRY ORDERABLES [facility] [place] [address] * Follicle Stimulating Hormone (08/15/2016 6:23 AM EST) FSH 22.8 mlU/ML [facility] Comment: Reference Ranges: Females: Follicular: ? 3.5-12.5 mIU/mL Ovulation: ?4.7-21.5 mIU/mL Luteal: ? 1.7-7.7 mIU/mL Postmenopausal: 25.8-134.8 mIU/mL Blood specimen (specimen) 08/15/2016 6:23 AM EST 08/15/2016 6:32 AM EST Narrative Resulting Agency Comment Spec In Lab Tonio Vu MD CHEMISTRY ORDERABLES Performing Organization Address [facility] Co de Phone Number [facility] [place] [address] * POCT Glucose (08/14/2016 4:46 PM EST) POC Glucose 92 65 - 199 mg/dL [facility] Comment: Supplemental ranges: <140 mg/dL before meals <180 mg/dL all other times of the day Blood specimen (specimen) 08/14/2016 4:46 PM EST 08/14/2016 4:46 PM EST Tonio Vu MD POINT OF CARE TEST O RDERABLES Performing Organization Address [facility] de Phone Number [facility] [place] [address] * Cortisol (08/14/2016 3:27 PM EST) Cortisol 29.1 mcg/dL [facility] Comment: Result rechecked. Reference ranges: ??AM (7-10am): ??6.2-19.4 mcg/dL ??PM (4-8pm): ??2.3-12.3 mcg/dL Blood specimen (specimen) 08/14/2016 3:27 PM EST 08/14/2016 4:35 PM EST Narrative Resulting Agency Comment Spec In Lab Tonio Vu MD CHEMISTRY ORDERABLES Performing Organization Address [facility] de Phone Number [facility] [place] [address] * Cortisol (08/14/2016 2:31 PM EST) Cortisol 1.8 mcg/dL [facility] Comment: Reference ranges: ??AM (7-10am): ??6.2-19.4 mcg/dL ??PM (4-8pm): ??2.3-12.3 mcg/dL Blood specimen (specimen) 08/14/2016 2:31 PM EST 08/14/2016 3:27 PM EST Narrative Resulting Agency Comment Spec In Lab Tonio Vu MD CHEMISTRY ORDERABLES Performing Organization Address City/[facility]/ZIP Co de Phone Number [facility] [place] [address] * (ABNORMAL) ACTH (08/14/2016 1:44 PM EST) Pathologist [facility] ACTH <5(L) 6 - 50 pg/mL [facility] Comment: Test Performed by [email or web address]Sharon, [employer] [facility], [address] [place] [address] Royal Cohen M.D., Ph.D., Director of Laboratories , [place] [id number] Blood specimen (specimen) 08/14/2016 1:44 PM EST 08/14/2016 3:40 PM EST Narrative Resulting Agency Comment Spec In Lab Tonio Vu MD CHEMISTRY ORDERABLES Performing Organization Address City/[facility]/ZIP Co de Phone Number [facility] [place] [address] * (ABNORMAL) Hemogram (08/14/2016 1:19 PM EST) Pathologist [facility] WBC 8.3 4.0 - 9.5 x10(3)/[facility]ATORY RBC 3.70(L) 4.00 - 5.21 x10(6)/[facility] Hemoglobin 10.9(L) 11.7 - 15.5 gm/dL [facility] Hematocrit 32.4(L) 35.7 - 45.8 % [facility] MCV 87.6 82.6 - 94.4 fL [facility] MCH 29.5 27.1 - 32.0 pg [facility] MCHC 33.6 31.7 - 35.0 gm/dL [facility] Platelets 162 145 - 357 x10(3)/[facility] RDWSD 40.8 37.0 - 46.0 fL [facility] RDWCV 12.7 11.5 - 14.1 % [facility] MPV 11.5 7.6 - 12.9 fL [facility] nRBC % Auto 0.0 % [facility] nRBC Abs Auto 0.000 0.000 - 0.000 x10(3)/[facility] Blood specimen (specimen) 08/14/2016 1:19 PM EST 08/14/2016 1:28 PM EST Narrative Resulting Agency Comment Spec In Lab Lanie Garnica MD HEMATOLOGY ORDERAB LES [facility] [place] [address] * (ABNORMAL) Basic Metabolic Panel (non-fasting) (08/14/2016 1:19 PM EST) Glucose Lvl 97 65 - 199 mg/dL [facility] Comment:Diabetes: >=200 mg/d L plus symptoms BUN 15 8 - 18 mg/dL [facility] Creatinine 1.03 0.70 - 1.20 mg/dL [facility] Comment: Please note that the pediatric reference intervals supplied above were not validated at [facility]. Results from pediatric patients should be interpreted in conjunction to the patient's age, height and muscle mass. Sodium 140 135 - 145 mmol/L [facility] Potassium 4.4 3.5 - 5.0 mmol/L [facility] Comment: Please note: ??Patients with WBC >100,000 may have falsely elevated Potassium levels. ??For accurate Potassium quantification in these patients send serum separator tube (gold top) for subsequent determinations. ??Contact the Clinical Chemistry Laboratory if there are any questions. Chloride 100 98 - 107 mmol/L [facility] CO2 27 22 - 31 mmol/L [facility] Anion Gap 13 5 - 15 mmol/L [facility] Calcium 8.9 8.5 - 10.5 mg/dL [facility] Estimated GFR 57(L) >=60 [facility] Comment: This estimated GFR (eGFR) [...] the following links into your internet browser. http://[email or web address] [email or web address] Blood specimen (specimen) 08/14/2016 1:19 PM EST 08/14/2016 1:28 PM EST Narrative Resulting Agency Comment Spec In Lab Lanie Garnica MD CHEMISTRY ORDERABL ES Performing Organization Address City/[facility]/ZIP Co de Phone Number [facility] [place] [address] * POCT Glucose (08/14/2016 12:21 PM EST) Pathologist [facility] POC Glucose 86 65 - 199 mg/dL [facility] Comment: Supplemental ranges: <140 mg/dL before meals <180 mg/dL all other times of the day Blood specimen (specimen) 08/14/2016 12:21 PM EST 08/14/2016 12:21 PM EST Tonio Vu MD POINT OF CARE TEST O RDERABLES Performing Organization Address City/[facility]/ZIP Co de Phone Number [facility] [place] [address] * Creatinine, urine, random (08/14/2016 9:04 AM EST) U Creatinine 98 mg/dL [facility] Urine specimen (specimen) 08/14/2016 9:04 AM EST 08/14/2016 9:38 AM EST Narrative Resulting Agency Comment Spec In Lab Lanie Garnica MD URINE ORDERABLES Performing Organization Address [facility] Co de Phone Number [facility] [place] [address] * Sodium, urine, random (08/14/2016 9:04 AM EST) U Sodium 67 mmol/L [facility] Urine specimen (specimen) 08/14/2016 9:04 AM EST 08/14/2016 9:38 AM EST Narrative Resulting Agency Comment Spec In Lab Lanie Garnica MD URINE ORDERABLES Performing Organization Address [facility] de Phone Number [facility] [place] [address] * Cortisol (08/14/2016 8:13 AM EST) Cortisol 1.8 mcg/dL [facility] Comment: Reference ranges: ??AM (7-10am): ??6.2-19.4 mcg/dL ??PM (4-8pm): ??2.3-12.3 mcg/dL Blood specimen (specimen) 08/14/2016 8:13 AM EST 08/14/2016 8:20 AM EST Narrative Resulting Agency Comment Spec In Lab Tonio Vu MD CHEMISTRY ORDERABLES Performing Organization Address [facility] de Phone Number [facility] [place] [address] * POCT Glucose (08/14/2016 7:34 AM EST) POC Glucose 89 65 - 199 mg/dL [facility] Comment: Supplemental ranges: <140 mg/dL before meals <180 mg/dL all other times of the day Blood specimen (specimen) 08/14/2016 7:34 AM EST 08/14/2016 7:34 AM EST Tonio Vu MD POINT OF CARE TEST O RDERABLES Performing Organization Address [facility]/ZIP Co de Phone Number [facility] [place] [address] * Cortisol (08/14/2016 5:14 AM EST) Cortisol 2.0 mcg/dL [facility] Comment: Reference ranges: ??AM (7-10am): ??6.2-19.4 mcg/dL ??PM (4-8pm): ??2.3-12.3 mcg/dL Blood specimen (specimen) Venous Draw / Unknown 08/14/2016 5:14 AM EST 08/14/2016 5:44 AM EST Narrative Resulting Agency Comment Spec In Lab Lanie Garnica MD CHEMISTRY ORDERABL ES Performing Organization Address [facility] Co de Phone Number [facility] [place] [address] * Differential, Automated (08/14/2016 5:14 AM EST) Neutrophils % 67.8 % [facility] Neutr Abs (ANC) 5.45 1.70 - 6.10 x10(3)/[facility] Lymphocytes % 21.9 % [facility] Lymphocytes Abs 1.8 0.9 - 3.2 x10(3)/[facility] Monocytes % 9.7 % [facility] Monocyte Abs 0.8 0.3 - 0.9 x10(3)/[facility] Eosinophils % 0.0 % [facility] Eosinophils Abs 0.0 0.0 - 0.4 x10(3)/[facility] Basophils % 0.2 % [facility] Basophils Abs 0.0 0.0 - 0.1 x10(3)/[facility] Immature Gran % 0.40 % [facility] Comment: Immature granulocytes(IG's)percentage and absolute count will include metamyelocytes, myelocytes, and promyelocytes. Blood smears from CBCs yielding IG's will be scanned manually for concordance. If this scan disagrees with the automated IG or if promyelocytes are noted, a manual differential will be performed. Nadiya Gran Abs 0.03 0.00 - 0.04 x10(3)/[facility] Blood specimen (specimen) 08/14/2016 5:14 AM EST 08/14/2016 5:42 AM EST Narrative Resulting Agency Comment Spec In Lab Lanie Garnica MD HEMATOLOGY ORDERAB LES [facility] [place] [address] * (ABNORMAL) Hemogram (08/14/2016 5:14 AM EST) WBC 8.0 4.0 - 9.5 x10(3)/[facility] RBC 3.55(L) 4.00 - 5.21 x10(6)/[facility] Hemoglobin 10.8(L) 11.7 - 15.5 gm/dL [facility] Hematocrit 31.0(L) 35.7 - 45.8 % [facility] MCV 87.3 82.6 - 94.4 fL [facility] MCH 30.4 27.1 - 32.0 pg [facility] MCHC 34.8 31.7 - 35.0 gm/dL [facility] Platelets 166 145 - 357 x10(3)/[facility] RDWSD 40.8 37.0 - 46.0 [facility] RDWCV 12.7 11.5 - 14.1 % [facility] MPV 11.9 7.6 - 12.9 fL [facility] nRBC % Auto 0.0 % [facility] nRBC Abs Auto 0.000 0.000 - 0.000 x10(3)/mcL [facility] Blood specimen (specimen) 08/14/2016 5:14 AM EST 08/14/2016 5:42 AM EST Narrative Resulting Agency Comment Spec In Lab Lanie Garnica MD HEMATOLOGY ORDERAB LES Performing Organization Address [facility] de Phone Number [facility] [place] [address] * Phosphorus (08/14/2016 5:14 AM EST) Phosphorus 3.8 2.5 - 4.5 mg/dL [facility] Blood specimen (specimen) 08/14/2016 5:14 AM EST 08/14/2016 5:42 AM EST Narrative Resulting Agency Comment Spec In Lab Lanie Garnica MD CHEMISTRY ORDERABL ES Performing Organization Address [facility] Phone Number [facility] [place] [address] * Magnesium (08/14/2016 5:14 AM EST) Magnesium 0.69 0.69 - 1.07 mmol/L [facility] Blood specimen (specimen) 08/14/2016 5:14 AM EST 08/14/2016 5:42 AM EST Narrative Resulting Agency Comment Spec In Lab Lanie Garnica MD CHEMISTRY ORDERABL ES Performing Organization Address [facility] Phone Number [facility] [place] [address] * (ABNORMAL) Basic Metabolic Panel (non-fasting) (08/14/2016 5:14 AM EST) Glucose Lvl 98 65 - 199 mg/dL [facility] Comment:Diabetes: >=200 mg/d L plus symptoms BUN 19(H) 8 - 18 mg/dL [facility] Creatinine 1.08 0.70 - 1.20 mg/dL [facility] Comment: Please note that the pediatric reference intervals supplied above were not validated at [facility]. Results from pediatric patients should be interpreted in conjunction to the patient's age, height and muscle mass. Sodium 139 135 - 145 mmol/L [facility] Potassium 4.7 3.5 - 5.0 mmol/L [facility] Comment: Please note: ??Patients with WBC >100,000 may have falsely elevated Potassium levels. ??For accurate Potassium quantification in these patients send serum separator tube (gold top) for subsequent determinations. ??Contact the Clinical Chemistry Laboratory if there are any questions. Chloride 101 98 - 107 mmol/L [facility] CO2 26 22 - 31 mmol/L [facility] Anion Gap 12 5 - 15 mmol/L [facility] Calcium 8.7 8.5 - 10.5 mg/dL [facility] Estimated GFR 54(L) >=60 [facility] Comment: This estimated GFR (eGFR) [...] the following links into your internet browser. [email or web address] [email or web address] Blood specimen (specimen) 08/14/2016 5:14 AM EST 08/14/2016 5:42 AM EST Narrative Resulting Agency Comment Spec In Lab Lanie Garnica MD CHEMISTRY ORDERABL ES [facility] [place] [address] * POCT Glucose (08/13/2016 10:13 PM EST) POC Glucose 139 65 - 199 mg/dL [facility] Comment: Supplemental ranges: <140 mg/dL before meals <180 mg/dL all other times of the day Blood specimen (specimen) 08/13/2016 10:13 PM EST 08/13/2016 10:13 PM EST Tonio Vu MD POINT OF CARE TEST O MORGAN Performing Organization Address [facility] Co de Phone Number [facility] [place] [address] * POCT Glucose (08/13/2016 6:23 PM EST) POC Glucose 132 65 - 199 mg/dL [facility] Comment: Supplemental ranges: <140 mg/dL before meals <180 mg/dL all other times of the day Blood specimen (specimen) 08/13/2016 6:23 PM EST 08/13/2016 6:23 PM EST Tonio Vu MD POINT OF CARE TEST Selam MORA Performing Organization Address [facility] Co de Phone Number [facility] [place] [address] * (ABNORMAL) Blood Gas Venous (08/13/2016 2:39 PM EST) pH Abundio 7.33 7.32 - 7.42 [facility] pCO2 Abundio 52(H) 41 - 51 mmHg [facility] pO2 Abundio 34 25 - 40 mmHg [facility] HCO3 Abundio 26.9 mmol/L [facility] BE Abundio 1.0 mmol/L [facility] Hgb Blood Gas 12.9 11.7 - 15.5 gm/dL [facility] O2HB Abundio 59.1 % [facility] COHB Abundio 1.3 % [facility] Comment: Nonsmokers: 0.5-1.5% COHB Smokers: Variable, but usually less than 10% Toxic: 20-30% COHB Lethal: Greater than 60% COHB METHB Abundio 0.1 <=1.5 % [facility] Na Whole Blood 136 135 - 145 mmol/L [facility] K Whole Blood 3.9 3.5 - 5.0 mmol/L [facility] Comment: Please note: Patients with WBC >100,000 may have falsely elevated Potassium levels. Contact the Clinical Chemistry Laboratory if there are any questions. ICa Whole Blood 1.18 1.15 - 1.33 mmol/L [facility] Comment: Note: ??Total bilirubin higher than 20 mg/dL may lead to falsely low ionized calcium. CL Whole Blood 103 98 - 107 mmol/L [facility] Gluc Whole Bld 123 65 - 199 mg/dL [facility] Comment:Diabetes: >=200 mg/d L plus symptoms Lactate WB 1.7 0.5 - 2.2 mmol/L [facility] BGas Source Venous [facility] Blood specimen (specimen) Venous Draw / Unknown 08/13/2016 2:39 PM EST 08/13/2016 3:02 PM EST Narrative Resulting Agency Comment Spec In Lab Lanie Garnica MD CHEMISTRY ORDERABL ES Performing Organization Address City/[facility]/ZIP Co de Phone Number [facility] [place] [address] * POCT Glucose (08/13/2016 1:55 PM EST) POC Glucose 136 65 - 199 mg/dL [facility] Comment: Supplemental ranges: <140 mg/dL before meals <180 mg/dL all other times of the day Blood specimen (specimen) 08/13/2016 1:55 PM EST 08/13/2016 1:55 PM EST Tonio Vu MD POINT OF CARE TEST O RDERABLES Performing Organization Address City/[facility]/ZIP Co de Phone Number [facility] [place] [address] * (ABNORMAL) Basic Metabolic Panel (non-fasting) (08/13/2016 1:50 PM EST) Glucose Lvl 126 65 - 199 mg/dL [facility] Comment:Diabetes: >=200 mg/d L plus symptoms BUN 23(H) 8 - 18 mg/dL [facility] Creatinine 1.14 0.70 - 1.20 mg/dL [facility] Comment: Please note that the pediatric reference intervals supplied above were not validated at [facility]. Results from pediatric patients should be interpreted in conjunction to the patient's age, height and muscle mass. Sodium 140 135 - 145 mmol/L [facility] Potassium 4.2 3.5 - 5.0 mmol/L [facility] Comment: Please note: ??Patients with WBC >100,000 may have falsely elevated Potassium levels. ??For accurate Potassium quantification in these patients send serum separator tube (gold top) for subsequent determinations. ??Contact the Clinical Chemistry Laboratory if there are any questions. Chloride 101 98 - 107 mmol/L [facility] CO2 26 22 - 31 mmol/L [facility] Anion Gap 13 5 - 15 mmol/L [facility] Calcium 9.1 8.5 - 10.5 mg/dL [facility] Estimated GFR 50(L) >=60 [facility] Comment: This estimated GFR (eGFR) [...] the following links into your internet browser. [email or web address] Blood specimen (specimen) 08/13/2016 1:50 PM EST 08/13/2016 3:07 PM EST Narrative Resulting Agency Comment Spec In Lab Lanie Garnica MD CHEMISTRY ORDERABL ES [facility] [place] [address] * (ABNORMAL) Hemogram (08/13/2016 1:50 PM EST) [facility] WBC 10.6(H) 4.0 - 9.5 x10(3)/[facility] LABORATORY RBC 4.12 4.00 - 5.21 x10(6)/[facility] LABORATORY Hemoglobin 12.5 11.7 - 15.5 gm/dL [facility] Hematocrit 36.0 35.7 - 45.8 % [facility] MCV 87.4 82.6 - 94.4 [facility] LABORATORY MCH 30.3 27.1 - 32.0 pg [facility] MCHC 34.7 31.7 - 35.0 gm/dL [facility] Platelets 168 145 - 357 x10(3)/[facility] LABORATORY RDWSD 40.1 37.0 - 46.0 [facility] LABORATORY RDWCV 12.5 11.5 - 14.1 % [facility] MPV 11.5 7.6 - 12.9 [facility] LABORATORY nRBC % Auto 0.0 % [facility] nRBC Abs Auto 0.000 0.000 - 0.000 x10(3)/[facility] LABORATORY Blood specimen (specimen) 08/13/2016 1:50 PM EST 08/13/2016 3:07 PM EST Narrative Resulting Agency Comment Spec In Lab Lanie Garnica MD HEMATOLOGY ORDERAB LES [facility] [place] [address] * POCT Glucose (08/13/2016 9:03 AM EST) [facility] POC Glucose 98 65 - 199 mg/dL [facility] Comment: Supplemental ranges: <140 mg/dL before meals <180 mg/dL all other times of the day Blood specimen (specimen) 08/13/2016 9:03 AM EST 08/13/2016 9:03 AM EST Tonio Vu MD POINT OF CARE TEST O RDERAJOE CELIO [facility] [place] [address] documented in this encounter Visit Diagnoses Not on filedocumented in this encounter Admitting Diagnoses Diagnosis Morbid obesity documented in this encounter Administered Medications Inactive Administered Medications - up to 3 most recent administrations Medication Order MAR Action Action Date Dose Rate Site BUpivacaine-EPINEPHrine 0.25 %-1:200,000 injection ONCE PRN, Starting on Laura 08/13/16 at 1316, Until 08/15/16 at 1559, Intra-Operative (Intra-Procedure), Routine Given 08/13/2016 1:16 PM EST 7 mLs 19- Surgical Site dextrose 50% injection 25-50 mL 25-50 mL [...] Given 08/14/2016 8:23 AM EST 40 mg glucagon (human recombinant) injection 1 mg 1 [...] for the duration of the active insulin. insulin lispro (humaLOG) VIAL injection 1-4 Units 1-4 Units, Subcutaneous, 3 TIMES DAILY BEFORE MEALS, First dose on Laura 08/13/16 at 1630, Until Discontinued, CORRECTION BOLUS Sensitive [...] no insulin and resume prior schedule., Routine ondansetron (ZOFRAN-ODT) oral disintegrating tablet 4 [...] Routine Given 08/15/2016 1:38 PM EST 10 m g Given 08/15/2016 8:30 AM EST 10 mg [...] patient tolerate oral medications or suppositories? No 1695 (Given - Provider: Yoon Rios RN)0478 (Given - Provider: Naya Tanner, CORNELIO) 9324 (Given - Provider: Naya Tanner, CORNELIO) ceFAZolin (ANCEF) 2g in dextrose 5% 50 mL (COMPLETED) 2 g, Intravenous, EVERY 3 HOURS, 1 dose, First dose on Wed08/13/16 at 0845, Administer over 30 Minutes, Intra-Operative (Intra-Procedure), Indication for (Active or Suspected): Prophylaxis 1027 (Given - Provider: Aaron Barber CRNA) cosyntropin (CORTROSYN) injection 0.25 mg (COMPLETED) 0.25 mg (250 mcg), Intravenous, ONCE, 1 dose, On Wed08/14/16 at 1430, Draw baseline cortisol level immediately PRIOR to administration of cosyntropin (ACTH), repeat cortisol level 60 minutes after cosyntropin (ACTH) administration 1434 (Given - Provider: Shea Yung, CORNELIO) enoxaparin (LOVENOX) injection 40 mg 40 mg, Subcutaneous, 2 TIMES DAILY, First dose on Wed08/13/16 at 2100, Until Discontinued, Routine 2144 (Given [...] EVERY 6 HOURS, First dose on Laura 08/13/16 at 1815, Until Discontinued, HOLD FOR hr [...] met) 0015 (Not Given - Provider: Indira Barht RN - Reason: Contraindicated)0615 (Not Given - [...] IV infusing) 0824 (Given - Provider: Shea Yung RN)2100 (Not Given - Provider: Indira Barth RN - Reason: Contraindicated) 0830 (Given - Provider: Huang Mahmood RN) Continuous Medication Order 08/13/2016 08/14/2016 08/15/2016 HYDROmorphone (DILAUDID) 1 mg/mL EDUCATIONAL TECHNICIAN 50 mL (CANCELED) Intravenous, EDUCATIONAL TECHNICIAN ONLY, Starting on Laura 08/13/16 at 1445, Until Wed08/14/16 at 0708, Recovery (Recovery-Hospital Unit) 1505 (New Syringe/Cartridge - Provider: Yoon Rios, CORNELIO) lactated ringers infusion 1,000 mL (CANCELED) 1,000 mL, at 100 mL/hr, Intravenous, CONTINUOUS, Starting on Laura 08/13/16 at 0845, Until Laura 08/13/16 at 1526, Day of Surgery (Day of Procedure) 0923 (New Bag - Provider: Jennifer Marie RN)1011 (New Bag - Provider: Aaron M Elisabeth, CONSTRUCTION CONSULTANT)1112 (Anesthesia Volume Adjustment - Provider: Aaron Barber CRNA)1247 (New Bag - Provider: Aaron Barber CRNA)1312 (Anesthesia Volume Adjustment - Provider: Aaron Barber CRNA) lactated ringers infusion (CANCELED) 75 mL/hr, Intravenous, CONTINUOUS, Starting on Laura 08/13/16 at 1545, Until 08/14/16 at 2357, Recovery (Recovery-Hospital Unit) 1500 (New Bag - Provider: Yoon Rios, CORNELIO)2120 (New Bag - Provider: Naya Tanner, RN) 0342 (New Bag - Provider: Naya Tanner, RN)1225 (New Bag - Provider: Shea Yung, RN)1248 (Rate/Dose Change - Provider: Shea Yung, CORNELIO)2300 (Stopped - Provider: Indira Barth RN) PRN Medication Order 08/13/2016 08/14/2016 08/15/2016 acetaminophen (TYLENOL) 650 mg/20.3 mL oral liquid 650 mg(Linked Group 1) 650 mg, Oral, EVERY 4 HOURS PRN, Starting on 08/14/16 at 1400, Until 08/15/16 at 1559, Fever, [...] EVERY 6 HOURS PRN, Starting on Laura 1216 at 1754, Until 08/15/16 at 1559, Itching, Routine fentaNYL (PF) 50 mcg/mL 2mL syringe (CANCELED)(Linked Group 4) 25 mcg, Intravenous, EVERY 5 MIN PRN, Pain, for 1-4 pain score, Starting on Laura 12/16 at 1359, Until Laura 12//16 at 1703, for 1-4 pain score Hold for respiratory rate less than 10 per minute. Maximum dose: 250 mcg over one hour., PACU Recovery 1444 (Given - Provider: Yoon Rios RN) glucagon (human recombinant) injection 1 mg(Linked Group 3) 1 mg, Intramuscular, EVERY 1 HOUR PRN, Low blood sugar, Starting on Laura 16 at 1426, Until 08/15/16 at 1559, For [...] Shea Yung RN)1413 (Given - Provider: Shea Yung, CORNELIO)1807 (Given - Provider: Shea Yung RN) 0005 (Given - Provider: Indira Barth RN)0830 (Given - Provider: Huang Mahmood, CORNELIO)1338 (Given - Provider: Huang Mahmood RN) sodium chloride 0.9 % flush 5-20 mL 5-20 mL, Intravenous, EVERY 1 MIN PRN, Starting on Laura 08/13/16 at 1754, Until 08/15/16 at 1559, flush, [...] Intravenous, EVERY 1 HOUR PRN, Starting on Wed08/13/16 at 1426, Until 08/15/16 at 1559, Low [...] for 1-4 pain score, Starting on Laura 12/16 at 1359, Until Laura 12/8/16 at 1703, for 1-4 pain score Hold for respiratory rate less than 10 per minute. Maximum dose: 250 mcg over one hour., PACU Recovery Or fentaNYL (PF) 50 mcg/mL 2mL syringe (CANCELED) 50 mcg, Intravenous, EVERY 5 MIN PRN, Pain, for 5-10 pain score, Starting on Laura 12/8/16 at 1359, Until Laura 12/8/16 at 1703, for 5-10 pain score Hold for respiratory rate less than 10 per minute. Maximum dose: 250 mcg over one hour., PACU Recovery documented in this encounter Care Teams Supervisor Last Model Department Relationship Specialty Start Date End Date Lew Beltran PA [address] [address] PCP - General General Internal Medicine 04/21/16 documented as of this encounter
--- OUTSIDE RECORDS SUMMARY | 2024-03-27 14:10 | XMS_ITS | Encounter Summary ---
Author Organization [facility] [place] [address] Care Team Providers [place] Name Role Phone Lew Beltran Primary Care Provider [phone] Reason for Visit * Reason Comments GI Problem * Consultation (Routine) - Closed Specialty Diagnoses / Procedures Referred By Zane clinton Referred To Contact Gastroenterology Diagnoses S/P gastric bypass Abnormal LFTs Cindy Lopez, MACKENZIE [facility] [place] [address] Lucreica James MD [facility] [place] [address] Referral ID Status Reason Start Date Expiration Date V isits Requested Visits Authorized [id number] Closed Consult, Test & Treat 10/08/2017 10/08/2018 1 1 Encounter Details Date Type Department Care Team (Latest Contact Info) Description 10/20/2017 4:00 PM EST Office Visit Gastroenterology at [facility] [place] [phone] Jovan Schwartz PA [facility] [address] [place] [address] Elevated liver function tests (Primary Dx); S/P bariatric surgery; History of diabetes mellitus; Hyperlipidemia, unspecified hyperlipidemia type; Hypertension, unspecified type Social History Tobacco Use Types Packs/Day Years [...] Sign Reading Time Taken Comments Blood Pressure 115/69 10/20/2017 4:11 PM EST Pulse 98 10/20/2017 4:11 PM EST Temperature - - Respiratory Rate - - Oxygen Saturation - - Inhaled Oxygen Concentration - - Weight 73.5 kg (162 lb) 10/20/2017 4:11 PM EST Height 162.6 cm (5' 4) 10/20/2017 4:11 PM EST Body Mass Index 27.81 10/20/2017 4:11 PM EST documented in this encounter Progress Notes * Jovan Schwartz PA - 10/20/2017 4:00 PM EST Images from the original note were not included. HEPATOLOGY NEW PATIENT CONSULTATION Patient: Radha Sena Sex: female Date of : 1965 [employer] TECHNICIAN: Jovan Schwartz PA-C PCP: DEEDEE Shaffer Requesting Provider: Cindy Lopez 10/20/17 REASON FOR CONSULTATION: Abnormal liver function tests LIVER HISTORY: Abnormal liver function tests - LFTs 08/19/17: AST 39, ALT 38, ALP 75, TBIL 0.3, ALB 4.5 (PLT 188) Repeat 10/01/17: AST 43, ALT 61, ALP 61, TBIL 0.4, DBIL 0.0, GGT 17, ALB 4.6 - Prior LFTs 12/01/16: AST 18, ALT 12, ALP 82, TBIL 0.3 - s/p laparoscopic Jason en Y bariatric surgery 08/13/16 Pre-op BMI 36 (post-op 28) Other metabolic risk factors: DM2, HTN, HLD PROBLEM LIST Patient Active Problem List Diagnosis Code ??? Preoperative Class II obesity BMI 36.6, S/P RNY gastric [id number]/16 E66.9 ??? Essential hypertension I10 ??? Diabetes mellitus type 2, uncomplicated E11.9 ??? Sinus tachycardia R00.0 ??? History of rectal bleeding Z87.19 ??? Hyperlipidemia E78.5 ??? Chronic constipation K59.09 HISTORY OF PRESENT ILLNESS Radha Sena is a 51 y.o. female referred to hepatology clinic for evaluation of abnormal liver tests. Ms. Sena states that she has been nervous about the potential cause of her abnormal liver tests,especially something like pancreatic cancer. She has been researching causes of abnormal liver tests on the internet. She states she's never had any imaging of her liver in the past. She has her gallbladder and has not had a problem with this before. One day recently, however, she did have some cramping in her upper abdomen that lasted about 30 minutes, which happened out of the blue and no associated with any foods. This was more of a cramping pain and subsided without any intervention. She knows she does have diverticulosis. She was told by Dr. Miles that during her bypass surgery in August 2016, he liver looked pristine and so this is why it was not biopsied. She states she has gained about 5 pounds in the last couple of months but this is already starting to come off with diet. She states her liver tests have never been elevated before in the past. She started simvastatin a few years ago before her bypass. She was previously on lisinopril for hypertension prior to her surgery, was taken off afterward and then restarted after a repeat echocardiogram in July showed that she still had some left ventricular hypertrophy that was seen on an echo in 2012. She has been on metoprolol as well since 2012, initially because of an irregular heartbeat at the time. Other than these medications, she is taking several vitamins and supplements. The most recent of these is biotin, which she is taking about 5000 mcg 1-2 times daily, which she started after her surgery for hair loss but only just increased a couple of months ago. She is taking vitamin B12 as well. She started fish oil about a month ago. Sometimes she misses a dose of her vitamin D at night, although takes it every morning. She does not have a strict exercise routine at the moment although does adhere closely to a post-opdiet. She has been making granola at home lately, which she believes is also helping get more fiberin her diet, which helps with constipation. She has rectal bleeding a couple of years ago that was thought to be due to diverticular disease. REVIEW OF SYSTEMS General: Admits poor sleep, fatigue, denies weight loss, fever, chills, night sweats Skin: Denies new rashes, easy bruising, jaundice EENT: Denies blurred vision or change in vision, hearing loss, sinus problems, dry eyes or mouth Endocrine: Admits cold intolerance, denies excessive thirst Cardiovascular: Admits rare palpitations, denies chest pain, pain in legs with walking, swelling infeet Pulmonary: Denies SOB, persistent cough, coughing up blood, asthma or wheezing Gastrointestinal: Admits some cramping, bloating, occasional nausea, denies poor appetite, indigestion, trouble swallowing, diarrhea, constipation, vomitting, rectal bleeding or blood in stools. Musculoskeletal: Denies pain in joints, back pain, neck or shoulder pain, muscle cramping, movementof legs at night. Neurologic: Admits stress headaches, denies blackouts or loss of consciousness, weakness or numbness in legs or arms, tremor, worsening memory and concentration Genitourinary: Denies frequent urination, blood in urine Psychiatric: Denies changes in mood or behavior, anxiety MEDICATIONS Current Outpatient Prescriptions Medication Sig Dispense Refill ??? fish oil-omega-3 fatty acids 1,000 mg Capsule Take 2 g by mouth daily. ??? Biotin 5 mg Capsule Take by mouth. ??? lisinopril (PRINIVIL;ZESTRIL) 20 mg Tablet Take 20 mg by mouth daily. ??? IRON BIS-GLYCINAT/VIT C/FA/B12 (GENTLE IRON ORAL) Take by mouth. ??? meTOPROLOL succinate (TOPROL-XL) 100 mg Tablet Sustained Release 24 hr 50 mg. ??? CALCIUM CITRATE/VITAMIN D3 (CALCIUM CITRATE + D ORAL) Take by mouth 2 times daily. ??? cyanocobalamin 500 mcg Tablet Take 500 mcg by mouth daily. ??? multivitamin with minerals Tablet Take 1 tablet by mouth 2 times daily. ??? simvastatin (ZOCOR) 20 mg Tablet Take 1 tablet by mouth nightly. ??? aspirin 81 mg Tablet, Delayed Release (E.C.) Take 81 mg by mouth daily. ??? ascorbic acid, vitamin C, (VITAMIN C) 1,000 mg Tablet Take 1,000 mg by mouth daily. ??? cholecalciferol, Vitamin D3, 1,000 unit Capsule Take 1 capsule by mouth daily. ??? docusate sodium (COLACE) 100 mg Capsule Take 200 mg by mouth daily. No current facility-administered medications for this visit. 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 None Intranasal drugs? None Tattoos? Two, done by professional, last was 2-3 years ago service? None Blood transfusions? None Close contact/relationship with known hepatitis? 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 FAMILY HISTORY Negative except as noted below Medical problem Family member Medical Problem Family member Medical Problem Family member Alcohol drug Problem Father (ETOH) Kidney disease Mental illness Anemia or Blood Disease Liver disease None Depression Diabetes Father Liver cancer Seizure High blood pressure Father, MGF Stroke Lung disease Heart disease MGF (CHF) Clotting problems Colon Cancer High cholesterol Immune disorders Other Cancer Father (throat, lung) - 2005 PHYSICAL EXAM Vitals: 10/20/17 1611 BP: 115/69 Pulse: 98 Weight: 73.5 kg (162 lb) Height: 162.6 cm (5' 4) Body mass index is 27.81 kg/(m^2). Constitutional: Well appearing, appropriate, no acute distress Skin: Excess tissue and stretch zhang on abdomen, no cyanosis, no palmar erythema, no jaundice, no spider angiomata Head: Normocephalic, PERRLA, sclerae anicteric, oropharynx within normal limits CVS: Slight tachycardia, regular rhythm, normal S1/S2, no murmurs, rubs, or gallops, equal pulses in bilateral upper and lower extremities Lungs: Clear to auscultation bilaterally, no wheezes, rales, or rhonci Abdomen: Minimal LLQ tenderness, nontender elsewhere, nondistended, no hepatosplenomegaly, no masses, no fluid wave, no umbilical hernia, no caput medussae, positive bowel sounds Neurologic: Alert and oriented x 3, no asterixis or tremor Extremities: No edema, no clubbing, no muscle wasting, no joint swelling RESULTS Recent Results (from the past 24 hour(s)) Comprehensive metabolic panel (non-fasting) Result Value Ref Range Glucose Lvl 97 65 - 199 mg/dL BUN 14 8 - 18 mg/dL Creatinine 0.61 (L) 0.70 - 1.20 mg/dL Sodium 141 135 - 145 mmol/L Potassium 4.0 3.5 - 5.0 mmol/L Chloride 100 98 - 107 mmol/L CO2 26 22 - 31 mmol/L Anion Gap 15 5 - 15 mmol/L Calcium 10.2 8.5 - 10.5 mg/dL Total Protein 8.0 6.1 - 8.0 gm/dL Albumin 4.8 3.2 - 5.2 gm/dL AST 20 0 - 30 unit/L ALT 34 (H) 0 - 30 unit/L Alk Phos 77 40 - 104 unit/L Total Bilirubin 0.5 0.2 - 1.3 mg/dL Estimated GFR >60 >=60 IgG Result Value Ref Range IgG 955 700 - 1600 mg/dL IgM Result Value Ref Range IgM 68 40 - 230 mg/dL Ceruloplasmin Result Value Ref Range Ceruloplasmin 32.2 16.0 - 45.0 mg/dL A1AT Serum Concentration Result Value Ref Range A1AT 135 90 - 200 mg/dL Gamma GT Result Value Ref Range GGT 16 5 - 36 unit/L Hemogram Result Value Ref Range WBC 5.3 4.0 - 9.5 x10(3)/mcL RBC 4.85 4.00 - 5.21 x10(6)/mcL Hemoglobin 14.9 11.7 - 15.5 gm/dL Hematocrit 42.9 35.7 - 45.8 % MCV 88.5 82.6 - 94.4 fL MCH 30.7 27.1 - 32.0 pg MCHC 34.7 31.7 - 35.0 gm/dL Platelets 189 145 - 357 x10(3)/mcL RDWSD 39.9 37.0 - 46.0 fL RDWCV 12.3 11.5 - 14.1 % MPV 10.7 7.6 - 12.9 fL nRBC % Auto 0.0 % nRBC Abs Auto 0.000 0.000 - 0.000 x10(3)/mcL Differential, Automated Result Value Ref Range Neutrophils % 51.1 % Neutr Abs (ANC) 2.72 1.70 - 6.10 x10(3)/mcL Lymphocytes % 37.9 % Lymphocytes Abs 2.0 0.9 - 3.2 x10(3)/mcL Monocytes % 7.9 % Monocyte Abs 0.4 0.3 - 0.9 x10(3)/mcL Eosinophils % 2.3 % Eosinophils Abs 0.1 0.0 - 0.4 x10(3)/mcL Basophils % 0.6 % Basophils Abs 0.0 0.0 - 0.1 x10(3)/mcL Immature Gran % 0.20 % Nadiya Gran Abs 0.01 0.00 - 0.04 x10(3)/mcL Hepatitis C Antibody Result Value Ref Range Hepatitis C Ab Negative Negative Hepatitis B Surface Antigen Result Value Ref Range HepB Surface Ag Negative Negative Hepatitis B Surface Antibody Result Value Ref Range HepB Surface Ab Quant 185.7 IU/L HepB Surface Ab Positive Prior DH LFTs 08/19/17: AST 39 ALT 38 ALP 75 TBIL 0.3 ALB 4.5 Non-DH Laboratory: 10/01/17 @ [facility]: Imaging: No abdominal imaging available Fibroscan Results: Median kPa: 3.7 Mean IQR: 14% (goal is <30 %) Number of valid measurements: 25 (10 required) Number of invalid measurements: 8 Predicted fibrosis stage: F0-F1 CAP (dB/m): 245 ASSESSMENT/PLAN Radha Sena is a 51 y.o. female referred to hepatology clinic for evaluation of abnormal liver tests over the last couple of months. She has never had elevated liver tests before. The patient is s/p Jason en Y gastric bypass in August 2016 without post-op complications. Initially it was thought she may have fatty liver disease given her multiple prior metabolic risk factors of diabetes, hypertension, hyperlipidemia, and obesity. According to Fibroscan, however, steatosis is low-grade, and in the setting of minimal to zero fibrosis. She has no abdominal imaging and so this will be helpfulto identify steatosis as well. She has had significant weight loss and diet is excellent, so fatty liver treatment has already been achieved. Two other possible etiologies for her elevated liver enzymes are that of gallbladder disease or medications. Abdominal ultrasound will also be helpful to evaluate for any gallstones or signs of inflammation, although LFTs are hepatocellular in nature with normal alk phos levels, which would be more expected with biliary disease. She has had some cramping lately in her abdomen although this sounds quite vague and was a single episode that is now resolved. As far as medications, her prescribed medications all run low risk of liver injury. She has been on simvastatin for a couple of years now, and so LFT elevation now would be unlikely from this. I am wondering if this may be related to her increasing biotin lately, or possibly another supplement although this is hard to estimate any risk with no data to support proposed liver harm on these. If additional abnormal LFT workup is negative, it may be reasonable for her to stop the biotin and see if LFTs improve. Thus far, repeat LFTs are actually much improved from only about three weeks ago, with AST at 20 and ALT at 34. GGT is again normal, which suggests no active hepatic inflammation. Other workup is normal for A1AT, IgG, IgM, ceruloplasmin, and HBV/HCV. She is immune to HBV. Additionally, iron testinghas been followed with her post-op care, which shows no concern for possible iron overload contributing to rise in LFTs. Plan: - Await remainder of abnormal LFT workup for markers of autoimmune hepatitis, PBC/PSC, and celiac disease - Patient to schedule RUQ ultrasound at [facility] within the next 1-2 weeks to evaluate liver contour and gallbladder. Results will be faxed to [facility]. - If additional abnormal LFT workup is normal/negative, she should consider stopping biotin and rechecking LFTs. As this is an unregulated supplement, there may be impurities present that could be hepatotoxic. - Okay to continue prescribed medications including simvastatin - Continue care with bariatric team and nutrition with goal to keep weight down in the case this could be fatty liver disease - Follow-up TBD based on lab workup and ultrasound report 56 of this 60 minute visit was in [id number] discussion regarding disease, prognosis and treatment. This is exclusive of the time spent performing the Fibroscan procedure. DEEDEE Sun-Aurelio Section of Gastroenterology [place] [address] Copy: DEEDEE Shaffer documented in this encounter Procedure Notes * Jovan Schwartz PA - 10/20/2017 4:00 PM ESTAssociated Order(s): FIBROSCAN Procedure(s): FIBROSCAN Pre-Procedure Diagnose(s): Elevated liver function tests [facility] Liver Fibrosis Assessment Report Indication: Elevated liver tests s/p Jason en Y gastric bypass 08/2016 Performed by: DEEDEE Rowan Procedure: Vibration Controlled Transient Elastography (VCTE) or Fibroscan [place] Protocol: Patient's identity, procedure and site were verified, confirmatory pause performed. Discussed procedure including risks and potential complications. Questions answered. Patient verbalizes understanding and wishes to proceed with Fibroscan assessment. Patient was placed in the supine position with right arm in maximum abduction to allow optimal exposure of right lateral abdomen. Patient was briefly assessed. Testing was performed in the mid-axillary location. 50Hz Shear Wave pulses were applied and the resulting Shear Wave and Propagation Speed was detected with a 3.5MHz ultrasonic signal, using the Fibroscan probe. Skin to liver capsule distance and liver parenchyma were accessed during the entire examination with the Fibroscan probe. Patient was instructed to breathe normally and abstain from sudden movements during the procedure. At least ten Sheer Waves were produced; individual measurements of each Shear Wave were calculated. Patient tolerated the procedure well with no complications. Fibroscan Results: Median kPa: 3.7 Mean IQR: 14% (goal is <30 %) Number of valid measurements: 25 (10 required) Number of invalid measurements: 8 Predicted fibrosis stage: F0-F1 (Note: touch screen froze, unable to delete prior measurements, although did have 10 consecutive valid measurements) CAP (dB/m): 225 Estimated steatosis grade: 0-1/3 % hepatocytes affected: < 33% Interpretation: Based on this Fibroscan result, history, clinical examination and review of laboratory and radiological data, this patient likely has stage 0-1 liver fibrosis and grade 0-1 steatosis affecting less than 33% of hepatocytes. documented in this encounter Plan of Treatment Not on file documented as of this encounter Procedures Procedure Name Priority Date/Time Associated Diagnosis Comments [id number] Routine 10/20/2017 11:59 PM EST Elevated liver function tests A1AT GENOTYPE Routine 10/20/2017 5:50 PM EST Elevated liver function tests A1AT GENOTYPE PROFILE Routine 10/20/2017 5:50 PM EST Elevated liver function tests HEMOGRAM Routine 10/20/2017 5:50 PM EST Elevated liver function tests DIFFERENTIAL, AUTOMATED Routine 10/20/2017 5:50 PM EST Elevated liver function tests HEPATITIS C ANTIBODY Routine 10/20/2017 5:50 PM EST [id number] Routine 10/20/2017 5 :50 PM EST Elevated liver function tests MITOCHONDRIAL ANTIBODY, M2 Routine 10/20/2017 5:50 PM EST Elevated liver function tests TISSUE TRANSGLUTAMINASE, IGA Routine 10/20/2017 5:50 PM EST Elevated liver function tests CERULOPLASMIN Routine 10/20/2017 5:50 PM EST Elevated liver function tests SMOOTH MUSCLE ANTIBODY Routine 8 5:50 PM EST Elevated liver function tests HEPATITIS B SURFACE ANTIBODY Routine 10/20/2017 5:50 PM EST HEPATITIS B SURFACE ANTIGEN Routine 10/20/2017 5:50 PM EST CBC (WITH DIFF) Routine 10/20/2017 5:50 PM EST Elevated liver function tests DEBRA ANTIBODY SCREEN Routine 10/20/2017 5 :50 PM EST Elevated liver function tests GAMMA GT Routine 10/20/2017 5:50 PM EST Elevated liver function tests IGM Routine 10/20/2017 5:50 PM EST Elevated liver function tests IGG Routine 10/20/2017 5:50 PM EST Elevated liver function tests COMPREHENSIVE METABOLIC PANEL (NON-FASTING) Routine 10/20/2017 5:50 PM EST Elevated liver function tests documented in this encounter Results * [id number] (10/20/2017 11:59 PM EST) Narrative Jovan Schwartz PA - 10/20/2017 11:59 PM EST Jovan Schwartz PA ? 10/20/2017 11:59 PM [facility] Liver Fibrosis Assessment Report Indication: ?? Elevated liver tests s/p Jason en Y gastric bypass 08/2016 Performed by: ??DEEDEE Rowan Procedure: Vibration Controlled Transient Elastography (VCTE) or Fibroscan [place] Protocol: Patient's identity, procedure and site were verified, confirmatory pause performed. Discussed procedure including risks and potential complications. Questions answered. Patient verbalizes understanding and wishes to proceed with Fibroscan assessment. Patient was placed in the supine position with right arm in maximum abduction to allow optimal exposure of right lateral abdomen. Patient was briefly assessed. Testing was performed in the mid-axillary location. 50Hz Shear Wave pulses were applied and the resulting Shear Wave and Propagation Speed was detected with a 3.5MHz ultrasonic signal, using the Fibroscan probe. Skin to liver capsule distance and liver parenchyma were accessed during the entire examination with the Fibroscan probe. Patient was instructed to breathe normally and abstain from sudden movements during the procedure. At least ten Sheer Waves were produced; individual measurements of each Shear Wave were calculated. Patient tolerated the procedure well with no complications. Fibroscan Results: Median kPa: 3.7 Mean IQR: 14% (goal is <30 %) Number of valid measurements: 25 (10 required) Number of invalid measurements: 8 Predicted fibrosis stage: F0-F1 (Note: touch screen froze, unable to delete prior measurements, although did have 10 consecutive valid measurements) CAP (dB/m): 225 Estimated steatosis grade: 0-1/3 % hepatocytes affected: < 33% Interpretation: Based on this Fibroscan result, history, clinical examination and review of laboratory and radiological data, this patient likely has stage 0-1 liver fibrosis and grade 0-1 steatosis affecting less than 33% of hepatocytes. Sarina Motta MD PROCEDURE/MINOR SURG ICAL ORDERABLES * Hepatitis B Surface Antibody (10/20/2017 5:50 PM EST) HepB Surface Ab Quant 185.7 IU/L [facility] Comment: HepB Surface Ab Quant: Unvaccinated: < 8.5 IU/L Vaccinated: > 11.5 IU/L HepB Surface Ab Positive [facility] Comment: Patient is considered to be immune to HBV infection. Expected Results: Vaccinated: Positive Unvaccinated: Negative Blood specimen (specimen) Venous Draw / Unknown 10/20/2017 5:50 PM EST 10/20/2017 5:59 PM EST Narrative Resulting Agency Comment Spec In Lab Jovan MARK IMMUNOLOGY ORDERABLE S Performing Organization Address City/[facility]/ZIP Co de Phone Number [facility] [place] [address] * Hepatitis B Surface Antigen (10/20/2017 5:50 PM EST) Pathologist [facility] HepB Surface Ag Negative Negative [facility] Blood specimen (specimen) Venous Draw / Unknown 10/20/2017 5:50 PM EST 10/20/2017 5:59 PM EST Narrative Resulting Agency Comment Spec In Lab Jovan MARK CHEMISTRY ORDERABLES Performing Organization Address [facility] Co de Phone Number [facility] [place] [address] * Hepatitis C Antibody (10/20/2017 5:50 PM EST) Hepatitis C Ab Negative Negative [facility] Blood specimen (specimen) Venous Draw / Unknown 10/20/2017 5:50 PM EST 10/20/2017 5:59 PM EST Narrative Resulting Agency Comment Spec In Lab Jovan MARK IMMUNOLOGY ORDERABLE S Performing Organization Address City/[facility] Co de Phone Number [facility] [place] [address] * Differential, Automated (10/20/2017 5:50 PM EST) Neutrophils % 51.1 % [facility] Neutr Abs (ANC) 2.72 1.70 - 6.10 x10(3)/[facility] Lymphocytes % 37.9 % [facility] Lymphocytes Abs 2.0 0.9 - 3.2 x10(3)/[facility] Monocytes % 7.9 % [facility] Monocyte Abs 0.4 0.3 - 0.9 x10(3)/[facility] Eosinophils % 2.3 % [facility] Eosinophils Abs 0.1 0.0 - 0.4 x10(3)/[facility] Basophils % 0.6 % [facility] [place] [place] Basophils Abs 0.0 0.0 - 0.1 x10(3)/[facility] Immature Gran % 0.20 % [facility] Comment: Immature granulocytes(IG's)percentage and absolute count will include metamyelocytes, myelocytes, and promyelocytes. Blood smears from CBCs yielding IG's will be scanned manually for concordance. If this scan disagrees with the automated IG or if promyelocytes are noted, a manual differential will be performed. Nadiya Gran Abs 0.01 0.00 - 0.04 x10(3)/[facility] Blood specimen (specimen) 10/20/2017 5:50 PM EST 10/20/2017 5:56 PM EST Narrative Resulting Agency Comment Spec In Lab Jovan MARK HEMATOLOGY ORDERABLE S [facility] [place] [address] * Hemogram (10/20/2017 5:50 PM EST) WBC 5.3 4.0 - 9.5 x10(3)/[facility] RBC 4.85 4.00 - 5.21 x10(6)/[facility] Hemoglobin 14.9 11.7 - 15.5 gm/dL [facility] Hematocrit 42.9 35.7 - 45.8 % [facility] MCV 88.5 82.6 - 94.4 fL [facility] MCH 30.7 27.1 - 32.0 pg [facility] MCHC 34.7 31.7 - 35.0 gm/dL [facility] Platelets 189 145 - 357 x10(3)/[facility] LABORATORY RDWSD 39.9 37.0 - 46.0 [facility] LABORATORY RDWCV 12.3 11.5 - 14.1 % [facility] MPV 10.7 7.6 - 12.9 [facility] LABORATORY nRBC % Auto 0.0 % [facility] nRBC Abs Auto 0.000 0.000 - 0.000 x10(3)/[facility] Blood specimen (specimen) 10/20/2017 5:50 PM EST 10/20/2017 5:56 PM EST Narrative Resulting Agency Comment Spec In Lab Jovan MARK HEMATOLOGY ORDERABLE S Performing Organization Address City/State/[facility] Co de Phone Number [facility] [place] [phone] * A1AT Genotype (10/20/2017 5:50 PM EST) A1AT Genotype A1AT (SERPINA1) GENOTYPING RESULTS: S ALLELE: NOT DETECTED Z ALLELE: NOT DETECTED INTERPRETATION: The absence of both the S and Z alleles in this patient along with a separate test showing normal levels of A1AT protein (135 mg/dL) in this patient? s serum suggest this patient does not have an A1AT deficiency. Although the S and Z alleles were not detected by this test, the presence of other less common A1AT variants cannot be excluded. ??These results should be interpreted based on the complete clinical presentation which may warrant additional testing and/or a genetic consultation. METHOD: Two regions of interest in the serpin peptidase inhibitor, clade A (alpha-1 antiproteinase, antitrypsin), member 1 gene (SERPINA1), commonly alpha-1 anti-trypsin or A1AT) that are known to contain variant alleles resulting in the ? S? phenotype ([id number].863 A>T; [id number]) and the ? Z? phenotype (c. 1096G>A; [id number]) are amplified and genotyped by two separate PCR assays each containing two primers for amplification and two probes for detection the normal and variant alleles. ??Genomic DNA used in this testing was isolated from peripheral blood. LIMITATIONS AND DISCLAIMERS: ??Although unlikely, rare variants or polymorphisms (known or unknown) have the potential to interfere with the performance of this test, producing false negative or false positive results. ??When genotyping results are not consistent with other clinical observations or test results, additional testing should be considered. This test was developed and its performance characteristics determined by the [facility] at [facility]. It has not been cleared or approved by the FDA. The laboratory is regulated under CLIA as qualified to perform high-complexity testing. This test is used for clinical purposes. It should not be regarded as investigational or for research. [facility] Comment: [VERIFIED DATE]10.25.17 Verified By:Deangelo NIX, Ph.D., [facility] Director, Cytogenetics (Electronic Signature) Blood specimen (specimen) 10/20/2017 5:50 PM EST 10/21/2017 7:14 AM EST Narrative Resulting Agency Comment Spec In Lab Jovan MARK CHEMISTRY ORDERABLES Performing Organization Address City/[facility]/ZIP Co de Phone Number [facility] [place] [address] * Gamma GT (10/20/2017 5:50 PM EST) Pathologist [facility] GGT 16 5 - 36 unit/L [facility] Blood specimen (specimen) 10/20/2017 5:50 PM EST 10/20/2017 5:56 PM EST Narrative Resulting Agency Comment Spec In Lab Sarina Motta MD CHEMISTRY ORDERABLES Performing Organization Address City/[facility]/ZIP Co de Phone Number [facility] [place] [address] * A1AT Serum Concentration (10/20/2017 5:50 PM EST) Pathologist [facility] A1AT 135 90 - 200 mg/dL [facility] Comment: To convert [id number] to SI unit (umol/L), multiply result (mg/dL) by 0.184. Blood specimen (specimen) 10/20/2017 5:50 PM EST 10/20/2017 5:56 PM EST Narrative Resulting Agency Comment Spec In Lab Sarina Motta MD CHEMISTRY ORDERABLES Performing Organization Address [facility] Co de Phone Number [facility] [place] [address] * Ceruloplasmin (10/20/2017 5:50 PM EST) Ceruloplasmin 32.2 16.0 - 45.0 mg/dL [facility] Blood specimen (specimen) 10/20/2017 5:50 PM EST 10/20/2017 5:56 PM EST Narrative Resulting Agency Comment Spec In Lab Sarina Motta MD CHEMISTRY ORDERABLES Performing Organization Address [facility] Co de Phone Number [facility] [place] [address] * Tissue transglutaminase, IgA (10/20/2017 5:50 PM EST) TTG IgA Ab 0.2 0.1 - 10.0 u/ml [facility] Comment: Negative = <7 U/mL Equivocal = 7-10 U/mL Positive = >10 U/mL Blood specimen (specimen) 10/20/2017 5:50 PM EST 10/21/2017 7:39 AM EST Narrative Resulting Agency Comment Spec In Lab Sarina Motta MD IMMUNOLOGY ORDERABLE S Performing Organization Address [facility] Co de Phone Number [facility] [place] [address] * IgM (10/20/2017 5:50 PM EST) IgM 68 40 - 230 mg/dL [facility] Blood specimen (specimen) 10/20/2017 5:50 PM EST 10/20/2017 5:56 PM EST Narrative Resulting Agency Comment Spec In Lab Sarina Motta MD IMMUNOLOGY ORDERABLE S Performing Organization Address City/[facility]/ZIP Co de Phone Number [facility] [place] [address] * IgG (10/20/2017 5:50 PM EST) IgG 955 700 - 1,600 mg/dL [facility] Blood specimen (specimen) 10/20/2017 5:50 PM EST 10/20/2017 5:56 PM EST Narrative Resulting Agency Comment Spec In Lab Sarina Motta MD IMMUNOLOGY ORDERABLE S Performing Organization Address [facility] de Phone Number [facility] [place] [address] * Mitochondrial Antibody, M2 (10/20/2017 5:50 PM EST) Mitochon Ab <0.1 <0.1 (Negative) [facility] Comment: Test Performed by: [address] [id number] Blood specimen (specimen) 10/20/2017 5:50 PM EST 10/21/2017 9:02 AM EST Narrative Resulting Agency Comment Spec In Lab Sarina Motta MD IMMUNOLOGY ORDERABLE S Performing Organization Address City/[facility] Co de Phone Number [facility] [place] [address] * Smooth Muscle Antibody (10/20/2017 5:50 PM EST) Sm Muscle Ab Negative Negative [facility] Comment: ADDITIONAL INFORMATION This test was developed and its performance characteristics determined by [facility] in a manner consistent with CLIA requirements. This test has not been cleared or approved by the U.S. Food and Drug Administration. Test Performed by: [facility] [address] [place] [address] Blood specimen (specimen) 10/20/2017 5:50 PM EST 10/21/2017 9:02 AM EST Narrative Resulting Agency Comment Spec In Lab Sarina Motta MD IMMUNOLOGY ORDERABLE S Performing Organization Address [facility] Co de Phone Number [facility] [place] [address] * DEBRA (10/20/2017 5:50 PM EST) DEBRA Neg Neg [facility] Blood specimen (specimen) 10/20/2017 5:50 PM EST 10/21/2017 7:43 AM EST Narrative Resulting Agency Comment Spec In Lab Sarina Motta MD IMMUNOLOGY ORDERABLE S Performing Organization Address [facility] de Phone Number [facility] [place] [address] * (ABNORMAL) Comprehensive metabolic panel (non-fasting) (10/20/2017 5:50 PM EST) Glucose Lvl 97 65 - 199 mg/dL [facility] Comment:Diabetes: >=200 mg/d L plus symptoms BUN 14 8 - 18 mg/dL [facility] Creatinine 0.61(L) 0.70 - 1.20 mg/dL [facility] Sodium 141 135 - 145 mmol/L [facility] Potassium 4.0 3.5 - 5.0 mmol/L [facility] Comment: Please note: ??Patients with WBC >100,000 may have falsely elevated Potassium levels. ??For accurate Potassium quantification in these patients send serum separator tube (gold top) for subsequent determinations. ??Contact the Clinical Chemistry Laboratory if there are any questions. Chloride 100 98 - 107 mmol/L [facility] CO2 26 22 - 31 mmol/L [facility] Anion Gap 15 5 - 15 mmol/L [facility] Calcium 10.2 8.5 - 10.5 mg/dL [facility] Total Protein 8.0 6.1 - 8.0 gm/dL [facility] Albumin 4.8 3.2 - 5.2 gm/dL [facility] AST 20 0 - 30 unit/L [facility] ALT 34(H) 0 - 30 unit/L [facility] Alk Phos 77 40 - 104 unit/L [facility] Total Bilirubin 0.5 0.2 - 1.3 mg/dL [facility] Estimated GFR >60 >=60 [facility] Comment: The reported eGFR should be multiplied by 1.2 for patients. The MDRD is not an appropriate measure of renal function for patients with body mass extremes or in patients with acute kidney failure. http://[employer]/DHnkdep http://[employer]/DHMCnkf Blood specimen (specimen) 10/20/2017 5:50 PM EST 10/20/2017 5:56 PM EST Narrative Resulting Agency Comment Spec In Lab Sarina Motta MD CHEMISTRY ORDERABLES Performing Organization Address City/State/[facility] Co de Phone Number [facility] [place] [address] documented in this encounter Visit Diagnoses Diagnosis Elevated liver function tests- Primary Other abnormal blood chemistry S/P bariatric surgery Bariatric surgery status History of diabetes mellitus Personal history of other endocrine, metabolic, and immunity disorders Hyperlipidemia, unspecified hyperlipidemia type Hypertension, unspecified type documented in this encounter Care Teams [place] Relationship Specialty Start Date End Date Lew Beltran PA [address] [place] [id number] PCP - General General Internal Medicine 04/21/16 documented as of this encounter
--- OUTSIDE RECORDS SUMMARY | 2024-03-27 14:10 | XMS_ITS | Encounter Summary ---
Author Organization [facility] [place] [address] Care Team Providers Care Consulting Manager Name Role Phone Lew Beltran Primary Care Provider [phone] Reason for Visit * Reason Comments Follow-up Bariatric Surgery Pr ogram follow up Encounter Details Date Type Department Care Team (Late st Contact Info) Description 12/01/2016 1:00 PM EDT Office [place] [address] Cindy Lopez, CLINICAL NURSING MANAGER [facility] [place] [address] Fawn Wang, BRITTNEE Morbid obesity, unspecified obesity type; Type 2 diabetes mellitus without complication, without long-term current use of insulin; Essential hypertension; Disorder of iron metabolism; Status post bariatric surgery; Intestinal malabsorption, unspecified type; Vitamin D deficiency; Iron deficiency Social History Tobacco Use Types Packs/Day [...] Sign Reading Time Taken Comments Blood Pressure 131/73 12/01/2016 1:08 PM EDT Pulse 92 12/01/2016 1:08 PM EDT Temperature - - Respiratory Rate - - Oxygen Saturation 100% 12/01/2016 1:08 PM EDT Inhaled Oxygen Concentration - - Weight 79.4 kg (175 lb) 12/01/2016 1:08 PM EDT Height - - Body Mass Index 30.04 08/13/2016 8:28 AM EST documented in this encounter Patient Instructions * Patient Instructions* Francisco Lpoezen T - 12/01/2016 1:00 PM EDT [facility] Admin coordinator Caridad: [phone] Dietitian: [phone] Surgeons/ nurse practitioner: [phone] Nurse line: [phone] Testing: Labwork: Today. Go to Dining [facility] Area [facility], which is 1 flight below the General Surgery Clinic. Please note that you will always receive a letter with lab results and recommendations. Please readthis letter carefully and follow recommendations. The letter also contains information regarding your next lab draw. Next visit: Early April Routine visits are done at 4.8,12, 18 and 24 months after surgery, and yearly thereafter. Please call [phone] if you do not receive an appointment by 3-4 weeks prior to the expected visit. Medications: 1. Continue ursodiol for another 2 months 2. Try miralax daily for constipation if a two week trial of probiotics not helpful 3. Further recommendations pending labwork. Vitamins: The following vitamins [...] periods, iron deficiency or anemia. Nutrition recommendations: Add in a mid-morning snack, such as string cheese, to avoid going a longperiod of time between meals. Work on decreasing protein shake to 1 shake per day and getting more protein from food sources. Add up protein and calorie intake once a week or so to make sure meeting goals. - Your Daily Goals: ?? 1,000-1,200 calories per day (300 calories per meal, 100 calories per snack, 1-2 snacks per day) ?? 60 grams of protein per day (20 grams per meal) ?? 48-64 oz of non-caloric and hydrating fluids per day (6-8, 8 oz cups) Continue to work on increasing Crystal Light intake. It is okay to use a straw if it does not upset your stomach and helps youincrease fluids. ?? Do not drink with meals- pushes food through more quickly, can cause upset stomach Activity: ??? Aim for 30 minutes of exercise daily, 5 days a week of both cardio and strength training exercises. Continue staying active with walking and bike riding this spring. Alcohol: should be used sparingly, no more than one drink per occasion. Alcohol is a source of empty calories and can cause ulcers and vitamin and mineral deficiencies. Studies have noted that there is an increased risk of alcohol dependence after bariatric surgery. Anti-inflammatory medications such as Advil, Aleve, Excedrin, [...] of every month from 1-2 PM at [facility]- no registration required Nutrition and Activity apps- Baritastic, My Fitness Pal, Lose It, My Plate Internet resources: www.Riffyn www.IntegenX www.bariatriceating.BioTrove www.NeoEdge Networks.BioTrove/blog [facility] facebook page: https://www.facebook.com/[facility] CITYBariatricSurgery Books & Magazines: - Recipes for Life After Weight Loss Surgery by Amanda Dunbar - Shrink Yourself by Dr Pablo Phelan - Eating Well - Cooking Light documented in this encounter Progress Notes * aFwn Wang - 12/01/2016 1:00 PM EDT Bariatric Surgery Program Nutrition Progress Note Encounter Type: follow up SUBJECTIVE: Topics Discussed/Patient Concerns: ?? Chicken bothers her, she used to really like chicken. She is not a big red meat eater but does try to eat more fish. ?? Constipation is a big issue, she takes 2 dulcolax sodium and if it persists she takes a couple senna, she has also taken miralax twice. She also started taking fiber gummies. ?? A lot of hair loss in the last week. OBJECTIVE: Date of Bariatric Surgery: 08/13/16 Type of Bariatric Surgery: Laparoscopic Jason-en-Y Gastric Bypass Weight History: Date Weight (lbs) HT BMI Comments 242# Highest Weight (patient reported) 12/05/15 220# 64 37.8 Initial program weight 05/19/16 218# 64.75 36.6 1st pre-op visit 08/13/16 220# EWL % 37.8 Surgery 08/25/16 210# 9.2% 36 1 month post-op 12/01/16 175# 49.4% 30 4 months post-op [place] Body Weight (based on BMI of 25): [...] with her and dog. 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 Has a camp in [place], [place] where they go on the weekends in the summer. is supportive of surgery and is trying to lose weight himself. Hobbies: Scrapbooking and crafts, baking, camping outdoors at her camp. Related medical history: Class III obesity, Type 2 Diabetes, HTN, and Hyperlipidemia Vitamin/Mineral Supplements (reported by patient): Supplement Type Brand/Form Dosage/Amount Frequency Comments Multivitamin [place] 1 Twice daily Calcium BA chews 1 Twice daily Vitamin B12 SL 500 mcg daily Iron none Vitamin D3 OTC 1,000 IU daily Biotin pill Twice daily Tracking Intake: None, she eyeballs the serving of her meals to 3/4- 1 cup. She fills up quickly. Daily Oral Intake: Breakfast 7am: Slim Fast smoothie powder with 8 oz skim milk (20 grams) AM Snack Lunch 1pm: 1/2 cup tuna or chicken or 3 slices turkey and 1/2 cup fat free cottage cheese or Nepali yogurt PM Snack 8 oz protein shake (20 gm) Dinner 3 oz meat and 1/4-1/2 cup vegetables or cottage cheese and 1/4 cup sweet potato or potato HS Snack 1 popsicle made with 2 scoops whey protein powder, 2 cups skim milk, and sugar free chocolate pudding mix (makes 8 popsicles, 8.75 gm each) Protein/ grams per day: 80-90 grams Calories per day: 0489-5489 kcals Hydrating fluids- oz/ day: 24-30 ounces CL and 16 oz protein shake, wants to try using a straw Soda: One sip, but other than that none. Prune juice once in awhile ETOH: 4 drinks since surgery, first drink was in October. Caffeine: none Sweets: A little Meals per day: 3/ day ?? Feels full/satisfied after eating: yes ?? Feels hungry [x]never []sometimes []most of the time [] always ?? Drinks with meals: none ?? Practices portion control: yes, measuring still ?? Spends at least 20 minutes eating each meal: 20-30 minutes ?? Has had dumping syndrome: none Foods/Symptoms: ?? In the past month, pt has vomited/regurgitated: vomited/ regurgitated chicken once 3 weeks ago Food Allergies/Intolerances: chicken, pasta, and scrambled eggs Exercise: Snow shoeing over the winter and has bikes to get out for the spring. She has also been walking and plans to do more this spring. ASSESSMENT: Summary of Weight Loss: Patient's percent excess weight loss is 49.4% which is within the expected post- op bariatric surgery range. Weight down 35# x 3 months. Patient is doing well overall, although she complains of constipation and hair loss. She is meeting protein goal, although she is interested in decreasing protein shake intake. Recommend patient work on cutting down to 1 protein shake per day and add in a high protein mid morning snack since breakfast and lunch are spaced long apart. Recommend patient start adding up calorie and protein intake once a week or so to make sure meeting goals. Her fluid intake is low but she plans to try using a straw, if it does not upset her stomach, to help increase her fluidintake. She is compliant with supplements and has a good exercise routine. NUTRITION INTERVENTION & MONITORING: ?? Provided support/encouragement and reinforced importance of meeting nutritional goals. ?? Reviewed nutrition and vitamin and mineral supplement recommendations (see patient instructions). ?? Written recommendations provided. Patient agreed with these and verbalized adequate understanding. ?? Evaluation by nurse practitioner today. * Cindy Lopez - 12/01/2016 1:00 PM EDT Reason for visit: follow up S/P laparoscopic [...] Hg 10.7/ Hct 32.2 08/25/16 210 36 9/2 [place] multi BID Ca cit chew 500 BID B12 500 QD D3 1 K/day - 12/02/15 175 30.4 49 Multi BID Ca cit BID B12 1K/day. D3 1 K/day. No iron Hg 14.5 Hct 44.3 ferritin 25 iron 57 sat 14% B12 649 Nl B1 fol CMP x na 147 D 35 prealbumin 20 A1c 5.7 Next visit March with iron screen Screening/other: Date Evaluation Results 2016 Primary care 08/09/15 Colonoscopy Done for rectal bleeding. Occasional diverticulum noted in sigmoid colon. May be secondary to constipation 10/09/14 Pap negative 09/22 Mammogram Reports as normal never DEXA Problem List ??? Preoperative Class II obesity BMI 36.6, S/P gastric bypass ??? Essential hypertension: remains on metoprolol, at home checks 122/70. Off diuretic therapy - preop treatment with triamterene- HCTZ, metoprolol and lisinopril ??? Diabetes mellitus type 2, uncomplicated, diagnosed ~2014: A1c 5.7 today. Metformin d/c post surgery - preop treatment: metformin ??? Hyperlipidemia with [...] mmHg. No significant change from 10/04/09. ??? Tattoos ??? Chronic constipation preoperatively: persists ??? History of rectal bleeding, attributed to constipation, better with increasing fiber and fluids Past Surgical History Procedure Laterality Date ??? Laparoscopic Jason n Y gastric bypass (Dr Miles) 08/13/2016 ??? section 1985, 1990 ??? Tubal ligation Bilateral 1990 ??? Tubal reversal ~1995 ??? Laparotomy for salpingo-oophorectomy at [facility]. Per op note, complex right ovarian hemorrhagic corpus luteum cyst. Prominent adhesive disease within the pelvis- dense adhesions of pericolic fat, intraperitoneal fat oriented in a AP direction and spanning the entirety of the lower pelvis. The uterus could not be identified. The ovaries could not be seen. Right 08/16/2013 ??? Carpal tunnel release Bilateral 2014 ??? Trigger finger release Right 11/2015 ??? Wrist ganglion excision Left ~1992 ??? Eye procedure for strabismus Left Age 3 No Known Allergies Medications 12/09/16 1055 Medication Sig Taking? docusate sodium (COLACE) 100 mg Capsule Take [...] tablet by mouth 2 times daily. Yes ursodiol (ACTIGALL) 300 mg Capsule Take 1 capsule by mouth 2 times daily for 180 days. Start at 2 weeks post op on 08/25. Take until 02/23/17 to prevent gallstones. Yes simvastatin (ZOCOR) 20 mg Tablet Take 1 tablet by mouth nightly. Yes aspirin 81 mg Tablet, Delayed Release (E.C.) Take 81 mg by mouth daily. Yes ascorbic acid, vitamin C, (VITAMIN C) 1,000 mg Tablet Take 1,000 mg by mouth daily. Yes cholecalciferol, Vitamin D3, 1,000 unit Capsule Take 1 capsule by mouth daily. Yes Biotin 5 mg Capsule Take 5 mg by mouth daily. Reported on 08/25/2016 Yes Changes to health/ social history or evaluations since last visit: As per updated problem list Subjective. Patient concerns at today's visit: she returns for her 4 month post surgery visit. She is feeling well overall. She is pleased with her weight loss, has gone from a size 22 to size 14. She is intolerant to chicken, which is not uncommon after gastric bypass. Her fluid intake is low. She has been con stipated, takes miralax infrequently, Has occasional LLQ pain. Last week, had a episode of left posterior flank pain lasted 3 days, believes she may have seen some blood in her urine once during thatperiod. The pain was worse with movement. She did not seek medical attention, and has had no further pain. 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 Objective: General: 51 y.o. year-old female looks well, appears upbeat. She is accompanied by her to today's visit Heart: RRR Lungs: CTA without wheezing Abdomen: soft, non-tender. Trocar sites well-healed, without evidence of hernia. Extremities: no edema Vital signs: BP 131/73 Pulse 92 Wt 79.4 kg (175 lb) SpO2 100% BMI 30.04 kg/m2 Today's lab data: Results for RADHA BELAL ( ) Ref. Range 12/01/2016 14:39 WBC Latest Ref Range: 4.0 - 9.5 x10(3)/mcL 5.0 RBC Latest Ref Range: 4.00 - 5.21 x10(6)/mcL 5.13 Hemoglobin Latest Ref Range: 11.7 - 15.5 gm/dL 14.5 Hematocrit Latest Ref Range: 35.7 - 45.8 % 44.3 MCV Latest Ref Range: 82.6 - 94.4 fL 86.4 MCH Latest Ref Range: 27.1 - 32.0 pg 28.3 MCHC Latest Ref Range: 31.7 - 35.0 gm/dL 32.7 RDWSD Latest Ref Range: 37.0 - 46.0 fL 45.0 RDWCV Latest Ref Range: 11.5 - 14.1 % 14.2 (H) Platelets Latest Ref Range: 145 - 357 x10(3)/mcL 196 MPV Latest Ref Range: 7.6 - 12.9 fL 11.6 nRBC % Auto Latest Units: % 0.0 nRBC Abs Auto Latest Ref Range: 0.000 - 0.000 x10(3)/mcL 0.000 Sodium Latest Ref Range: 135 - 145 mmol/L 147 (H) Potassium Latest Ref Range: 3.5 - 5.0 mmol/L 4.2 Chloride Latest Ref Range: 98 - 107 mmol/L 104 CO2 Latest Ref Range: 22 - 31 mmol/L 28 Anion Gap Latest Ref Range: 5 - 15 mmol/L 15 BUN Latest Ref Range: 8 - 18 mg/dL 16 Creatinine Latest Ref Range: 0.70 - 1.20 mg/dL 0.73 Estimated GFR Latest Ref Range: >=60 >60 Glucose Lvl Latest Ref Range: 65 - 199 mg/dL 93 Calcium Latest Ref Range: 8.5 - 10.5 mg/dL 10.3 Hemoglobin A1C Latest Ref Range: 4.3 - 5.6 % 5.7 (H) Est Avg Gluc Latest Units: mg/dL 117 Total Protein Latest Ref Range: 6.1 - 8.0 gm/dL 7.7 Albumin Latest Ref Range: 3.2 - 5.2 gm/dL 4.5 Total Bilirubin Latest Ref Range: 0.2 - 1.3 mg/dL 0.3 Bili, Direct Latest Ref Range: 0.0 - 0.3 mg/dL 0.1 Alk Phos Latest Ref Range: 40 - 104 unit/L 82 AST Latest Ref Range: 0 - 30 unit/L 18 ALT Latest Ref Range: 0 - 30 unit/L 12 Ferritin Latest Ref Range: 30 - 400 ng/mL 25 (L) Folate Lvl Latest Ref Range: 4.8 - 24.2 ng/mL >20.0 Iron Latest Ref Range: 30 - 150 mcg/dL 57 TIBC Latest Ref Range: 250 - 450 mcg/dL 421 Iron Saturation Latest Ref Range: 20 - 50 % 14 (L) Vitamin B-12 Latest Ref Range: 207 - 974 pg/mL 649 25-OH Vit D Total Latest Ref Range: 30 - 100 ng/mL 35 Vit B1 Lvl WB Latest Ref Range: 70 - 180 nmol/L 153 Prealbumin Latest Ref Range: 20 - 40 mg/dL 20 Assessment: S/P gastric bypass, with loss of 49% of excess body weight. Iron deficiency without anemia. Inadequate fluid intake. Chronic constipation Plan: ?? She was congratulated on her ongoing healthy lifestyle efforts ?? Discussion regarding constipation management: increase miralax to daily or every other day, trial probiotics, try smooth move tea, increase fluids given low intake, which increases her risk of renal stones. Recommend f/u if further episodes of flank pain. ?? Next BSP follow up: March ?? Next labwork: next visit ?? Additional vitamin and mineral supplement recommendations (*in addition to routine bariatric supplements, as noted below): iron every other day until next visit, as tolerated. Increase vitamin D3 to 2000 units a day for the next 8 months ?? Advised to call with unexplained abdominal pain, prolonged nausea, vomiting or inability to hydrate, questions or concerns ?? dietary/ exercise recommendations per RD ?? advised that Ursodiol can be discontinued at 6 months post-operatively She was provided with a Bariatric [...] on a more frequent basis. *Supplement recommendations: Complete multivitamin with minerals twice a day, B12 500 mcg once a day, calcium citrate 600 mg/400units vitamin D twice a day, iron (ferrous fumarate, polysaccharide iron taken with vitamin C 250 mg once a day) for menstruating females or those with MATEO. Labwork: Hemogram, ferritin, iron (transferrin) saturation, iron, folate, Vitamins B1, B12, D (25 hydroxy only), Intact PTH and comprehensive metabolic profile at 4, 12, 18 and 24 months, and yearly.Prealbumin is done at 4 and 12 months and PRN. If labwork is done by the primary lawn care technician: please send a copy to the Bariatric Surgery Program, General Surgery Clinic, [facility] Questions regarding [facility] Bariatric Surgery Program patients: please call Smith Lopez APRN at [phone] or [phone]. E-mail: [email or web address] documented in this encounter Plan of Treatment Not on file documented as of this encounter Procedures Procedure Name Priority Date/Time Associated Diagnosis Comments HEMOGRAM Routine 12/01/2016 2:39 PM EDT Essential hypertension Disorder of iron metabolism Status post bariatric surgery Intestinal malabsorption, unspecified type VITAMIN B1, WHOLE BLOOD Routine 12/01/2016 2:39 PM EDT Status post bariatric surgery Intestinal malabsorption, unspecified type IRON AND TIBC Routine 12/01/2016 2:39 PM EDT Disorder of iron metabolism Status post bariatric surgery Intestinal malabsorption, unspecified type VITAMIN D, 25-HYDROXY Routine 12/01/2016 2:39 PM EDT Status post bariatric surgery Intestinal malabsorption, unspecified type Vitamin D deficiency PREALBUMIN Routine 12/01/2016 2:39 PM EDT Status post bariatric surgery Intestinal malabsorption, unspecified type HEMOGLOBIN A1C Routine 12/01/2016 2:39 PM EDT Type 2 diabetes mellitus without complication, without long-term current use of insulin Status post bariatric surgery Intestinal malabsorption, unspecified type FOLATE, SERUM Routine 12/01/2016 2:39 PM EDT Status post bariatric surgery Intestinal malabsorption, unspecified type FERRITIN Routine 12/01/2016 2:39 PM EDT Disorder of iron metabolism Status post bariatric surgery Intestinal malabsorption, unspecified type VITAMIN B12 Routine 12/01/2016 2:39 PM EDT Status post bariatric surgery Intestinal malabsorption, unspecified type COMPREHENSIVE METABOLIC PANEL (NON-FASTING) Routine 12/01/2016 2:39 PM EDT Essential hypertension Type 2 diabetes mellitus without complication, without long-term current use of insulin Status post bariatric surgery Intestinal malabsorption, unspecified type documented in this encounter Results * Folate, serum (12/01/2016 2:39 PM EDT) Folate Lvl >20.0 4.8 - 24.2 ng/mL [facility] Blood specimen (specimen) 12/01/2016 2:39 PM EDT 12/01/2016 2:44 PM EDT Narrative Resulting Agency Comment Spec In Lab Tonio Miles MD CHEMISTRY ORDERABLES Performing Organization Address [facility] de Phone Number [facility] [place] [address] * Vitamin B12 (12/01/2016 2:39 PM EDT) Vitamin B-12 649 207 - 974 pg/mL [facility] Blood specimen (specimen) 12/01/2016 2:39 PM EDT 12/01/2016 2:44 PM EDT Narrative Resulting Agency Comment Spec In Lab Tonio Miles MD CHEMISTRY ORDERABLES Performing Organization Address [facility] de Phone Number [facility] [place] [address] * Vitamin B1, whole blood (12/01/2016 2:39 PM EDT) Vit B1 Lvl WB 153 70 - 180 nmol/L [facility] Comment: ADDITIONAL INFORMATION This test was developed and its performance characteristics determined by [facility] in a manner consistent with CLIA requirements. This test has not been cleared or approved by the U.S. Food and Drug Administration. Test Performed by: [facility] - [address] [address] Blood specimen (specimen) 12/01/2016 2:39 PM EDT 12/01/2016 3:37 PM EDT Narrative Resulting Agency Comment Spec In Lab Tonio Miles MD CHEMISTRY ORDERABLES Performing Organization Address [facility]/State/ZIP Co de Phone Number [facility] [place] [address] * Vitamin D, 25-Hydroxy (12/01/2016 2:39 PM EDT) 25-OH Vit D Total 35 30 - 100 ng/mL [facility] Comment: Deficient <10 ng/mL Insufficient 10 to 29 ng/mL Sufficient 30 to 100 ng/mL Potential Intoxication >100 ng/mL According to the [place] National Osteoporosis Foundation, Vitamin D concentrations >30 ng/mL are sufficient to protect bone health. ??The National Kidney Foundation has similarly stated that patients with Vitamin D concentrations <30ng/mL should be considered to be insufficient or deficient. http://BioMicro Systems/[facility] [place] [place]natlkidneyfoundation http://BioMicro Systems/[facility] [place] CITYVitD The IDS iSYS Vitamin D Immunoassay detects both 25-OH Vitamin D2 and 25-OH Vitamin D3, but only a total Vitamin D concentration is reported. Blood specimen (specimen) 12/01/2016 2:39 PM EDT 12/02/2016 7:18 AM EDT Narrative Resulting Agency Comment Spec In Lab Tonio Miles MD CHEMISTRY ORDERABLES Performing Organization Address [facility]/ZIP Co de Phone Number [facility] [place] [address] * (ABNORMAL) Ferritin (12/01/2016 2:39 PM EDT) Pathologist [facility] Ferritin 25(L) 30 - 400 ng/mL [facility] Comment: Pediatric reference ranges not verified at [facility], interpret with caution. Reference ranges for females greater than 50 years of age approach values for men, i.e., 30-400 ng/mL. Blood specimen (specimen) 12/01/2016 2:39 PM EDT 12/01/2016 2:44 PM EDT Narrative Resulting Agency Comment Spec In Lab Tonio Miles MD CHEMISTRY ORDERABLES Performing Organization Address City/[facility]/ZIP Co de Phone Number [facility] [place] [address] * (ABNORMAL) Iron and TIBC (12/01/2016 2:39 PM EDT) Iron 57 30 - 150 mcg/dL [facility] TIBC 421 250 - 450 mcg/dL [facility] Iron Saturation 14(L) 20 - 50 % [facility] Blood specimen (specimen) 12/01/2016 2:39 PM EDT 12/01/2016 2:44 PM EDT Narrative Resulting Agency Comment Spec In Lab Tonio Miles MD CHEMISTRY ORDERABLES [facility] [place] [address] * (ABNORMAL) Hemoglobin A1c (12/01/2016 2:39 PM EDT) Hemoglobin A1C 5.7(H) 4.3 - 5.6 % [facility] Comment: Reference Range: 4.3 - 5.6% 5.7 - 6.4% - Increased Risk of Developing Diabetes Mellitus >= 6.5% - Consistent with diagnosis of Diabetes Mellitus In the absence of hyperglycemia (i.e. plasma glucose > 200 mg/dL) or classic symptoms of hyperglycemia a repeat measurement of HbA1c should be performed on a separate sample to confirm the diagnosis. Diagnosis and Classification of Diabetes Mellitus, Diabetes Care 2013; 36: Suppl. 1, G47-17 Est Avg Gluc 117 mg/dL [facility] Comment: eAG equivalents for HbA1c percentages: HbA1c(%) ?eAG(mg/dL) 6.0 ?126 6.5 ?140 7.0 ?154 7.5 ?169 8.0 ?183 8.5 ?197 9.0 ?212 9.5 ?226 10.0 ? 240 Limitations: The eAG calculation has not been validated on women, individuals below 18 years old and above 70 years old, and individuals with hemoglobinopathies. Additional resources are available on the ADA website: [email or web address]/[facility] OK[facility] CITYadacalc Saman MCKNIGHT, Magdiel J, Brian R, et al. ??Translating the A1C assay into estimated average glucose values. ??Diabetes Care 2008:31(8):2116-4097. Blood specimen (specimen) 12/01/2016 2:39 PM EDT 12/01/2016 2:44 PM EDT Narrative Resulting Agency Comment Spec In Lab Tonio Miles MD CHEMISTRY ORDERABLES Performing Organization Address [facility] Co de Phone Number [facility] [place] [address] * Prealbumin (12/01/2016 2:39 PM EDT) Prealbumin 20 20 - 40 mg/dL [facility] Comment: Prealbumin levels are generally lower in the pediatric population; adult concentrations are usually attained near puberty. Blood specimen (specimen) 12/01/2016 2:39 PM EDT 12/01/2016 2:44 PM EDT Narrative Resulting Agency Comment Spec In Lab Tonio Miles MD CHEMISTRY ORDERABLES Performing Organization Address [facility] de Phone Number [facility] [place] [address] * (ABNORMAL) Comprehensive metabolic panel (non-fasting) (12/01/2016 2:39 PM EDT) Glucose Lvl 93 65 - 199 mg/dL [facility] Comment:Diabetes: >=200 mg/d L plus symptoms BUN 16 8 - 18 mg/dL [facility] Creatinine 0.73 0.70 - 1.20 mg/dL [facility] Comment: Please note that the pediatric reference intervals supplied above were not validated at [facility]. Results from pediatric patients should be interpreted in conjunction to the patient's age, height and muscle mass. Sodium 147(H) 135 - 145 mmol/L [facility] Potassium 4.2 3.5 - 5.0 mmol/L [facility] Comment: Please note: ??Patients with WBC >100,000 may have falsely elevated Potassium levels. ??For accurate Potassium quantification in these patients send serum separator tube (gold top) for subsequent determinations. ??Contact the Clinical Chemistry Laboratory if there are any questions. Chloride 104 98 - 107 mmol/L [facility] CO2 28 22 - 31 mmol/L [facility] Anion Gap 15 5 - 15 mmol/L [facility] Calcium 10.3 8.5 - 10.5 mg/dL [facility] Total Protein 7.7 6.1 - 8.0 gm/dL [facility] Albumin 4.5 3.2 - 5.2 gm/dL [facility] AST 18 0 - 30 unit/L [facility] ALT 12 0 - 30 unit/L [facility] Alk Phos 82 40 - 104 unit/L [facility] Total Bilirubin 0.3 0.2 - 1.3 mg/dL [facility] Bili, Direct 0.1 0.0 - 0.3 mg/dL [facility] Estimated GFR >60 >=60 MAYO [...] the following links into your internet browser. [email or web address] Blood specimen (specimen) 12/01/2016 2:39 PM EDT 12/01/2016 2:44 PM EDT Narrative Resulting Agency Comment Spec In Lab Tonio Miles MD CHEMISTRY ORDERABLES Performing Organization Address City/[facility]/ZIP Co de Phone Number [facility] [place] [address] * (ABNORMAL) Hemogram (12/01/2016 2:39 PM EDT) WBC 5.0 4.0 - 9.5 x10(3)/[facility] LABORATORY RBC 5.13 4.00 - 5.21 x10(6)/[facility] LABORATORY Hemoglobin 14.5 11.7 - 15.5 gm/dL [facility] Hematocrit 44.3 35.7 - 45.8 % [facility] MCV 86.4 82.6 - 94.4 [facility] LABORATORY MCH 28.3 27.1 - 32.0 pg [facility] MCHC 32.7 31.7 - 35.0 gm/dL [facility] Platelets 196 145 - 357 x10(3)/[facility] LABORATORY RDWSD 45.0 37.0 - 46.0 [facility] LABORATORY RDWCV 14.2(H) 11.5 - 14.1 % [facility] MPV 11.6 7.6 - 12.9 [facility] LABORATORY nRBC % Auto 0.0 % [facility] nRBC Abs Auto 0.000 0.000 - 0.000 x10(3)/[facility] LABORATORY Blood specimen (specimen) 12/01/2016 2:39 PM EDT 12/01/2016 2:44 PM EDT Narrative Resulting Agency Comment Spec In Lab Tonio Miles MD HEMATOLOGY [place] [address] documented in this encounter Visit Diagnoses Diagnosis Morbid obesity, unspecified obesity type Type 2 diabetes mellitus without complication, without long-term current use of insulin Essential hypertension Unspecified essential hypertension Disorder of iron metabolism Other disorders of iron metabolism Status post bariatric surgery Bariatric surgery status Intestinal malabsorption, unspecified type Vitamin D deficiency Unspecified vitamin D deficiency Iron deficiency Iron deficiency anemia, unspecified documented in this encounter Care Teams Consulting Manager Relationship Specialty Start Date End Date Lew Beltran PA [address] [place] [id number] PCP - General General Internal Medicine 04/21/16 documented as of this encounter
--- OUTSIDE RECORDS SUMMARY | 2024-03-27 14:10 | XMS_ITS | Encounter Summary ---
Author Organization [facility] [place] [address] Care Team Providers Care Mechanical Estimator Name Role Phone Lew Beltran Primary Care Provider [phone] Reason for Visit * Reason Comments Follow-up Encounter Details Date Type Department Care Team (Late st Contact Info) Description 08/25/2016 4:00 PM EST Office Visit [place] [address] Tonio Miles MD [facility] [place] [address] Morbid obesity, unspecified obesity type Social History Tobacco Use Types Packs/Day [...] Sign Reading Time Taken Comments Blood Pressure 140/76 08/25/2016 3:54 PM EST Pulse 86 08/25/2016 3:54 PM EST Temperature - - Respiratory Rate - - Oxygen Saturation 100% 08/25/2016 3:54 PM EST Inhaled Oxygen Concentration - - Weight 95.3 kg (210 lb) 08/25/2016 3:54 PM EST Height - - Body Mass Index 36.05 08/13/2016 8:28 AM EST documented in this encounter Patient Instructions * Patient Instructions* Fawn Wang - 08/25/2016 4:00 PM EST Bariatric Surgery Program First Post-operative Follow up visit Contact information: [facility] Admin coordinator Caridad: [phone] Dietitian: [phone] Surgeons/ nurse practitioner: [phone] Nurse line: [phone] Your excess body weight lost: 9.2% Keep up the great work! Next follow up visit: at 4 months post-op. Testing: Labwork will be done at your 4 month post op check. If you have labwork done by your doctor before that date, please have it sent to the Bariatric Surgery Program. Post surgery Medications: 1. Medication to prevent ulcer, as prescribed prior to surgery, needs to continue until you are at least 3 months post surgery, or as indicated by your primary care doctor. 2. If you have a gallbladder, continue to take Ursodiol 300 mg twice daily for a total of 6 months after surgery to prevent gallstones from forming, and to shrink any gallstones that may be present. Vitamin and mineral supplementation recommendations: The following vitamins are recommended: ??? Multivitamins [...] deficiency or anemia. Nutrition recommendations: Continue to track intake. - Your Daily Goals: ?? 3 meals per day. Snacks if physically hungry or you need to increase your protein and/or calories (choose protein and/or fruit) ?? 60 grams protein per day (20 grams per meal) ?? 48-64 oz of non-caloric and hydrating fluids per day (6-8, 8 oz cups) Activity: ??? Aim for 30 minutes of exercise daily, 5 days a week of both cardio and strength training exercises. Alcohol: should be used sparingly, no more than one drink per occasion. Alcohol is a source of empty calories and can cause ulcers and vitamin and mineral deficiencies. Studies have noted that there is an increased risk of alcohol dependence after surgery. control for women of child bearing age: is recommended for at least 18-24 months after surgery. Call us: ??? If you have concerns. ??? If you have unexplained abdominal pain. ??? if you see blood in your stool or vomit blood ??? If you have prolonged vomiting Post Surgery Support Group: Our post surgery support group meets on the first Wednesday of every month from 1-2 PM at [facility] Internet resources: Www.[employer] www.[employer] Www.[employer] Www.ChoosemyFreshT.gov Www.Back&.com [facility] facebook page: [email or web address] HOLLISBariatricSurgery Bariatric surgery apps- [facility] Post-zenaida Books: - Recipes for Life after Weight Loss Surgery by Amanda Dunbar (2012) - Shrink Yourself by Dr Pablo Phelan documented in this encounter Progress Notes * Fawn Wang - 08/25/2016 4:00 PM EST BSP Nutrition First Post-operative Follow up SUBJECTIVE: Topics Discussed/Patient Concerns: ?? Doing well, she is on the stage 2 diet. OBJECTIVE: Date of Bariatric Surgery: 08/13/16 Type of Bariatric Surgery: Laparoscopic Jason-en-Y Gastric Bypass Weight History: Date Weight (lbs) HT BMI Comments 242# Highest Weight (patient reported) 12/05/15 220# 64 37.8 Initial program weight 05/19/16 218# 64.75 36.6 1st pre-op visit 08/13/16 220# EWL % 37.8 Surgery 08/25/16 210# 9.2% 36 1 month post-op 4 months post-op [place] Body Weight (based on BMI of 25): [...] with her and dog. 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 Has a camp in [place], [place] where they go on the weekends in the summer. is supportive of surgery and is trying to lose weight himself. Hobbies: Scrapbooking and crafts, baking, camping outdoors at her camp. Related medical history: Class III obesity, Type 2 Diabetes, HTN, and Hyperlipidemia MEDICATIONS: Taking ulcer prevention medication: yes Taking Ursodiol (if appropriate): not started yet Opioid/ pain medication use: 3 doses total Vitamin/Mineral Supplements (reported by patient): Supplement Type Brand/Form Dosage/Amount Frequency Comments Multivitamin [place] 1 Twice daily Calcium BA chews 1 Twice daily Vitamin B12 SL 500 mcg daily Iron none Vitamin D3 OTC 1,000 IU daily Tracking Intake: Writing down her food intake, she reports getting 45-50 grams protein Daily Oral Intake: Breakfast 1/4 cup Upper Sorbian yogurt AM Snack Boost Glucose control (16 gm) Lunch 1/2 cup tomato soup or strained cream of chicken soup Or 1/4 cup soup and 1/4 cup unsweetened applesauce PM Snack Boost Glucose Control Dinner 1/2 cup tomato soup or strained cream of chicken soup Or 1/4 cup soup and 1/4 cup unsweetened applesauce HS Snack 1/4 cup Power pudding Protein- grams/day: 40-50 grams Calories per day: 500-700 kcal Hydrating fluids - oz/day: 56 oz water w/ CL, protein shake, beef broth or chicken broth Soda: none ETOH: none Caffeine: none Meals per day: 3/ day Other: ?? Feels full/satisfied after eating: yes, but is ready for chewable food ?? Spends at least 20 minutes eating each meal: 15 minutes ?? Vomiting/ regurgitation: Vomited twice the 1st day she was home after eating protein powder mixed with soup ?? Nausea: none ?? Constipation/diarrhea: Was constipated but then started taking Miralax. Her bowel movements havebeen regular and she has not needed to use Miralax for the last couple of days. Food Allergies/Intolerances: Protein powder in soup Exercise: Has been active getting her house ready for [place] and going up and down stairs. Her energy level is good. ASSESSMENT: Patient s/p bariatric surgery with 9.2% EWL. PLAN: ?? Evaluation by Dr. Miles today. ?? Provided support/encouragement and reinforced importance of meeting nutritional goals. ?? Reviewed nutrition and vitamin and mineral supplement recommendations (see patient instructions). ?? Written recommendations provided. Patient agreed with these and verbalized adequate understanding. ?? Follow up at 4 months post surgery with labwork. * Tonio Miles MD - 08/25/2016 4:00 PM EST Radha Sena was seen in followup approximately 2 weeks after her laparoscopic gastric bypass. Eulalio pleased to say that she has lost approximately 10 pounds since her surgery and has noted significant limitations in her p.o. intake, as expected. Her wounds have healed with no signs of any infection or hernia. I have encouraged her to continue with vitamin supplementation and to also take adequate liquids. She is due to see our nurse practitioner in the near future as well as our dietitian for further followup with our program. I will see her on a p.r.n. basis and if any further problems arise at those other visits. documented in this encounter Plan of Treatment Not on file documented as of this encounter Visit Diagnoses Diagnosis Morbid obesity, unspecified obesity type documented in this encounter Care Teams Mechanical Estimator Relationship Specialty Start Date End Date Lew Beltran PA [address] [place] [id number] PCP - General General Internal Medicine 04/21/16 documented as of this encounter
--- OUTSIDE RECORDS SUMMARY | 2024-03-27 14:10 | XMS_ITS | Encounter Summary ---
Author Organization [facility] [place] [address] Care Team Providers Care Industrial Economics Teacher Name Role Phone Lew Beltran Primary Care Provider [phone] Encounter Details Date Type Department Care Team (Late st Contact Info) Description 12/20/2017 External Results Gastroenterology at [facility] [place] [address] Jovan Schwartz [place] [facility] [place] [address] Social History Tobacco Use Types Packs/Day Years [...] LAB CBC CMP THYROID RESULTS PANEL Routine 12/10/2017 documented in this encounter Results * CBC / CMP / Thyroid External Results (12/10/2017) Total Protein 7.3 Albumin 4.4 Total Bilirubin 0.4 Bili, Direct 0.1 Alk Phos 64 AST 39 ALT 50 GGT 17 Historical Provider MD POINT OF CARE JUVENTINO T ORDERABLES documented in this encounter Visit Diagnoses Not on filedocumented in this encounter Care Teams Industrial Economics Teacher Relationship Specialty Start Date End Date Lew Beltran PA [address] [place] [id number] PCP - General General Internal Medicine 04/21/16 documented as of this encounter
--- OUTSIDE RECORDS SUMMARY | 2024-03-27 14:10 | XMS_ITS | Encounter Summary ---
Author Organization [facility] [place] [address] Care Team Providers Care Head Rose Grower Name Role Phone Lew Beltran Primary Care Provider [phone] Reason for Visit * Reason Onset Date Comments Other 01/20/2018 Encounter Details Date Type Department Care Team (Late st Contact Info) Description 01/20/2018 Telephone [place] [address] Cindy Lopez, DIRECTOR EMERGENCY DEPARTMENT [facility] [place] [address] Other Social History Tobacco Use Types Packs/Day Years [...] encounter Miscellaneous Notes * Telephone Encounter - Cindy Lopez - 01/24/2018 9:16 AM EDT Bariatric Surgery Program I returned Radha's call regarding her interest in body contouring surgery. Message left documented in this encounter Plan of Treatment Not on file documented as of this encounter Visit Diagnoses Not on filedocumented in this encounter Care Teams Head Rose Grower Relationship Specialty Start Date End Date Lew Beltran PA [address] [place] [phone] PCP - General General Internal Medicine 04/21/16 documented as of this encounter
--- OUTSIDE RECORDS SUMMARY | 2024-03-27 14:10 | XMS_ITS | Encounter Summary ---
Author Organization [facility] [place] [address] Care Team Providers Care Fingernail Sculpturer Name Role Phone Lew Beltran Primary Care Provider [phone] Encounter Details Date Type Department Care Team (Late st Contact Info) Description 10/26/2017 Orders Only Gastroenterology at [facility] [address] Jovan Schwartz PA [facility] [place] [address] Abnormal liver function tests Social History Tobacco Use Types Packs/Day Years [...] of this encounter Visit Diagnoses Diagnosis Abnormal liver function tests Other abnormal blood chemistry documented in this encounter Care Teams Fingernail Sculpturer Relationship Specialty Start Date End Date Lew Beltran PA [address] [place] [address] PCP - General General Internal Medicine 04/21/16 documented as of this encounter
--- OUTSIDE RECORDS SUMMARY | 2024-03-27 14:10 | XMS_ITS | Encounter Summary ---
Author Organization [facility] [place] [address] Care Team Providers Care X Ray Service Engineer Name Role Phone Lew Beltran Primary Care Provider [phone] Reason for Referral * Consultation (Routine) - Closed Specialty Diagnoses / Procedures Referred By Zane clinton Referred To Contact Plastic Surgery Diagnoses Redundant skin S/P gastric bypass Symptomatic abdominal panniculus Cindy Lopze APRN [facility] [place] [address] Christiano Jefferson MD [facility] [place] [address] Referral ID Status Reason Start Date Expiration Date V isits Requested Visits Authorized [id number] Closed Consult, Test & Treat 01/25/2018 01/25/2019 1 1 Encounter Details Date Type Department Care Team (Late st Contact Info) Description 01/25/2018 Orders Only General Surgery at [place] [phone] Cindy Lopez APRN [facility] [place] [address] S/P gastric bypass; Redundant skin; Symptomatic abdominal panniculus Social History Tobacco Use Types Packs/Day Years [...] Scheduled Referrals Name Type Priority Associated Diagnoses Orde r Schedule Referral to Plastic Surgery Outpatient Referral Routine Redundant skin S/P gastric bypass Symptomatic abdominal panniculus Ordered: 01/25/2018 documented as of this encounter Visit Diagnoses Diagnosis S/P gastric bypass Bariatric surgery status Redundant skin Other specified hypertrophic and atrophic condition of skin Symptomatic abdominal panniculus Localized adiposity documented in this encounter Care Teams X Ray Service Engineer Relationship Specialty Start Date End Date Lew Beltran PA [address] [place] [id number] PCP - General General Internal Medicine 04/21/16 documented as of this encounter
--- OUTSIDE RECORDS SUMMARY | 2024-03-27 14:10 | XMS_ITS | Encounter Summary ---
Author Organization [facility] [place] [address] Care Team Providers Care Respiratory Care Assistant Name Role Phone Lew Beltran Primary Care Provider [phone] Reason for Visit * Reason Comments Advice Only panni, ? breast cons ult * Consultation (Routine) - Closed Specialty Diagnoses / Procedures Referred By Zane clinton Referred To Contact Plastic Surgery Diagnoses Redundant skin S/P gastric bypass Symptomatic abdominal panniculus Cindy Lopez, MACKENZIE [facility] [place] [address] Christiano Fleming MD [facility] [place] [address] Referral ID Status Reason Start Date Expiration Date V isits Requested Visits Authorized [id number] Closed Consult, Test & Treat 01/25/2018 01/25/2019 1 1 Encounter Details Date Type Department Care Team (Late st Contact Info) Description 02/17/2018 10:00 AM EDT Office [place] [address] Christiano Fleming MD [facility] [place] [address] Abdominal pannus; Breast ptosis Social History Tobacco Use Types Packs/Day Years [...] Sign Reading Time Taken Comments Blood Pressure - - Pulse - - Temperature - - Respiratory Rate - - Oxygen Saturation - - Inhaled Oxygen Concentration - - Weight 73 kg (161 lb) 02/17/2018 9:43 AM EDT Height 163.8 cm (5' 4.5) 02/17/2018 9:43 AM EDT Body Mass Index 27.21 02/17/2018 9:43 AM EDT documented in this encounter Patient Instructions * Patient Instructions* Shanna Kimball RN - 02/17/2018 10:00 AM EDT If you are 40 years old or older, please remember to have a mammogram prior to your upcoming breastreduction surgery as we advise not having one for at least six months after surgery. At this visit, you were given a folder containing information on: 1. Trifold pamphlet on breast reduction from the [employer] 2. Brochure: Breast Reduction and Abdominoplasty instructions for before and after surgery from [facility] 3. White page: Drain Care 4. Two packets of Hibiclens soap A few weeks prior to your surgery, please review the pre - post op instruction booklets you were given at today's appointment. Remember to do the preop wash with Hibiclens the night before and morning of surgery. If you have any questions or concerns please call our Plastic Surgery Nurse line @ [phone]. Wemonitor this line Wednesday - Wednesday 8 to 5. documented in this encounter Progress Notes * Christiano Fleming MD - 02/17/2018 10:00 AM EDT Plastic Surgery Consultation Note Christiano Fleming MD PCP: DEEDEE Shaffer CC: Abdominal pannus HPI: Radha Sena is a 52 y.o. female seen in my office today for consideration for abdominal panniculectomy.Cindy Lopez APRN has requested this consultation. She arrives accompanied by a friend today. Her maximum weight was 245 lbs in 2016. She now weighs 161 lbs. Her current weight has been stable for approximately 7 months. She has lost weight after gastric bypass surgery which was performed in August [address] Miles. She presents today because of increasing difficulty with keeping the fold under her pannus, umbilicus, and breasts free of rashes and infection, and clean, and odor free. She reports she uses OTC powder frequently to treat these areas. She has used antibiotic cream in the past. She reports after her surgery, her breasts have been left with excess skin and ptosis. She is generally happy with her breast size. She has persistent neck pain as well as shoulder pain. She had a normal mammogram last winter. She reports her diabetes has resolved after her gastric bypass surgery. In November she had a HgA1c of5.1%. She had a positive Hep B antibody test in the past, this is being managed by her PCP. She does not smoke, and drinks only occasionally. 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 She does not have lifting requirements for this. Patient Active Problem List Diagnosis Code ??? Preoperative Class II obesity BMI 36.6, S/P RNY gastric /8/16 E66.9 ??? Essential hypertension I10 ??? Diabetes mellitus type 2, uncomplicated E11.9 ??? Sinus tachycardia R00.0 ??? History of rectal bleeding Z87.19 ??? Hyperlipidemia E78.5 ??? Chronic constipation K59.09 No past medical history on file. Past Surgical History: Procedure Laterality Date ??? CARPAL TUNNEL RELEASE Bilateral 2014 ??? SECTION 1985, 1990 ??? PRO LAP GASTRIC BYPASS/JM-EN-Y N/A 08/13/2016 @LAPAROSCOPIC GASTROPLASTY, performed by Tonio Miles MD at [facility] OR ??? PRO LAP, SURG ENTEROLYSIS N/A 08/13/2016 LAPAROSCOPY, LYSIS OF ADHESIONS performed by Tonio Miles MD at [facility] OR ??? PRO UPPER GI ENDOSCOPY, DIAGNOSTIC N/A 08/13/2016 ENDOSCOPY, UPPER GI, DIAGNOSTIC, WITH OR WITHOUT SPECIMENS performed by Tonio Miles MD at [facility] OR ??? SALPINGO-OOPHORECTOMY Right 08/16/2013 complex right ovarian hemorrhagic corpus luteum cyst. Prominent adhesive disease within the pelvis-dense adhesions of pericolic fat, intraperitoneal fat oriented in a AP direction and spanning the entirety of the lower pelvis. The uterus could not be identified. The ovaries could not be seen. ??? TUBAL LIGATION Bilateral ??? TUBAL REVERSAL ~1995 ??? WRIST GANGLION EXCISION Left ~1992 Social History Social History ??? Marital status: Spouse name: N/A ??? Number of children: N/A ??? Years of education: N/A Occupational History ??? Not on file. Social History Main Topics ??? Smoking status: Never Smoker ??? Smokeless tobacco: Never Used ??? Alcohol use No ??? Drug use: No ??? Sexual activity: Not on file Other Topics Concern ??? Not on file Social History Narrative Examination: Ht 163.8 cm (5' 4.5) Wt 73 kg (161 lb) BMI 27.21 kg/m2 Body surface area is 1.82 meters squared. Pleasant female in no acute distress, comfortable. She was well oriented and asked appropriate questions throughout the visit. HEENT: MMM, normocephalic, sclera: white, no facial abrasions Neuro: Pupils equal, round, and reactive to light, extra ocular muscles in tact, tongue midline Resp: No stridor, no wheezes, regular rate Extrem: no cyanosis/clubbing/or edema, no rashes Muscuskeletal: gross full ROM x 4 extrem, ambulating, no lesions Breasts: Bra Size: 38DD Tattoo in left breast central upper pole Abdomen: Striae in abdomen and upper abdomen above umbilicus Abdominal pannus hanging onto her upper thigh and mons Chronic skin changes underneath pannus Extensive striae Fold extends to her back Grade 3: Panniculus extends to cover the upper thigh Breast Measurements Right Left SN-N (cm) 31.5 34 IMF-N (cm) 13 15 Base diameter 15.5 15.5 Breast Vol (estimate in cc) 850 1000 Resection (estimate in gms) 200 250 Impression: Radha Sena is a suitable candidate for panniculectomy which would likely correct her physical symptomatology. We also discussed a reduction in approximately 20% of her breast volume with mastopexy via Bradshaw pattern incision. I advised her that this breast surgery may be considered cosmetic by her insurance company. We talked about the scars and risks from panniculectomy, I discussed that the incision, hip to hip, does not extend to her back and this is not part of the panniculectomy. She is aware that infection, delayed wound healing, seroma and numbness are possibilities. Evgeny been provided with the [facility] patient information brochure, as well as their standard informed consent documents on both abdominoplasty, and panniculectomy. She has expressed a desire to proceed with surgical correction. I feel strongly that she will gain significant symptom relief and avoid further intertrigo following surgery. I recommended planning for approximately 3 weeks off work, with the need for drain placement and limitations on any lifting for the full 6 weeks after surgery. We have obtained photographs today. Anticipated resection (breasts) 1.80 655 441 1.81 665 1.82 680 Insurance Guidelines [X ] Pannus grade 2 or higher [X ] Rashes; prescribed and documented treatment for any rashes that don???t respond to 3 - 6 months of treatment. [ X] If the weight has been lost due to gastric bypass, it must be 18 months s/p bariatric surgery [X ] Patient must be at goal weight and stable 6 months Based on this, we will request insurance pre-determination . I will communicate my recommendations to DEEDEE Shaffer. Surgical Grid: Surgeon: Ronny Duration: 4.5 hours + 1 night overnight with both procedures. 2.5 hours for mastopexy only, 2 hoursfor panni only. Timeframe: pending insurance approval Coordinated with: None Procedure: Panniculectomy +/- mastopexy CPT: 68266, 55675 Surgical site: Abdomen, breasts Side:neli Anesthesia: General Follow up: 7-10 days with NSO H&P: With PCP for medical clearance Need to discontinue blood thinners pre-op? N/A I, Mary Morrell, have performed the documentation for this encounter in the presence of and actingas a scribe for Dr. Fleming. I performed the services which were documented by the scribe, and I agree with the accuracy of the documentation in this encounter. CHRISTIANO FLEMING MD documented in this encounter Plan of Treatment Scheduled Referrals Name Type Priority Associated Diagnoses Orde r Schedule Referral to Plastic Surgery Outpatient Referral Routine Redundant skin S/P gastric bypass Symptomatic abdominal panniculus Ordered: 01/25/2018 documented as of this encounter Visit Diagnoses Diagnosis Abdominal pannus Localized adiposity Breast ptosis Ptosis of breast documented in this encounter Care Teams Respiratory Care Assistant Relationship Specialty Start Date End Date Lew Beltran PA [address] [place] [id number] PCP - General General Internal Medicine 04/21/16 documented as of this encounter
--- OUTSIDE RECORDS SUMMARY | 2024-03-27 14:10 | XMS_ITS | Encounter Summary ---
Author Organization [facility] [place] [address] Care Team Providers Care Cigar Head Holer Name Role Phone Lew Beltran Primary Care Provider [phone] Reason for Visit * Reason Comments Follow-up Bariatric Surgery Pr ogram follow up Encounter Details Date Type Department Care Team (Late st Contact Info) Description 04/08/2017 9:30 AM EDT Office [place] [address] Cindy Lopez, MACKENZIE [facility] [place] [address] Disorder of iron metabolism; Status post bariatric surgery; Intestinal malabsorption, unspecified type Social History Tobacco Use Types [...] Sign Reading Time Taken Comments Blood Pressure 125/71 04/08/2017 9:16 AM EDT Pulse 62 04/08/2017 9:16 AM EDT Temperature - - Respiratory Rate - - Oxygen Saturation 100% 04/08/2017 9:16 AM EDT Inhaled Oxygen Concentration - - Weight 75.8 kg (167 lb) 04/08/2017 9:16 AM EDT Height - - Body Mass Index 28.67 08/13/2016 8:28 AM EST documented in this encounter Patient Instructions * Patient Instructions* Fawn Wang - 04/08/2017 9:30 AM EDT [facility] Admin coordinator Caridad: [phone] Dietitian: [phone] Surgeons/ nurse practitioner: [phone] Nurse line: [phone] Keep up the excellent work! Testing: Labwork: Today. Go to [facility], which is 1 flight below the General Surgery Clinic. Please note that you will always receive a letter with lab results and recommendations. Please readthis letter carefully and follow recommendations. The letter also contains information regarding your next lab draw. A copy of your labwork and office visit today is sent to your primary residential care facility manager Next visit: August Routine visits are done at 4.8,12, 18 and 24 months after surgery, and yearly thereafter. Please call [phone] if you do not receive an appointment [...] Continue to consume high protein meals and snacks and aim for 1 cup portions at meals. - Your Daily Goals: ?? 1,000-1,200 calories [...] both cardio and strength training exercises. Continue to stay active with walking and kayaking this summer. Alcohol: should be used sparingly, no more than one drink per occasion. Alcohol is a source of empty calories and can cause ulcers and vitamin and mineral deficiencies. Alcohol is toxic to the liver and is absorbed more quickly after surgery, it stays in the system longer. Studies have noted that there is an increased risk of alcohol dependence after bariatric surgery. f non-prescribed drugs and treet drugs is [...] every month from 1-[address] [facility]- no registration required Nutrition and Activity apps- Baritastic, My Fitness Pal, Lose It, My Plate Internet resources: www.Guvera www.inEarth www.DIRAmed www.Billfish Software.riskmethods/blog [facility] facebook page: [email or web address]://www.facebook.com/[email or web address] Books & Magazines: - Recipes for Life After Weight Loss Surgery by Amanda Dunbar - Shrink Yourself by Dr Pablo Phelan - Eating Well - Cooking Light documented in this encounter Progress Notes * Fawn Wang - 04/08/2017 9:30 AM EDT Bariatric Surgery Program Nutrition Progress Note Encounter Type: follow up SUBJECTIVE: Topics Discussed/Patient Concerns: ?? Tolerating chicken a little bit better now, she tried a small amount last night that was baked in the oven and it was fine. ?? Abdominal pain from constipation but she is not constipated anymore. She makes homemade granola with bran, flax seed. and beulah seeds and eats it daily which helps keep her bowel movements regular. ?? Weight loss has slowed but she feels great. Her activity will be picking up in a few weeks when she on vacation at her camp. OBJECTIVE: Date of Bariatric Surgery: 08/13/16 Type [...] 04/08/17 167# 58.6% 28.7 8 months post-op [place] Body Weight (based on BMI of 25): [...] with her and dog. 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 Has a camp in [place], [place] where they go on the weekends in the summer. is supportive of surgery and is trying to lose weight himself. Hobbies: Scrapbooking and crafts, baking, camping outdoors at her camp. Related medical history: Class III obesity, Type 2 Diabetes, HTN, and Hyperlipidemia Vitamin/Mineral Supplements (reported by patient): Supplement Type Brand/Form Dosage/Amount Frequency Comments Multivitamin Women's one A Day 1 Twice daily Calcium BA chews 1 Twice daily Or tablets 2 pills, twice a day Vitamin B12 SL and pill 2 500 mcg each daily Iron Gentle Iron 1 daily With vitamin C 500mg 2x/ day Vitamin D3 OTC 2,000 IU daily Biotin pill 1 Twice daily Tracking Intake: none Daily Oral Intake: Breakfast Slim Fast protein shake with fat free milk AM Snack String cheese at work Or granola if at home Lunch 1/4 cup cottage cheese and 3/4 Ecuadorean yogurt with homemade granola Or leftovers from night before PM Snack Sometimes granola or small piece of fruit or protien shake Dinner 3 oz chicken, fish, pork, or hamburger and 1/4 cup vegetables and 1/4 cup potato or sweet potato HS Snack 1-2 homemade popsicles (2 scoops whey protein powder, 2 cups skim milk, and sugar free chocolate pudding mix, makes 8 popsicles, 8.75 gm each) Protein/ grams per day: 60 grams Hydrating fluids- oz/ day: 24 oz water and CL and 14 oz decaf coffee or iced coffee with non dairy creamer and equal or Truvia and 18 oz milk, at least 48 oz total Soda: none ETOH: Very rarely, 1 drink on occasion Caffeine: none Sweets: Sometimes, she has a bag of M&Ms in the house and might grab 3-[address] by, it takes care of her sweet tooth. Meals per day: 3/ day ?? Feels full/satisfied after eating: yes ?? Feels hungry [x]never []sometimes []most of the time [] always ?? Drinks with meals: none ?? Practices portion control: yes, using small plate and eyeballing 3/4-1 cup meals ?? Spends at least 20 minutes eating each meal: 20-30 minutes ?? Has had dumping syndrome: none Foods/Symptoms: ?? In the past month, pt has vomited/regurgitated: vomited once form chicken 2 months ago Food Allergies/Intolerances: chicken, pasta, and scrambled eggs Exercise: kayaking and walking her dog at the camp. ASSESSMENT: Summary of Weight Loss: Patient's percent excess weight loss is 58.6% which is within the expected post- op bariatric surgery range. Weight down 8# x 4 months. Patient is doing very well and is still paying close attention to portion sizes. She is doing well consuming frequent high protein meals and snacks and is meeting her protein and fluid needs. She is compliant with supplements and stays active with kayaking and walking her dog when she is at her camp. NUTRITION INTERVENTION & MONITORING: ?? Provided support/encouragement and reinforced importance of meeting nutritional goals. ?? Reviewed nutrition and vitamin and mineral supplement recommendations (see patient instructions). ?? Written recommendations provided. Patient agreed with these and verbalized adequate understanding. ?? Evaluation by nurse practitioner today. * Cindy Lopez Lane - 04/08/2017 9:30 AM EDT Reason for visit: follow up S/P [...] Hg 10.7/ Hct 32.2 08/25/16 210 36 05/08 [place] multi BID Ca cit chew 500 BID [...] 04/08: jorge 37 iron 86 sat 22% Next visit with lab Ras A1c Screening/other: Date Evaluation Results 12/2016 Primary care 08/09/15 Colonoscopy Done for rectal bleeding. Occasional diverticulum noted in sigmoid colon. May be secondary to constipation 10/09/14 Pap negative 09/22 Mammogram Reports as normal never DEXA Problem List ??? Preoperative Class II obesity BMI 36.6, S/P gastric bypass ??? Essential hypertension: remains on metoprolol. Off diuretic therapy post surgery - preop treatment with triamterene- HCTZ, metoprolol and lisinopril ??? Diabetes mellitus type 2, uncomplicated, diagnosed ~2014: A1c 5.7 at 4 month post surgery check. Metformin d/c post surgery - preop treatment: [...] 10/04/09. ??? History of chronic constipation preoperatively: iimproved with intake of homemade granola ??? History of rectal bleeding, attributed to constipation, better with increasing fiber and fluids Past Surgical History Procedure Laterality Date ??? Laparoscopic Jason n Y gastric bypass (Dr Miles) 08/13/2016 ??? section 1985, 1990 ??? Tubal ligation Bilateral 1990 ??? Tubal reversal ~1995 ??? Laparotomy for [facility]oph[facility]omy at [facility]. Per op note, complex right ovarian hemorrhagic [...] Left Age 3 No Known Allergies Medications 04/08/17 1029 Medication Sig Taking? IRON BIS-GLYCINAT/VIT C/FA/B12 (GENTLE IRON ORAL) Take [...] Reported on 08/25/2016 Yes Changes to health/ evaluations/ social history since last visit: as per updated problem list. Another son was recently, with a total of 2 sons in the past 6 months Subjective. Patient concerns at today's visit: Radha returns for routine follow up. She is feeling well and pleased with her weight loss. She has redundant skin breasts and abdomen with skinfold rashes, treated with clortriamazole- bethmethasone cream. She is not interested in body contouring at this time. She had 1 episode of heartburn after a few sips of an alcoholic beverage. She denies symptoms of MATEO. She reports chronic constipation better, does have occasional LUQ discomfort attributed to constipation. Dietary history/ exercise/ activity level: See dietitian note. 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 year-old female looks well. She is accompanied by her Leandro Heart: RRR Lungs: CTA bilaterally without wheezing Abdomen: soft, non-tender. Abdominal trocar sites well-healed, without evidence of hernia. Redundant abdominal pannus with evidence of chronic intertrigo Extremities: no edema Vital signs: BP 125/71 Pulse 62 Wt 75.8 kg (167 lb) SpO2 100% BMI 28.67 kg/m2 Results for RADHA BELLA ( ) Ref. Range 04/08/2017 10:38 Ferritin Latest Ref Range: 30 - 400 ng/mL 37 Iron Latest Ref Range: 30 - 150 mcg/dL 86 TIBC Latest Ref Range: 250 - 450 mcg/dL 387 Iron Saturation Latest Ref Range: 20 - 50 % 22 Assessment: stable 8 months S/P gastric bypass, with loss of 58% of excess body weight. Improvementin iron deficiency Plan: ?? Radha was congratulated on ongoing healthy lifestyle efforts ?? Next BSP visit: August ?? Next labwork: August ?? Additional vitamin and mineral supplement recommendations (*in addition to usual post surgery supplements, as noted below): decrease iron to 5 days a week until next visit ?? dietary/ exercise recommendations per RD ?? Advised to call if develops unexplained abdominal pain, concerns or questions She was provided with a Bariatric Program [...] If labwork is done by the primary residential care facility manager: pleasesend a copy to the Bariatric Surgery Program, General Surgery Clinic, [facility], attention Cindy Lopez APRN. Questions regarding [facility] Bariatric Surgery Program patients: please call Smith Lopez APRN at [phone] or [phone] beeper [phone]. E-mail: [email or web address] documented in this encounter Plan of Treatment Not on file documented as of this encounter Procedures Procedure Name Priority Date/Time Associated Diagnosis Comments IRON AND TIBC Routine 04/08/2017 10:38 AM EDT Disorder of iron metabolism Status post bariatric surgery Intestinal malabsorption, unspecified type FERRITIN Routine 04/08/2017 10:38 AM EDT Disorder of iron metabolism Status post bariatric surgery Intestinal malabsorption, unspecified type documented in this encounter Results * Ferritin (04/08/2017 10:38 AM EDT) Ferritin 37 30 - 400 ng/mL [facility] Comment: Pediatric reference ranges not verified at [facility], interpret with caution. Reference ranges for females greater than 50 years of age approach values for men, i.e., 30-400 ng/mL. Blood specimen (specimen) 04/08/2017 10:38 AM EDT 04/08/2017 10:43 AM EDT Narrative Resulting Agency Comment Spec In Lab Cindy Lopez APRN CHEMISTRY ORDERAB LES [facility] [place] [address] * Iron and TIBC (04/08/2017 10:38 AM EDT) Iron 86 30 - 150 mcg/dL [facility] TIBC 387 250 - 450 mcg/dL [facility] Iron Saturation 22 20 - 50 % [facility] Blood specimen (specimen) 04/08/2017 10:38 AM EDT 04/08/2017 10:43 AM EDT Narrative Resulting Agency Comment Spec In Lab Cindy Lopez APRN [place] [address] documented in this encounter Visit Diagnoses Diagnosis Disorder of iron metabolism Other disorders of iron metabolism Status post bariatric surgery Bariatric surgery status Intestinal malabsorption, unspecified type documented in this encounter Care Teams Cigar Head Holer Relationship Specialty Start Date End Date Lew Beltran PA [address] [place] [id number] PCP - General General Internal Medicine 04/21/16 documented as of this encounter
--- OUTSIDE RECORDS SUMMARY | 2024-03-27 14:11 | XMS_ITS | Encounter Summary ---
[facility] Organization [facility] [place] [address] Care Team Providers Care Manager [employer]otive Name Role Phone Lew Beltran Primary Care Provider [phone] Encounter Details Date Type Department Care Team (Late st Contact Info) Description 04/21/2016 Telephone [place] [address] Jazzmine Jauregui Social History Tobacco Use Types Packs/Day Years Used Date Smoking Tobacco: Never Assessed Sex and Gender Information Value Date Recorded Sex Assigned at Not on file Gender Identity Not on file Sexual Orientation Not on file documented as of this encounter Miscellaneous Notes * Telephone Encounter - Jazzmine Jauregui - 04/21/2016 11:01 AM EDT Spoke with Radha to check in about her H&P which is missing from her chart. She said that she had an H&P with her [facility] doc in [place] in November or December of this year. I told her that we prefer her H&P to be from her PCP. Radha is going to see if she can change her OV on with her PCP into an H&P. I told her that this might not be possible since she has already had one this year (insurance may not pay for another one). Radha said that she would check anyway. I told her that I would request her H&P from [facility]. I told Radha that I am passing her chart on to be reviewed and that she can expect to hear from me next week. documented in this encounter Plan of Treatment Not on file documented as of this encounter Visit Diagnoses Not on filedocumented in this encounter Care Teams Manager Automotive Relationship Specialty Start Date End Date Lew Beltran PA [address] [place] [id number] PCP - General General Internal Medicine 04/21/16 documented as of this encounter
--- OUTSIDE RECORDS SUMMARY | 2024-03-27 14:11 | XMS_ITS | Encounter Summary ---
Author Organization Formerly [facility] [place] [address] Care Team Providers Care Director Of Content And Programming Name Role Phone Lew Beltran Primary Care Provider [phone] Reason for Visit * Reason Comments Obesity Bariatric Surgery Pr ogram preoperative visit #1 * Consultation (Routine) - Specialty Diagnoses / Procedures Referred By Zane clinton Referred To Contact General Surgery Procedures EVALUATE FOR BARIATRIC SURGERY Lew Beltran PA [address] [place] [address] Cindy Lopez [facility] [place] [address] Referral ID Status Reason Start Date Expiration Date V isits Requested Visits Authorized [id number] 04/28/2016 04/27/2017 1 1 Encounter Details Date Type Department Care Team (Latest Contact Info) Description 05/19/2016 9:00 AM EDT Office [place] [address] Cindy Lopez [facility] [place] [address] Obesity, unspecified obesity severity, unspecified obesity type; Vitamin D deficiency; Hyperlipidemia, unspecified hyperlipidemia type; Essential hypertension, hypertension with unspecified goal; Type 2 diabetes mellitus without complication Social History Tobacco Use Types Packs/Day Years Used Date Smoking Tobacco: Never Smokeless Tobacco: Never Sex and Gender Information Value Date Recorded Sex Assigned at Not on file Gender Identity Not on file Sexual Orientation Not on file documented as of this encounter Last Filed Vital Signs Vital Sign Reading Time Taken Comments Blood Pressure 110/68 05/19/2016 8:48 AM EDT Pulse 68 05/19/2016 8:48 AM EDT Temperature - - Respiratory Rate - - Oxygen Saturation 100% 05/19/2016 8:48 AM EDT Inhaled Oxygen Concentration - - Weight 99.1 kg (218 lb 6.4 oz) 05/19/2016 8:48 A M EDT Height 164.5 cm (5' 4.75) 05/19/2016 8:48 AM ED T Body Mass Index 36.62 05/19/2016 8:48 AM EDT documented in this encounter Patient Instructions * Patient Instructions* Fawn Wang Peggy - 05/19/2016 9:00 AM EDT BARIATRIC SURGERY PROGRAM FIRST VISIT Contact information: [facility] Admin coordinator Caridad: [phone] Dietitian: [phone] Surgeons/ nurse practitioner: [phone] Nurse line: [phone] Recommendations to do list after today's visit: Medications: ?? Start the following medications: Recommendations pending lab results Pending information: copy of operative report Bariatric Surgery Program educational information: 1. Read the Bariatric Surgery Program Educational Handbook thoroughly, highlight important areas toremember. Write down any questions that you may have to discuss at next visit. 2. Bring the Handbook to ALL pre-operative visits, including the surgeon visit. Keep the handbook in a safe place for easy retrieval. Your next visits: All visits take place in the General Surgery Clinic, Nutrition Director Area 4L: call Caridad to let her know your decision regarding visit date 3. 2nd visits with dietitian and nurse practitioner ([facility]- Shared Medical Appointment) 4. Surgical consultation 5. Pre-op class: to be determined at a later date 6. Bring the questionnaire to your next visit. Complete within 1 day of the visit. Nutrition: Continue to try new, high protein foods. Try Kashi Go Lean or Special K High Protein cereal in the morning. Continue to keep unhealthy foods out of the house, avoid buying ice cream, crackers, and soda. 1) Practice post-op GB diet recommendations prior to surgery to support post-op success and long-term weight loss: ??? Eat 3 meals daily, spaced about 4-6 hours apart. ??? Take your time when eating meals, at least 20-30 minutes per meal. ??? Avoid soda and limit caffeine consumption. Stop caffeine 2 weeks prior to surgery. ??? Sip 48-64 oz hydrating fluid daily between meals and avoid drinking with meals. ??? Use smaller plates/bowls/utensils for meals and eat smaller portions. ??? Plan meals 1 wk in advance and shop with a list. 2) Continue taking a complete multivitamin daily. Switch to an under age 50 multivitamin. 3) Exercise with the eventual goal of 30 minutes minimum 5 days per week or exercise as recommendedby MD. Start exercising with your and using the elliptical or treadmill. 4) Practice this Meal Format: Protein first at all meals! Only eat until full. Breakfast 1st Protein (15-20 grams) 2nd Fruit (1 piece or ?? cup) 3rd Starch (1 serving) Lunch and Dinner 1st Protein (20 grams) 2nd Non-Starchy Vegetables (no limit, no fat) 3rd Starch (1 serving) 4th Fruit (1 piece or ?? cup) 1 serving of starch = 1 slice toast, ?? Lebanese muffin, ?? cup cooked potato, rice, or pasta, 1 small bryce or wrap Non starchy vegetables include all those except corn, peas, winter squash, beans, and potatoes Snacks: 1-2 per day if physically hungry - choose a protein or a fruit Surgery date: For patients who have insurers who have a long approval process, your surgery date and pre-operative class will be scheduled after you are approved by your insurer. We cannot predict your OR date in advance of approval. Only the OR clinical team lead can provide you with a date. Questions for your doctor, specialist or pharmacist: 7. Ask your doctor about medication suggestions if you currently take medications that are largerthan the size of a tylenol. Large pills need to be crushed (if permitted by the drug parts designer) or taken in liquid form for TWO WEEKS after surgery. Diabetic oral medication often does not need terrance taken after surgery) ?? If you take antinflammatory medications or steroid medications for arthritis or asthma, please check with your doctor. These medications will likely need to be held 1 week prior to and at least a few weeks after surgery. For women who take control or hormone medications: these medications must be stopped 1 month before and after surgery. Use alternative forms of control. Education: 1. Continue to read information about bariatric surgery- websites listed in your handbook Also check the ASMBS website: http://asmbs.org/patients 2. Bariatric surgery apps- [facility] Saad Apps- Pre-Saad, Post-saad 3.[facility] facebook page: [email or web address] documented in this encounter Progress Notes * Fawn Wang - 05/19/2016 9:00 AM EDT Bariatric Surgery Program Initial Nutrition Assessment Radha Bella is being seen today for a preoperative evaluation in anticipation of weight loss surgery. SUBJECTIVE Preferred procedure: Doesn't know yet, wants to talk with nurse practitioner and surgeon to help decide what procedure would be best depending on her health history. Interest in bariatric surgery: When she got diagnosed with type 2 diabetes, she knew it was time todo something. She first came to an intro meeting about a year ago. After the meeting she started losing weight and thought she could be successful losing weight on her own, without surgery. But then she could not keep the weight off and came back to an intro meeting in April and decided to get surgery this time. She realizes she needs surgery as an extra tool to help keep the weight off. She wants to get surgery and lose weight because she has been dealing with weight issues her whole life andhas health issues. Both of her sons are getting next year and she has been thinking about future grandchildren. She wants to be healthy and be around for her family. Motivating Factors for Seeking Weight Loss Surgery: ?? [x] Improved Health ?? [x] residential weight loss ?? [x] Improved quality of life- be around longer ?? [ ] Increased activity Research: ?? [x] Reading (Internet, books, etc.) - reading online artices here and there, skimming the internet ?? [x] Talking to people who have had weight loss surgery- [facility] her [facility] and has been successful. They have talked a little bit but the friend is going to come over to patient's house next weekend for dinner to talk about the surgery. Patient was looking into [facility] program along with [facility] program, but her friend recommended she come here. ?? [x] Attending introductory seminar- 04/10/16 and around October, ?? [x] Watching videos Social history: to Jovan and has 2 sons, Tk aged 29 and Tom aged 25, who are both getting next year. Lives with her and dog. 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 Has a camp in [place], [place] where they go on the weekends in the summer. is supportive of surgery and is trying to lose weight himself. Hobbies: Scrapbooking and crafts, baking, camping outdoors at her camp. Related medical history: Class III obesity, Type 2 Diabetes, HTN, and Hyperlipidemia Overweight/obese since age: childhood Highest weight: 242# when w/ 2nd son at age 26, 238# when not at age 48 Lowest weight: 209# at age 49 Dieting History: Type of Diet Wt Lost (lbs.) Wt. Regain (lbs.) Dates Duration Comments Slim Fast 06 15 1993 1 month Low Carbohydrate 2010 4 months Nutrition Visits w/ Teresa Lovell, [facility] 14 9 06/11/15 07/09/15 08/06/15 3 months Found her helpful, decreased carbs History of diet pills to lose weight: Once when she was in her 20's, she got pills from the pharmacy and took them for 1 month at the most. She did not have any significant weight loss from taking them. History of bingeing/purging/laxatives to lose weight: none History of excessive exercise to lose weight: none Contributing Factors to Obesity: ?? [ ] Hx Binge Eating / Eating disorder ?? [x] Large portion sizes ?? [x] Fast eater ?? [x] Nighttime eating- snacking at night right before bed ?? [x] Emotional eating ?? [ ] Mindless eating ?? [x] Choosing high calorie foods ?? [x] Preference for concentrated sweets ?? [x] Snacking- pretzels, crackers, or chips ?? [ ] Grazing ?? [ ] Meal skipping ?? [x] Physical Inactivity ?? [x] Genes- on her father's side Eating Triggers: ?? [ ] Emotions: ?? [x] Boredom ?? [x] Stress ?? [ ] Fatigue ?? [ ] Physical Hunger ?? [ ] Eating on a Schedule ?? [ ] Other: Food Allergies/Intolerances/Preference: ?? [ ] Gluten ?? [ ] Lactose ?? [x] Not a big meat eater Recent Changes in Dietary/Lifestyle Habits: ?? [x] Smaller portions- more aware of portions ?? [ ] 3 meals per day ?? [ ] Eating slower ?? [x] More fruits, vegetables, and whole grains- increasing vegetables and fiber ?? [x] Leaner proteins- chicken and tuna, trying to eat more fish ?? [x] Decreasing carbohydrates ?? [ ] Lower calorie cooking methods (baking, broiling, grilling, etc.) ?? [x] Nutrition Counseling with RD ?? [x] No longer buying tempting foods from grocery store- decreased buying snack foods and keepingcrackers and chips out of the house ?? [ ] Cutting out soda ?? [x] Cutting out concentrated sweets/ decreasing added sugar- keeping them out of the house ?? [x] Increased physical activity ?? [x] Reading food labels ?? [x] Cut out juice ?? Date changes implemented: Fall 2014 when first started seeing Teresa Lovell Tracking Intake: none Typical Daily Intake: Breakfast 1/2 cup shredded wheat, frosted wheat, raisin bran, or cheerios cereal w/ 1% milk Snack When working: banana sometimes At home: more snacking- banana or apple w/ PB or homemade rye, wheat, or cinnamon raisin bread Lunch 1/2-3/4 can tuna fish w/ lettuce and apple w/ or w/o pb or cheese Or if in a hurry has another bowl of cheerios w/ milk and apple Snack At home: grazing on crackers or dry cereal if it's in the house At work: none Supper Squash from her garden or beans, sometimes corn on the cob, with 3-4 oz chicken, fish, tilapia, and sometimes 1/2 cup mashed potato or 3/4 cup pasta Snacks 1/2 cup ice cream 4x/ week in the last couple of weeks. Or fruit or chips and salsa Beverages: 6-8 12 oz glasses of water w/ lemon slices, or homemade lemonaide w/ concentrate lemon juice and 1/2 cup sugar, or unsweetened iced tea. Diet soda 2- 3x/ week, she has 1 can left and plans to not buy anymore. Occasional coffee. ETOH: 1-2 drinks per week, has flavored iced tea or hard root beer. She is cutting these out too. Tobacco: none How Often Meals Eaten Away From Home: Has cut way back on going out. Last time was 2 weeks ago whenshe got take out pizza due to a busy schedule. She doesn't care for going out to eat as much and she has been trying to do more healthy cooking. She also pays attention to sodium in restaurant meals. Supplements/Vitamins: Fish Oil, Vitamin C, Vitamin D, Super B Complex, Biotin, Centrum Silver, Fiber Well Gummies, and ducosate sodium Physical Activity: Not on a regular basis but has been more active recently while going to camp. She goes to camp on the weekends and is more active with walking the dog and chopping wood, it is easier for her to walk at camp. She is also on her feet at work. She does have a treadmill and elliptical at home and is hoping to start using the machines with her . Psychological Indications: Not seeing anyone currently but did find going for the psych evaluation to be helpful. She would go back to that therapist after surgery if needed. Vision at 2 years post-op: Healthier, hoping she will be able to decrease some medications but knows realistically that she won't be able to stop all of them. Wants to be at a healthy weight and be more active. Wants to look forward to getting on the treadmill and be able to walk by a cookie and not want to taste it. She wants to be around for many more years. She has thought of the possibility of running a 5k, it keeps popping up into her head. Wants to look better in a dress for her sons' weddings. Goal weight: Would love to get to 135#, but realistically her goal is 150-160#. Most proud of in terms of health and well-being: Proud that she is making lifestyle changes and healthy choices. She knows going forward that this is what she needs to do to get healthy. Character Strengths: Her is a great support system. A friend of hers is also in the processof getting bariatric surgery and the support of her friend will be helpful. She is determined, whenshe starts sometime, she will not quit. 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 OBJECTIVE: Weight History: Date Weight (lbs) HT BMI Comments 242# Highest Weight (patient reported) 12/05/15 220# 64 37.8 Initial program weight 05/19/16 218# 64.75 36.6 1st pre-op visit [facility] % Surgery 1 month post-op 4 months post-op [place] Body Weight (based on BMI of 25): 149.1# Excess Weight: 68.9# SUMMARY: Radha Bella has been referred for nutrition evaluation and diet instruction in anticipation of bariatric surgery. Previous conservative attempts at weight loss through dieting have been unsuccessful over the emt intermediate. Predicted weight loss with surgery is an estimated 50-70% of excess body weight, which would be a goal weight between 166-183#. Advised pt that bariatric surgery is a tool, not a solution; and ultimately, weight loss will be achieved through proper eating and exercise habits. She showed good understanding of the concepts discussed. NUTRITION DIAGNOSIS: - Obesity related to history of physical inactivity and over consumption as evidenced by BMI of 36.6. PLAN: Continue to try new, high protein foods. Try Kashi Go Lean or Special K High Protein cereal in the morning. Continue to keep unhealthy foods out of the house, avoid buying ice cream, crackers, and soda. 1) Patient to practice post-op GB diet recommendations prior to surgery to support post-op success and long-term weight loss: ??? Eat 3 meals daily, spaced about 4-6 hours apart. ??? Take your time when eating meals, at least 20-30 minutes per meal. ??? Avoid soda and limit caffeine consumption. ??? Sip 48-64 oz hydrating fluid daily between meals and avoid drinking with meals. ??? Use smaller plates/bowls/utensils for meals and eat smaller portions. ??? Plan meals 1 wk in advance and shop with a list. 2) Continue taking a complete multivitamin daily. Switch to an under age 50 multivitamin. 3) Exercise with the eventual goal of 30 minutes minimum 5 days per week or exercise as recommendedby MD. Start exercising with your and using the elliptical or treadmill. 4) We reviewed the No Weight Gain Policy. 5) Patient to attend two pre-op educational classes prior to surgery. Information given to patient: 1. [facility] Bariatric Surgery Education Handbook, a 102 page document (revision December 2011) which contains extensive information regarding pre and post- operative nutrition guidelines including: preop diet, Diet stages I-IV, hydration recommendations, protein guidelines, dumping syndrome, food intoleranc es, vitamin and mineral supplementation as well as a list of books and online bariatric resources. * Cindy Lopez - 05/19/2016 9:00 AM EDT Reason for consultation: Radha is a 50 y.o. year-old female referred by DEEDEE INMAN for consultation for consideration of surgical treatment of obesity. Prior bariatric surgery evaluations: denies. She attended an introductory meeting in October 2014,but did not proceed with surgery at that time because she thought she could lose weight without surgery. Her preferred procedure: Undecided. She has previously been told that she had scar tissue by a machine grainer (NOTE: RNY gastric bypass recommended given metabolic disease) BARIATRIC SURGERY PROGRAM PATHWAY Review of progress with the requirements of the Bariatric Surgery Program: 1. Education: She has attended a Introduction to the [facility] Bariatric Surgery Program seminar, a comprehensive two hour meeting that provides a program overview, education on bariatric surgeries offered at [facility], risks and benefits, as well as patient expectations and follow up, 10/2014 and 04/2016 [facility] BSP Educational seminars viewed: 3 Grades on post-testin-100%. The BSP Educational Handbook is provided at preoperative visit #1. 2. Pre-operative programmatic evaluations required: PCP evaluation and letter of support to proceedwith surgery, BSP labwork (can be done on day of visit #1) and psychological evaluation- minimum of2 visits. 3. Bariatric Surgery Program evaluations with RD and ATM MECHANIC: 05/19/16 4. Weight history: 229 pounds on 09/28/14. WT at visit #1: 218 pounds. 5. Gallbladder status: intact, not studied 6. Insurer specific requirements: [place] BCBS 3 months nutrition counseling completed 7. BSP Team meeting discussion: N/A 8. Next steps in pathway: ?? Additional testing/ consultations as determined as needed to be determined at today's visit. ?? If all BSP requirements and testing have been completed: surgical consultation. ?? Following surgical consultation, if approved to proceed to surgery by the surgeon and insurer: an operating room date and pre-operative class will be scheduled. History of present illness: Radha reports a history of obesity since the age of [age]. Her parents when she was in the eight grade. Her father an alcoholic and had little contact with the family after the divorce. Factors that she identifies as contributing to her obesity include:eating for emotional well being, inactivity and overconsumption. She denies binge eating, night eating disorder, self-induced vomiting, laxative or diuretic use or excessive exercise to lose weight. Conservative efforts at weight loss have been unsuccessful in the emt intermediate. Refer to nutrition note by [facility] dietitian for weight and dieting history, 24 hour dietary intake and recent dietary changes. Motivating factors for seeking surgery for bariatric surgery: see RD note Patient research in addition to attendance at [facility] Bariatric Surgery Informational meeting and online Educational seminars: see RD note Her goals of surgery: better health and decrease medications Her perceived readiness for surgery: she is ready to proceed, spent the past year preparing for surgery Her goal weight:Radha is in agreement with predicted anticipated weight loss by 1 year post surgery Functional status: Exercise: As per RD note Is ambulation limited most or all of the time? no Tolerance: she can walk a few miles and climb a flight of stairs Karnofsky performance status scale: 80- normal activity with effort ADLs: able to carry on without difficulty- independent Use of assistive devices: none Dyspnea with routine activity: denies Problem List ??? Preoperative Class II obesity BMI 36.6 ??? Essential hypertension treated with triamterene- HCTZ, metoprolol and lisinopril ??? Diabetes mellitus type 2, uncomplicated, diagnosed ~2014 - current treatment: metformin, no self glucose monitoring - Monitoring: A1c 6.4 on 04/28/16 - Complications: denies ??? Hyperlipidemia with low HDL (prevention per patient) treated with simvastatin ??? Sinus tachycardia treated with metoprolol - Evaluation by Dr. Prado on 05/21/15: sinus tachycardia, most likely sinus node sensitivity with autonomic dysfunction and deconditioning. No further cardiac testing indicated. - history of SVT 180 ED visit, not requiring treatment in 2015 - Holter monitoring (24 hours) done on [...] from 10/04/09. ??? Tattoos ??? Chronic constipation ??? History of rectal bleeding, attributed to constipation, better with increasing fiber and fluids Past Surgical History Procedure Laterality Date ??? section 1985, 1990 ??? Tubal ligation Bilateral 1990 ??? Tubal reversal ~1995 ??? Oophorectomy Right 2010 ??? Carpal tunnel release Bilateral 2014 ??? Trigger finger release Right 11/2015 ??? Wrist ganglion excision Left ~1992 ??? Eye procedure for strabismus Left Age 3 No Known Allergies Medications 05/19/16 1027 Medication Sig Taking? triamterene-hydrochlorothiazide (DYAZIDE) 37.5-25 mg Capsule Take 1 capsule by mouth daily. Yes simvastatin (ZOCOR) 20 mg Tablet Take 1 tablet by mouth nightly. Yes meTOPROLOL succinate (TOPROL-XL) 100 mg Tablet Sustained Release 24 hr Take 100 mg by mouth daily. Yes metFORMIN (GLUCOPHAGE) 1,000 mg Tablet Take 1,000 mg by mouth 2 times daily. Yes lisinopril (PRINIVIL;ZESTRIL) 40 mg Tablet Take 40 mg by mouth daily. Yes aspirin 81 mg Tablet, Delayed Release (E.C.) Take 81 mg by mouth daily. Yes fish oil-omega-3 fatty acids with vitamin E (FISH OIL) 1,000 mg Capsule Take 1 capsule by mouth daily. Yes ascorbic acid, vitamin C, (VITAMIN C) 1,000 mg Tablet Take 1,000 mg by mouth daily. Yes cholecalciferol, Vitamin D3, 1,000 unit Capsule Take 1 capsule by mouth daily. Yes FERROUS FUMARATE/VIT BCOMP,C (SUPER B COMPLEX ORAL) Take 1 tablet by mouth daily. Yes Biotin 5 mg Capsule Take 5 mg by mouth daily. Yes FOLIC ACID/MULTIVIT-MIN/LUTEIN (CENTRUM SILVER ORAL) Take 1 tablet by mouth daily. Yes docusate sodium (COLACE) 100 mg Capsule Take 100 mg by mouth 2 times daily. Yes INULIN (FIBER GUMMIES ORAL) Take 2 tablets by mouth daily. Yes VITAMIN B COMPLEX (B COMPLEX ORAL) Take 1 tablet by mouth daily. Yes Anesthesia history (per patient): denies untoward events Lactose/ Food/ Wheat/ Latex allergy/sensitivity: denies Diagnostic screenin. Lab data Results for RADHA BELLA ( ) Ref. Range 05/19/2016 08:19 WBC Latest Ref Range: 4.0 - 9.5 x10(3)/mcL 5.8 RBC Latest Ref Range: 4.00 - 5.21 x10(6)/mcL 4.76 Hemoglobin Latest Ref Range: 11.7 - 15.5 gm/dL 13.7 Hematocrit Latest Ref Range: 35.7 - 45.8 % 42.3 MCV Latest Ref Range: 82.6 - 94.4 fL 88.9 MCH Latest Ref Range: 27.1 - 32.0 pg 28.8 MCHC Latest Ref Range: 31.7 - 35.0 gm/dL 32.4 RDWSD Latest Ref Range: 37.0 - 46.0 fL 42.4 RDWCV Latest Ref Range: 11.5 - 14.1 % 13.0 Platelets Latest Ref Range: 145 - 357 x10(3)/mcL 231 MPV Latest Ref Range: 7.6 - 12.9 fL 10.5 nRBC % Auto Latest Units: % 0.0 nRBC Abs Auto Latest Ref Range: 0.000 - 0.000 x10(3)/mcL 0.000 Sodium Latest Ref Range: 135 - 145 mmol/L 142 Potassium Latest Ref Range: 3.5 - 5.0 mmol/L 4.5 Chloride Latest Ref Range: 98 - 107 mmol/L 101 CO2 Latest Ref Range: 22 - 31 mmol/L 26 Anion Gap Latest Ref Range: 5 - 15 mmol/L 15 BUN Latest Ref Range: 8 - 18 mg/dL 11 Creatinine Latest Ref Range: 0.70 - 1.20 mg/dL 0.77 Estimated GFR Latest Ref Range: >=60 >60 Glucose Lvl Latest Ref Range: 65 - 199 mg/dL 90 Calcium Latest Ref Range: 8.5 - 10.5 mg/dL 10.2 Uric Acid Latest Ref Range: 2.5 - 6.5 mg/dL 5.6 Total Protein Latest Ref Range: 6.1 - 8.0 gm/dL 7.7 Albumin Latest Ref Range: 3.2 - 5.2 gm/dL 4.7 Total Bilirubin Latest Ref Range: 0.2 - 1.3 mg/dL 0.3 Bili, Direct Latest Ref Range: 0.0 - 0.3 mg/dL 0.1 Alk Phos Latest Ref Range: 40 - 104 unit/L 53 AST Latest Ref Range: 0 - 30 unit/L 29 ALT Latest Ref Range: 0 - 30 unit/L 36 (H) Ferritin Latest Ref Range: 15 - 150 ng/mL 150 Folate Lvl Latest Ref Range: 4.8 - 24.2 ng/mL >20.0 Iron Latest Ref Range: 30 - 150 mcg/dL 63 TIBC Latest Ref Range: 250 - 450 mcg/dL 325 Iron Saturation Latest Ref Range: 20 - 50 % 19 (L) Vitamin B-12 Latest Ref Range: 207 - 974 pg/mL 593 25-OH Vit D Total Latest Ref Range: 30 - 100 ng/mL 35 TSH Latest Ref Range: 0.27 - 4.20 mcIU/mL 1.64 PTH Latest Ref Range: 15 - 65 pg/mL 29 Date WBC Hg/ Hct Plt Iron screen Lytes/CO2 BUN/Cr/GFR Ca Fast glu Insulin HA1C TSH 07/14/15 5.9 14/41 223 Nl/ 32 119 Date Vit A B12 25 D PTH folate T chol HDL LDL Trig Uric acid LFTs 07/14/15 99 33 52 69 ALP 43, otherwise nl 2. Psychological evaluation done by Taylor Desai MA following sessions on 06/11 and 07/11/15: no contraindication to bariatric surgery from a psychological perspective. Screening/other: Date Evaluation Results 2016 Primary care 08/09/15 Colonoscopy Done for rectal bleeding. Occasional diverticulum noted in sigmoid colon. May be secondary to constipation 10/09/14 Pap negative 09/17/15 Mammogram BIRADS category 1: negative never DEXA Family History: Father: mid 60s lung and throat cancer, HTN Type 2 DM, alcohol abuse and tobacco dependence, obese Mother: alive, age 71, healthy, GERD, average weight Brother(s): 1, healthy Sister(s): 1- DM type 2 obese, ? hypertension Familial diseases/disorders: Additional family history: [x] All others negative Obesity: paternal Diabetes: paternal, limited information Thyroid disease: Premature heart disease: Breast or colon cancer: Bleeding/ clotting disorders: Anesthesia complications: Renal calculi/ gout: Social History/ Health-related habits : Residence/ marital status:Radha lives with her Jovan in [place], [place]. 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 Tobacco: never Recreational drugs/Injection/Inhalant: denies recent or current use Screening for IPV in the past year: negative Osteoporosis risk factors: negative if blank []Advancing age []Previous fracture []Glucocorticoid therapy []Parental history of hip fracture []Current cigarette smoking []Excessive alcohol consumption []Rheumatoid arthritis []Secondary osteoporosis (eg, hypogonadism or premature menopause, malabsorption, chronic liver disease, inflammatory bowel disease) control: menopause LMP June 2015 Dental visits: regular Living will/DPOA: No Review of Systems (negative if left blank): Constitutional: [ ] fatigue EENT [+ ] wears corrective lens for reading [ ] vision or hearing problems Neurologic: [ ] paresthesias [ ] dizziness [ ] occasional headaches Cardiovascular: [ ] history of chest pain, squeezing, pressure [ ] history of NV [ ] previous PCI/ PTCA, cardiac surgery [ ] VTE [ ] Syncope [ ] murmur [ +] palpitations related to tachycardia, resolved on metoprolol Respiratory: [ ] shortness of breath [ ] wheezing [ ] COPD [+ ] symptoms of sleep apnea - rare snoring if overtired, wakes up on nights prior to days that sheis working. Denies napping, daytime somnolence GI: [+ ] heartburn less than once a month[ ] dysphagia [ ] early satiety [ ] abdominal pain [ ] hernia [ ] prior CT scan abdomen [ ] ED visit for abdominal pain [ ]nausea/ vomiting [ +] blood in stool -occasional, had normal colonoscopy [ ] chronic diarrhea [+ ] frequent constipation [] previous obesity surgery : [+ ] incontinence rare [ ] hematuria [] history of renal calculi UPPER LINING CEMENTER: [ +] LMP: 06/2015 [ ] menorrhagia [ ] menopause Musculoskeletal [+ ] myalgia/arthralgias: mild knee pain, no medication requirements Extremities: [ ] Varicose veins [+] edema occasional lower extremity Skin: [ +] skinfold rashes occasional, treated with powder Endocrine: [+ ] DM [ ] PCOS [ ] thyroid disease Heme/Lymph: [ ] excessive bruising [ ] lymphadenopathy [ ] transfusion [ ] blood donor in past year [+ ] iron deficiency history associated with menorrhagia treated with iron Allergic/ Immun: [ ] use of steroid/ immunosuppressant for chronic condition [ ] Latex, food or medication allergies: as per allergy list Psychiatric [ ] depression [] anxiety [] panic attacks [ ] history of suicide attempt [ ] symptoms of bipolar disorder [] addictions- gambling, excessive shopping, prolonged internet use [ ] History of abuse [ ] psychiatric hospitalization [ ] rehab admission Other: [ ] smoker within 1 year of surgery [ ] current smoker [ ] anticoagulation Bariatric Surgery VTE Risk Assessment Score Patients will be considered to be at high risk if they have one or more of the following: Previous VTE or BMI >/= 60 kg/m2 Or two or more of the followin Age > 50 BMI >/= 50 kg/m2 Male sex Recent tobacco use Obstructive sleep apnea Venous insufficiency/ varicose veins OCP or HRT within 30 days of surgery Total: 1 extended VTE prophylaxis is not indicated post bariatric surgery discharge Patients are advised to stop HRT and OCP/ DMPA 1 month prior to surgery and hold for 1 month postop, and use control during this time if appropriate. All patients who take coumadin/ anti-10Ainhibitors preoperatively are referred to the Thrombosis Clinic for recommendations. Physical exam: Vital signs: BP 110/68 Pulse 68 Ht 164.5 cm (5' 4.75) Wt 99.1 kg (218 lb 6.4 oz) SpO2 100% BMI 36.62 kg/m2 Neuro: Non-focal, gait normal Psych: Pleasant, conversant, normal affect, cognition and mood. ENT: neck supple Neck circumference is 15.25 inches Lungs: CTA without wheezing. Heart: RRR, no murmur appreciated. Abdomen: Obese, soft, non- tender, Pale striae, well healed pfannenstiel scar Waist circumference is 41 inches. Extremities: no lower extremity edema. Telangiectasias left medial ankle Skin: No areas of skin breakdown. Tattoos left anterior wrist, butterfly left chest Obesity distribution: central Discussion of treatment of obesity and of the [facility]: Ms.. Bella is aware that other treatments for obesity are available, ie, dietary, behavior modification, weight loss medications, exercise as well as surgical weight loss methods. The risks and benefits of bariatric surgery, including gastric bypass, adjustable gastric banding and sleeve gastrectomy are discussed at every Introduction to the [facility] meeting and all Educational Seminars, and will be reviewed in detail at the second pre- operative visit. The importance of incorporating lifestyle activity and regular exercise, such as walking, or swimming, after discussion and approval by her primary wound care center consultant, prior to surgery, as well as post-operatively, was stressed. She is aware of our programmatic approach which includes three bariatric surgeons, as well as two dietitians and two nurse practitioners. Mandatory requirements include: 1. attendance at a two hour Introduction to the [facility] seminar 2. view 3 Bariatric Surgery Educational seminars and complete post testing 3. a no weight gain policy. Ongoing weight loss is encouraged. Insurers may have additional weight loss requirements. 4. a minimum of two pre-operative visits with the dietitian and nurse practitioner 5. surgical consultation 6. Two hour pre-operative class and completion of post-testing 7. any additional requirements mandated by the patient's insurance carrier. Prospective patients are encouraged to thoroughly research bariatric surgery, via the internet, the[facility] website at [email or web address], books, and journals. In addition, information on bariatric surgery is available at the [facility] at [facility]. Assessment/ Plan: 50 y.o. year old female with Class II obesity with established obesity-related chronic disease including hypertension, type 2 diabetes, hyperlipidemia and impairment of well-being. She has had failure to sustain weight loss by medical management and meets the criteria proposed bythe NIH Consensus Guidelines for surgical treatment of severe obesity and the AACE, TOS, ASMBS Clinical Practice Guidelines for the Perioperative Nutritional, Metabolic and Non-surgical Support of the Bariatric Surgery Patient 2013 Update. She is aware that there are non-surgical methods to achieveweight loss. ?? She has chronic constipation which may worsen after bariatric surgery. She was encouraged to addMira-lax daily. She has been given a follow up appointment to discuss the risks and benefits of bariatric surgery. She has had an opportunity to have all her questions answered and is in agreement with the plan of care. She was encouraged to call with any questions or concerns. Data reviewed: PCP notes, lab data, radiology/cardiology reports, psychological evaluation. Information given to patient: 1. [facility] B[facility] Education Handbook, a 102 page document (revision June 2013) which contains extensive information regarding pre and post- operative care including: a copy of the Patient Agreement, illustrations of GI anatomy and gastric bypass, gastric banding and sleeve gastrectomy surgeries, [facility] Rehab Medicine recommendations and exercises prior to surgery, gastric bypass, gastric banding and sleeve gastrectomy risks and benefits, dietary information including the pre-operative and post-operative diets, DVT prevention guidelines,information on medications that can increase the risk of bleeding, pre-op preparation information, post-operative instructions and contact numbers. 2. Advised to take the following medications: miralax daily, discontinue iron, start vitamin D3 1000 units a day for the next 6 months Pending: - Copy of UPPER LINING CEMENTER operative report oophorectomy - CBC and CMP within 3 months of surgery, per [facility] accredited bariatric center guidelines (if surgery done after 08/18/16) - Ongoing weight loss encouraged - 2nd visits with RD and ATM MECHANIC, surgical consultation: 06/08 Questions regarding [facility] patients: please call Radha Danielle APRN or Smith Lopez APRN at [phone] documented in this encounter Plan of Treatment Not on file documented as of this encounter Results * TSH (05/19/2016 8:19 AM EDT) TSH 1.64 0.27 - 4.20 mcIU/mL [facility] Blood specimen (specimen) 05/19/2016 8:19 AM EDT 05/19/2016 8:23 AM EDT Narrative Resulting Agency Comment Spec In Lab Jeremy Ramirez MD CHEMISTRY ORDERABLE S [facility] [place] [address] * Uric acid (05/19/2016 8:19 AM EDT) Uric Acid 5.6 2.5 - 6.5 mg/dL [facility] Blood specimen (specimen) 05/19/2016 8:19 AM EDT 05/19/2016 8:23 AM EDT Narrative Resulting Agency Comment Spec In Lab Jeremy Ramirez MD CHEMISTRY ORDERABLE S Performing Organization Address City/[facility]/ZIP Co de Phone Number [facility] [place] [address] * Folate, serum (05/19/2016 8:19 AM EDT) Folate Lvl >20.0 4.8 - 24.2 ng/mL [facility] Blood specimen (specimen) 05/19/2016 8:19 AM EDT 05/19/2016 8:23 AM EDT Narrative Resulting Agency Comment Spec In Lab Jeremy Ramirez MD CHEMISTRY ORDERABLE S [facility] [place] [address] * Vitamin B12 (05/19/2016 8:19 AM EDT) Vitamin B-12 593 207 - 974 pg/mL [facility] Blood specimen (specimen) 05/19/2016 8:19 AM EDT 05/19/2016 8:23 AM EDT Narrative Resulting Agency Comment Spec In Lab Jeremy Ramirez MD CHEMISTRY ORDERABLE S [facility] [place] [address] * Vitamin D, 25-Hydroxy (05/19/2016 8:19 AM EDT) 25-OH Vit D Total 35 30 - 100 ng/mL [facility] Comment: Deficient <10 ng/mL Insufficient 10 to 29 ng/mL Sufficient 30 to 100 ng/mL Potential Intoxication >100 ng/mL According to the [place] National Osteoporosis Foundation, Vitamin D concentrations >30 ng/mL are sufficient to protect bone health. ??The National Kidney Foundation has similarly stated that patients with Vitamin D concentrations <30ng/mL should be considered to be insufficient or deficient. [email or web address]/[email or web address] [email or web address]://Dime/DHMCVitD The [employer] i[employer] Vitamin D Immunoassay detects both 25-OH Vitamin D2 and 25-OH Vitamin D3, but only a total Vitamin D concentration is reported. Blood specimen (specimen) 05/19/2016 8:19 AM EDT 05/19/2016 8:23 AM EDT Narrative Resulting Agency Comment Spec In Lab Jeremy Ramirez MD CHEMISTRY ORDERABLE S [facility] [place] [address] * PTH (05/19/2016 8:19 AM EDT) PTH 29 15 - 65 pg/mL [facility] Blood specimen (specimen) 05/19/2016 8:19 AM EDT 05/19/2016 8:23 AM EDT Narrative Resulting Agency Comment Spec In Lab Jeremy Ramirez MD CHEMISTRY ORDERABLE S Performing Organization Address [facility] Co de Phone Number [facility] [place] [address] * Ferritin (05/19/2016 8:19 AM EDT) Ferritin 150 15 - 150 ng/mL [facility] Comment: Pediatric reference ranges not verified at [facility], interpret with caution. Reference ranges for females greater than 50 years of age approach values for men, i.e., 30-400 ng/mL. Blood specimen (specimen) 05/19/2016 8:19 AM EDT 05/19/2016 8:23 AM EDT Narrative Resulting Agency Comment Spec In Lab Jeremy Ramirez MD CHEMISTRY ORDERABLE S Performing Organization Address [facility] Co de Phone Number [facility] [place] [address] * (ABNORMAL) Iron and TIBC (05/19/2016 8:19 AM EDT) [facility] Signature Iron 63 30 - 150 mcg/dL [facility] TIBC 325 250 - 450 mcg/dL [facility] Iron Saturation 19(L) 20 - 50 % [facility] Blood specimen (specimen) 05/19/2016 8:19 AM EDT 05/19/2016 8:23 AM EDT Narrative Resulting Agency Comment Spec In Lab Jeremy Ramirez MD CHEMISTRY ORDERABLE S Performing Organization Address City/[facility]/ZIP Co de Phone Number [facility] [place] [address] * (ABNORMAL) Comprehensive metabolic panel (non-fasting) (05/19/2016 8:19 AM EDT) Glucose Lvl 90 65 - 199 mg/dL [facility] Comment:Diabetes: >=200 mg/d L plus symptoms BUN 11 8 - 18 mg/dL [facility] Creatinine 0.77 0.70 - 1.20 mg/dL [facility] Comment: Please note that the pediatric reference intervals supplied above were not validated at [facility]. Results from pediatric patients should be interpreted in conjunction to the patient's age, height and muscle mass. Sodium 142 135 - 145 mmol/L [facility] Potassium 4.5 3.5 - 5.0 mmol/L [facility] Comment: Please note: ??Patients with WBC >100,000 may have falsely elevated Potassium levels. ??For accurate Potassium quantification in these patients send serum separator tube (gold top) for subsequent determinations. ??Contact the Clinical Chemistry Laboratory if there are any questions. Chloride 101 98 - 107 mmol/L [facility] CO2 26 22 - 31 mmol/L [facility] Anion Gap 15 5 - 15 mmol/L [facility] Calcium 10.2 8.5 - 10.5 mg/dL [facility] Total Protein 7.7 6.1 - 8.0 gm/dL [facility] Albumin 4.7 3.2 - 5.2 gm/dL [facility] AST 29 0 - 30 unit/L [facility] ALT 36(H) 0 - 30 unit/L [facility] Alk Phos 53 40 - 104 unit/L [facility] Total Bilirubin 0.3 0.2 - 1.3 mg/dL [facility] Bili, Direct 0.1 0.0 - 0.3 mg/dL [facility] Estimated GFR >60 >=60 [facility] Comment: This estimated GFR (eGFR) value [...] the following links into your internet browser. [email or web address] [email or web address] Blood specimen (specimen) 05/19/2016 8:19 AM EDT 05/19/2016 8:23 AM EDT Narrative Resulting Agency Comment Spec In Lab Jeremy Ramirez MD CHEMISTRY ORDERABLE S [facility] [place] [address] * Hemogram (05/19/2016 8:19 AM EDT) WBC 5.8 4.0 - 9.5 x10(3)/[facility] RBC 4.76 4.00 - 5.21 x10(6)/[facility] Hemoglobin 13.7 11.7 - 15.5 gm/dL [facility] Hematocrit 42.3 35.7 - 45.8 % [facility] MCV 88.9 82.6 - 94.4 fL [facility] MCH 28.8 27.1 - 32.0 pg [facility] MCHC 32.4 31.7 - 35.0 gm/dL [facility] Platelets 231 145 - 357 x10(3)/[facility] RDWSD 42.4 37.0 - 46.0 [facility] RDWCV 13.0 11.5 - 14.1 % [facility] MPV 10.5 7.6 - 12.9 [facility] nRBC % Auto 0.0 % [facility] nRBC Abs Auto 0.000 0.000 - 0.000 x10(3)/[facility] Blood specimen (specimen) 05/19/2016 8:19 AM EDT 05/19/2016 8:23 AM EDT Narrative Resulting Agency Comment Spec In Lab Jeremy Ramirez MD HEMATOLOGY ORDERABL ES [facility] [place] [address] documented in this encounter Visit Diagnoses Diagnosis Obesity, unspecified obesity severity, unspecified obesity type Vitamin D deficiency Unspecified vitamin D deficiency Hyperlipidemia, unspecified hyperlipidemia type Essential hypertension, hypertension with unspecified goal Type 2 diabetes mellitus without complication documented in this encounter Care Teams Director Of Content And Programming Relationship Specialty Start Date End Date Lew Beltran PA [address] [place] [id number] PCP - General General Internal Medicine 04/21/16 documented as of this encounter
--- OUTSIDE RECORDS SUMMARY | 2024-03-27 14:11 | XMS_ITS | Encounter Summary ---
Author Organization [facility] [place] [address] Care Team Providers Care Asphalt Distributor Operator Name Role Phone Lew Beltran Primary Care Provider [phone] Reason for Visit * Reason Comments Obesity Bariatric Surgery Pr varsha preoperative visit #2 SMA Encounter Details Date Type Department Care Team (Latest Contact Info) Description 06/08/2016 8:30 AM EDT Office [place] [address] Cindy Lopez, SENIOR TRAINING AND DEVELOPMENT REP [facility] [place] [address] Fawn Wang, BR[place]TNEE Obesity, Class II, BMI 35-39.9; Essential hypertension; Hyperlipidemia, unspecified hyperlipidemia type Social History Tobacco Use Types Packs/Day Years Used Date Smoking Tobacco: Never Smokeless Tobacco: Never Sex and Gender Information Value Date Recorded Sex Assigned at Not on file Gender Identity Not on file Sexual Orientation Not on file documented as of this encounter Last Filed Vital Signs Vital Sign Reading Time Taken Comments Blood Pressure 120/74 06/08/2016 8:19 AM EDT Pulse 95 06/08/2016 8:19 AM EDT Temperature - - Respiratory Rate - - Oxygen Saturation 100% 06/08/2016 8:19 AM EDT Inhaled Oxygen Concentration - - Weight 99.9 kg (220 lb 3.2 oz) 06/08/2016 8:19 A M EDT Height 164.5 cm (5' 4.75) 06/08/2016 8:19 AM ED T Body Mass Index 36.93 06/08/2016 8:19 AM EDT documented in this encounter Patient Instructions * Patient Instructions* Cindy Lopez T - 06/08/2016 8:30 AM EDT BARIATRIC SURGERY PROGRAM SECOND VISIT Contact information: [facility] Admin coordinator Maryily: [phone] or [phone] Dietitians: [phone] Surgeons/ nurse practitioners: [phone] or [phone] Nurse line: [phone] 1. Pending information: none 2. Ongoing weight loss is encouraged. There is a no weight gain policy between visits. The surgeon may opt to delay your surgery if you gain weight between visits. 3. Bring the Educational Handbook to the surgeon's visit. 4. After your surgical consultation, all pertinent information will be faxed to your insurer for approval, which can take a few weeks. Your surgery date and pre-operative class will be scheduled tomorrow. Call Diamond or Mirtha tomorrow at to schedule. Your surgery date may change if insurance approval is delayed Prepare for the Pre-op Class by doing the followin. Review the program handbook and come to class with a list of questions. 2. Watch the educational videos including Psychological Implications of bariatric surgery on the [facility] website under Bariatric Surgery ([email or web address]) 3. Come prepared to the class to discuss meal planning. 4. Bring your supplements 5. Come with tips and suggestions that my be helpful to others. Questions for your doctor, specialist or pharmacist: 5. Ask your doctor about medication suggestions if you currently take medications that are largerthan the size of a tylenol. Large pills need to be crushed (if permitted by the drug lacquer machine feeder) or taken in liquid form for TWO WEEKS after surgery. Diabetic oral medication often does not need terrance taken after surgery) ?? If you take antinflammatory medications or steroid medicationsfor arthritis or asthma, please check with your doctor. These medications will likely need to be held 1 week prior to and at least a few weeks after surgery. For women who take control or hormone medications and men who take hormone medications: thesemedications must be stopped 1 month before and after surgery. Use alternative forms of control. Bariatric surgery apps- [facility] facebook page: [email or web address] documented in this encounter Progress Notes * Cindy Lopez - 06/08/2016 8:30 AM EDT Reason for visit: Radha is a 50 y.o. year-old female who presents for review of progress since initial visit, and discussion of risks and benefits of bariatric surgery. She is accompanied by her Leandro to today's visit. Ms. Sena's bariatric procedure of choice: gastric bypass History of present illness: see notes from 05/19/16. She continues to make healthy dietary changes, including stopping intake of soda, sharply decreasing caffeine intake, eating protein first at meals. She has stopped drinking 30 minutes prior to, during and after meals. She is more physically active, gardening, stacking wood and walking her dog twice weekly. BARIATRIC SURGERY PROGRAM PATHWAY Review of progress with the requirements of the Bariatric Surgery Program: 1. Education: He has attended a Introduction to the [facility] [place] Surgery Program seminar10/2014 and 04/2016 [facility] BSP Educational seminars viewed: 3 Grades on post-testin-100%. The BSP Educational Handbook is provided at preoperative visit #1. 2. Pre-operative programmatic evaluations required: PCP evaluation and letter of support to proceedwith surgery, BSP labwork (can be done on day of visit #1) and psychological evaluation- minimum of2 visits. 3. Bariatric Surgery Program evaluations with RD and BUILDING CONSTRUCTION TEACHER: 05/19/16 and 06/08/16. 4. Weight history: 229 pounds on 09/28/14. HT: 64.75. WT at visit #1: 218 pounds. WT at visit #2: 220 pounds. 5. Gallbladder status: intact, not studied 6. Insurer specific requirements: [place] [employer]BS 3 months nutrition counseling completed 7. BSP Team meeting discussion: N/A 8. Next steps in pathway: ?? Since all BSP requirements and testing have been completed: surgical consultation has been scheduled with ?? Following surgical consultation, if approved to proceed to surgery by surgeon and insurer: an operative date and Pre-operative Education Class, a 2 hour class taught by the Bariatric BUILDING CONSTRUCTION TEACHER and RD will be scheduled ?? During hospitalization for bariatric surgery, a standard bariatric surgery order set is followed. ?? Routine post-operative follow up with labwork is done at months 1,4,12,18 and 24, yearly thereafter, and PRN. High risk patients are followed more frequently. Problem List ??? Preoperative Class II obesity [...] reversal ~1995 ??? Laparotomy for [facility]ooph[facility]omy at [facility]. Per op note, complex right ovarian [...] Eye procedure for strabismus Left Age 3 Screening/other: Date Evaluation Results 2015 Primary care 08/09/15 Colonoscopy Done for rectal bleeding. Occasional diverticulum noted in sigmoid colon. May be secondary to constipation 10/09/14 Pap negative 09/17/15 Mammogram BIRADS category 1: negative never DEXA Recent diagnostic screening/ evaluations since initial visit: - none Changes to review of systems/ medications since initial visit: She switched to a multivitamin with iron as recommended. She discontinued fish oil and B complex. Overall changes to comorbidities are noted in Updated Problem list. Review of plans for post-operative support after discharge: Leandro Exam: BP 120/74 Pulse 95 Ht 164.5 cm (5' 4.75) Wt 99.9 kg (220 lb 3.2 oz) SpO2 100% BMI 36.93 kg/m2 Discussion of bariatric surgeries performed at [facility], risks and benefits, and the [facility] Bariatric Surgery Program requirements: The risks of immediate and detention complications as well as the benefits of gastric bypass and sleeve gastrectomy surgeries, as outlined extensively in the Bariatric Surgery Program Handbook, whichis a >100 page document, were reviewed. She is aware that all bariatric surgeries are elective procedures. The mechanism by which gastric bypass and sleeve gastrectomy surgeries lead to weight loss was reviewed. The concept that bariatric surgery is a tool for weight loss and not a cure for obesity was again emphasized. The need for commitment to detention lifestyle changes, with healthy diet and regular physical activity was stressed to achieve and sustain detention weight loss. Benefits of bariatric surgery discussed: ?? estimated loss of 50% - 70% of excess body weight with gastric bypass and sleeve gastrectomy, generally less weight loss after sleeve gastrectomy. Patients rarely achieve ideal body weight, especially patients with BMIs >50. ?? improvement or resolution of weight related comorbidities such as obesity- related hypertension, sleep apnea, NAFLD/ [place], esophageal reflux, restrictive lung disease and hyperlipidemia when anticipated weight loss is achieved. ?? Type 2 diabetes improvement occurs in the majority of patients shortly after gastric bypass, often prior to discharge from the hospital, prior to any weight loss. Patients with >10 year historyof diagnosis of type 2 diabetes often will need to remain on insulin rat exterminator. There is less improvement to type 2 diabetes after sleeve gastrectomy as compared with gastric bypass. ?? patients also generally feel better, with improvement in self-esteem and activity levels. Potential but rare risks of gastric bypass and sleeve gastrectomy discussed: ?? inability to perform the operation ?? <0.01%. ?? bleeding and splenic injury with the need for blood transfusion ?? heart and lung complications, including prolonged mechanical ventilation and possible tracheostomy, very rare ?? wound infection and seroma, rare in laparoscopic patients ?? DVT with fatal pulmonary emboli. Prophylactic measures used including Enoxaparin, sequential compression devices and early ambulation. Some patients are discharged on extended Enoxaparin therapy who meet scoring criteria ?? rhabdomyolysis ?? nutritional deficiencies, including protein-calorie malnutrition, vitamins B12, B1, D, folate, iron deficiency and anemia. ?? gallstones, significantly decreased by prophylactic treatment with Ursodiol for 6 months post-operatively. ?? peripheral neuropathy related to chronic poor nutrition or B vitamin deficiencies ?? transient telogen effluvium ?? patients weighing >350 pounds with increased risks related to radiology equipment weight limits, which may necessitate return to OR for evaluation Risks specific to gastric bypass discussed: ?? anastomotic leakage with the development of peritonitis and abscess, potentially leading to sepsis, renal failure and . ?? anastomotic stricture ?? Lifetime risk of anastomotic ulcer, increased with NSAID use, tobacco and regular alcohol use ?? lifetime risk of small bowel obstruction ?? lifetime risk of internal and trocar site hernias, rare ?? potential risk for renal calculi, increased with chronic poor hydration and prior history of renal calculi Risks specific to laparoscopic sleeve gastrectomy discussed: ?? leak at the staple line with the development of peritonitis and abscess, potentially leading to sepsis, renal failure and . The rate of leak after sleeve at [facility] is 0%. ?? stricture of gastric remnant with need for dilatation ?? prolonged nausea and vomiting early post surgery ?? Worsening or development of GERD ?? Potential revision to gastric bypass due to severe GERD ?? generally less weight loss than gastric bypass Potential secondary effects of bariatric surgeries discussed: ?? weight regain/ poor weight loss influenced by eating behaviors and lack of a regular exercise program. Drinking high calorie liquids, frequent snacking or ingestion of large amounts of soft foods will cause weight gain . ?? dumping syndrome associated with gastric bypass ?? Lactose intolerance associated with gastric bypass ?? sagging skin in any area, such as the face, torso and extremities following weight loss. Body contouring surgery may not be a covered benefit by the individual's insurer, and is associated with scarring, risk of infection etc. Patients are advised that if unable to accept the possibility of skinredundancy following weight loss, then they should not proceed with bariatric surgery. Bariatric surgery is done for health reasons, not to improve physical appearance. ?? transfer of addictions or symptom substitution behavior. When food is no longer available to secure a sense of comfort and/or relieve stress, some may turn to alcohol or illicit substances, while others may turn to excessive shopping, gambling or other indiscretions. ?? Worsening of psychiatric illness Radha was advised that bariatric surgery would likely be ineffective for those who: ?? receive a great deal of satisfaction from eating ?? have active eating disorders including binge eating disorder and bulimia ?? are in the midst of serious personal or unstable psychiatric problems Other information discussed: Bariatric Surgery Follow up for LIFE: ?? 3 weeks, 4, 8, 12,18 and 24 months, yearly thereafter. More frequent follow up done as clinically indicated. Labwork: done at all routine visits except 1 month post op Post-operative support group meetings: held on the first Wednesday of every month. All patients are encouraged to attend. Vitamin and mineral supplementation for LIFE: ?? B12 500 mcg sublingual daily, calcium citrate 500-600 mg with vitamin D 400- 500 mg BID, multivitamins with minerals and iron twice a day. Iron in the form of ferrous fumarate or carbonyl iron is taken with vitamin C once a day for menstruating females or those with iron deficiency or anemia. She appeared to have a good understanding of the information presented at today's meeting, and seems to have reasonable and realistic expectations of bariatric surgery. She previously signed an agreement stating that She is willing to comply with instructions, lifetime vitamin and mineral supplements and programmatic follow up. Assessment/ Plan: 50 y.o. year old female with Class III obesity with established obesity-related chronic disease. Currently, bariatric surgery is the best treatment available for morbid obesity, providing the only mechanism for reproducible, effective, and sustained weight loss. Ms.. Sena is interested in a laparoscopic approach to bariatric surgery, and meets BSP requirements. She is aware that conversion to an open procedure is possible. ??? Her Bariatric Surgery VTE Risk Assessment score, as determined at visit #1 is 1, which indicates that enoxaparin 40 mg SQ BID is recommended during inpatient stay only.. Ms. Sena has met the requirements of the [facility] [place], and has an appointment today for surgical consultation. She was encouraged to call with any questions or concerns. Data reviewed: - Visit #2 questionnaire - Op notes salpino-oophorectomy Information reviewed with patient: 1. [facility] Bariatric Surgery Program Educational Handbook, bariatric surgery patient agreement and risks and benefits of gastric bypass and sleeve gastrectomy reviewed in detail. Pending/ other: - CBC and CMP within 3 months of surgery, per [facility] accredited bariatric center guidelines (if surgery done after 08/18/16) - Ongoing weight loss encouraged OR date: pending Preop class recommendations: + Ursodiol, + PPI, d/c HCTZ, B/P monitoring Time spent in counseling: Individual planning and coordination of care: 5 minutes Group counselin minutes Questions regarding [facility] Bariatric Surgery Program patients: please call Radha Danielle APRN or Smith Lopez APRN at [phone] or [phone] beeper [phone]. * Fawn Wang - 06/08/2016 8:30 AM EDT BARIATRIC SURGERY PROGRAM NUTRITION EDUCATION 2nd Pre-Operative Visit Shared Medical Appointment Radha Sena attended a 2 hour shared medical appointment today for her second pre-operative visit with the Bariatric Surgery Program dietitian and nurse practitioner. Ms. Sena is a morbidly obese female who has been referred for nutrition evaluation and diet instruction in anticipation of bariatric surgery. Previous conservative attempts at weight loss through dieting have been unsuccessful over the rat exterminator. Advised patient that bariatric surgery is a weight loss tool not a solution; and ultimately weight loss will be achieved through proper eating and exercise habits. She was given suggestions for how to incorporate dietary and lifestyle changes into her daily schedule. Patient was given a copy of theprogram handbook at the initial appointment which includes specific information on all nutritional recommendations and guidelines. She was also given contact information for further nutritional questions. Ms. Sena showed good understanding of the concepts discussed. Nutrition Topics Covered at Today's Appointment: ?? Pre-operative Surgical Diet ?? Purpose of diet ?? Appropriate foods ?? Protein goals ?? Carbohydrate goals ?? Calorie goals ?? Keeping a food log ?? Hydration and Appropriate Beverages ?? Post-Operative Diets (Stages I-IV) ?? Importance of following diet stages ?? Appropriate foods ?? Sample Menus ?? Vitamin/Mineral Supplementation ?? Common Food Intolerances ?? Dumping Syndrome ?? Sugar Alcohols ?? Physical Activity The appointment consisted of 60 minutes of group education and counseling. documented in this encounter Plan of Treatment Not on file documented as of this encounter Visit Diagnoses Diagnosis Obesity, Class II, BMI 35-39.9 Obesity, unspecified Essential hypertension Unspecified essential hypertension Hyperlipidemia, unspecified hyperlipidemia type documented in this encounter Care Teams Asphalt Distributor Operator Relationship Specialty Start Date End Date Lew Beltran PA [address] [place] [id number] PCP - General General Internal Medicine 04/21/16 documented as of this encounter
--- OUTSIDE RECORDS SUMMARY | 2024-03-27 14:11 | XMS_ITS | Encounter Summary ---
[place] [address] Care Team Providers Care Sheet Metal Assembler Name Role Phone Lew Beltran Primary Care Provider [phone] Encounter Details Date Type Department Care Team (Latest Contact Info) Description 05/19/2016 8:00 AM EDT Laboratory Appointment Lab [address] [place] [id number] Obesity, unspecified obesity severity, unspecified obesity type; Essential hypertension, hypertension with unspecified goal; Hyperlipidemia, unspecified hyperlipidemia type; Type 2 diabetes mellitus without complication; Vitamin D deficiency Social History Tobacco Use [...] Priority Date/Time Associated Diagnosis Comments PTH Routine 05/19/2016 8:19 AM EDT Obesity, unspecified obesity severity, unspecified obesity type Vitamin D deficiency HEMOGRAM Routine 05/19/2016 8:19 AM EDT Obesity, unspecified obesity severity, unspecified obesity type Essential hypertension, hypertension with unspecified goal IRON AND TIBC Routine 05/19/2016 8:19 AM EDT Obesity, unspecified obesity severity, unspecified obesity type VITAMIN D, 25-HYDROXY Routine 05/19/2016 8:19 AM EDT Obesity, unspecified obesity severity, unspecified obesity type Vitamin D deficiency URIC ACID Routine 05/19/2016 8:19 AM EDT Obesity, unspecified obesity severity, unspecified obesity type TSH Routine 05/19/2016 8:19 AM EDT Obesity, unspecified obesity severity, unspecified obesity type FOLATE, SERUM Routine 05/19/2016 8:19 AM EDT Obesity, unspecified obesity severity, unspecified obesity type FERRITIN Routine 05/19/2016 8:19 AM EDT Obesity, unspecified obesity severity, unspecified obesity type VITAMIN B12 Routine 05/19/2016 8:19 AM EDT Obesity, unspecified obesity severity, unspecified obesity type COMPREHENSIVE METABOLIC PANEL (NON-FASTING) Routine 05/19/2016 8:19 AM EDT Obesity, unspecified obesity severity, unspecified obesity type Hyperlipidemia, unspecified hyperlipidemia type Essential hypertension, hypertension with unspecified goal Type 2 diabetes mellitus without complication documented in this encounter Results * TSH (05/19/2016 8:19 AM EDT) TSH 1.64 0.27 - 4.20 mcIU/mL [facility] Blood specimen (specimen) 05/19/2016 8:19 AM EDT 05/19/2016 8:23 AM EDT Narrative Resulting Agency Comment Spec In Lab Jeremy Ramirez MD CHEMISTRY ORDERABLE S [facility] [place] [address] * Uric acid (05/19/2016 8:19 AM EDT) Uric Acid 5.6 2.5 - 6.5 mg/dL [facility] Blood specimen (specimen) 05/19/2016 8:19 AM EDT 05/19/2016 8:23 AM EDT Narrative Resulting Agency Comment Spec In Lab Jeremy Ramirez MD CHEMISTRY ORDERABLE S Performing Organization Address City/[facility]/ZIP Co de Phone Number [facility] [place] [address] * Folate, serum (05/19/2016 8:19 AM EDT) Folate Lvl >20.0 4.8 - 24.2 ng/mL [facility] Blood specimen (specimen) 05/19/2016 8:19 AM EDT 05/19/2016 8:23 AM EDT Narrative Resulting Agency Comment Spec In Lab Jeremy Ramirez MD CHEMISTRY ORDERABLE S Performing Organization Address City/[facility]/ZIP Co de Phone Number [facility] [place] [address] * Vitamin B12 (05/19/2016 8:19 AM EDT) Vitamin B-12 593 207 - 974 pg/mL [facility] Blood specimen (specimen) 05/19/2016 8:19 AM EDT 05/19/2016 8:23 AM EDT Narrative Resulting Agency Comment Spec In Lab Jeremy Ramirez MD CHEMISTRY ORDERABLE S Performing Organization Address City/[facility]/ZIP Co de Phone Number [facility] [place] [address] * Vitamin D, 25-Hydroxy (05/19/2016 8:19 AM EDT) 25-OH Vit D Total 35 30 - 100 ng/mL [facility] Comment: Deficient <10 ng/mL Insufficient 10 to 29 ng/mL Sufficient 30 to 100 ng/mL Potential Intoxication >100 ng/mL According to the [place] National Osteoporosis Foundation, Vitamin D concentrations >30 ng/mL are sufficient to protect bone health. ??The National Kidney Foundation has similarly stated that patients with Vitamin D concentrations <30ng/mL should be considered to be insufficient or deficient. http://tinyurl.com/[facility] CITYnatlkidneyfoundation http://Beyond Oblivion/[facility] OK[facility] CITYVitD The [employer] Vitamin D Immunoassay detects both 25-OH Vitamin D2 and 25-OH Vitamin D3, but only a total Vitamin D concentration is reported. Blood specimen (specimen) 05/19/2016 8:19 AM EDT 05/19/2016 8:23 AM EDT Narrative Resulting Agency Comment Spec In Lab Jeremy Ramirez MD CHEMISTRY ORDERABLE S Performing Organization Address City/[facility]/ZIP Co de Phone Number [facility] [place] [address] * PTH (05/19/2016 8:19 AM EDT) PTH 29 15 - 65 pg/mL [facility] Blood specimen (specimen) 05/19/2016 8:19 AM EDT 05/19/2016 8:23 AM EDT Narrative Resulting Agency Comment Spec In Lab Jeremy Ramirez MD CHEMISTRY ORDERABLE S Performing Organization Address [facility] Co de Phone Number [facility] [place] [address] * Ferritin (05/19/2016 8:19 AM EDT) Ferritin 150 15 - 150 ng/mL [facility] Comment: Pediatric reference ranges not verified at [facility], interpret with caution. Reference ranges for females greater than 50 years of age approach values for men, i.e., 30-400 ng/mL. Blood specimen (specimen) 05/19/2016 8:19 AM EDT 05/19/2016 8:23 AM EDT Narrative Resulting Agency Comment Spec In Lab Jeremy Ramirez MD CHEMISTRY ORDERABLE S Performing Organization Address City/[facility]/ZIP Co de Phone Number [facility] [place] [address] * (ABNORMAL) Iron and TIBC (05/19/2016 8:19 AM EDT) Pathologist [facility] Iron 63 30 - 150 mcg/dL [facility] TIBC 325 250 - 450 mcg/dL [facility] Iron Saturation 19(L) 20 - 50 % [facility] Blood specimen (specimen) 05/19/2016 8:19 AM EDT 05/19/2016 8:23 AM EDT Narrative Resulting Agency Comment Spec In Lab Jeremy Ramirez MD CHEMISTRY ORDERABLE S [facility] [place] [address] * (ABNORMAL) Comprehensive metabolic panel (non-fasting) (05/19/2016 8:19 AM EDT) [facility] Glucose Lvl 90 65 - 199 mg/dL [facility] Comment:Diabetes: >=200 mg/d L plus symptoms BUN 11 8 - 18 mg/dL [facility] Creatinine 0.77 0.70 - 1.20 mg/dL [facility] Comment: Please note that the pediatric reference intervals supplied above were not validated at [facility]. Results from pediatric patients should be interpreted in conjunction to the patient's age, height and muscle mass. Sodium 142 135 - 145 mmol/L [facility] Potassium 4.5 3.5 - 5.0 mmol/L [facility] Comment: Please note: ??Patients with WBC >100,000 may have falsely elevated Potassium levels. ??For accurate Potassium quantification in these patients send serum separator tube (gold top) for subsequent determinations. ??Contact the Clinical Chemistry Laboratory if there are any questions. Chloride 101 98 - 107 mmol/L [facility] CO2 26 22 - 31 mmol/L [facility] Anion Gap 15 5 - 15 mmol/L [facility] Calcium 10.2 8.5 - 10.5 mg/dL [facility] Total Protein 7.7 6.1 - 8.0 gm/dL [facility] Albumin 4.7 3.2 - 5.2 gm/dL [facility] AST 29 0 - 30 unit/L [facility] ALT 36(H) 0 - 30 unit/L [facility] Alk Phos 53 40 - 104 unit/L [facility] Total Bilirubin 0.3 0.2 - 1.3 mg/dL [facility] Bili, Direct 0.1 0.0 - 0.3 mg/dL [facility] Estimated GFR >60 >=60 [facility] Comment: This estimated GFR (eGFR) [...] the following links into your internet browser. [email or web address] Oblivion/DHnkdep [email or web address]ion/DHMCnkf Blood specimen (specimen) 05/19/2016 8:19 AM EDT 05/19/2016 8:23 AM EDT Narrative Resulting Agency Comment Spec In Lab Jeremy Ramirez MD CHEMISTRY ORDERABLE S Performing Organization Address City/State/[facility] Co de Phone Number [facility] [place] [address] * Hemogram (05/19/2016 8:19 AM EDT) WBC 5.8 4.0 - 9.5 x10(3)/[facility] RBC 4.76 4.00 - 5.21 x10(6)/[facility] Hemoglobin 13.7 11.7 - 15.5 gm/dL [facility] Hematocrit 42.3 35.7 - 45.8 % [facility] MCV 88.9 82.6 - 94.4 fL [facility] MCH 28.8 27.1 - 32.0 pg [facility] MCHC 32.4 31.7 - 35.0 gm/dL [facility] Platelets 231 145 - 357 x10(3)/[facility] LABORATORY RDWSD 42.4 37.0 - 46.0 fL [facility] RDWCV 13.0 11.5 - 14.1 % [facility] MPV 10.5 7.6 - 12.9 fL [facility] nRBC % Auto 0.0 % [facility] nRBC Abs Auto 0.000 0.000 - 0.000 x10(3)/[facility] Blood specimen (specimen) 05/19/2016 8:19 AM EDT 05/19/2016 8:23 AM EDT Narrative Resulting Agency Comment Spec In Lab Jeremy Ramirez MD HEMATOLOGY ORDERABL ES Performing Organization Address City/State/[facility] Co de Phone Number [facility] [place] [address] documented in this encounter Visit Diagnoses Diagnosis Obesity, unspecified obesity severity, unspecified obesity type Essential hypertension, hypertension with unspecified goal Hyperlipidemia, unspecified hyperlipidemia type Type 2 diabetes mellitus without complication Vitamin D deficiency Unspecified vitamin D deficiency documented in this encounter Care Teams Sheet Metal Assembler Relationship Specialty Start Date End Date Lew Beltran PA [address] [place] [id number] PCP - General General Internal Medicine 04/21/16 documented as of this encounter
--- OUTSIDE RECORDS SUMMARY | 2024-03-27 14:11 | XMS_ITS | Encounter Summary ---
Author Organization [facility] [address] [place] [address] Care Team Providers Care Security Checker Name Role Phone Sukhwinder Levi MD Primary Care Provider [phone] Encounter Details Date Type Department Care Team (Late st Contact Info) Description 03/26/2016 Telephone [place] [address] Jazzmine Jauregui Social History Tobacco Use Types Packs/Day Years Used Date Smoking Tobacco: Never Assessed Sex and Gender Information Value Date Recorded Sex Assigned at Not on file Gender Identity Not on file Sexual Orientation Not on file documented as of this encounter Miscellaneous Notes * Telephone Encounter - Jazzmine Jauregui - 03/26/2016 11:21 AM EDT Spoke on the phone with Radha to let her know that I received the information that she sent in to the bariatric surgery program. We reviewed her chart and it appears that she has everything that she needs for her pre-authorization (minus her most recent H&P and lab work which I will request). Iasked Radha if she kept any diet journals while she was seeing the dietitian and she said that she did and that she might still have them. I told her that if she does still have them then [facility] would like copies to include with her dietary notes. Radha is registered to come to another introductory meeting (04/10/16) and I asked her to hand in her sleep apnea worksheet and insurance worksheet at this meeting. I will request her weight history from her PCP's office when I call about the other needed information. documented in this encounter Plan of Treatment Not on file documented as of this encounter Visit Diagnoses Not on filedocumented in this encounter Care Teams Security Checker Relationship Specialty Start Date End Date Sukhwinder Levi MD [address] [place] [id number] PCP - General 07/29/10 04/20/16 documented as of this encounter
--- OUTSIDE RECORDS SUMMARY | 2024-03-27 14:11 | XMS_ITS | Encounter Summary ---
[place] [address] Care Team Providers Care Contamination Consultant Name Role Phone Lew Beltran Primary Care Provider [phone] Reason for Visit * Auth/Cert Specialty Diagnoses [...] Expiration Date Visits Re quested Visits Authorized [id number] 1 1 Encounter Details Date Type Department Care Team (Late st Contact Info) Description 08/13/2016 10:11 AM EST Anesthesia Event [place] [address] Pawel Smyth MD [facility] [place] [address] Anesthesia Record Procedure Summary Procedure Name Responsible Anesthesiologist Anesthesia Start Time Anesthesia Stop Time @LAPAROSCOPIC GASTROPLASTY W/ JM-EN-Y CONSTRUCTION (WRVU 29.4) (Abdomen) Pawel Smyth MD 08/13/16 1011 08/13/16 1358 Events Date Time Event Comment 08/13/2016 0912 1011 Start 1015 AN Verify 1016 An Start Data 1020 An Induction 1025 An Intubation 1027 Anesthesia Ready 1120 Break/Relief In PAWEL SANTACRUZ OT, MD 1152 Break/Relief Out 1345 Extubation/LMA Out 1347 an stop data 1358 Recovery or ICU Handoff Naima ent care was transferred to the destination unit staff after review of the patient's medical history, current anesthetic/surgical status and plan, according to the Provider Handoff Checklist. 1358 Stop Meds Name Total Midazolam 2 mg fentaNYL 200 mcg IV Lidocaine 60 mg Propofol 300 mg Rocuronium 80 mg PHENYLephrine 560 mcg ePHEDrine 20 mg Ondansetron 8 mg Neostigmine 3 mg Glycopyrrolate 0.4 mg ceFAZolin (ANCEF) 2g in dextrose 5% 50 m L 2 g Vasopressin 1 Units PHENYLephrine INF 5,090 mcg Propofol INF 899.1 mg lactated ringers infusion 1,000 mL 1,200 mL * Agents Name O2 Air N2O Sevoflurane (et) * Blood No blood administrations on file. Lines, Drains, and Airways Type Details Placement Removal Incision 08/13/16; abdomen; laparoscopic punctures (specify), transverse; 05/04/22 (LDA cleanup utility RA#[id number]); 1715 (LDA cleanup utility RA#[id number]) 08/13/16 0000 by Silvano Issa RN 05/04/22 1715 by Cail Whittaker (RETIRED) Peripheral IV Line - Single Lumen 08/13/16; 0921; cephalic vein (lateral side of arm), right; dvrh-lzx-[id number] catheter system; 18 gauge, 1 in length; William Victoria RN; distraction, intradermal injection, tolerated well, appears comfortable; 2 (NJL); median vein (underside of arm), left, basilic vein (medial side of arm), left; 08/15/16; 1227 08/13/16 0921 by Jennifer Frank RN 08/15/16 1227 by Deepthi Pereira RN NG/OG Tube 08/13/16; 1025; orogastric; 16 Fr; mouth; Secured; Stomach Suctioned; Pt arrived on the floor last night. without an NGT; 08/14/16; 0945 08/13/16 1025 by Aaron Barber CRNA 08/14/16 0945 by Shea Yung RN ETT Mask Ventilation: Yonny castellanos (1); ETT Type: Cuffed, Oral; ETT Size: 7 mm; Indirect: Video; Notes: Asleep, Pre-O2, Stylette; Attempts: 1; Laryngoscopy Grade: 1; ETT Placement Verified By: Auscultation, Capnometry, Visual; Secured at Teeth: 22 cm; Inserted by: Aaron Barber CRNA; Removal Date: 08/13/16; Removal Time: 1345 08/13/16 1025 by Aaron Barber CRNA 08/13/16 1345 by Aaron Barber CRNA (RETIRED) Peripheral IV Line - Single Lumen 08/13/16; 1042; other (see comments) (Left Chest); jnxj-lkp-ilfuga catheter system; 18 gauge; 08/13/16; 1729 08/13/16 1042 by Aaron Barber CRNA 08/13/16 1729 by Yoon Rios RN documented in this encounter Social History Tobacco Use Types Packs/Day Years Used Date Smoking Tobacco: Never Smokeless Tobacco: Never Alcohol Use Standard Drinks/Week Comments No 0 (1 standard drink = 0.6 oz pur e alcohol) Sex and Gender Information Value Date Recorded Sex Assigned at Not on file Gender Identity Not on file Sexual Orientation Not on file documented as of this encounter OR Notes * Anesthesia Postprocedure Evaluation - Pawel Smyth MD - 08/13/2016 2:44 PM EST [facility] Department of Anesthesiology Post-procedure Note Patient: Radha Pritchett Whipple Procedure Summary Date Anesthesia Start Anesthesia Stop Room / Location 08/13/16 1011 1358 [facility] OR 26 / [facility] MAIN OR Procedure Diagnosis Surgeon Responsible Provider @LAPAROSCOPIC GASTROPLASTY, (N/A Abdomen); ENDOSCOPY, UPPER GI, DIAGNOSTIC, WITH OR WITHOUT SPECIMENS (N/A ); LAPAROSCOPY, LYSIS OF ADHESIONS (N/A Abdomen) (OBESITY) Tonio Miles MD Pouliot, RyanC, MD All Anesthesia Providers: Anesthesiologist: Pawel Smyth MD RESIDENT MANAGER: Aaron Barber CRNA Last (1hr) Vitals: BP 90/43 (08/13/16 1354) Temp 36.2 ??C (97.2 ??F) (08/13/16 1350) Pulse 88 (08/13/16 1400) Resp 12 (08/13/16 1400) SpO2 100 % (08/13/16 1400) Patient Location: PACU/[facility] Level of Consciousness: Awake and Alert Pain Management: Satisfactory Analgesia PONV: None Cardiovascular Status: Hypotension (received treatment) Respiratory Status: Stable Respiratory Status and Supplemental O2 (NC or FM) Postoperative Fluid Status: Intravascular EUvolemia Possible Anesthetic Complications: NONE apparent at time of evaluation Final Primary Anesthesia Type: General (The anesthetic type performed was the same as planned.) Comments: * Anesthesia Preprocedure Evaluation - Pawel Smyth MD - 08/13/2016 8:20 AM EST Images from the original note were not included. Pre-Anesthesia Evaluation for: Radha Sena a 50 y.o. female. Procedure(s): @LAPAROSCOPIC GASTROPLASTY, ENDOSCOPY, UPPER GI, DIAGNOSTIC, WITH OR WITHOUT SPECIMENS LAPAROSCOPIC LIVER BIOPSY Patient Active Problem List Diagnosis ??? Hyperlipidemia ??? Chronic constipation ??? Preoperative Class II obesity BMI 36.6, RNY gastric bypass planned 08/13/16 Bariatric Surgery Program 1. Attended Introduction to the [facility] Bariatric Surgery Program seminar, a comprehensive two hour meeting that provides a program overview, education on bariatric surgeries offered at [facility], risks andbenefits, as well as patient expectations and follow up: 04/2016 [facility] BSP Educational seminars viewed: 3 Grades on post-testin-100% The [facility]SP Educational Handbook is provided at preoperative visit #1. 2. Pre-operative programmatic evaluations required: PCP evaluation and letter of support to proceedwith surgery, [facility]SP labwork (can be done on day of visit #1) and psychological evaluation- minimum of2 visits. 3. Bariatric Surgery Program evaluations with RD and DIRECTOR OF HEALTHCARE SYSTEMS: 05/19/16 4. Weight history: 229 pounds on 09/28/14 5. Gallbladder status: intact 6. Insurer specific requirements: [place] [employer] 3 months nutrition counseling completed 7. BSP Team meeting discussion: N/A Patient insight into causes of obesity: onset age 10, eating for emotional well being, inactivity and overconsumption ??? Essential hypertension ??? Diabetes mellitus type 2, uncomplicated ??? Sinus tachycardia ??? History of rectal bleeding Colonoscopy done on 08/09/15 normal, attributed to constipation No past medical history on file. Past Surgical History Procedure Laterality Date ??? section 1985, 1990 ??? Tubal ligation Bilateral ??? Tubal reversal ~1995 ??? Carpal tunnel release Bilateral 2014 ??? Wrist ganglion excision Left ~1992 ??? Salpingo-oophorectomy Right 08/16/2013 complex right ovarian hemorrhagic corpus luteum cyst. Prominent adhesive disease within the pelvis-dense adhesions of pericolic fat, intraperitoneal fat oriented in a AP direction and spanning the entirety of the lower pelvis. The uterus could not be identified. The ovaries could not be seen. Social History Substance Use Topics ??? Smoking status: Never Smoker ??? Smokeless tobacco: Never Used ??? Alcohol use Not on file History Drug Use Not on file No Known Allergies Medications: MAR and/or home medications have been reviewed. Physical Exam: There were no vitals filed for this visit. There is no height or weight on file to calculate BMI. Airway Assessment: Mallampati: III TM distance: >3 FB Neck ROM: full Cardiovascular Assessment: Pulmonary Assessment: Dental Assessment: Misc Assessment: Anesthesia Plan: ASA 3 general, with a(n) intravenous induction 50 y/o woman with a PMH of HTN/HLD, sinus tachycardia, DM2 and obesity who presents for laparoscopic gastroplasty. Reportedly tolerated GA in 2010 for ovarian cystectomy. Did have evaluation including Holter monitor, stress test and echo for tachycardia - found to likely have sinus tachycardia due to deconditioning. Heart structurally normal with normal EF, some borderline LVH. Stress negative. Plan for GA, ETT, adequate IV access. Region - Other Informed Consent: Anesthetic plan and risks discussed with patient. Use of blood products discussed with patient who consented to blood products. Plan discussed with RESIDENT MANAGER. PAT Staff Note documented in this encounter Plan of Treatment Not on file documented as of this encounter Visit Diagnoses Not on filedocumented in this encounter Administered Medications Inactive Administered Medications - up to 3 most recent administrations Medication Order MAR Action Action Date Dose Rate Site ceFAZolin (ANCEF) 2g in dextrose 5% 50 mL 2 g, Intravenous, EVERY 3 HOURS, 1 dose, First dose on Laura 08/13/16 at 0845, Administer over 30 Minutes, Intra-Operative (Intra-Procedure), Indication for (Active or Suspected): Prophylaxis Given 08/13/2016 10:27 AM EST 2 g ePHEDrine 5 mg/mL multi-dose injection PRN, Starting on Laura 08/13/16 at 1029, Until Laura 08/13/16 at 1358, Anesthesia Intra-op, Routine Given 08/13/2016 10:34 AM EST 10 mg Given 08/13/2016 10:29 AM EST 10 mg fentaNYL 50 mcg/mL multi-dose injection PRN, Starting on Laura 08/13/16 at 1020, Until Laura 08/13/16 at 1358, Pain, Anesthesia Intra-op, Routine Given 08/13/2016 1:09 PM EST 25 mcg Given 08/13/2016 12:35 PM EST 25 mcg Given 08/13/2016 11:05 AM EST 50 mcg glycopyrrolate (ROBINUL) multi-dose injection PRN, Starting on Laura 08/13/16 at 1320, Until Laura 08/13/16 at 1358, Anesthesia Intra-op, Routine Given 08/13/2016 1:20 PM EST 0.4 mg lactated ringers infusion 1,000 mL 1,000 mL, at 100 mL/hr, Intravenous, CONTINUOUS, Starting on Laura 08/13/16 at 0845, Until Laura 08/13/16 at 1526, Day of Surgery (Day of Procedure) New Bag 08/13/2016 12:47 PM EST New Bag 08/13/2016 10:11 AM EST New Bag 08/13/2016 9:23 AM EST 1,000 mLs 100 mL/hr lidocaine (PF) (XYLOCAINE) 100 mg/5 mL (2 %) injection PRN, Starting on Laura 08/13/16 at 1021, Until Laura 08/13/16 at 1358, Anesthesia Intra-op, Routine Given 08/13/2016 10:21 AM EST 60 mg midazolam (PF) (VERSED) 1 mg/mL multi-dose injection PRN, Starting on Laura 08/13/16 at 1011, Until Laura 08/13/16 at 1358, Sleep, Anesthesia Intra-op, Routine Given 08/13/2016 10:11 AM EST 2 mg neostigmine (PROSTIGMINE) multi-dose injection PRN, Starting on Laura 1216 at 1320, Until Laura 16 at 1358, Anesthesia Intra-op, Routine Given 08/13/2016 1:20 PM EST 3 mg ondansetron (ZOFRAN) injection PRN, Starting on Laura 12 at 1320, Until Laura 12 at 1358, Nausea, Anesthesia Intra-op, Routine Given 08/13/2016 1:20 PM EST 8 mg PHENYLephrine (BAUTISTA-SYNEPHRINE) 20 mg in sodium chloride 250 mL (standard ADULT & Miguelina greater than 20kg) infusion CONTINUOUS PRN, Starting on Laura 08/13/16 at 1101, Until Laura 08/13/16 at 1358, Anesthesia Intra-op, Routine Rate/Dose Change 08/13/2016 1:28 PM EST 10 mcg/min 7.5 mL/hr Rate/Dose Change 08/13/2016 1:10 PM EST 20 mcg/min 15 mL/h r Rate/Dose Change 08/13/2016 12:06 PM EST 40 mcg/min 30 mL/ hr PHENYLephrine HCl in NS (PF) (BAUTISTA-SYNEPHRINE) 0.8 mg/10 mL (80 mcg/mL) multi-dose injection Syrg PRN, Starting on Laura 08/13/16 at 1028, Until Laura 08/13/16 at 1358, Anesthesia Intra-op, Routine Given 08/13/2016 10:58 AM EST 160 mcg Given 08/13/2016 10:36 AM EST 160 mcg Given 08/13/2016 10:32 AM EST 160 mcg propofol (DIPRIVAN) 10 mg/mL bolus injection (Anesthesia) PRN, Starting on Laura 12 at 1021, Until Laura 08/13/16 at 1358, Anesthesia Intra-op Given 08/13/2016 10:24 AM EST 50 mg Given 08/13/2016 10:22 AM EST 50 mg Given 08/13/2016 10:21 AM EST 200 mg propofol (DIPRIVAN) infusion CONTINUOUS PRN, Starting on Laura 12 at 1031, Until Laura 08/13/16 at 1358, Anesthesia Intra-op, Routine New Bag 08/13/2016 10:31 AM EST 50 mcg/kg/min 30 mL/hr rocuronium (ZEMURON) multi-dose injection PRN, Starting on Laura 08/13/16 at 1022, Until Laura 08/13/16 at 1358, Anesthesia Intra-op, Routine Given 08/13/2016 12:35 PM EST 10 mg Given 08/13/2016 11:57 AM EST 10 mg Given 08/13/2016 11:23 AM EST 10 mg vasopressin (VASOSTRICT) injection PRN, Starting on Laura 08/13/16 at 1035, Until Laura 08/13/16 at 1358, Bleeding, Anesthesia Intra-op, Routine Given 08/13/2016 10:35 AM EST 1 Units documented in this encounter Care Teams Contamination Consultant Relationship Specialty Start Date End Date Lew Beltran PA [address] [address] PCP - General General Internal Medicine 04/21/16 documented as of this encounter
--- OUTSIDE RECORDS SUMMARY | 2024-03-27 14:11 | XMS_ITS | Encounter Summary ---
Author Organization [facility] [place] [address] Care Team Providers Care Battery Container Finishing Hand Name Role Phone Lew Beltran Primary Care Provider [phone] Reason for Visit * Reason Comments Patient Education Bariatric Surgery Pr ogram preoperative class SMA Encounter Details Date Type Department Care Team (Late st Contact Info) Description 07/17/2016 9:30 AM EST Office [place] [address] Cindy Lopez, CHANGE NUMBER OPERATOR [facility] [place] [address] Fawn Wang, BRITTNEE Essential hypertension; Obesity, Class II, BMI 35-39.9 Social History Tobacco Use Types Packs/Day Years Used Date Smoking Tobacco: Never Smokeless Tobacco: Never Sex and Gender Information Value Date Recorded Sex Assigned at Not on file Gender Identity Not on file Sexual Orientation Not on file documented as of this encounter Patient Instructions * Patient Instructions* Cindy Lopez - 07/17/2016 9:30 AM EST BARIATRIC SURGERY DISCHARGE INFORMATION CONTACT INFORMATION: [phone] Surgeons: Ashley Smyth and Jd [phone] [employer]: [phone] (Wednesday through Wednesday, 8:00 AM -5:00 PM) Dietitians: [phone] Non-business hours: [phone], ask for general surgeon extension work instructor FOR EMERGENCIES: CALL 911 (trouble breathing, chest pain, severe abdominal pain or rapid heart beat>120 (30 beats in 15 seconds) CALL FOR ANY OF THE FOLLOWING: ??? Signs and symptoms of infection such as: o Redness or swelling o Drainage or bleeding o Fever over 100.5 F o Increased pain or discomfort at the incision site ??? Persistent vomiting or if you are unable to keep food or fluids down in a 24 hour period. ??? Signs and symptoms of a blood clot: new leg swelling or redness, pain in leg, shortness of breath ??? Any concerns, such as problems with urination, bowels, bleeding, pain or leg swelling BATHING AND WOUND CARE: You may shower at 2 days post-op. ??? Wash incisions with soap, water rinse, pat dry and leave open to air if not draining. ??? Steri-strips may be removed or will fall off in 7-10 days. Pat dry if they become wet. ??? Do not soak wound for 2 weeks after laparoscopic surgery and 3 weeks after open surgery. ACTIVITY, LIFTING AND DRIVING: Daily walking is encouraged as tolerated. ??? For laparoscopic surgery: there are no lifting restrictions. Lift when you feel comfortable. ??? For all patients: Do not drive for 2 weeks. After [address] when comfortable and not taking narcotic pain medicine. DIET: follow Stage II diet for two weeks. ??? Log intake. Daily goals are: 48-64 ounces of fluids and 60 grams of protein. MEDICATIONS: For 2 WEEKS ONLY: LARGE pills (bigger than the size of a calcium pill) must be crushed, or broken into small pieces. ??? Pills smaller than the size of a Tylenol DO NOT need to be crushed. Not all medications can be crushed. Check with your pharmacist first. BLOOD CLOT PREVENTION: ?? You do not meet scoring criteria to be discharged on medication to prevent blood clots. Be active, walk at least 4 times a day and do blood clot prevention exercises in your handbook on page 82. ULCER PREVENTION: omeprazole 20 mg daily must be taken for 3 MONTHS after surgery: Take this to prevent ulcers, even if you do not have heartburn. The prescription may be refilled after the [...] as pantoprazole, please purchase over the counter. GALLSTONE PREVENTION: (ONLY if you have a gallbladder): ??? Take Ursodiol (Actigall) 300 mg twice a day. START: 2 weeks after surgery, take for 6 months then stop unless otherwise directed. The start date and end date are written on the prescription. PAIN MEDICATION: Take only if needed -Take [...] softener such as Miralax to prevent this. MEDICATIONS TO AVOID FOR TWO MONTHS AFTER SURGERY: ??? Avoid anti-inflammatory non-steroidal medications, such as Advil, Aleve, etc. Refer to Medications that may increase the risk of bleeding in handbook. ??? If you take aspirin for your heart or to prevent strokes, continue as prescribed. PATIENTS WITH DIABETES: the inpatient team will advise you about your diabetes medications ??? Follow up with primary care provider or digital advertising specialist in 1-2 weeks. Bring meter to appointments. PATIENTS WITH HIGH BLOOD PRESSURE: Monitor your blood pressure regularly. ??? If you feel dizzy and have been drinking 48-64 ounces of fluid, have your blood pressure checked. ??? If your blood pressure is low, call your primary care provider. Keep a log to bring to your PCPappointments. PATIENTS WHO TAKE DIURETICS (MEDICATION FOR SWELLING WATER PILLS): HOLD triamterene/ hydrochlorthiazide ??? Check with your surgical team prior to discharge for instructions. In general, this medication can be decreased or stopped after surgery, since it may cause dehydration. ??? Monitor closely for increased swelling after discharge, and call your primary care doctor if swelling increases. PATIENTS ON ANTI-DEPRESSANT OR MENTAL HEALTH MEDICATIONS: Do not stop or decrease your medications unless advised. Ongoing counseling is encouraged. VITAMIN AND MINERAL SUPPLEMENTATION: Vitamin B12 500 mcg pill daily. Complete multivitamin w/ minerals Chewable, one pill twice daily. After 2 weeks may take regular vitamin pills. Calcium Calcium citrate 600 mg with vitamin D 400 units twice a day between meals. Iron with vitamin C Take iron as instructed per Handbook- (only if you have anemia, iron deficiencyor regular menses) FOLLOW-UP CARE: ??? See your PCP 10-14 days after surgery for wound and vital signs check. ??? See your surgeon and dietitian at 3 weeks after surgery ??? See the dietitian and nurse practitioner at 4, 12, 18, and 24 months, then yearly for life. documented in this encounter Progress Notes * Cindy Lopez - 07/17/2016 9:30 AM EST Radha attended a comprehensive two hour pre-operative class today, which included discussion of preand post operative instructions included in the [facility] Bariatric Surgery [facility] Education Handbook. The one hour nutrition component of the class was taught by the BSP RD. OR date: 08/13/[address] Miles Individualized plan of care: ?? Close blood pressure monitoring post discharge. (she does not self-monitor glucose ?? Hold triamterene/ HCTZ Recommendations for post discharge VTE prophylaxis (unless change in condition during hospitalization that would contraindicate treatment): Post discharge enoxaparin not indicated Prescriptions provided at today's visit: (faxed to pharmacy) 1. Ursodiol 300 mg BID x 6 months, to start at 2 weeks post-operatively for cholelithiasis prevention 2. Omeprazole 20 mg once daily x 3 months, to start upon discharge for ulcer prevention. May be refilled if symptomatic. OTC Vitamin and mineral supplements required post discharge: ?? Multivitamin with minerals twice daily ?? Vitamin B12 500 mcg by mouth once daily ?? Calcium citrate 600 mg with Vitamin D 400 units twice daily ?? Iron with Vitamin C, 50-66 mg once daily (take iron with vitamin C 550 mg to help with absorption) for patients with iron deficiency, anemia or menstruating females Bariatric Surgery Program Pathway and review of status with the requirements of the Bariatric Surgery Program 1. Education: She previously attended a Introduction to the [facility] Bariatric Surgery Program seminar, a two hour meeting that provides a program overview as well as expectations. The [facility] Bariatric Surgery Program Educational seminar requirement (3 seminars with post-testing) has been met. The [facility] Educational Handbook was provided at visit #1. 2. Pre-operative programmatic evaluations have been done, as noted in previous pathway review. 3. Bariatric Surgery Program evaluations with RD and GRINDER DRESSER have taken place, as noted in previous pathway documentation 4. Weight requirements have been achieved and documented. 5. All pre-operative requirements were achieved. 6. Surgical consultation has taken place, and she has been approved to proceed with surgery by surgeon and insurer. Next steps in pathway: ?? During hospitalization for bariatric surgery, a standard bariatric surgery order set is followed. ?? Routine post-operative follow up with labwork is done at months 1,4,12,18 and 24, yearly thereafter, and PRN. High risk patients are followed more frequently. Some of the topics reviewed during group discussion today included: ?? day of surgery and post-op routine care/ locations: Admissions/SDP/PACU//3/2 [place] units ?? medications that increase the risk of bleeding including NSAIDS, ASA and Plavix to be avoided per guidelines pre and post-operatively ?? DVT/VTE prevention and signs of DVT/PE. ?? Inpatient management for VTE prevention: venodynes, ambulation, Enoxaparin 40 units BID during inpatient stay. ?? Indications for extended Enoxaparin 10 days post discharge: A. patients with BMI >60 or prior VTE OR B. 2 or more of the following: age >50, BMI >50, male gender, sleep apnea, varicose veins, venous insufficiency, history of oral contraceptive or hormone or post-menopausal hormone replacement use within 30 days of surgery, and recent smoking ?? guidelines for patients on Coumadin per prescribing physician or Anticoagulation Clinic ?? diabetes and hypertension monitoring post-operatively ?? signs and symptoms of infection as well as emergency signs and symptoms ?? common post-operative complaints ?? management of sleep apnea during hospitalization and post operatively. The importance of post-operative follow-up with Sleep Center after weight loss was stressed. ?? recommendations for psychiatric medications: should continue uninterrupted after surgery ?? activity post surgery/ return to work recommendations ?? pre-operative and post-operative dietary recommendations ?? post-op vitamin and mineral supplementation ?? routine BSP post-operative follow-up: 3 weeks. 4, 12,18, 24 months and yearly for LIFE ?? routine Primary Care post-operative follow up: at 10-14 days after surgery to monitor chronic health problems such as diabetes and hypertension, since the requirement for antihypertensive and diabetic medications may decrease or be discontinued A preliminary copy of the discharge instructions was provided, which is also available in the patient handbook. Radha appeared to have a good understanding of the information presented, and asked appropriate questions. She satisfactorily completed the post-test administered, and achieved a grade of 100%. All her questions were answered. Time spent in individual counseling and coordination of care: 5 minutes Time spent in group counselin minutes * Fawn Wang - 07/17/2016 9:30 AM EST Radha attended a comprehensive two hour pre-operative class today, which included discussion of preand post operative instructions included in the [facility] Bariatric Surgery Program Education Handbook. One hour of today's group visit was spent in review of dietary and post op vitamin and mineral supplementation. Some of the topics reviewed today included: ??? pre-operative and post-operative dietary recommendations ??? post-op vitamin and mineral supplementation Radha appeared to have a good understanding of the information presented, and asked appropriate questions. All her questions were answered. documented in this encounter Plan of Treatment Not on file documented as of this encounter Visit Diagnoses Diagnosis Essential hypertension Unspecified essential hypertension Obesity, Class II, BMI 35-39.9 Obesity, unspecified documented in this encounter Care Teams Battery Container Finishing Hand Relationship Specialty Start Date End Date Lew Beltran PA [address] [place] [id number] PCP - General General Internal Medicine 04/21/16 documented as of this encounter
--- OUTSIDE RECORDS SUMMARY | 2024-03-27 14:11 | XMS_ITS | Encounter Summary ---
Author Organization [facility] [place] [address] Care Team Providers Care Diesel Pile Hammer Operator Name Role Phone Lew Beltran Primary Care Provider [phone] Encounter Details Date Type Department Care Team (Late st Contact Info) Description 04/23/2016 Notes Only [place] [address] Cindy Lopez, CHEMICAL HANDLER [facility] [place] [address] Social History Tobacco Use Types Packs/Day Years Used Date Smoking Tobacco: Never Assessed Sex and Gender Information Value Date Recorded Sex Assigned at Not on file Gender Identity Not on file Sexual Orientation Not on file documented as of this encounter Progress Notes * Cindy Lopez - 04/23/2016 4:15 PM EDT Bariatric Surgery Program Pre-visit Chart Review Chart review was done. __x__ Initial appointments will be scheduled. The following information is needed: Lab _x__ copy of recent labwork done aft July 2015. Non-fasting labwork can be done on day of initial visit Primary care information: __x_copy of recent comprehensive history and physical exam by primary care physician within the past year, with discussion of weight loss attempts- scheduled 04/28/16 documented in this encounter Plan of Treatment Not on file documented as of this encounter Visit Diagnoses Diagnosis Obesity, unspecified obesity severity, unspecified obesity type documented in this encounter Care Teams Diesel Pile Hammer Operator Relationship Specialty Start Date End Date Lew Beltran PA [address] [place] [id number] PCP - General General Internal Medicine 04/21/16 documented as of this encounter
--- OUTSIDE RECORDS SUMMARY | 2024-03-27 14:11 | XMS_ITS | Encounter Summary ---
Author Organization [facility] [place] [address] Care Team Providers Care Chemist Proteins Name Role Phone Lew Beltran Primary Care Provider [phone] Encounter Details Date Type Department Care Team (Late st Contact Info) Description 06/08/2016 10:40 AM EDT Office Visit [place] [address] Tonio Miles MD [facility] [address] [place] [address] Morbid obesity, unspecified obesity type Social History Tobacco Use Types Packs/Day Years Used Date Smoking Tobacco: Never Smokeless Tobacco: Never Sex and Gender Information Value Date Recorded Sex Assigned at Not on file Gender Identity Not on file Sexual Orientation Not on file documented as of this encounter Progress Notes * Tonio Miles MD - 06/08/2016 10:40 AM EDT Radha Sena is a 50 y.o. female who is [...] The ovaries could not be seen. ??? triamterene-hydrochlorothiazide (DYAZIDE) 37.5-25 mg Capsule ??? simvastatin [...] ??? VITAMIN B COMPLEX (B COMPLEX ORAL) No Known Allergies Her history otherwise is well documented in the workup by Cindy Lopez APRN She had a number of questions regarding the procedure and I spent approximately 15 to 20 minutes ofour 30-minute visit discussing the pros and cons of bariatric surgery and our outcomes here at [facility]. We went over the small but significant [...] should other problems develop in the interim. documented in this encounter Plan of Treatment Not on file documented as of this encounter Visit Diagnoses Diagnosis Morbid obesity, unspecified obesity type documented in this encounter Care Teams Chemist Proteins Relationship Specialty Start Date End Date Lew Beltran PA [address] [place] [id number] PCP - General General Internal Medicine 04/21/16 documented as of this encounter
[2024-03-27 20:30] LABS: COMMENT (LAB VIEW ONLY) 94.55 mg/dL; Microalb ug/mg Crea 4.8 ug/mg Cr
== END 2024-03-27 13:51 | disposition home or self-care (01) ==
LOC: NCHCN 13:50
PROVIDERS: PCP Internal Medicine; Visit Provider Internal Medicine
DX: I10 Essential (primary) hypertension (principal)
CPT/HCPCS: 82043; 82570

== ENCOUNTER 2024-09-14 15:01 | Outpatient (REF) | payer BC, SELFPAY ==
[2024-09-14 20:07] LABS: ALT 41 U/L (14-59); AST 27 U/L (15-37); Albumin 4.5 g/dL (3.4-5.0); Alkaline Phosphatase 77 U/L (46-116); Anion Gap 5.2 mmol/L (3-11); BUN 13 mg/dL (7-18); Bilirubin, Total 0.61 mg/dL (0.2-1.0); CO2 31.8 mmol/L (21.0-32.0); CREATININE 0.8 mg/dL (0.55-1.02); Calcium 10.5 mg/dL (8.5-10.1); Calculated LDL 51 mg/dL (<100); Chloride 103 mmol/L (98-107); Cholesterol 136 mg/dL (<200); Estimated GFR 85.35 (mL/min/1.73m2); Glucose 111 mg/dL (74-106); HDL Cholesterol 68 mg/dL (40-60); Potassium 4.5 mmol/L (3.5-5.1); Sodium 140 mmol/L (136-145); TSH 1.86 uIU/mL (0.36-3.74); Total Protein 8.2 g/dL (6.4-8.2); Triglyceride 89 mg/dL (<150)
== END 2024-09-14 15:02 | disposition home or self-care (01) ==
LOC: NCHCN 15:01
PROVIDERS: PCP Internal Medicine; Visit Provider Internal Medicine
DX: I10 Essential (primary) hypertension (principal); E11.9 Type 2 diabetes mellitus without complications
CPT/HCPCS: 80053; 80061; 84443

== ENCOUNTER 2025-06-11 20:11 | Outpatient (REF) | payer BC, SELFPAY ==
[2025-06-11 20:09] LABS: ALT 53 U/L (14-59); AST 29 U/L (15-37); Albumin 4.3 g/dL (3.4-5.0); Alkaline Phosphatase 70 U/L (46-116); Anion Gap 6.3 mmol/L (3-11); BUN 11 mg/dL (7-18); Bilirubin, Total 0.8 mg/dL (0.2-1.0); CO2 31.7 mmol/L (21.0-32.0); Calcium 9.8 mg/dL (8.5-10.1); Calculated LDL 44 mg/dL (<100); Chloride 103 mmol/L (98-107); Cholesterol 120 mg/dL (<200); Estimated GFR 103.33 (mL/min/1.73m2); Glucose 90 mg/dL (74-106); HDL Cholesterol 61 mg/dL (>or=50); Potassium 4.7 mmol/L (3.5-5.1); Sodium 141 mmol/L (136-145); Total Protein 7.5 g/dL (6.4-8.2); Triglyceride 75 mg/dL (<150)
== END 2025-06-11 20:12 | disposition home or self-care (01) ==
LOC: NCHCN 20:11
PROVIDERS: PCP Internal Medicine; Visit Provider Internal Medicine
DX: K76.0 Fatty (change of) liver, not elsewhere classified (principal)
CPT/HCPCS: 80053; 80061